=== PATIENT | male | born 1940 | race Caucasian/White ===

== ENCOUNTER → 2016-05-24 | Outpatient (CLI) | payer MEDICARE ==
[2016-05-24 10:18] LABS: Blood Urea Nitrogen 13 mg/dL (9-20); Non-African American GFR(MDRD) >60 (>60 ml/min/1.73 sqM)
--- NOTE | 2016-05-24 14:01 | CT ---
EXAMINATION TYPE: CT angio thoracic/abd aorta DATE OF EXAM: 05/24/2016 11:11 AM COMPARISON: 06/29/2015 HISTORY: 76-year-old male Follow up to aneurysm TECHNIQUE: Contiguous axial scanning of the chest, abdomen, and pelvis performed without and with IV Contrast, patient injected with 100 ml mL of Omnipaque 350. Coronal/sagittal MIP reconstructions perf ormed. 3-D reconstructions generated on a dedicated independent workstation. CT DLP: 3123.1 mGycm Automated exposure control for dose reduction was used. FINDINGS: CHEST: Heart is upper limits of normal in size without pericardial effusion. Mitral annular calcifications a re present as well as coronary vessel calcifications are present and are a marker for coronary artery disease. There is essentially stable aneurysm of the ascending aorta at 4.0 cm. There is conventional arch ves sarwat branching anatomy with mild atherosclerotic arch calcifications and mild aneurysm of the upper de scending thoracic aorta at 3.2 cm. There is tortuosity of the thoracic aorta without evidence for dis section or acute intramural hematoma. Scattered nonenlarged mediastinal lymph nodes are present. There is also mild asymmetric left greater than right gynecomastia. Evaluation of the lungs show some patchy atelectasis or scarring at the right base without consolidat ion or pleural effusion. ABDOMEN: Early arterial phase imaging of the liver, gallbladder, adrenal glands, kidneys, spleen, and pancreas show no gross abnormality. No dilated small bowel, free fluid, or free air. No mesenteric or retroperitoneal lymphadenopathy. Redemonstrated moderate sized fatty umbilical hernia. Normal appendix. There is mild stool burden and left hemicolonic diverticulosis greatest in the proxi mal to mid sigmoid colon. Moderate atherosclerotic calcifications within the abdominal aorta with mild atherosclerotic narrowin g at the origin of the celiac axis and SMA. There are 2 left renal arteries and a pak right steven al artery with mild to moderate atelectatic narrowing at their origins. BARRERA is patent. There is mild fusiform dilatation of the infrarenal abdominal aorta measuring up to 2.8 cm. Pelvis: Circumferential bladder wall thickening is noted. Prostate gland is prominent measuring at least 5.0 cm wide. No abnormal fluid collection in the pelvis or pelvic lymphadenopathy seen along 4 prominent metal hardware artifact relating to the patient's right hip total arch plasty. Mild atherosclerotic calcifications continue into the iliac arteries. There is ectasia/borderline ane urysm of the common iliac arteries at 1.6 and 1.5 cm on the right and left sides, respectively. Bones: Right hip total arthroplasty with degenerative changes at the right SI joint and mid to lower lumbar spine. Endplate spondylosis particularly in the mid thoracic spine. No osseous destructive process. IMPRESSION: 1. 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 2. FUSIFORM ECTASIA OF THE INFRARENAL ABDOMINAL AORTA AT 2.8 CM, STABLE. 3. ECTASIA/BORDERLINE ANEURYSMS OF THE RIGHT AND LEFT COMMON ILIAC ARTERIES AT 1.6 AND 1.5 CM, RESPEC TIVELY, ALSO UNCHANGED. 4. SIGMOID DIVERTICULOSIS AND REDEMONSTRATED MODERATE SIZED FATTY UMBILICAL HERNIA. 5. CIRCUMFERENTIAL BLADDER WALL THICKENING COULD REPRESENT CYSTITIS OR CHRONIC BLADDER WALL HYPERTROP HY. 6. PROSTATOMEGALY (AT LEAST 5.0 CM WIDE).
== END | disposition home or self-care (01) ==
LOC: RADCTMAIN 09:46
PROVIDERS: ATTEND Internal Medicine Interventional Cardiology
DX: I71.2 Thoracic aortic aneurysm, without rupture (principal); I77.811 Abdominal aortic ectasia; N40.0 Benign prostatic hyperplasia without lower urinary tract symptoms; K57.30 Diverticulosis of large intestine without perforation or abscess without bleeding; K42.9 Umbilical hernia without obstruction or gangrene; N32.89 Other specified disorders of bladder
CPT/HCPCS: 82565; 84520; 75635; 71275; 36415; Q9967

== ENCOUNTER → 2016-09-19 | Outpatient (CLI) | payer MEDICARE ==
[2016-09-19 12:18] LABS: Basophils # (A) 0.1 k/uL (0-0.2); Basophils % (A) 1 %; CH 30.8; CHCM 32.4; Eosinophils # (A) 0.5 k/uL (0-0.7); Eosinophils % (A) 5 %; HCT 48.4 % (39.0-53.0); HGB 15.5 gm/dL (13.0-17.5); Luc # (Auto) 0.27; Luc % (Auto) 3; Lymphocytes # (A) 2.3 k/uL (1.0-4.8); Lymphocytes % (A) 26 %; MCH 30.5 pg (25.0-35.0); MCV 95.4 fL (80.0-100.0); Mean Platelet Volume 8.4; Monocytes # (A) 0.6 k/uL (0-1.0); Monocytes % (A) 7 %; Neutrophils # (A) 5.1 k/uL (1.3-7.7); Neutrophils % (A) 57 %; RBC 5.08 m/uL (4.30-5.90); RDW 14.3 % (11.5-15.5); WBC 8.9 k/uL (3.8-10.6); WBC (Perox) 8.55
[2016-09-20 15:16] LABS: Alternaria alternata IgE <0.35 kU/L (<0.35); Asperg. fumagatus IgE <0.35 kU/L (<0.35); Asperg. fumagatus IgE Class CLASS 0; Birch(Com.Silvr) IgE Class CLASS 0; Cat Epith & Dander IgE <0.35 kU/L (<0.35); Cat Epith & Dander IgE Class CLASS 0; Clad herbarum IgE <0.35 kU/L (<0.35); Clad herbarum IgE Class CLASS 0; Common Ragweed IgE Class CLASS 0; Dermato. Pteronyssinus Class CLASS 0; Dermato. Pteronyssinus IgE <0.35 kU/L (<0.35); Dermato. farinae IgE <0.35 kU/L (<0.35); Dermato. farinae IgE Class CLASS 0; IgE (Allergen) 15.5 IU/mL (<114.0); Maple (Box Elder) IgE <0.35 kU/L (<0.35); Maple (Box Elder) IgE Class CLASS 0; Mountain Cedar IgE <0.35 kU/L (<0.35); Mountain Cedar IgE Class CLASS 0; Mouse Urine IgE Class CLASS 0; Mouse Urine Proteins,IgE <0.35 kU/L (<0.35); Mulberry IgE Class CLASS 0; Nettle IgE <0.35 kU/L (<0.35); Nettle IgE Class CLASS 0; Oak IgE <0.35 kU/L (<0.35); Penicillium notatum IgE Class CLASS 0; Rough Marshelder IgE <0.35 kU/L (<0.35); Rough Marshelder IgE Class CLASS 0; Timothy Grass IgE <0.35 kU/L (<0.35); Timothy Grass IgE Class CLASS 0; White Ash IgE Class CLASS 0
[2016-09-25 00:48] LABS: Alternaria tenius IgG 2.5 mcg/mL (< 13.6); Cladosporium herbarium IgG 19.4 mcg/mL (< 14.7); Phoma ssp. IgG 2.6 mcg/mL (< 6.6); Saccaharomospora viridis Not detected (Not detected); Saccaharopoly. rectivirgula Not detected (Not detected)
== END | disposition home or self-care (01) ==
LOC: LABWHC1 11:43
PROVIDERS: ATTEND Internal Medicine Sleep Medicine
DX: J45.909 Unspecified asthma, uncomplicated (principal); B44.89 Other forms of aspergillosis
CPT/HCPCS: 36415; 82785; 85025; 86001; 86003; 86606; 86609

== ENCOUNTER → 2017-06-22 | Outpatient (CLI) | payer MEDICARE ==
[2017-06-22 10:50] LABS: Blood Urea Nitrogen 10 mg/dL (9-20)
--- NOTE | 2017-06-22 14:52 | CT ---
CT CHEST FOR PULMONARY EMBOLISM. EXAMINATION TYPE: CT angio chest DATE OF EXAM: 06/22/2017 INDICATION: Thoracic aortic aneurysm without rupture CT DLP: 1023 mGycm, Automated exposure control for dose reduction was used. CONTRAST: Patient injected with 100 ml mL of Omnipaque 350. COMPARISON: 11/13/2011, CTA 05/24/2016 TECHNIQUE: CT of the chest is performed on a spiral scan at 2 mm thick sections. Study is performed with intravenous contrast timed for evaluation for pulmonary embolism. This will limit additional po rtions of the evaluation. 3-D MIP images reconstructed by the technologist are reviewed on the compu ter in the coronal and sagittal planes. FINDINGS: No persistent filling defects are evident to suggest an acute pulmonary embolism. No mediastinal or hilar adenopathy enlarged by CT criteria is evident. The ascending aorta diameter at the level of the main pulmonary artery is 4.2 cm. The main pulmonary artery diameter at the bifur cation is 2.6 cm. Coronary artery calcification is present. Lung windows are clear. Limited CT section through the upper abdomen are unremarkable. IMPRESSIONS: 1. Ascending thoracic aortic aneurysm. 2. No acute pulmonary process.
== END | disposition home or self-care (01) ==
LOC: RADCTMAIN 09:55
PROVIDERS: ATTEND Internal Medicine Interventional Cardiology
DX: I71.2 Thoracic aortic aneurysm, without rupture (principal)
CPT/HCPCS: 82565; 84520; 71275; 36415; Q9967

== ENCOUNTER 2018-05-07 20:39 | Observation (INO) | payer MEDICARE ==
[2018-05-07] MEDS ORDERED: ASPIRIN 81 MG PO STA (21:05)
--- NOTE | 2018-05-07 21:34 | XR ---
EXAMINATION TYPE: XR chest 1V portable DATE OF EXAM: 05/07/2018 COMPARISON: 06/29/2015 HISTORY: Chest pain TECHNIQUE: Single frontal view of the chest is obtained. FINDINGS: Heart appears enlarged. There is no heart failure. There is coarsening of the lung marking s. There are chest leads. There is small linear density at the left lung base. IMPRESSION: Cardiomegaly. Pulmonary fibrotic changes. No heart failure. Pulmonary aeration decreased compared to last exam. Minimal atelectasis left lung base.
[2018-05-07 21:35] LABS: Basophils % (A) 0 %; Eosinophils # (A) 0.1 k/uL (0-0.7); Eosinophils % (A) 1 %; HCT 49.7 % (39.0-53.0); HGB 15.6 gm/dL (13.0-17.5); Lymphocytes # (A) 1.5 k/uL (1.0-4.8); Lymphocytes % (A) 16 %; MCH 29.4 pg (25.0-35.0); MCHC 31.4 g/dL (31.0-37.0); MCV 93.6 fL (80.0-100.0); Mean Platelet Volume 7.6; Monocytes # (A) 0.6 k/uL (0-1.0); Monocytes % (A) 6 %; Neutrophils # (A) 6.8 k/uL (1.3-7.7); Neutrophils % (A) 73 %; Platelet Count 186 k/uL (150-450); RBC 5.31 m/uL (4.30-5.90); RDW 14.1 % (11.5-15.5); WBC 9.3 k/uL (3.8-10.6)
--- NOTE | 2018-05-07 21:36 | ED ---
Chest Pain HPI - General Chief Complaint: Chest Pain Stated Complaint: High BP/racing heart Time Seen by Provider: 05/07/18 21:04 Source: patient Mode of arrival: ambulatory Limitations: no limitations - History of Present Illness Initial Comments: This patient is a 78-year-old man who presents to be evaluated for "just not feeling right" and for "jags" that he has been feeling in the left chest. The patient states that he routinely takes his blood pressure in the evening and was concerned because it was higher than usual. He states that is usually maintained in the area of the 120s over 60s, but tonight when he routinely checked. It was 180/80. He states that he also was getting what he is calling jags in the left upper chest. I states that they last just a second to 2 and he has a hard time characterizing them. He is declining to call eliseo pain. The patient has not noticed any factors that seem to worsen or improve things. He also notes that he seems to be urinating relatively frequently tonight, though has not noted any other changes in urination, no dysuria or hematuria. MD Complaint: chest pain -: hour(s) Onset: during rest Pain Location: left chest Pain Radiation: none Severity: mild Quality: tightness Consistency: intermittent Improves With: nothing Worsens With: nothing Treatments Prior to Arrival: none - Related Data Home Medications Medication Instructions Recorded Confirmed Insulin Glargine [Lantus] 5 unit SQ DAILY 10/31/14 05/07/18 Multivitamin [Men's Multi-Vitamin] 1 tab PO DAILY 10/31/14 05/07/18 Simvastatin [Zocor] 20 mg PO HS 10/31/14 05/07/18 Warfarin [Coumadin] 7.5 mg PO TUTHSA 10/31/14 05/07/18 hydrALAZINE HCL 25 mg PO BID 10/31/14 05/07/18 Albuterol Nebulized [Ventolin 2.5 mg INHALATION RT-HS 05/07/18 05/07/18 Nebulized] Fluticasone/Vilanterol [Breo 1 puff INHALATION RT-DAILY 05/07/18 05/07/18 Ellipta 100-25 Mcg Inhaler] Metoprolol Succinate (ER) [Toprol 50 mg PO DAILY 05/07/18 05/07/18 Xl] Warfarin [Coumadin] 3.75 mg PO SUMOWEFR 05/07/18 05/07/18 Allergies Allergy/AdvReac Type Severity Reaction Status Date / Time No Known Allergies Allergy Verified 05/07/18 21:13 Review of Systems ROS Statement: Those systems with pertinent positive or pertinent negative responses have been documented in the HPI. ROS Other: All systems not noted in ROS Statement are negative. Constitutional: Denies: fever, chills, weakness Eyes: Denies: vision change Respiratory: Denies: cough, dyspnea Cardiovascular: Reports: as per HPI, chest pain. Denies: palpitations, orthopnea, edema, syncope Gastrointestinal: Denies: abdominal pain, nausea, vomiting, diarrhea, melena, hematochezia Genitourinary: Reports: frequency. Denies: dysuria, hematuria Musculoskeletal: Denies: back pain Skin: Denies: rash Neurological: Denies: headache, weakness, numbness EKG Findings - EKG Comments: EKG Findings:: Underlying rhythm appears to be atrial fibrillation rate of 95 bpm - EKG Results: EKG: interpreted by ERMD, normal QRS, normal ST/T - Blocks, [place], Hypertrophy, ST Abn: QRS axis and voltage: left axis deviation (-30 to -90) Past Medical History Past Medical History: Atrial Fibrillation, Coronary Artery Disease (CAD), COPD, Diabetes Mellitus, Hypertension, Sleep Apnea/CPAP/BIPAP History of Any Multi-Drug Resistant Organisms: None Reported Past Surgical History: Joint Replacement Past Psychological History: No Psychological Hx Reported Smoking Status: Former smoker Past Alcohol Use History: None Reported Past Drug Use History: None Reported General Exam Limitations: no limitations General appearance: alert, in no apparent distress Head exam: Present: atraumatic, normocephalic Eye exam: Present: normal appearance Respiratory exam: Present: normal lung sounds bilaterally. Absent: respiratory distress, wheezes, rales, rhonchi, stridor Cardiovascular Exam: Present: regular rate, normal rhythm, systolic murmur. Absent: diastolic murmur, rubs, gallop GI/Abdominal exam: Present: soft. Absent: distended, tenderness, guarding, rebound, rigid Extremities exam: Present: normal capillary refill, pedal edema (Trace edema at the ankles bilaterally, patient states normal for him). Absent: calf tenderness Back exam: Present: normal inspection. Absent: CVA tenderness (R), CVA tenderness (L) Neurological exam: Present: alert Skin exam: Present: warm, dry, intact, normal color. Absent: rash Course Vital Signs 05/07/18 05/07/18 20:40 21:12 Temperature 98.2 F Pulse Rate 96 95 Respiratory 20 18 Rate Blood Pressure 161/100 131/96 O2 Sat by Pulse 99 98 Oximetry Disposition Clinical Impression: Chest pain Disposition: ADMITTED IP TO THIS HOSP Condition: Undetermined Instructions: Chest Pain (ED) Referrals: Kristel Cuadra MD [Primary Care Provider] - 1-2 days
[2018-05-07 21:43] LABS: D-Dimer 0.26 mg/L FEU (<0.60); INR 1.9 (<1.2); Partial Thromboplastin Time 29.7 sec (22.0-30.0); Prothrombin Time 18.6 sec (9.0-12.0)
[2018-05-07 21:48] LABS: Albumin 4.1 g/dL (3.5-5.0); Calcium 9.4 mg/dL (8.4-10.2); Magnesium 1.8 mg/dL (1.6-2.3); Total Bilirubin 0.5 mg/dL (0.2-1.3)
[2018-05-07 22:07] LABS: Troponin I 0.023 ng/mL (0.000-0.034)
[2018-05-08 01:08] VITALS: BMI 40.1
[2018-05-08 01:40] LABS: Glucose,Whole Blood 134 mg/dL (75-99)
[2018-05-08 04:14] LABS: Creatine Kinase MB 2.5 ng/mL (0.0-2.4)
[2018-05-08 04:23] LABS: Troponin I 0.037 ng/mL (0.000-0.034)
[2018-05-08] MEDS: NITROGLYCERIN OINT 1 INCH/GM PACKET TOPICAL SCH ×2 (05:49→12:09)
[2018-05-08 06:41] LABS: Glucose,Whole Blood 122 mg/dL (75-99)
[2018-05-08] MEDS: METOPROLOL SUCCINATE (ER) 50 MG TAB.ER.24H PO SCH (08:46)
[2018-05-08] MEDS: hydrALAZINE HCL 25 MG TAB PO SCH ×2 (08:46→20:47)
[2018-05-08 10:14] LABS: Cholesterol 177 mg/dL (<200); HDL Cholesterol 50 mg/dL (40-60); LDL Cholesterol,Calculated 111 mg/dL (0-99); Triglycerides 80 mg/dL (<150)
[2018-05-08] MEDS ORDERED: HEPARIN SOD,PORK IN 0.45% NACL 25,000 UNIT in 0.45% NACL 1 250ML.BAG IV SCH (10:30)
[2018-05-08] MEDS ORDERED: HEPARIN SODIUM,PORCINE 5,000 UNIT/ML 1 ML VIAL IV PRN (10:30)
[2018-05-08] MEDS ORDERED: HEPARIN SODIUM,PORCINE 5,000 UNIT/ML 1 ML VIAL IV ONE (10:30)
[2018-05-08 10:38] LABS: Creatine Kinase MB 2.2 ng/mL (0.0-2.4)
[2018-05-08 10:43] LABS: Troponin I 0.041 ng/mL (0.000-0.034)
[2018-05-08] MEDS ORDERED: NITROGLYCERIN SL TABS 0.4 MG TAB SUBLINGUAL PRN (11:01)
[2018-05-08] MEDS ORDERED: ALPRAZolam 0.25 MG TAB PO PRN (11:01)
[2018-05-08] MEDS ORDERED: ALPRAZolam 0.5 MG TAB PO PRN (11:01)
[2018-05-08] MEDS ORDERED: SODIUM CHLORIDE 0.9% 1,000 ML in EMPTY BAG 1 BAG IV ONE (11:01)
[2018-05-08 11:20] LABS: Calcium 9.4 mg/dL (8.4-10.2); Potassium 4.2 mmol/L (3.5-5.1)
[2018-05-08 11:32] LABS: INR 1.9 (<1.2); Partial Thromboplastin Time 29.8 sec (22.0-30.0); Prothrombin Time 18.3 sec (9.0-12.0)
[2018-05-08] MEDS ORDERED: IV FLUID CONTINUATION 1,000 ML IV ONE (11:51)
[2018-05-08] MEDS ORDERED: ASPIRIN 325 MG TAB PO SCH (12:00)
[2018-05-08] MEDS ORDERED: fentaNYL (PF) 50 MCG/ML 2 ML AMP IV ONE (12:11)
[2018-05-08] MEDS ORDERED: LIDOCAINE 1% INJ 10MG/ML (20 ML MDV) SQ ONE ×2 (12:15→12:29)
[2018-05-08] MEDS ORDERED: VERAPAMIL SYRINGE (5 MG/10 ML) INTRAARTER ONE (12:16)
[2018-05-08] MEDS ORDERED: IOPAMIDOL-370 125ML BTL INJ ONE (12:37)
[2018-05-08] MEDS ORDERED: HEPARIN SODIUM 1,000 UN/ML (10ML VL) IV ONE (12:40)
[2018-05-08] MEDS ORDERED: IOPAMIDOL-370 50ML BTL INJ ONE (12:43)
--- NOTE | 2018-05-08 12:43 | P.CRDCN ---
History of Present Illness History of present illness: This is a pleasant 78-year-old male past medical history significant for paroxysmal atrial fibrillation on long-term anticoagulation with Coumadin, hypertension, COPD, thoracic aortic aneurysm, obstructive sleep apnea using CPAP , diabetes mellitus and morbid obesity. He follows with Dr. Bynum in the office. We have been asked to see him in consultation for symptoms of chest pain. He states he works out daily with his using a stationary bike and lifting light weights. He had just gotten done using the bike and was going to eat some breakfast. He started feeling odd and had a burning sensation in the left precordial region along with palpitations. He checked his blood pressure at home and it was elevated around 180 systolic and his heart rate was 110. He states he has been feeling this burning in his left precordial region intermittently over the last month. The discomfort is not intense and is tolerable. It seems to come after he does his weight lifting exercises and resolved when he is done exercising. He denies shortness of breath, dizziness or nausea/vomiting. He describes intermittent gas like pains as well in the left shoulder region. He denies radiation to the arm, back, neck or jaw. EKG reveals possible accelerated junctional rhythm. Repeat this morning reveals sinus bradycardia. Chest x-ray reveals pulmonary fibrotic changes no heart failure and cardiomegaly. Laboratory data reviewed, WBC 9.0, hemoglobin 15.6, platelets 186, INR 1.9, sodium 143, potassium 4.2, creatinine 1.16, GFR 60, cardiac enzymes 0.023, 0.037 and 0.041. LDL 111 and HDL 50. Current cardiac medications include hydralazine 25 mg twice a day, Coumadin, simvastatin 20 mg daily, Toprol 50 mg daily. At the time of my exam: CONSTITUTIONAL: Denies fever. Denies chills. EYES: Denies blurred vision. Denies vision changes. Denies eye pain. EARS, NOSE, MOUTH & THROAT: Denies headache. Denies sore throat. Denies ear pain. CARDIOVASCULAR: Denies chest pain. Denies shortness of breath. Denies orthopnea. Denies PND. Denies palpitations. RESPIRATORY: Denies cough. GASTROINTESTINAL: Denies abdominal pain. Denies diarrhea. Denies constipation. Denies nausea. Denies vomiting. MUSCULOSKELETAL: Denies myalgias. INTEGUMENTARY: Denies pruitis. Denies rash. NEUROLOGIC: Denies numbness. Denies tingling. Denies weakness. PSYCHIATRIC: Denies anxiety. Denies depression. ENDOCRINE: Denies fatigue. Denies weight change. Denies polydipsia. Denies polyurina. GENITOURINARY: Denies burning, hematuria or urgency with micturation. HEMATOLOGIC: Denies history of anemia. Denies bleeding. Blood pressure 179/96 heart rate 57 afebrile maintaining oxygen saturation on room air GENERAL: This is a 78-year-old male in no apparent distress at the time of my examination. Obese. HEENT: Head is atraumatic, normocephalic. Pupils are equal, round. Sclerae anicteric. Conjunctivae are clear. Mucous membranes of the mouth are moist. Neck is supple. There is no jugular venous distention. No carotid bruit is heard. LUNGS: Clear to auscultation no wheezes, rales or rhonchi. No chest wall tenderness is noted on palpation or with deep breathing. Diminished bilaterally. HEART: Regular rate and rhythm with systolic ejection murmur at the base, no rubs or gallops. S1 and S2 heard. ABDOMEN: Soft, nontender. Bowel sounds are heard. No organomegaly noted. EXTREMITIES: Trace bilateral lower extremity nonpitting edema and no calf tenderness noted. VASCULAR: Radial and dorsalis pedis pulses palpated, no evidence of clubbing. NEUROLOGIC: Patient is awake, alert and oriented x3. ASSESSMENT Unstable angina Non ST elevated myocardial infarction Paroxysmal atrial fibrillation on long-term anticoagulation with Coumadin Subtherapeutic INR on admission Hypertension, uncontrolled History of thoracic aortic aneurysm most recent CT of the chest measuring 4.2 cm. COPD Obstructive sleep apnea Diabetes mellitus Morbid obesity, BMI 40 PLAN Obtain 2D echocardiogram and doppler study to assess cardiac structure and function. Initiate patient on heparin infusion and hold Coumadin. Repeat INR and BMP. Resume his home medications hydralazine 25 mg twice a day and Toprol 50 mg daily. Increase atorvastatin to 40 mg daily. We recommend proceeding with cardiac catheterization to further assess for obstructive coronary artery disease. I have discussed the risks, benefits and alternative therapies for the above-mentioned procedure and for both sedation/ analgesia as well as necessary blood product administration, if indicated, as they pertain to this patient. The patient and his children have indicated understanding and acceptance of the risks and procedures discussed. Questions have been answered appropriately and he is agreeable to move forward with the above-stated procedure. We will tentatively board him for noon time today pending a repeat INR. Further recommendations to follow, thank you kindly for this consultation. Nurse Practitioner note has been reviewed, I agree with a documented findings and plan of care. Patient was seen and examined. Past Medical History Past Medical History: Atrial Fibrillation, Coronary Artery Disease (CAD), COPD, Diabetes Mellitus, Hypertension, Sleep Apnea/CPAP/BIPAP History of Any Multi-Drug Resistant Organisms: None Reported Past Surgical History: Joint Replacement Additional Past Surgical History / Comment(s): R. Hip Past Anesthesia/Blood Transfusion Reactions: No Reported Reaction Past Psychological History: No Psychological Hx Reported Smoking Status: Former smoker Past Alcohol Use History: None Reported Additional Past Alcohol Use History / Comment(s): Pt. states that he quit smoking over 40 years ago and he just smoked cigars once in a while Past Drug Use History: None Reported - Past Family History Father Family Medical History: Myocardial Infarction ([place]) Medications and Allergies Home Medications Medication Instructions Recorded Confirmed Type Insulin Glargine [Lantus] 5 unit SQ DAILY 10/31/14 05/07/18 History Multivitamin [Men's Multi-Vitamin] 1 tab PO DAILY 10/31/14 05/07/18 History Simvastatin [Zocor] 20 mg PO HS 10/31/14 05/07/18 History Warfarin [Coumadin] 7.5 mg PO TUTHSA 10/31/14 05/07/18 History hydrALAZINE HCL 25 mg PO BID 10/31/14 05/07/18 History Albuterol Nebulized [Ventolin 2.5 mg INHALATION RT-HS 05/07/18 05/07/18 History Nebulized] Fluticasone/Vilanterol [Breo 1 puff INHALATION RT-DAILY 05/07/18 05/07/18 History Ellipta 100-25 Mcg Inhaler] Metoprolol Succinate (ER) [Toprol 50 mg PO DAILY 05/07/18 05/07/18 History Xl] Warfarin [Coumadin] 3.75 mg PO SUMOWEFR 05/07/18 05/07/18 History Allergies Allergy/AdvReac Type Severity Reaction Status Date / Time No Known Allergies Allergy Verified 05/07/18 21:13 Physical Exam Vitals: Vital Signs Temp Pulse Pulse Resp BP BP BP 05/08/18 07:20 98.2 F 57 L 18 05/08/18 04:00 98.7 F 62 16 157/88 05/08/18 01:30 63 16 05/08/18 01:12 97.3 F L 63 16 160/83 05/08/18 00:07 98.0 F 62 18 163/93 05/07/18 21:12 95 18 131/96 05/07/18 20:40 98.2 F 96 20 161/100 BP Pulse Ox 05/08/18 07:20 179/96 96 05/08/18 04:00 98 05/08/18 01:30 05/08/18 01:12 97 05/08/18 00:07 97 05/07/18 21:12 98 05/07/18 20:40 99 Intake and Output 05/07/18 05/08/18 05/08/18 22:59 06:59 14:59 Other: Voiding Method Toilet # Voids 2 Weight 127.006 kg 127.006 kg Results 05/07/18 21:10 05/08/18 09:22 Cardiac Enzymes 05/07/18 05/07/18 05/08/18 Range/Units 21:10 21:10 03:13 AST 24 (17-59) U/L CK-MB (CK-2) 3.0 H 2.5 H (0.0-2.4) ng/mL Troponin I 0.023 0.037 H* (0.000-0.034) ng/mL Coagulation 05/07/18 Range/Units 21:10 PT 18.6 H (9.0-12.0) sec APTT 29.7 (22.0-30.0) sec CBC 05/07/18 Range/Units 21:10 WBC 9.3 (3.8-10.6) k/uL RBC 5.31 (4.30-5.90) m/uL Hgb 15.6 (13.0-17.5) gm/dL Hct 49.7 (39.0-53.0) % Plt Count 186 (150-450) k/uL Comprehensive Metabolic Panel 05/07/18 Range/Units 21:10 Sodium 141 (137-145) mmol/L Potassium 4.0 (3.5-5.1) mmol/L Chloride 104 (98-107) mmol/L Carbon Dioxide 28 (22-30) mmol/L BUN 18 (9-20) mg/dL Creatinine 1.31 H (0.66-1.25) mg/dL Glucose 204 H (74-99) mg/dL Calcium 9.4 (8.4-10.2) mg/dL AST 24 (17-59) U/L ALT 30 (21-72) U/L Alkaline Phosphatase 77 (38-126) U/L Total Protein 7.0 (6.3-8.2) g/dL Albumin 4.1 (3.5-5.0) g/dL Current Medications Generic Name Dose Route Start Last Admin Trade Name Freq PRN Reason Stop Dose Admin Aspirin 325 mg 05/09/18 09:00 Aspirin PO DAILY [facility] Atorvastatin Calcium 10 mg 05/08/18 21:00 Lipitor PO HS [facility] Hydralazine HCl 25 mg 05/08/18 09:00 Apresoline PO BID [facility] Metoprolol Succinate 50 mg 05/08/18 09:00 Toprol Xl PO DAILY [facility] Nitroglycerin 1 inch 05/08/18 06:00 05/08/18 05:49 Nitro-Bid Oint TOPICAL Not Given Q6HR [facility] Sodium Chloride 10 ml 05/08/18 09:00 Saline Flush IV BID [facility] Intake and Output 05/07/18 05/08/18 05/08/18 22:59 06:59 14:59 Other: Voiding Method Toilet # Voids 2 Weight 127.006 kg 127.006 kg 05/07/18 21:10 05/07/18 21:10
[2018-05-08] MEDS ORDERED: RX INFO: IV CONTRAST WAS GIVEN 1 EACH MISC MISCELLANE PRN (12:55)
[2018-05-08] MEDS ORDERED: SODIUM CHLORIDE 0.9% 1,000 ML IV SCH (13:00)
[2018-05-08 13:18] LABS: Glucose,Whole Blood 107 mg/dL (75-99)
--- NOTE | 2018-05-08 13:23 | ECHOF ---
Referral Reason:cp MEASUREMENTS -------- HEIGHT: 152.4 cm WEIGHT: 127.0 kg BP: 179/96 IVSd: 1.5 cm (0.6 - 1.1) LVIDd: 5.3 cm (3.9 - 5.3) LVPWd: 1.7 cm (0.6 - 1.1) IVSs: 1.7 cm LVIDs: 3.7 cm LVPWs: 1.7 cm LA Diam: 4.4 cm (2.7 - 3.8) LAESV Index (A-L): 46.83 ml/m Ao Diam: 4.1 cm (2.0 - 3.7) AV Cusp: 1.4 cm (1.5 - 2.6) LA Diam: 3.9 cm (2.7 - 3.8) MV E Antonio: 0.65 m/s MV DecT: 408 ms MV A Antonio: 1.32 m/s MV E/A Ratio: 0.50 AV maxP.83 mmHg AV meanP.92 mmHg RAP: 5.00 mmHg RVSP: 34.57 mmHg FINDINGS -------- Sinus rhythm. Morbid Obesity This was a techncally difficult study with suboptimal views, , Lumason utilized for enhancement of im ages. The left ventricular size is normal. There is moderate concentric left ventricular hypertrophy. O verall left ventricular systolic function is normal with, an EF between 55 - 60 %. The right ventricle is normal in size. The left atrium is moderately dilated. LA is severely dilated >40 ml/m2 The right atrial size is normal. 5.0mg OF Lumason UTLIZED: 2 OR MORE WALL SEGMENTS NOT VISUALIZED. There is mild to moderate aortic valve sclerosis. There is moderate aortic stenosis present. Peak /mean gradient across the Aortic Valve is 43.83mmHg / 21.92mmHg. Mild mitral annular calcification present. Mild mitral regurgitation is present. Mild tricuspid regurgitation present. There is no evidence of pulmonary hypertension. The right v entricular systolic pressure, as measured by Doppler, is 34.57mmHg. There is no pulmonic regurgitation present. The aortic root size is normal. There is no pericardial effusion. CONCLUSIONS -------- 1. Morbid Obesity 2. This was a techncally difficult study with suboptimal views, , Lumason utilized for enhancement of images. 3. The left ventricular size is normal. 4. There is moderate concentric left ventricular hypertrophy. 5. Overall left ventricular systolic function is normal with, an EF between 55 - 60 %. 6. The right ventricle is normal in size. 7. The left atrium is moderately dilated. 8. LA is severely dilated >40 ml/m2 9. The right atrial size is normal. 10. 5.0mg OF Lumason UTLIZED: 2 OR MORE WALL SEGMENTS NOT VISUALIZED. 11. There is mild to moderate aortic valve sclerosis. 12. There is moderate aortic stenosis present. 13. Peak/mean gradient across the Aortic Valve is 43.83mmHg / 21.92mmHg. 14. Mild mitral annular calcification present. 15. Mild mitral regurgitation is present. 16. Mild tricuspid regurgitation present. 17. There is no evidence of pulmonary hypertension. 18. The right ventricular systolic pressure, as measured by Doppler, is 34.57mmHg. 19. There is no pulmonic regurgitation present. 20. The aortic root size is normal. 21. There is no pericardial effusion. [employer] OFFICER: Belkys Kinney RDCS
--- NOTE | 2018-05-08 13:30 | CC ---
CARDIAC CATHETERIZATION REPORT Mr. Clements is a 78-year-old male with known history of diabetes, hypertension, hyperlipidemia, paroxysmal atrial fibrillation who presented with symptoms of chest discomfort. He had mild elevation of troponin, but no EKG changes. In view of that, recommendation was made regarding cardiac catheterization. The procedure as well as the risks and the complications were discussed with the patient who is in full understanding and agreement. PROCEDURE: Patient was brought to laborer chemical processing in a fasting semi-sedated state after receiving fentanyl and Benadryl and achieving moderate conscious sedated state. Using Xylocaine anesthesia in the Seldinger technique a 6-Swiss sheath introduced in the right radial artery. Attempt to advance the wire was unsuccessful because of a tight radial loop. At that time, using Xylocaine anesthesia in the Seldinger technique, a 6-Swiss sheath was introduced in the right femoral artery. Selective right and left coronary angiography performed using 6-Swiss 4 bend right and left Jyothi catheters. Multiple views of the coronary artery including hemiaxial views were obtained. Following that, 5- Swiss tight pigtail catheter introduced in the system and an MONTSERRATIAN view of the ascending aorta was performed. Following that, catheter and sheath were removed. Hemostasis was obtained by deployment of an Angio-Seal and a TR band. Of note, the patient received 3000 units of intravenous heparin as well as intra-arterial verapamil. There was no immediate complication. FINDINGS: LEFT MAIN: This is a large size vessel bifurcating in left circumflex and left anterior descending artery. Has no evidence of high-grade stenosis. LEFT ANTERIOR DESCENDING ARTERY: This is a large-sized vessel reaching toward the apex that tapers down to distal third giving rise to a large diagonal branch. At the takeoff of the diagonal branch, there is a 40% to 50% plaque. The rest of the vessel has no high-grade stenosis. LEFT CIRCUMFLEX: This is a nondominant vessel giving rise to 3 obtuse marginal branches. The first one is the largest in caliber. The left circumflex as well as branches have no evidence of obstructive coronary artery disease. RIGHT CORONARY ARTERY: This is a large dominant vessel bifurcating into PDA and posterolateral segment and branches. The right coronary artery and mid segment has 10% to 20% plaque. The rest of the vessel has no high-grade stenosis. The right PDA reaches toward the inferoapical wall. LEFT VENTRICULOGRAM: Left ventriculogram is not performed. AORTOGRAM: Aortogram was performed in the MONTSERRATIAN view and revealed dilated ascending aorta with a 1+ aortic regurgitation. CONCLUSION: 1. Mild to moderate disease in the mid left anterior descending artery. 2. Mild disease in the right coronary artery. 3. Dilated ascending aorta. RECOMMENDATION: In view of finding anatomy, recommend to continue medical therapy with aggressive coronary risk modifications that have been initiated. Those findings and recommendations were discussed with the patient and his family who are in full understanding and agreement. Duration of procedure is 32 minutes. MMODL / IJN: [id number] /
[2018-05-08] MEDS: ISOSORBIDE MONONITRATE ER 30 MG TAB.ER.24H PO SCH (14:08)
[2018-05-08 16:52] LABS: Glucose,Whole Blood 114 mg/dL (75-99)
[2018-05-08] MEDS ORDERED: HYDROcodone/APAP 5-325MG 1 EACH TAB PO PRN (19:18)
[2018-05-08] MEDS ORDERED: ALBUTEROL NEBULIZED 2.5 MG/3 ML INHALATION SCH (20:00)
--- NOTE | 2018-05-08 20:30 | HP ---
HISTORY AND PHYSICAL DATE OF SERVICE: 05/08/2018 CHIEF COMPLAINT: Chest pain. HISTORY OF PRESENT ILLNESS: This 78-year-old gentleman with a past medical history of multiple medical problems, including atrial fibrillation, CAD, COPD, diabetes mellitus, hypertension, sleep apnea, being followed by Dr. Cuadra in the outpatient setting, was complaining of chest pain. The patient was not feeling right and the patient had some pains in the left chest. His blood pressure was also found to be elevated. The pain was not radiating. It was mild to moderate any palpitations, sweating exertion. The patient came to [facility], admitted for further evaluation and treatment. Troponin was found to be 0.041. The patient underwent cardiac catheterization by Cardiology which showed mild to moderate disease in the LAD and mild disease in the RCA and dilating ascending aorta, also. The patient was admitted for further evaluation. There is no history of any fever, rigor or chills. No history of headache, loss of consciousness, seizures. A 2D echo with Doppler was also done by Cardiology which showed mild valvular abnormalities, ejection fraction about 50% to 60%, and severely dilated LA at more than 40 mL/ m2. No chest pain. No palpitation. PAST MEDICAL HISTORY: 1. History of atrial fibrillation. 2. CAD. 3. COPD. 4. Diabetes mellitus. 5. Hypertension. 6. Sleep apnea. HOME MEDICATIONS: 1. Hydralazine 25 mg p.o. b.i.d. 2. Coumadin 3.75 mg p.o. Sunday, Sunday, Sunday, Sunday and 7.5 mg Sunday, , Sunday. 3. Zocor 20 mg at bedtime. 4. Multivitamins 1 p.o. daily. 5. Toprol-XL 50 mg p.o. daily. 6. Lantus 5 units subcutaneously daily. 7. Breo Ellipta 100/25 daily. 8. Ventolin 2.5 at bedtime. ALLERGIES: NONE. FAMILY HISTORY: History of myocardial infarction in the family. SOCIAL HISTORY: Previous history of smoking. No history of alcohol intake. REVIEW OF SYSTEMS: ENT: No diminished hearing. No diminished vision. CARDIOVASCULAR SYSTEM: No angina, palpitations. RESPIRATORY SYSTEM: As mentioned earlier. GI: No nausea, vomiting. : No dysuria or retention. NERVOUS SYSTEM: No numbness, weakness. ALLERGY/IMMUNOLOGY: No asthma, hayfever. MUSCULOSKELETAL: As mentioned earlier. HEMATOLOGY/ONCOLOGY: No history of anemia. ENDOCRINE: Diabetes mellitus. CONSTITUTIONAL: As mentioned earlier. DERMATOLOGY: Negative. RHEUMATOLOGY: Negative. PSYCHIATRY: As mentioned earlier. PHYSICAL EXAMINATION: Patient alert and oriented x3. Pulse is 55, blood pressure 120/69, respiration 18, temperature normal, pulse ox 97% on 2 L. HEENT: Conjunctivae normal. NECK: No jugular venous distention. CARDIOVASCULAR: S1, S2 muffled. RESPIRATORY SYSTEM: Breath sounds diminished at the bases. Bilateral scattered rhonchi and crackles. ABDOMEN: Soft, non-tender. No mass palpable. LEGS: No edema. No swelling. NERVOUS SYSTEM: Higher functions as mentioned earlier. Moves all 4 limbs. No focal motor or sensory deficit. LYMPHATICS: No lymph node palpable in neck, axillae or groin. SKIN: No ulcer, rash, bleeding. LABS: Sodium 143, potassium 4.2. Glucose 145. Troponin 0.041. LDL is 111. ASSESSMENT: 1. Chest pain; possible acute [id number]-elevation myocardial infarction, status post cardiac catheterization and mild to moderate coronary artery disease. 2. Coronary artery disease in the mid left anterior descending coronary artery as well as right coronary artery. 3. Dilated ascending aorta. 4. History of atrial fibrillation. 5. History of coronary artery disease. 6. Chronic obstructive pulmonary disease. 7. Diabetes mellitus, type 2. 8. Hypertension. 9. History of sleep apnea. 10.Obesity with body mass index of 40. 11.History of degenerative joint disease. 12.Remote history of nicotine dependence. RECOMMENDATIONS AND DISCUSSION: In this 78-year-old gentleman who presented with multiple complex medical issues , we will monitor the patient closely, continue the current management, continue with symptomatic treatment. I would recommend continuing with hypolipidemic agents, antiplatelets and beta blockers. We will follow the patient closely with Cardiology. Prognosis is guarded because of multiple complex medical issues. Further recommendations to follow. A copy of this dictation is being forwarded to Dr. Cuadra, who is the primary physician. MMODL / CLAUDIAN: [id number] / MTDD
[2018-05-08 20:33] LABS: Glucose,Whole Blood 169 mg/dL (75-99)
[2018-05-08] MEDS ORDERED: ATORVASTATIN 10 MG TAB PO SCH (21:00)
[2018-05-08] MEDS ORDERED: ATORVASTATIN 40 MG TAB PO SCH (21:00)
[2018-05-08] MEDS: INSULIN ASPART 100 UNIT/ML 1 ML 10 ML VIAL SQ SCH (22:58)
[2018-05-09 06:46] LABS: Glucose,Whole Blood 100 mg/dL (75-99)
[2018-05-09 06:56] LABS: Basophils % (A) 0 %; Eosinophils # (A) 0.2 k/uL (0-0.7); Eosinophils % (A) 2 %; HCT 48.1 % (39.0-53.0); HGB 15.2 gm/dL (13.0-17.5); Lymphocytes # (A) 1.8 k/uL (1.0-4.8); Lymphocytes % (A) 18 %; MCH 29.6 pg (25.0-35.0); MCHC 31.7 g/dL (31.0-37.0); MCV 93.3 fL (80.0-100.0); Monocytes # (A) 0.8 k/uL (0-1.0); Monocytes % (A) 8 %; Neutrophils % (A) 69 %; Platelet Count 149 k/uL (150-450); RBC 5.16 m/uL (4.30-5.90); RDW 14.3 % (11.5-15.5); WBC 10.2 k/uL (3.8-10.6)
[2018-05-09 07:04] LABS: INR 1.9 (<1.2); Prothrombin Time 18.9 sec (9.0-12.0)
[2018-05-09] MEDS ORDERED: INSULIN ASPART 100 UNIT/ML 1 ML 10 ML VIAL SQ SCH (07:30)
[2018-05-09 07:32] LABS: Calcium 9.1 mg/dL (8.4-10.2)
[2018-05-09] MEDS ORDERED: SYMBICORT 80-4.5 MCG INHALER INHALATION SCH (08:00)
[2018-05-09] MEDS: INSULIN ASPART 100 UNIT/ML 1 ML 10 ML VIAL SQ SCH ×2 (08:57→12:37)
[2018-05-09] MEDS ORDERED: INSULIN DETEMIR 100 UNIT/ML 10 ML VIAL SQ SCH (09:00)
[2018-05-09] MEDS ORDERED: ASPIRIN 325 MG TAB PO SCH (09:00)
[2018-05-09] MEDS: hydrALAZINE HCL 25 MG TAB PO SCH ×2 (09:01→09:04)
[2018-05-09] MEDS: PANTOPRAZOLE 40 MG TABLET PO SCH ×2 (09:01→09:04)
[2018-05-09] MEDS: METOPROLOL SUCCINATE (ER) 50 MG TAB.ER.24H PO SCH (09:02)
[2018-05-09] MEDS: ISOSORBIDE MONONITRATE ER 30 MG TAB.ER.24H PO SCH (09:02)
[2018-05-09] MEDS: ASPIRIN 81 MG PO SCH ×2 (09:02→09:05)
[2018-05-09 09:10] VITALS: BP 152/74; PULSE 60; RESP 18; TEMP 99.2
[2018-05-09 11:56] LABS: Glucose,Whole Blood 145 mg/dL (75-99)
[2018-05-09] MEDS ORDERED: MULTIVITAMINS, THERA 1 EACH TAB PO SCH (12:00)
--- NOTE | 2018-05-10 07:01 | DS ---
DISCHARGE SUMMARY DATE OF SERVICE: 05/09/2018 FINAL DIAGNOSES: 1. Chest pain, possible acute non-ST segment elevation myocardial infarction, status post cardiac catheterization [id number] coronary artery disease. 2. Coronary artery disease in the mid left anterior descending artery as well as right coronary artery. 3. Dilated ascending aorta. 4. History of atrial fibrillation. 5. History of coronary artery disease. 6. History of chronic obstructive pulmonary disease. 7. Diabetes mellitus type 2. 8. Hypertension. 9. History of sleep apnea. 10.Obesity with body mass index of 40. 11.History of degenerative joint disease. 12.Remote history of nicotine dependence. DISCHARGE DISPOSITION: The patient will be discharged in stable condition with guarded prognosis. HISTORY OF PRESENT ILLNESS: This 78-year-old gentleman admitted with chest pain had slightly elevated troponins. The patient underwent a cardiac catheterization that showed only mild to moderate disease. Medical treatment was recommended. The patient follows with Dr. Cuadra in the outpatient setting. On exam, vitals are stable. CARDIOVASCULAR: S1, S2 muffled. ABDOMEN: Soft. NERVOUS SYSTEM: No focal deficits. DISCHARGE ADVICE: 1. Diet is cardiac diet. 2. Activity limited until followup. 3. Follow up with Dr. Cuadra in 2 to 3 days. 4. Follow up with Dr. Bynum as advised. MEDICATIONS: 1. Ventolin 2.5 q.h.s. 2. Breo Ellipta 1 puff daily. 3. Hydralazine 25 mg b.i.d. 4. Lantus 5 units subcutaneous daily. 5. Toprol XL 50 mg p.o. daily. 6. Multivitamins 1 p.o. daily. 7. Coumadin 7.5 mg Sunday, , Sunday and 3.75 mg Sunday, Sunday, Sunday, Sunday. 8. Aspirin 81 mg daily. 9. Lipitor 40 mg q.h.s. 10.Imdur ER 30 mg p.o. daily. Once again, the patient will be discharged in stable condition and guarded prognosis. MMODL / IJN: [id number] /
== END 2018-05-09 12:35 | disposition home or self-care (01) ==
LOC: EC 20:39 → 1SOBS 05-08 00:07
PROVIDERS: ADMIT Hospitalist; ATTEND Hospitalist
DX: R07.89 Other chest pain (principal); I25.10 Atherosclerotic heart disease of native coronary artery without angina pectoris; R77.8 Other specified abnormalities of plasma proteins; I71.2 Thoracic aortic aneurysm, without rupture; J44.9 Chronic obstructive pulmonary disease, unspecified; I48.0 Paroxysmal atrial fibrillation; I10 Essential (primary) hypertension; E11.9 Type 2 diabetes mellitus without complications; G47.33 Obstructive sleep apnea (adult) (pediatric); Z99.89 Dependence on other enabling machines and devices; E78.5 Hyperlipidemia, unspecified; F17.290 Nicotine dependence, other tobacco product, uncomplicated; M19.90 Unspecified osteoarthritis, unspecified site; E66.01 Morbid (severe) obesity due to excess calories; Z68.41 Body mass index [BMI] 40.0-44.9, adult; Z79.01 Long term (current) use of anticoagulants; Z79.4 Long term (current) use of insulin; Z79.51 Long term (current) use of inhaled steroids; Z79.899 Other long term (current) drug therapy; Z96.60 Presence of unspecified orthopedic joint implant; Z82.49 Family history of ischemic heart disease and other diseases of the circulatory system
CPT/HCPCS: 99285; 36415; 94640 ×3; 93005; 93454; 93567; 85379; 80061; 80053; 80048 ×2; 82550 ×2; 82553 ×2; 83735; 84484 ×2; 85025 ×2; 85610 ×3; 85730 ×2; 71045; G0378 ×2; C8929; C1760; C1894 ×2; C1769 ×2; J2001; J3010; J1644; Q9950; Q9967 ×2; 93306

== ENCOUNTER → 2018-07-11 | Outpatient (CLI) | payer MEDICARE ==
--- NOTE | 2018-07-11 13:20 | CT ---
EXAMINATION TYPE: CT angio chest DATE OF EXAM: 07/11/2018 COMPARISON: 06/22/2017 HISTORY: 78-year-old male aneurysm follow up TECHNIQUE: Contiguous axial scanning of the chest performed without and with IV Contrast, patient inj ected with 100 mL of Isovue 370. Coronal/sagittal MIP reconstructions performed. 3-D reconstructions generated on a dedicated independent workstation. CT DLP: 1508.8 mGycm Automated exposure control for dose reduction was used. FINDINGS: Heart upper limits of normal in size without pericardial effusion. Coronary vessel calcifications are present. Mitral and lesser degree of aortic valvular calcifications are noted. Aortic root borderline ectatic at 3.5 cm. Midascending aorta is ectatic at 3.7 cm. Upper ascending aorta mildly aneurysmal at 4.0 cm. Mild atherosclerotic arch calcifications with conventional arch vessel branching anatomy. Tortuous descending thoracic aorta. The lower descending thoracic aorta is ectatic at 2.5 cm. Partially visualized fusiform dilatation infrarenal abdominal aorta measuring at least 2.7 cm but not entirely included on this exam. Scattered small mediastinal lymph nodes. No thoracic lymphadenopathy by CT size criteria. No consolidation or pleural effusion. Some strandy atelectasis or scarring at the lung bases. Stable parapelvic cyst left kidney. Bones: Anterior endplate spondylosis throughout the thoracic spine. No osseous destructive process se en. IMPRESSION: 1. STABLE MILD ANEURYSM ASCENDING AORTA 4.0 CM. 2. FUSIFORM DILATATION INFRARENAL ABDOMINAL AORTA PARTIALLY VISUALIZED ON THIS EXAM MEASURING AT LEAS T 2.7 CM BUT NOT ENTIRELY INCLUDED. 3. CAD. MITRAL ANNULAR AND LESSER DEGREE OF AORTIC VALVULAR CALCIFICATIONS.
== END | disposition home or self-care (01) ==
LOC: RADCTMAIN 09:43
PROVIDERS: ATTEND Internal Medicine Interventional Cardiology
DX: I71.2 Thoracic aortic aneurysm, without rupture (principal); I25.10 Atherosclerotic heart disease of native coronary artery without angina pectoris
CPT/HCPCS: 82565; 84520; 71275; 36415; Q9967

== ENCOUNTER → 2019-06-23 | Outpatient (CLI) | payer MEDICARE ==
--- NOTE | 2019-06-23 11:11 | CT ---
EXAMINATION TYPE: CT angio chest DATE OF EXAM: 06/23/2019 COMPARISON: 07/11/2018 HISTORY: Thoracic Aortic Aneurysm, without rupture CT DLP: 700.6 mGycm CONTRAST: CTA thoracic aorta with 3-D reconstruction is performed and with IV Contrast, patient injected with 1 00 mL of Isovue 370. Contrast CTA of the thoracic aorta was performed from the lung apex through the upper abdomen. 3D re construction imaging obtained at a separate workstation. CT Chest: THORACIC AORTA: Ascending thoracic aorta measures 4 cm AP dimension versus 4 cm previously. Mild athe romatous changes seen. There is no evidence for dissection or periaortic collection. LUNGS: The lungs are clear and free of infiltrate or atelectasis. No pulmonary nodule or mass is det ected. No pleural effusion or CT evidence of interstitial lung disease. MEDIASTINUM: No evidence for mediastinal hematoma. The heart is not enlarged. No evidence for med iastinal mass or adenopathy. HILAR STRUCTURES: No evidence for mass. No hilar adenopathy is appreciated. OTHER: No significant abnormality. IMPRESSION- Stable mild ascending thoracic aortic aneurysm.
== END | disposition home or self-care (01) ==
LOC: RADCTMAIN 07:38
PROVIDERS: ATTEND Nurse Practitioner Adult Health
DX: I71.2 Thoracic aortic aneurysm, without rupture (principal)
CPT/HCPCS: 82565; 84520; 71275; 36415; Q9967

== ENCOUNTER 2020-06-24 12:04 | Observation (INO) | payer MEDICARE ==
[2020-06-24 13:17] LABS: Basophils # (A) 0.1 k/uL (0-0.2); Basophils % (A) 1 %; Eosinophils # (A) 0.1 k/uL (0-0.7); Eosinophils % (A) 2 %; HCT 45.4 % (39.0-53.0); HGB 14.8 gm/dL (13.0-17.5); Lymphocytes # (A) 1.1 k/uL (1.0-4.8); Lymphocytes % (A) 14 %; MCH 30.2 pg (25.0-35.0); MCHC 32.7 g/dL (31.0-37.0); MCV 92.5 fL (80.0-100.0); Mean Platelet Volume 9.5; Monocytes # (A) 0.5 k/uL (0-1.0); Monocytes % (A) 6 %; Neutrophils # (A) 5.8 k/uL (1.3-7.7); Neutrophils % (A) 76 %; Platelet Count 149 k/uL (150-450); RBC 4.91 m/uL (4.30-5.90); RDW 13.9 % (11.5-15.5); WBC 7.6 k/uL (3.8-10.6)
[2020-06-24 13:26] LABS: INR 2.5 (<1.2); Partial Thromboplastin Time 30.5 sec (22.0-30.0); Prothrombin Time 24.4 sec (9.0-12.0)
[2020-06-24 13:27] LABS: Albumin 3.3 g/dL (3.5-5.0); Calcium 8.9 mg/dL (8.4-10.2); Potassium 4.2 mmol/L (3.5-5.1)
--- NOTE | 2020-06-24 13:51 | ED ---
GI Bleed HPI - General Chief complaint: GI Bleed Stated complaint: Bleeding from rectum Time Seen by Provider: 06/24/20 12:24 Source: patient Mode of arrival: ambulatory Limitations: no limitations - History of Present Illness Initial comments: E1-year-old male presenting today for chief complaint of rectal bleeding. Patient states he has had 3 episodes of bright red blood per rectum in the toilet today. He states he has no abdominal pain he denies fevers he denies any lightheadedness palpitations cold intolerance or dyspnea. Patient denies bleedi ng before today. Patient states he is on Coumadin for atrial fibrillation. Patient denies black tarry stools. Denies any upper bowel pain or history of peptic ulcer disease. Patient denies additional complaints. Upon arrival patient appears nontoxic in no acute distress. - Related Data Home Medications Medication Instructions Recorded Confirmed Multivitamin [Men's Multi-Vitamin] 1 tab PO DAILY 10/31/14 06/24/20 Warfarin [Coumadin] 7.5 mg PO [id number] 10/31/14 06/24/20 hydrALAZINE HCL 25 mg PO BID 10/31/14 06/24/20 Warfarin [Coumadin] 3.75 mg PO SUTH 05/07/18 06/24/20 Insulin Glargine,Hum.rec.anlog 8 unit SQ DAILY 06/24/20 06/24/20 [Lantus Solostar] Metoprolol Succinate (ER) [Toprol 50 mg PO DAILY 06/24/20 06/24/20 Xl] Previous Rx's Medication Instructions Recorded Atorvastatin [Lipitor] 40 mg PO HS #90 tab 05/09/18 Isosorbide Mononitrate ER [Imdur] 30 mg PO DAILY #90 tab.er.24h 05/09/18 Allergies Allergy/AdvReac Type Severity Reaction Status Date / Time No Known Allergies Allergy Verified 06/24/20 13:44 Review of Systems ROS Statement: Those systems with pertinent positive or pertinent negative responses have been documented in the HPI. ROS Other: All systems not noted in ROS Statement are negative. Past Medical History Past Medical History: Atrial Fibrillation, Coronary Artery Disease (CAD), COPD, Diabetes Mellitus, Hypertension, Sleep Apnea/CPAP/BIPAP History of Any Multi-Drug Resistant Organisms: None Reported Past Surgical History: Joint Replacement Additional Past Surgical History / Comment(s): R. Hip Past Anesthesia/Blood Transfusion Reactions: No Reported Reaction Past Psychological History: No Psychological Hx Reported Smoking Status: Never smoker Past Alcohol Use History: None Reported Past Drug Use History: None Reported - Past Family History Father Family Medical History: Myocardial Infarction ([place]) General Exam - General Exam Comments Initial Comments: General: The patient is awake and alert, in no distress Eye: +3 mm pupils are equal, round and reactive to light, extra-ocular movements are intact. No nystagmus. There is normal conjunctiva bilaterally. No signs of icterus. Ears, nose, mouth and throat: There are moist mucous membranes and no oral lesions. Neck: The neck is supple, there is no tenderness or JVD. Cardiovascular: There is a regular rate and rhythm. No murmur, rub or gallop is appreciated. Respiratory: Lungs are clear to auscultation, respirations are non-labored, breath sounds are equal. No wheezes, stridor, rales, or rhonchi. Gastrointestinal: Soft, non-distended, non-tender abdomen without masses or organomegaly noted. There is no rebound or guarding present. Rectum: external hemorrhoid and there is some left over bright red blood per rectum, not dripping/no flow. Musculoskeletal: Normal ROM, no tenderness. Strength 5/5. Sensation intact. radial and DP pulses equal bilaterally 2+. Neurological: A&O x 3. CN II-XII intact grossly, There are no obvious motor or sensory deficits. Coordination appears grossly intact. Speech is normal. Skin: Skin is warm and dry and no rashes or lesions are noted. Psychiatric: Cooperative, appropriate mood & affect, normal judgment. Limitations: no limitations Course Vital Signs 06/24/20 06/24/20 06/24/20 12:14 14:15 14:30 Temperature 99.1 F Pulse Rate 69 62 Respiratory 18 31 H 16 Rate Blood Pressure 165/79 134/71 O2 Sat by Pulse 96 99 Oximetry Medical Decision Making - Medical Decision Making HgB stable. Pt is not tachycardic. Patient BP stable. No symptoms. No abdominal pain. Patient is on coumadin will be admitted for serial CBC, telemetry/monitoring. GI on consult. Patient case discussed with Dr. Guo, she consulted cinder dump crane operator Dr Ye who recommended telemetry unit. Patient agreeable to admission. Dr. Lewis accepted admission. - Lab Data Result diagrams: 06/24/20 12:52 06/24/20 12:52 Lab Results 06/24/20 06/24/20 06/24/20 Range/Units 12:52 12:52 12:52 WBC 7.6 (3.8-10.6) k/uL RBC 4.91 (4.30-5.90) m/uL Hgb 14.8 (13.0-17.5) gm/dL Hct 45.4 (39.0-53.0) % MCV 92.5 (80.0-100.0) fL MCH 30.2 (25.0-35.0) pg MCHC 32.7 (31.0-37.0) g/dL RDW 13.9 (11.5-15.5) % Plt Count 149 L (150-450) k/uL MPV 9.5 Neutrophils % 76 % Lymphocytes % 14 % Monocytes % 6 % Eosinophils % 2 % Basophils % 1 % Neutrophils # 5.8 (1.3-7.7) k/uL Lymphocytes # 1.1 (1.0-4.8) k/uL Monocytes # 0.5 (0-1.0) k/uL Eosinophils # 0.1 (0-0.7) k/uL Basophils # 0.1 (0-0.2) k/uL PT 24.4 H (9.0-12.0) sec INR 2.5 H (<1.2) APTT 30.5 H (22.0-30.0) sec Sodium (137-145) mmol/L Potassium (3.5-5.1) mmol/L Chloride (98-107) mmol/L Carbon Dioxide (22-30) mmol/L Anion Gap mmol/L BUN (9-20) mg/dL Creatinine (0.66-1.25) mg/dL Est GFR (CKD-EPI)AfAm (>60 ml/min/1.73 sqM) Est GFR (CKD-EPI)NonAf (>60 ml/min/1.73 sqM) Glucose (74-99) mg/dL Calcium (8.4-10.2) mg/dL Total Bilirubin (0.2-1.3) mg/dL AST (17-59) U/L ALT (4-49) U/L Alkaline Phosphatase (38-126) U/L Troponin I (0.000-0.034) ng/mL Total Protein (6.3-8.2) g/dL Albumin (3.5-5.0) g/dL Stool Occult Blood Positive (Negative) Blood Type Blood Type Recheck Bld Type Recheck Status Antibody Screen Spec Expiration Date 06/24/20 06/24/20 06/24/20 Range/Units 12:52 12:52 12:52 WBC (3.8-10.6) k/uL RBC (4.30-5.90) m/uL Hgb (13.0-17.5) gm/dL Hct (39.0-53.0) % MCV (80.0-100.0) fL MCH (25.0-35.0) pg MCHC (31.0-37.0) g/dL RDW (11.5-15.5) % Plt Count (150-450) k/uL MPV Neutrophils % % Lymphocytes % % Monocytes % % Eosinophils % % Basophils % % Neutrophils # (1.3-7.7) k/uL Lymphocytes # (1.0-4.8) k/uL Monocytes # (0-1.0) k/uL Eosinophils # (0-0.7) k/uL Basophils # (0-0.2) k/uL PT (9.0-12.0) sec INR (<1.2) APTT (22.0-30.0) sec Sodium 137 (137-145) mmol/L Potassium 4.2 (3.5-5.1) mmol/L Chloride 100 (98-107) mmol/L Carbon Dioxide 32 H (22-30) mmol/L Anion Gap 5 mmol/L BUN 16 (9-20) mg/dL Creatinine 0.93 (0.66-1.25) mg/dL Est GFR (CKD-EPI)AfAm 89 (>60 ml/min/1.73 sqM) Est GFR (CKD-EPI)NonAf 77 (>60 ml/min/1.73 sqM) Glucose 299 H (74-99) mg/dL Calcium 8.9 (8.4-10.2) mg/dL Total Bilirubin 1.0 (0.2-1.3) mg/dL AST 26 (17-59) U/L ALT 25 (4-49) U/L Alkaline Phosphatase 80 (38-126) U/L Troponin I <0.012 (0.000-0.034) ng/mL Total Protein 6.0 L (6.3-8.2) g/dL Albumin 3.3 L (3.5-5.0) g/dL Stool Occult Blood (Negative) Blood Type A Positive Blood Type Recheck A Pos Bld Type Recheck Status No Antibody Screen NEGATIVE Spec Expiration Date 06/27/20202351 Disposition Clinical Impression: GI bleed Disposition: ADMITTED IP TO THIS [facility] Condition: Stable Is patient prescribed a controlled substance at d/c from ED?: No Time of Disposition: 14:02 Decision to Admit Reason: Admit from EC Decision Date: 06/24/20 Decision Time: 14:02
[2020-06-24] MEDS ORDERED: NALOXONE 0.4 MG/ML 1 ML VIAL IV PRN (13:59)
[2020-06-24] MEDS ORDERED: PANTOPRAZOLE 40 MG/10 ML VIAL IVP STA (14:02)
[2020-06-24] MEDS ORDERED: SODIUM CHLORIDE 0.9% 500 ML 500 ML IV ONE (14:02)
[2020-06-24] MEDS ORDERED: PIPERACILLIN-TAZOBACTAM 3.375 GM in SODIUM CHLORIDE 0.9% 100 ML IVPB STA (16:58)
[2020-06-24] MEDS ORDERED: PHYTONADIONE 5 MG in SODIUM CHLORIDE 0.9% 50 ML IVPB STA (17:00)
[2020-06-24] MEDS ORDERED: ALPRAZolam 0.25 MG TAB PO PRN (17:27)
[2020-06-24] MEDS ORDERED: ACETAMINOPHEN TAB 500 MG TAB PO PRN (17:27)
[2020-06-24] MEDS ORDERED: HYDROcodone/APAP 5-325MG 1 EACH TAB PO PRN (17:27)
[2020-06-24 17:39] LABS: Basophils % (A) 0 %; Eosinophils # (A) 0.2 k/uL (0-0.7); Eosinophils % (A) 2 %; HCT 43.7 % (39.0-53.0); HGB 14.3 gm/dL (13.0-17.5); Lymphocytes # (A) 1.8 k/uL (1.0-4.8); Lymphocytes % (A) 19 %; MCH 29.9 pg (25.0-35.0); MCHC 32.7 g/dL (31.0-37.0); MCV 91.4 fL (80.0-100.0); Mean Platelet Volume 9.5; Monocytes # (A) 0.6 k/uL (0-1.0); Monocytes % (A) 7 %; Neutrophils # (A) 6.5 k/uL (1.3-7.7); Neutrophils % (A) 69 %; Platelet Count 146 k/uL (150-450); RBC 4.78 m/uL (4.30-5.90); RDW 14.2 % (11.5-15.5); WBC 9.4 k/uL (3.8-10.6)
[2020-06-24] MEDS: SODIUM CHLORIDE 0.9% 1,000 ML IV SCH (17:49)
--- NOTE | 2020-06-24 18:42 | HP ---
HISTORY AND PHYSICAL DATE OF SERVICE: 06/24/2020 CHIEF COMPLAINT: GI bleed. HISTORY OF PRESENT ILLNESS: This 80-year-old gentleman with a past medical history of multiple medical problems, including atrial fibrillation, history of CAD, COPD, history of diabetes mellitus, hypertension, sleep apnea, being followed by Dr. Cuadra in the outpatient setting, was taking Coumadin. The patient apparently was noted to have multiple episodes of GI bleed which was bright red in color and some altered per rectum. Today the patient also had some burning abdominal pain. The patient came to [facility] and the patient had further bleeding. Patient was on Coumadin. INR is 2.5, which is being reversed at this time. Initial hemoglobin was 14.8. The blood pressure is also maintained. Patient is being closely monitored. There is no history of any fever, rigor or chills. No history of headache, loss of consciousness, seizures at this time. PAST MEDICAL HISTORY: Atrial fibrillation, CAD, COPD, diabetes mellitus, hypertension, obstructive sleep apnea. MEDICATIONS: Medications prior to admission include hydralazine, Coumadin, multivitamins, metoprolol, Imdur, Lantus and Lipitor. ALLERGIES: NONE. FAMILY HISTORY: History of myocardial infarction in the family. SOCIAL HISTORY: Previous history of smoking. No current smoking or alcohol intake. REVIEW OF SYSTEMS: ENT: No diminished hearing. No diminished vision. CARDIOVASCULAR SYSTEM: ntd RESPIRATORY SYSTEM: As mentioned earlier. GI: As mentioned earlier. : No dysuria or retention. NERVOUS SYSTEM: No numbness, weakness. ALLERGY/IMMUNOLOGY: No asthma, hayfever. MUSCULOSKELETAL: As mentioned earlier. HEMATOLOGY/ONCOLOGY: As mentioned earlier. ENDOCRINE: As mentioned earlier. CONSTITUTIONAL: As mentioned earlier. DERMATOLOGY: Negative. RHEUMATOLOGY: Negative. PSYCHIATRY: As mentioned earlier. PHYSICAL EXAMINATION: Patient alert and oriented x3. Pulse 69, blood pressure 160/79, respiration 18, temperature 99.1, pulse ox 96% on room air. HEENT: Conjunctivae normal. NECK: No jugular venous distention. CARDIOVASCULAR SYSTEM: S1, S2 muffled. RESPIRATORY SYSTEM: Breath sounds diminished at the bases. No rhonchi. No crackles. ABDOMEN: Soft, obese, non-tender. No mass palpable. LEGS: No edema. No swelling. NERVOUS SYSTEM: Higher functions as mentioned earlier. Moves all 4 limbs. No focal motor or sensory deficit. LYMPHATICS: No lymph node palpable in neck, axillae or groin. SKIN: No ulcer, rash, bleeding. JOINTS: No active deforming arthropathy. LABS: CBC within normal limits. Platelets are 114. INR 2.5. Glucose 299. ASSESSMENT: 1. Acute lower gastrointestinal bleeding. Rule out diverticular bleed or hemorrhoidal bleed or ischemic colitis. 2. Rule out acute blood loss anemia. 3. Thrombocytopenia, mild. 4. On Coumadin and monitoring. 5. Diabetes mellitus, type 2. 6. History of chronic obstructive pulmonary disease. 7. History of coronary artery disease. 8. Hypertension. 9. History of sleep apnea. 10.History of degenerative joint disease. 11.Obesity with body mass of 38.7. 12.FULL CODE. RECOMMENDATIONS AND DISCUSSION: In this 80-year-old gentleman who presented with multiple complex medical issues, we will monitor the patient closely, continue the current medications, continue symptomatic treatment. I recommend stopping the Coumadin and monitor hemoglobin closely. If the hemoglobin falls or there is massive bleeding, I would recommend transfusion. Otherwise, type and cross 2 units and keep it ready. Consult Gastroenterology. Consult Dr. Ye for possible ICU transfer if there is any active bleeding. Otherwise, we will continue to monitor. Prognosis guarded. Further recommendations to follow. A copy of this dictation is being forwarded to Dr. Cuadra, who is the primary physician. We will also consult Cardiology. Monitor blood sugars closely. MMODL / IJN: [id number] / MTDD
[2020-06-24] MEDS: PANTOPRAZOLE 40 MG/10 ML VIAL IVP SCH (20:41)
[2020-06-24] MEDS: hydrALAZINE HCL 25 MG TAB PO SCH (20:41)
[2020-06-24] MEDS: ATORVASTATIN 40 MG TAB PO SCH (20:42)
[2020-06-25 00:10] LABS: Basophils % (A) 0 %; Eosinophils # (A) 0.1 k/uL (0-0.7); Eosinophils % (A) 1 %; HCT 41.8 % (39.0-53.0); HGB 13.6 gm/dL (13.0-17.5); Lymphocytes # (A) 1.8 k/uL (1.0-4.8); Lymphocytes % (A) 19 %; MCH 30.2 pg (25.0-35.0); MCHC 32.6 g/dL (31.0-37.0); MCV 92.7 fL (80.0-100.0); Mean Platelet Volume 9.5; Monocytes # (A) 0.7 k/uL (0-1.0); Monocytes % (A) 7 %; Neutrophils # (A) 6.9 k/uL (1.3-7.7); Neutrophils % (A) 71 %; Platelet Count 134 k/uL (150-450); RBC 4.51 m/uL (4.30-5.90); WBC 9.7 k/uL (3.8-10.6)
[2020-06-25 00:30] LABS: INR 1.9 (<1.2); Prothrombin Time 19.1 sec (9.0-12.0)
[2020-06-25 06:47] LABS: Glucose,Whole Blood 150 mg/dL (75-99)
[2020-06-25] MEDS: INSULIN DETEMIR (LEVEMIR) 100 UNIT/ML SYR SQ SCH (06:58)
[2020-06-25] MEDS: SODIUM CHLORIDE 0.9% 1,000 ML IV SCH ×2 (06:58→20:21)
[2020-06-25 08:10] LABS: Basophils % (A) 0 %; Eosinophils # (A) 0.2 k/uL (0-0.7); Eosinophils % (A) 2 %; HCT 41.7 % (39.0-53.0); HGB 13.6 gm/dL (13.0-17.5); Lymphocytes % (A) 22 %; MCH 30.2 pg (25.0-35.0); MCHC 32.5 g/dL (31.0-37.0); MCV 92.9 fL (80.0-100.0); Mean Platelet Volume 9.3; Monocytes # (A) 0.7 k/uL (0-1.0); Monocytes % (A) 8 %; Neutrophils # (A) 5.9 k/uL (1.3-7.7); Neutrophils % (A) 66 %; Platelet Count 140 k/uL (150-450); RBC 4.49 m/uL (4.30-5.90); RDW 13.9 % (11.5-15.5); WBC 9.1 k/uL (3.8-10.6)
[2020-06-25 08:25] LABS: Calcium 8.4 mg/dL (8.4-10.2); Potassium 3.8 mmol/L (3.5-5.1)
[2020-06-25] MEDS: ISOSORBIDE MONONITRATE ER 30 MG TAB.ER.24H PO SCH (09:21)
[2020-06-25] MEDS: METOPROLOL SUCCINATE (ER) 50 MG TAB.ER.24H PO SCH (09:21)
[2020-06-25] MEDS: hydrALAZINE HCL 25 MG TAB PO SCH ×2 (09:21→20:22)
[2020-06-25] MEDS: PANTOPRAZOLE 40 MG/10 ML VIAL IVP SCH (09:22)
[2020-06-25] MEDS: MULTIVITAMINS, THERA 1 EACH TAB PO SCH (09:22)
--- NOTE | 2020-06-25 11:38 | P.CRDCN ---
History of Present Illness Consult date: 06/25/20 History of present illness: CHIEF COMPLAINT: A. fib HISTORY OF PRESENT ILLNESS: This is a 80-year-old male with a past medical history significant for thoracic aortic aneurysm, paroxysmal atrial fibrillation on Coumadin, COPD, obstructive sleep apnea with CPAP use, hypertension, and diabetes mellitus. Patient follows in the office with Dr. Bynum. We have been asked to see the patient in consultation for atrial fibrillation. Patient examined this morning at the bedside. Patient reports yesterday he had 4-5 episodes of bright red blood per rectum which prompted him to come to the hospital for evaluation. He denies chest pain or pressure. He denies shortness of breath. Patient reports he had another episode of rectal bleeding this morning when he used the bathroom. Patient states she has been on Coumadin for approximately 12 years. He denies any previous issues with GI bleeding. Patient's INR was 2.5 when he presented to the emergency room. He received 5 mg of vitamin K. Hemoglobin on admission 14.8. Repeat this morning 13.6. Patient had an echocardiogram completed in the office on IV 2020 revealing ejection fraction 55-60%, mild to moderate aortic regurgitation and moderate to severe aortic stenosis, [id number] mitral regurgitation, and mild tricuspid regurgitation He also underwent cardiac catheterization with Dr. Bynum in 2019 revealing [id number] disease of the mid LAD and mild disease of the RCA. Medical management was recommended. DIAGNOSTICS: Telemetry monitoring reveals atrial fibrillation with controlled ventricular rate Laboratory data: WBC 9.1. Hemoglobin 13.6. Platelet count 140. Sodium 138. Potassium 3.8. BUN 15. Creatinine 0.94. Current home cardiac medications include hydralazine 25 mg twice a day, Coumadin 3.75 mg Sunday and and 7.5 mg Sunday, metoprolol succinate 50 mg daily, Imdur 30 mg daily, and Lipitor 40 mg daily REVIEW OF SYSTEMS: At the time of my exam: CONSTITUTIONAL: Denies fever or chills. HEENT: Denies blurred vision, vision changes, or eye pain. Denies hemoptysis CARDIOVASCULAR: Denies chest pain, orthopnea, PND or palpitations RESPIRATORY: No shortness of breath. GASTROINTESTINAL: Denies abdominal pain. Denies nausea or vomiting. HEMATOLOGIC: Denies bleeding disorders. GENITOURINARY: Denies any blood in urine. SKIN: Denies pruitis. Denies rash. PHYSICAL EXAM: VITAL SIGNS: Reviewed. GENERAL: Well-developed in no acute distress. HEENT: Head is normocephalic. Pupils are equal, round. Sclerae anicteric. Mucous membranes of the mouth are moist. Neck supple. No JVD or thyromegaly LUNGS: Respirations even and unlabored. Lungs diminished bilaterally. HEART: Irregular rate and rhythm. S1 and S2 heard. Systolic murmur noted ABDOMEN: Soft. Nondistended. Nontender. EXTREMITIES: Normal range of motion. No clubbing or cyanosis. Peripheral pulses intact. Trace bilateral lower extremity edema NEUROLOGIC: Awake and alert. Oriented x 3. ASSESSMENT: Bright red blood per rectum Paroxysmal atrial fibrillation, on anticoagulation with Coumadin Valvular heart disease Nonobstructive coronary artery disease, per cardiac cath in 2019 COPD Obstructive sleep apnea with CPAP use History of thoracic aortic aneurysm Hypertension Diabetes mellitus PLAN: No need to repeat echocardiogram as this was performed this month at the cardiology office Resume home cardiac medications Continue to hold Coumadin Monitor hemoglobin GI consulted for evaluation. Await input. Further recommendations pending patient's course Nurse practitioner note has been reviewed by physician. Signing provider agrees with the documented findings, assessment, and plan of care. Past Medical History Past Medical History: Atrial Fibrillation, Coronary Artery Disease (CAD), COPD, Diabetes Mellitus, Hypertension, Sleep Apnea/CPAP/BIPAP Additional Past Medical History / Comment(s): aortic aneurysm being followed by Dr. Bynum History of Any Multi-Drug Resistant Organisms: None Reported Past Surgical History: Joint Replacement Additional Past Surgical History / Comment(s): R. Hip Past Anesthesia/Blood Transfusion Reactions: No Reported Reaction Past Psychological History: No Psychological Hx Reported Smoking Status: Never smoker Past Alcohol Use History: None Reported Additional Past Alcohol Use History / Comment(s): Pt. states that he quit smoking over 40 years ago and he just smoked cigars once in a while Past Drug Use History: None Reported - Past Family History Father Family Medical History: Myocardial Infarction ([place]) Medications and Allergies Home Medications Medication Instructions Recorded Confirmed Type Multivitamin [Men's Multi-Vitamin] 1 tab PO DAILY 10/31/14 06/24/20 History Warfarin [Coumadin] 7.5 mg PO MOTUWEFRSA 10/31/14 06/24/20 History hydrALAZINE HCL 25 mg PO BID 10/31/14 06/24/20 History Warfarin [Coumadin] 3.75 mg PO SUTH 05/07/18 06/24/20 History Atorvastatin [Lipitor] 40 mg PO HS #90 tab 05/09/18 06/24/20 Rx Isosorbide Mononitrate ER [Imdur] 30 mg PO DAILY #90 tab.er.24h 05/09/18 06/24/20 Rx Insulin Glargine,Hum.rec.anlog 8 unit SQ DAILY 06/24/20 06/24/20 History [Lantus Solostar] Metoprolol Succinate (ER) [Toprol 50 mg PO DAILY 06/24/20 06/24/20 History Xl] Allergies Allergy/AdvReac Type Severity Reaction Status Date / Time No Known Allergies Allergy Verified 06/24/20 13:44 Physical Exam Vitals: Vital Signs Temp Pulse Pulse Resp BP BP BP 06/25/20 08:10 98.6 F 63 17 133/64 06/25/20 04:00 98.1 F 58 L 16 121/56 06/25/20 01:24 69 17 06/25/20 00:00 98.6 F 69 17 135/69 06/24/20 20:00 98.6 F 76 16 126/66 06/24/20 19:02 98.6 F 65 16 151/76 06/24/20 17:50 67 18 141/80 06/24/20 17:30 63 18 160/86 06/24/20 15:35 98.6 F 76 16 126/66 06/24/20 14:30 62 16 134/71 06/24/20 14:15 31 H 06/24/20 12:14 99.1 F 69 18 165/79 Pulse Ox 06/25/20 08:10 96 06/25/20 04:00 96 06/25/20 01:24 06/25/20 00:00 94 L 06/24/20 20:00 97 06/24/20 19:02 98 06/24/20 17:50 98 06/24/20 17:30 96 06/24/20 15:35 97 06/24/20 14:30 99 06/24/20 14:15 06/24/20 12:14 96 Intake and Output 06/24/20 06/25/20 06/25/20 22:59 06:59 14:59 Intake Total 420 Balance 420 Intake: Intake, IV Titration 300 Amount Sodium Chloride 0.9% 1, 300 000 ml @ 75 mls/hr IV . [id number] [facility] Rx#:[id number] Oral 120 Other: Voiding Method Toilet Toilet # Voids 1 Weight 122.47 kg 125.1 kg Results 06/25/20 07:50 06/25/20 07:50 Cardiac Enzymes 06/24/20 06/24/20 Range/Units 12:52 12:52 AST 26 (17-59) U/L Troponin I <0.012 (0.000-0.034) ng/mL Coagulation 06/24/20 06/24/20 Range/Units 00:00 12:52 PT 19.1 H 24.4 H (9.0-12.0) sec APTT 30.5 H (22.0-30.0) sec CBC 06/24/20 06/24/20 06/24/20 Range/Units 12:52 17:28 23:30 WBC 7.6 9.4 9.7 (3.8-10.6) k/uL RBC 4.91 4.78 4.51 (4.30-5.90) m/uL Hgb 14.8 14.3 13.6 (13.0-17.5) gm/dL Hct 45.4 43.7 41.8 (39.0-53.0) % Plt Count 149 L 146 L 134 L (150-450) k/uL 06/25/20 Range/Units 07:50 WBC 9.1 (3.8-10.6) k/uL RBC 4.49 (4.30-5.90) m/uL Hgb 13.6 (13.0-17.5) gm/dL Hct 41.7 (39.0-53.0) % Plt Count 140 L (150-450) k/uL Comprehensive Metabolic Panel 06/24/20 06/25/20 Range/Units 12:52 07:50 Sodium 137 138 (137-145) mmol/L Potassium 4.2 3.8 (3.5-5.1) mmol/L Chloride 100 104 (98-107) mmol/L Carbon Dioxide 32 H 31 H (22-30) mmol/L BUN 16 15 (9-20) mg/dL Creatinine 0.93 0.94 (0.66-1.25) mg/dL Glucose 299 H 157 H (74-99) mg/dL Calcium 8.9 8.4 (8.4-10.2) mg/dL AST 26 (17-59) U/L ALT 25 (4-49) U/L Alkaline Phosphatase 80 (38-126) U/L Total Protein 6.0 L (6.3-8.2) g/dL Albumin 3.3 L (3.5-5.0) g/dL Current Medications Generic Name Dose Route Start Last Admin Trade Name Freq PRN Reason Stop Dose Admin Acetaminophen 500 mg 06/24/20 17:27 Acetaminophen Tab 500 Mg Tab PO Q6HR PRN Fever and/ or Pain Hydrocodone Bitart/Acetaminophen 1 each 06/24/20 17:27 Hydrocodone/Apap 5-325mg 1 Each Tab PO Q6HR PRN Pain Alprazolam 0.25 mg 06/24/20 17:27 Alprazolam 0.25 Mg Tab PO TID PRN Anxiety Atorvastatin Calcium 40 mg 06/24/20 21:00 06/24/20 20:42 Atorvastatin 40 Mg Tab PO 40 mg HS RANDELL Administration Hydralazine HCl 25 mg 06/24/20 21:00 06/25/20 09:21 Hydralazine Hcl 25 Mg Tab PO 25 mg BID RANDELL Administration Sodium Chloride 1,000 mls @ 75 mls/hr 06/24/20 14:15 06/25/20 06:58 Saline 0.9% IV 75 mls/hr .[id number] RANDELL Administration Insulin Detemir 8 unit 06/25/20 07:00 06/25/20 06:58 Insulin Detemir (Levemir) 100 Unit/Ml Syr SQ 8 unit DAILY@0700 RANDELL Administration Isosorbide Mononitrate 30 mg 06/25/20 09:00 06/25/20 09:21 Isosorbide Mononitrate Er 30 Mg Tab.Er.24h PO 30 mg DAILY RANDELL Administration Metoprolol Succinate 50 mg 06/25/20 09:00 06/25/20 09:21 Metoprolol Succinate (Er) 50 Mg Tab.Er.24h PO 50 mg DAILY RANDELL Administration Multivitamins 1 each 06/25/20 09:00 06/25/20 09:22 Multivitamins, Thera 1 Each Tab PO Not Given DAILY RANDELL Naloxone HCl 0.2 mg 06/24/20 13:59 Naloxone 0.4 Mg/Ml 1 Ml Vial IV Q2M PRN Opioid Reversal Pantoprazole Sodium 40 mg 06/24/20 17:30 06/25/20 09:22 Pantoprazole 40 Mg/10 Ml Vial IVP 40 mg DAILY RANDELL Administration Intake and Output 06/24/20 06/25/20 06/25/20 22:59 06:59 14:59 Intake Total 420 Balance 420 Intake: Intake, IV Titration 300 Amount Sodium Chloride 0.9% 1, 300 000 ml @ 75 mls/hr IV . [id number] RANDELL Rx#:[id number] Oral 120 Other: Voiding Method Toilet Toilet # Voids 1 Weight 122.47 kg 125.1 kg 06/25/20 07:50 06/25/20 07:50
[2020-06-25 12:04] LABS: Glucose,Whole Blood 147 mg/dL (75-99)
[2020-06-25 13:18] LABS: INR 1.4 (<1.2); Prothrombin Time 13.9 sec (9.0-12.0)
[2020-06-25 13:37] LABS: Appearance,Urine Clear (Clear); Bilirubin,Urine Negative (Negative); Blood,Urine Negative (Negative); Color,Urine Yellow; Glucose,Urine (UA) Negative (Negative); Ketones,Urine Negative (Negative); Leukocyte Esterase,Urine Negative (Negative); Nitrite,Urine Negative (Negative); PH, Urine 7.5 (5.0-8.0); Protein,Urine Trace (Negative); Specific Gravity,Urine 1.026 (1.001-1.035); Urobilinogen,Urine <2.0 mg/dL (<2.0)
[2020-06-25] MEDS: HYDROCORTISONE 2.5% RECTAL CREAM 30 GM TUBE RECTAL SCH ×2 (14:28→20:22)
[2020-06-25] MEDS ORDERED: PHYTONADIONE ORAL 5 MG/5 ML ORAL.SYRG PO STA (15:32)
[2020-06-25] MEDS ORDERED: PEG 3350-NA SULF,BICARB,CL/KCL 4,000 ML BOTTLE PO ONE (16:00)
[2020-06-25 16:50] LABS: Glucose,Whole Blood 112 mg/dL (75-99)
--- NOTE | 2020-06-25 17:18 | P.PN ---
Subjective Progress Note Date: 06/25/20 Principal diagnosis: Rectal bleed 80-year-old male with a past medical history significant for thoracic aortic aneurysm, paroxysmal atrial fibrillation on Coumadin, COPD, obstructive sleep apnea with CPAP use, hypertension, and diabetes mellitus. Patient reports yester day he had 4-5 episodes of bright red blood per rectum which prompted him to come to the hospital for evaluation. He denies chest pain or pressure. He denies shortness of breath. Patient reports he had another episode of rectal bleeding this morning when he used the bathroom. Patient states she has been on Coumadin for approximately 12 years. He denies any previous issues with GI bleeding. Patient's INR was 2.5 when he presented to the emergency room. He received 5 mg of vitamin K. Hemoglobin on admission 14.8. Repeat this morning 13.6. Objective - Vital Signs Vital signs: Vital Signs Temp 98.6 F 06/25/20 08:10 Pulse 63 06/25/20 08:10 Resp 17 06/25/20 08:10 BP 133/64 06/25/20 08:10 Pulse Ox 96 06/25/20 08:10 Intake & Output 06/24/20 06/25/20 06/25/20 18:59 06:59 18:59 Intake Total 420 Balance 420 Weight 122.47 kg 125.1 kg Intake: Intake, IV Titration 300 Amount Sodium Chloride 0.9% 1, 300 000 ml @ 75 mls/hr IV . [id number] [facility] Rx#:[id number] Oral 120 Other: Voiding Method Toilet # Voids 1 - Exam - Constitutional General appearance: Present: average body habitus, cooperative, no acute distress - EENT Eyes: Present: anicteric sclerae, EOMI, PERRLA, normal appearance ENT: Present: hearing grossly normal, normal oropharynx Ears: bilateral: normal - Neck Neck: Present: normal ROM. Absent: lymphadenopathy, rigidity, thyromegaly Carotids: negative: bruit present Thyroid: bilateral: normal size, negative: enlarged, nodule - Respiratory Respiratory: bilateral: CTA, negative: rales, rhonchi, wheezing - Cardiovascular Rhythm: regular Heart sounds: normal: S1, S2 Abnormal Heart Sounds: Absent: systolic murmur, diastolic murmur - Gastrointestinal General gastrointestinal: Present: normal bowel sounds, soft. Absent: distended, organomegaly, tenderness - Genitourinary Genitourinary Comment(s): deferred - Integumentary Integumentary: Present: normal turgor. Absent: jaundiced, rash, ulcer - Neurologic Neurologic: Present: CNII-XII intact. Absent: focal deficits - Musculoskeletal Musculoskeletal: Present: gait normal, strength equal bilaterally - Psychiatric Psychiatric: Present: A&O x's 3, appropriate affect, intact judgment & insight - Labs CBC & Chem 7: 06/25/20 07:50 06/25/20 07:50 Labs: Abnormal Lab Results - Last 24 Hours (Table) 06/24/20 06/24/20 06/24/20 Range/Units 00:00 12:52 12:52 Plt Count 149 L (150-450) k/uL PT 19.1 H 24.4 H (9.0-12.0) sec INR 1.9 H 2.5 H (<1.2) APTT 30.5 H (22.0-30.0) sec Carbon Dioxide (22-30) mmol/L Glucose (74-99) mg/dL POC Glucose (mg/dL) (75-99) mg/dL Total Protein (6.3-8.2) g/dL Albumin (3.5-5.0) g/dL 06/24/20 06/24/20 06/24/20 Range/Units 12:52 17:28 23:30 Plt Count 146 L 134 L (150-450) k/uL PT (9.0-12.0) sec INR (<1.2) APTT (22.0-30.0) sec Carbon Dioxide 32 H (22-30) mmol/L Glucose 299 H (74-99) mg/dL POC Glucose (mg/dL) (75-99) mg/dL Total Protein 6.0 L (6.3-8.2) g/dL Albumin 3.3 L (3.5-5.0) g/dL 06/25/20 06/25/20 06/25/20 Range/Units 06:31 07:50 07:50 Plt Count 140 L (150-450) k/uL PT (9.0-12.0) sec INR (<1.2) APTT (22.0-30.0) sec Carbon Dioxide 31 H (22-30) mmol/L Glucose 157 H (74-99) mg/dL POC Glucose (mg/dL) 150 H (75-99) mg/dL Total Protein (6.3-8.2) g/dL Albumin (3.5-5.0) g/dL Assessment and Plan Assessment: 1. Acute rectal bleed - Patient reports 4 episodes of rectal bleed since admission last on this morning; hemoglobin remained stable; Coumadin has been put on hold since admission; we will monitor H&H closely and transfuse as needed; patient had continued - Patient started on IV Zosyn for possibility of ischemic colitis - GI consulted and recommendations are pending 2. Paroxysmal atrial fibrillation/anticoagulation therapy; remains rate controlled; the coagulation on hold due to GI bleed 3. Valvular heart disease/Nonobstructive CAD; last catheterization in 2019; aspirin on hold; patient remains on statins, beta blockers and nitrates 4. COPD; not in exacerbation; continue with home inhaler therapy 5. Obstructive sleep apnea; uses CPAP at home 6. Hypertension; stable on metoprolol 50 mg daily; hydralazine 25 mg twice a day; Imdur 30 mg daily 7. Diabetes mellitusl; Levemir 8 units subcu daily; we will monitor Accu-Cheks before meals and at bedtime with insulin sliding scale 8. Hyperlipidemia; atorvastatin 40 mg by mouth daily at bedtime DVT prophylaxis; SCDs only due to GI bleed CODE STATUS; full code
[2020-06-25] MEDS: ATORVASTATIN 40 MG TAB PO SCH (20:22)
[2020-06-25 20:47] LABS: INR 1.2 (<1.2); Prothrombin Time 12.8 sec (9.0-12.0)
[2020-06-25 20:58] LABS: Glucose,Whole Blood 132 mg/dL (75-99)
[2020-06-26 06:40] LABS: Glucose,Whole Blood 142 mg/dL (75-99)
[2020-06-26] MEDS: INSULIN DETEMIR (LEVEMIR) 100 UNIT/ML SYR SQ SCH (06:56)
[2020-06-26] MEDS: SODIUM CHLORIDE 0.9% 1,000 ML IV SCH (06:57)
[2020-06-26 07:53] LABS: Basophils % (A) 0 %; Eosinophils # (A) 0.2 k/uL (0-0.7); Eosinophils % (A) 2 %; HCT 41.4 % (39.0-53.0); HGB 13.7 gm/dL (13.0-17.5); Lymphocytes # (A) 2.2 k/uL (1.0-4.8); Lymphocytes % (A) 24 %; MCH 30.9 pg (25.0-35.0); MCHC 33.2 g/dL (31.0-37.0); MCV 92.9 fL (80.0-100.0); Mean Platelet Volume 9.4; Monocytes # (A) 0.8 k/uL (0-1.0); Monocytes % (A) 8 %; Neutrophils # (A) 5.7 k/uL (1.3-7.7); Neutrophils % (A) 63 %; Platelet Count 152 k/uL (150-450); RBC 4.45 m/uL (4.30-5.90); RDW 14.1 % (11.5-15.5); WBC 9.1 k/uL (3.8-10.6)
[2020-06-26 08:07] LABS: African American GFR (CKD) >90 (>60 ml/min/1.73 sqM); Anion Gap 7 mmol/L; Blood Urea Nitrogen 13 mg/dL (9-20); Carbon Dioxide 30 mmol/L (22-30); Chloride 105 mmol/L (98-107); Glucose 141 mg/dL (74-99); INR 1.2 (<1.2); Non-African American GFR(CKD) 78 (>60 ml/min/1.73 sqM); Potassium 4.4 mmol/L (3.5-5.1); Prothrombin Time 12.1 sec (9.0-12.0); Sodium 142 mmol/L (137-145)
[2020-06-26] MEDS ORDERED: PROPOFOL 10 MG/ML 20 ML VIAL IV ONE (08:55)
[2020-06-26] MEDS ORDERED: LIDOCAINE 1% INJ 10MG/ML (20 ML MDV) ONE (08:55)
[2020-06-26] MEDS ORDERED: IV FLUID CONTINUATION 1,000 ML IV ONE ×2 (08:57)
--- NOTE | 2020-06-26 09:43 | P.CONS ---
History of Present Illness - Reason for Consult Consult date: 06/25/20 Bleed Requesting physician: Kristel Cuadra - Chief Complaint GI bleed - History of Present Illness 80-year-old male with a medical history significant for atrial fibrillation on Coumadin therapy, ERICKA, COPD, diabetes mellitus, hypertension and thoracic aortic aneurysm who presented to the hospital due to complaints of blood per rectum. The patient denies any constipation, altered bowel function, straining or hemorrhoids. He reports at least 5 episodes of painless bright red blood per rectum prior to presentation to the hospital. Subsequently the patient reports passing bright red stool and maroon-colored stool. He does report further bleeding today. Last colonoscopy was 4 years ago. No history of colon cancer in the patient's family. He denies any cramping or abdominal pain. In general bowel movements are 2-3 times daily and soft in consistency. Laboratory evaluation on presentation significant for hemoglobin 13.6 with a positive stool testing for occult blood with WBC 9.1 and platelet count 140,000. Patient's INR was 2.5 on presentation and he was given 5 mg of vitamin K. Review of Systems REVIEW OF SYSTEMS: CONSTITUTIONAL: Denies any fevers, chills, weight change or fatigue. CARDIOVASCULAR: Denies any chest pain, palpitations high or low blood pressures, he does have a history of atrial fibrillation. RESPIRATORY: Denies any shortness of breath, hemoptysis or cough. GENITOURINARY: No dysuria or hematuria. MUSCULOSKELETAL: No weakness reported. SKIN: Denies any new rashes or lesions, jaundice or pallor. PSYCHIATRIC: Denies any depression or anxiety. NEUROLOGY: Denies headache, denies any new focal deficits. EARS/NOSE/THROAT: No recent hearing change, congestion, nasal discharge or sore throat. EYES: No pain in eyes, discharge or change in vision. GASTROINTESTINAL: As per HPI. Past Medical History Past Medical History: Atrial Fibrillation, Coronary Artery Disease (CAD), COPD, Diabetes Mellitus, Hypertension, Sleep Apnea/CPAP/BIPAP Additional Past Medical History / Comment(s): aortic aneurysm being followed by Dr. Bynum History of Any Multi-Drug Resistant Organisms: None Reported Past Surgical History: Joint Replacement Additional Past Surgical History / Comment(s): R. Hip Past Anesthesia/Blood Transfusion Reactions: No Reported Reaction Past Psychological History: No Psychological Hx Reported Smoking Status: Never smoker Past Alcohol Use History: None Reported Additional Past Alcohol Use History / Comment(s): Pt. states that he quit smoking over 40 years ago and he just smoked cigars once in a while Past Drug Use History: None Reported - Past Family History Father Family Medical History: Myocardial Infarction ([place]) Medications and Allergies Home Medications Medication Instructions Recorded Confirmed Type Multivitamin [Men's Multi-Vitamin] 1 tab PO DAILY 10/31/14 06/24/20 History Warfarin [Coumadin] 7.5 mg PO MOTUWEFRSA 10/31/14 06/24/20 History hydrALAZINE HCL 25 mg PO BID 10/31/14 06/24/20 History Warfarin [Coumadin] 3.75 mg PO SUTH 05/07/18 06/24/20 History Atorvastatin [Lipitor] 40 mg PO HS #90 tab 05/09/18 06/24/20 Rx Isosorbide Mononitrate ER [Imdur] 30 mg PO DAILY #90 tab.er.24h 05/09/18 06/24/20 Rx Insulin Glargine,Hum.rec.anlog 8 unit SQ DAILY 06/24/20 06/24/20 History [Lantus Solostar] Metoprolol Succinate (ER) [Toprol 50 mg PO DAILY 06/24/20 06/24/20 History Xl] Allergies Allergy/AdvReac Type Severity Reaction Status Date / Time No Known Allergies Allergy Verified 06/24/20 13:44 Physical Exam Vitals: Vital Signs Temp Pulse Pulse Resp BP BP BP 06/25/20 12:05 68 17 114/62 06/25/20 08:10 98.6 F 63 17 133/64 06/25/20 04:00 98.1 F 58 L 16 121/56 06/25/20 01:24 69 17 06/25/20 00:00 98.6 F 69 17 135/69 06/24/20 20:00 98.6 F 76 16 126/66 06/24/20 19:02 98.6 F 65 16 151/76 06/24/20 17:50 67 18 141/80 06/24/20 17:30 63 18 160/86 Pulse Ox 06/25/20 12:05 97 06/25/20 08:10 96 06/25/20 04:00 96 06/25/20 01:24 06/25/20 00:00 94 L 06/24/20 20:00 97 06/24/20 19:02 98 06/24/20 17:50 98 06/24/20 17:30 96 Intake and Output 06/25/20 06/25/20 06/25/20 06:59 14:59 22:59 Intake Total 420 240 Balance 420 240 Intake: Intake, IV Titration 300 Amount Sodium Chloride 0.9% 1, 300 000 ml @ 75 mls/hr IV . [id number] Rx#:[id number] Oral 120 240 Other: Voiding Method Toilet # Voids 1 Weight 125.1 kg On physical examination, patient appears comfortable in no apparent distress. HEAD: Normocephalic, atraumatic. EYES: No scleral icterus. No conjunctival injection. MOUTH: No lesions, tongue midline. NECK: Trachea midline, no gross abnormalities. CHEST: Clear to auscultation with no wheezing or rhonchi appreciated. HEART: S1-S2 irregularly irregular. ABDOMEN: Soft, obese. Bowel sounds are positive. No organomegaly. No guarding or rigidity. EXTREMITIES: No pedal edema. SKIN: No rashes, no jaundice. NEUROLOGIC: Alert and oriented x3. No focal deficits. Results CBC & Chem 7: 06/26/20 07:12 06/26/20 07:12 Labs: Abnormal Lab Results - Last 24 Hours (Table) 06/24/20 06/24/20 06/24/20 Range/Units 00:00 17:28 23:30 Plt Count 146 L 134 L (150-450) k/uL PT 19.1 H (9.0-12.0) sec INR 1.9 H (<1.2) Carbon Dioxide (22-30) mmol/L Glucose (74-99) mg/dL POC Glucose (mg/dL) (75-99) mg/dL Urine Protein (Negative) 06/25/20 06/25/20 06/25/20 Range/Units 06:31 07:50 07:50 Plt Count 140 L (150-450) k/uL PT (9.0-12.0) sec INR (<1.2) Carbon Dioxide 31 H (22-30) mmol/L Glucose 157 H (74-99) mg/dL POC Glucose (mg/dL) 150 H (75-99) mg/dL Urine Protein (Negative) 06/25/20 06/25/20 06/25/20 Range/Units 12:01 12:54 13:14 Plt Count (150-450) k/uL PT 13.9 H (9.0-12.0) sec INR 1.4 H (<1.2) Carbon Dioxide (22-30) mmol/L Glucose (74-99) mg/dL POC Glucose (mg/dL) 147 H (75-99) mg/dL Urine Protein Trace H (Negative) Assessment and Plan (1) Bright red blood per rectum Narrative/Plan: 80-year-old male presenting with complaints of GI bleed. He reports multiple episodes of bright red blood per rectum. Remote history of colonoscopy 40 years ago. No abdominal pain. Unclear etiology, differential includes diverticular bleed, hemorrhoidal bleed, AVM, or other etiology. Current Visit: Yes Status: Acute Code(s): K62.5 - HEMORRHAGE OF ANUS AND RECTUM SNOMED Code(s): 98888063 (2) GI bleed Current Visit: Yes Status: Acute Code(s): K92.2 - GASTROINTESTINAL HEMORRHAGE, UNSPECIFIED SNOMED Code(s): 30227993 Plan: Supportive care Okay for liquid diet Continue to monitor hemoglobin and hematocrit and transfuse as needed Continue to monitor stool output Extensive discussion with the patient and his daughter at bedside with plan for colonoscopy for further evaluation without the risks, complications and benefits of the procedure explained to the patient length of his questions answered to his satisfaction Continue to hold Coumadin An additional 5 mg of vitamin K have been ordered with repeat INR tonight at 8 PM Further recommendations pending findings of colonoscopy Thank you for allowing us to participate in the care of the patient
--- NOTE | 2020-06-26 09:51 | P.PN ---
Subjective Progress Note Date: 06/26/20 This is an 80-year-old gentleman with past medical history significant for thoracic aortic aneurysm, paroxysmal atrial fibrillation on Coumadin, COPD, obstructive sleep apnea with CPAP use, hypertension, diabetes, who follows in the office with Dr. Bynum. Cardiology consultation was requested on this ad mission for atrial fibrillation and the fact that he is on Coumadin. Patient presented to the hospital with 4-5 episodes of bright red blood per rectum. His Coumadin is currently on hold, he was seen by GI service and is scheduled today to undergo colonoscopy. Patient did have an echo performed this year which showed an ejection fraction of 55-60% with mild to moderate aortic regurg, moderate to severe aortic stenosis, mild to moderate mitral regurg, and mild tricuspid regurg. He also underwent a cardiac catheterization in 2008 which revealed mild to moderate disease of the mid LAD and mild disease of the RCA at which time medical therapy was advised. Patient was seen and examined this morning, overall he feels well he has no complaints. Scheduled this morning as mentioned for colonoscopy. Blood pressure 128/60 with a heart rate in the 80s, 99% on room air. White blood cell count 9.1, hemoglobin 13.7, platelet count 152. INR 1.2, sodium 142, potassium 4.4, BUN 13, creatinine 0.9. Objective - Vital Signs Vital signs: Vital Signs Temp 97 F L 06/26/20 07:50 Pulse 81 06/26/20 07:50 Resp 16 06/26/20 07:50 BP 129/66 06/26/20 07:50 Pulse Ox 99 06/26/20 07:50 Intake & Output 06/25/20 06/26/20 06/26/20 18:59 06:59 18:59 Intake Total 800 500 Output Total 400 Balance 400 500 Weight 122.9 kg Intake: IV 500 Oral 800 Output: Urine 400 Other: Voiding Method Toilet # Voids 1 0 - Exam PHYSICAL EXAMINATION: GENERAL: 80-year-old gentleman in no acute distress at the time of my examination HEENT: Head is atraumatic, normocephalic. Pupils equal, round. Sclera anicteric. Conjunctiva are clear. Mucous membranes of the mouth are moist. Neck is supple. There is no elevated jugular venous pressure. No carotid bruit is heard. HEART EXAMINATION: Heart S1-S2 irregular irregular, systolic murmur heard CHEST EXAMINATION: Lungs are clear to auscultation and precussion. No chest wall tenderness is noted on palpation or with deep breathing. ABDOMEN: Soft, nontender. Bowel sounds are heard. No organomegaly noted. EXTREMITIES: 2+ peripheral pulses with no evidence of peripheral edema and no calf tenderness noted. NEUROLOGIC patient is awake, alert and oriented 3 . . - Labs CBC & Chem 7: 06/26/20 07:12 06/26/20 07:12 Labs: Abnormal Lab Results - Last 24 Hours (Table) 06/25/20 06/25/20 06/25/20 Range/Units 12:01 12:54 13:14 PT 13.9 H (9.0-12.0) sec INR 1.4 H (<1.2) Glucose (74-99) mg/dL POC Glucose (mg/dL) 147 H (75-99) mg/dL Urine Protein Trace H (Negative) 06/25/20 06/25/20 06/25/20 Range/Units 16:49 20:19 20:53 PT 12.8 H (9.0-12.0) sec INR 1.2 H (<1.2) Glucose (74-99) mg/dL POC Glucose (mg/dL) 112 H 132 H (75-99) mg/dL Urine Protein (Negative) 06/26/20 06/26/20 06/26/20 Range/Units 06:21 07:12 07:12 PT 12.1 H (9.0-12.0) sec INR 1.2 H (<1.2) Glucose 141 H (74-99) mg/dL POC Glucose (mg/dL) 142 H (75-99) mg/dL Urine Protein (Negative) Assessment and Plan Plan: Assessment and plan #1 lower GI bleeding #2 paroxysmal atrial fibrillation on Coumadin for anticoagulation, currently on hold #3 valvular heart disease #4 nonobstructive coronary artery disease by cath in 2018 #5 COPD #6 obstructive sleep apnea #7 history of thoracic aortic aneurysm #8 hypertension #9 diabetes Plan We will continue to hold the patient's Coumadin, he is scheduled for colonoscopy today. Continue to monitor hemoglobin. DNP note has been reviewed, I agree with a documented findings and plan of care. Patient was seen and examined.
--- NOTE | 2020-06-26 09:54 | P.PCN ---
Date of Procedure: 06/26/20 Description of Procedure: BRIEF HISTORY: 80-year-old male with a medical history significant for atrial fibrillation on Coumadin therapy, ERICKA, COPD, diabetes mellitus, hypertension and thoracic aortic aneurysm who presented to the hospital due to complaints of blood per rectum. The patient denies any constipation, altered bowel function, straining or hemorrhoids. He reports at least 5 episodes of painless bright red blood per rectum prior to presentation to the hospital. Subsequently the patient reports passing bright red stool and maroon-colored stool. He does report further bleeding today. Last colonoscopy was 4 years ago. No history of colon cancer in the patient's family. He denies any cramping or abdominal pain. In general bowel movements are 2-3 times daily and soft in consistency. Laboratory evaluation on presentation significant for hemoglobin 13.6 with a positive stool testing for occult blood with WBC 9.1 and platelet count 140,000. Patient's INR was 2.5 on presentation and he was given 5 mg of vitamin K. PROCEDURE PERFORMED: Colonoscopy with polypectomy. PREOPERATIVE DIAGNOSIS: GI bleed, hematochezia. ESTIMATED BLOOD LOSS: Minimal. IV sedation per Anesthesia. PROCEDURE: After informed consent was obtained, the patient, was brought into the endoscopy unit. IV sedation was administered by Anesthesia under continuous monitoring. Digital rectal examination was normal. Initially the Olympus CF-190 flexible video colonoscope was then inserted in the rectum, gradually advanced into the cecum without any difficulty. Careful examination was performed as the scope was gradually being withdrawn. Ileocecal valve and the appendiceal orifice were visualized and appeared normal. Prep was excellent. Mucosa of the cecum, ascending colon, transverse colon, descending colon, sigmoid colon, and rectum appeared normal, with multiple small and large mouth diverticula noted throughout the colon with some old blood but no active bleeding noted. Cold snare polypectomy of 3 polyps from the ascending colon measuring 1 cm, 2 mm, and 4 mm in size. Cold snare polypectomy of a 5 mm sigmoid polyp. Retroflexion was performed in the rectum and no lesions were seen, moderate internal hemorrhoids. The patient tolerated the procedure well. IMPRESSION: Old blood noted around diverticula with no active bleeding noted. Moderate pandiverticulosis. Cold Snare Polypectomy of 3 polyps from the ascending colon and one polyp from the sigmoid colon. Internal hemorrhoids. RECOMMENDATIONS: Findings of this examination were discussed with the patient and his Giana. Okay to resume diet. Okay to resume medications. Continue to hold Coumadin for the next 24-48 hours depending on clinical course and hemoglobin. Await pathology from polypectomies. Recommend repeat colonoscopy in one year for colon polyps.
[2020-06-26] MEDS: METOPROLOL SUCCINATE (ER) 50 MG TAB.ER.24H PO SCH (10:00)
[2020-06-26] MEDS: ISOSORBIDE MONONITRATE ER 30 MG TAB.ER.24H PO SCH (10:00)
[2020-06-26] MEDS: hydrALAZINE HCL 25 MG TAB PO SCH (10:00)
[2020-06-26] MEDS: MULTIVITAMINS, THERA 1 EACH TAB PO SCH (10:00)
[2020-06-26] MEDS: HYDROCORTISONE 2.5% RECTAL CREAM 30 GM TUBE RECTAL SCH (10:00)
[2020-06-26] MEDS: PANTOPRAZOLE 40 MG/10 ML VIAL IVP SCH (10:00)
[2020-06-26 11:53] LABS: Glucose,Whole Blood 198 mg/dL (75-99)
[2020-06-26 12:09] VITALS: BP 129/76; PULSE 98; RESP 18; TEMP 97.5
--- NOTE | 2020-07-03 21:35 | P.DS ---
Providers Date of admission: 06/24/20 13:58 Expected date of discharge: 06/26/20 Attending physician: Nj Lewis Consults: 06/24/20 17:27 Consult Physician Routine Consulting Provider: Eve Vital Consult Reason/Comments: afib Do you want consulting provider notified?: Yes 06/25/20 07:35 Consult Physician Routine Consulting Provider: Deepali Amaya Consult Reason/Comments: GI BLEED Do you want consulting provider notified?: Yes Primary care physician: Kristel [facility] Course: 80-year-old gentleman with past medical history significant for thoracic aortic aneurysm, paroxysmal atrial fibrillation on Coumadin, COPD, obstructive sleep apnea with CPAP use, hypertension, diabetes, who presented to the hospital with 4-5 episodes of bright red blood per rectum. Cardiology consultation was requested on this admission for atrial fibrillation and the fact that he is on Coumadin. His Coumadin is currently on hold, he was seen by GI service and is scheduled today to undergo colonoscopy. Patient did have an echo performed this year which showed an ejection fraction of 55-60% with mild to moderate aortic regurg, moderate to severe aortic stenosis, mild to moderate mitral regurg, and mild tricuspid regurg. He also underwent a cardiac catheterization in 2008 which revealed mild to moderate disease of the mid LAD and mild disease of the RCA at which time medical therapy was advised. Patient was seen and examined this morning, overall he feels well he has no complaints. Scheduled this morning as mentioned for colonoscopy. Blood pressure 128/60 with a heart rate in the 80s, 99% on room air. White blood cell count 9.1, hemoglobin 13.7, platelet count 152. INR 1.2, sodium 142, potassium 4.4, BUN 13, creatinine 0.9. Colonoscopy revealed pandiverticulosis and polyps were removed. Patient remained stable post procedure and was cleared for dc by cardiology and GI Patient Condition at Discharge: Stable Plan - Discharge Summary Discharge Rx Participant: No New Discharge Prescriptions: Continue Warfarin [Coumadin] 7.5 mg PO MOTUWEFRSA hydrALAZINE HCL 25 mg PO BID Multivitamin [Men's Multi-Vitamin] 1 tab PO DAILY Warfarin [Coumadin] 3.75 mg PO SUTH Atorvastatin [Lipitor] 40 mg PO HS #90 tab Isosorbide Mononitrate ER [Imdur] 30 mg PO DAILY #90 tab.er.24h Insulin Glargine,Hum.rec.anlog [Lantus Solostar] 8 unit SQ DAILY Metoprolol Succinate (ER) [Toprol XL] 50 mg PO DAILY Discharge Medication List Multivitamin [Men's Multi-Vitamin] 1 tab PO DAILY 10/31/14 [History] Warfarin [Coumadin] 7.5 mg PO MOTUWEFRSA 10/31/14 [History] hydrALAZINE HCL 25 mg PO BID 10/31/14 [History] Warfarin [Coumadin] 3.75 mg PO SUTH 05/07/18 [History] Atorvastatin [Lipitor] 40 mg PO HS #90 tab 05/09/18 [Rx] Isosorbide Mononitrate ER [Imdur] 30 mg PO DAILY #90 tab.er.24h 05/09/18 [Rx] Insulin Glargine,Hum.rec.anlog [Lantus Solostar] 8 unit SQ DAILY 06/24/20 [History] Metoprolol Succinate (ER) [Toprol XL] 50 mg PO DAILY 06/24/20 [History] Follow up Appointment(s)/Referral(s): Kristel Cuadra MD [Primary Care Provider] - 1-2 days Patient Instructions/Handouts: Gastrointestinal Bleeding (ED) Discharge Disposition: HOME SELF-CARE
== END 2020-06-26 15:01 | disposition home or self-care (01) ==
LOC: EC 12:04 → INTOOBSV 13:58 → 3SCARD 13:58 → UNDODISIN 06-26 15:01
PROVIDERS: ADMIT Hospitalist; ATTEND Hospitalist
DX: K92.2 Gastrointestinal hemorrhage, unspecified (principal); I71.2 Thoracic aortic aneurysm, without rupture; I48.0 Paroxysmal atrial fibrillation; J44.9 Chronic obstructive pulmonary disease, unspecified; G47.33 Obstructive sleep apnea (adult) (pediatric); I10 Essential (primary) hypertension; E11.9 Type 2 diabetes mellitus without complications; I25.10 Atherosclerotic heart disease of native coronary artery without angina pectoris; E78.5 Hyperlipidemia, unspecified; E66.9 Obesity, unspecified; Z68.38 Body mass index [BMI] 38.0-38.9, adult; D69.6 Thrombocytopenia, unspecified; K64.8 Other hemorrhoids; D12.2 Benign neoplasm of ascending colon; D12.5 Benign neoplasm of sigmoid colon; I08.3 Combined rheumatic disorders of mitral, aortic and tricuspid valves; Z79.01 Long term (current) use of anticoagulants; Z99.89 Dependence on other enabling machines and devices; Z79.899 Other long term (current) drug therapy; Z79.4 Long term (current) use of insulin; Z87.891 Personal history of nicotine dependence; Z96.641 Presence of right artificial hip joint; Z20.822 Contact with and (suspected) exposure to COVID-19; Z82.49 Family history of ischemic heart disease and other diseases of the circulatory system
CPT/HCPCS: 96376 ×2; 96361 ×2; 96366; 96367; 96365; 96375; 99285; 36415; 86900; 86901; 88305; 80053; 80048 ×2; 84484; 85025 ×3; 85610 ×3; 85730; 86850; 82272; 81003; 87635; 45385; G0378 ×3; J2543; J3430; J2001; J2704; C9113 ×3

== ENCOUNTER 2020-07-05 17:52 | Emergency (ER) | payer MEDICARE ==
[2020-07-05] MEDS ORDERED: ACETAMINOPHEN TAB 500 MG TAB PO STA (18:28)
[2020-07-05] MEDS ORDERED: IBUPROFEN 600 MG TAB PO STA (18:28)
[2020-07-05] MEDS: SODIUM CHLORIDE 0.9% 500 ML 500 ML IV SCH ×2 (18:33→18:58)
--- NOTE | 2020-07-05 18:33 | ED ---
General Adult HPI - General Chief complaint: Weakness Stated complaint: Weakness Time Seen by Provider: 07/05/20 17:55 Source: patient, family, RN notes reviewed, old records reviewed Mode of arrival: wheelchair Limitations: physical limitation - History of Present Illness Initial comments: This is a 80-year-old male who presents emergency Department with a past medical history significant for diabetes and hypertension as well as COPD. According to the son starting on Sunday he didn't feel good and he has progressively felt worse. Son states the patient is very weak and has had the chills. Patient has no pain patient denies any difficulty breathing or shortness of breath. Patient denies any cough. Patient was recently in the hospital for a GI bleed. Patient denies any abdominal pain patient denies nausea vomiting or diarrhea. Patient denies any dysuria hematuria urinary frequency. - Related Data Home Medications Medication Instructions Recorded Confirmed Multivitamin [Men's Multi-Vitamin] 1 tab PO DAILY 10/31/14 07/05/20 Warfarin [Coumadin] 7.5 mg PO MOTUWEFRSA 10/31/14 07/05/20 hydrALAZINE HCL 25 mg PO BID 10/31/14 07/05/20 Warfarin [Coumadin] 3.75 mg PO SUTH 05/07/18 07/05/20 Insulin Glargine,Hum.rec.anlog 8 unit SQ DAILY 06/24/20 07/05/20 [Lantus Solostar] Metoprolol Succinate (ER) [Toprol 50 mg PO DAILY 06/24/20 07/05/20 XL] Previous Rx's Medication Instructions Recorded Atorvastatin [Lipitor] 40 mg PO HS #90 tab 05/09/18 Isosorbide Mononitrate ER [Imdur] 30 mg PO DAILY #90 tab.er.24h 05/09/18 Allergies Allergy/AdvReac Type Severity Reaction Status Date / Time No Known Allergies Allergy Verified 07/05/20 19:13 Review of Systems ROS Statement: Those systems with pertinent positive or pertinent negative responses have been documented in the HPI. ROS Other: All systems not noted in ROS Statement are negative. Past Medical History Past Medical History: Atrial Fibrillation, Coronary Artery Disease (CAD), COPD, Diabetes Mellitus, Hypertension, Sleep Apnea/CPAP/BIPAP Additional Past Medical History / Comment(s): aortic aneurysm being followed by Dr. Samman, gi bleed, ruptured polyp History of Any Multi-Drug Resistant Organisms: None Reported Past Surgical History: Joint Replacement Additional Past Surgical History / Comment(s): R. Hip, colonoscopy Past Anesthesia/Blood Transfusion Reactions: No Reported Reaction Past Psychological History: No Psychological Hx Reported Smoking Status: Never smoker Past Alcohol Use History: None Reported Past Drug Use History: None Reported - Past Family History Father Family Medical History: Myocardial Infarction ([place]) General Exam - General Exam Comments Initial Comments: GENERAL: Patient is well-developed and well-nourished. Patient is nontoxic and well- hydrated and is in mild distress. ENT: Neck is soft and supple. No significant lymphadenopathy is noted. Oropharynx is clear. Moist mucous membranes. Neck has full range of motion without eliciting any pain. EYES: The sclera were anicteric and conjunctiva were pink and moist. Extraocular movements were intact and pupils were equal round and reactive to light. Eyelids were unremarkable. PULMONARY: Unlabored respirations. Good breath sounds bilaterally. No audible rales rhonchi or wheezing was noted. CARDIOVASCULAR: There is a regular rate and rhythm without any murmurs gallops or rubs. ABDOMEN: Soft and nontender with normal bowel sounds. SKIN: Skin is clear with no lesions or rashes and otherwise unremarkable. NEUROLOGIC: Patient is alert and oriented x3. Cranial nerves II through XII are grossly intact. Motor and sensory are also intact. Normal speech, volume and content. Symmetrical smile. MUSCULOSKELETAL: Normal extremities with adequate strength and full range of motion. LYMPHATICS: No significant lymphadenopathy is noted PSYCHIATRIC: Normal psychiatric evaluation. Limitations: physical limitation Course Vital Signs 07/05/20 17:54 Temperature 102.7 F H Pulse Rate 84 Respiratory 18 Rate Blood Pressure 143/66 O2 Sat by Pulse 95 Oximetry Medical Decision Making - Medical Decision Making EKG shows sinus rhythm at 80 bpm PA interval 260 QRS is 110 QT interval 36 QTC is 456. Patient's EKG shows first-degree AV block is no ST segment elevation or depression. Chest x-ray shows right-sided pneumonia. Patient was oxygenating between 9495% on room air and was able to ambulate and felt much improved. Patient wanted to go home and get a monoclonal antibodies and if he got worse he would come back to the emergency department. - Lab Data Result diagrams: 07/05/20 18:21 07/05/20 18:21 Lab Results 07/05/20 07/05/20 07/05/20 Range/Units 18:21 18:21 18:21 WBC 5.6 (3.8-10.6) k/uL RBC 4.01 L (4.30-5.90) m/uL Hgb 12.2 L (13.0-17.5) gm/dL Hct 35.8 L (39.0-53.0) % MCV 89.1 (80.0-100.0) fL MCH 30.3 (25.0-35.0) pg MCHC 34.0 (31.0-37.0) g/dL RDW 14.5 (11.5-15.5) % Plt Count 127 L (150-450) k/uL MPV 10.1 Neutrophils % 77 % Lymphocytes % 13 % Monocytes % 6 % Eosinophils % 0 % Basophils % 1 % Neutrophils # 4.3 (1.3-7.7) k/uL Lymphocytes # 0.8 L (1.0-4.8) k/uL Monocytes # 0.4 (0-1.0) k/uL Eosinophils # 0.0 (0-0.7) k/uL Basophils # 0.1 (0-0.2) k/uL PT 10.9 (9.0-12.0) sec INR 1.0 (<1.2) APTT 26.8 (22.0-30.0) sec Sodium 133 L (137-145) mmol/L Potassium 4.0 (3.5-5.1) mmol/L Chloride 98 (98-107) mmol/L Carbon Dioxide 28 (22-30) mmol/L Anion Gap 7 mmol/L BUN 17 (9-20) mg/dL Creatinine 0.97 (0.66-1.25) mg/dL Est GFR (CKD-EPI)AfAm 85 (>60 ml/min/1.73 sqM) Est GFR (CKD-EPI)NonAf 74 (>60 ml/min/1.73 sqM) Glucose 228 H (74-99) mg/dL Plasma Lactic Acid James (0.7-2.0) mmol/L Calcium 8.3 L (8.4-10.2) mg/dL Total Bilirubin 0.6 (0.2-1.3) mg/dL AST 69 H (17-59) U/L ALT 48 (4-49) U/L Alkaline Phosphatase 63 (38-126) U/L Troponin I (0.000-0.034) ng/mL Total Protein 6.0 L (6.3-8.2) g/dL Albumin 3.3 L (3.5-5.0) g/dL Coronavirus (PCR) (Not Detectd) Influenza Type A RNA (Not Detectd) Influenza Type B (PCR) (Not Detectd) 07/05/20 07/05/20 07/05/20 Range/Units 18:21 18:25 18:27 WBC (3.8-10.6) k/uL RBC (4.30-5.90) m/uL Hgb (13.0-17.5) gm/dL Hct (39.0-53.0) % MCV (80.0-100.0) fL MCH (25.0-35.0) pg MCHC (31.0-37.0) g/dL RDW (11.5-15.5) % Plt Count (150-450) k/uL MPV Neutrophils % % Lymphocytes % % Monocytes % % Eosinophils % % Basophils % % Neutrophils # (1.3-7.7) k/uL Lymphocytes # (1.0-4.8) k/uL Monocytes # (0-1.0) k/uL Eosinophils # (0-0.7) k/uL Basophils # (0-0.2) k/uL PT (9.0-12.0) sec INR (<1.2) APTT (22.0-30.0) sec Sodium (137-145) mmol/L Potassium (3.5-5.1) mmol/L Chloride (98-107) mmol/L Carbon Dioxide (22-30) mmol/L Anion Gap mmol/L BUN (9-20) mg/dL Creatinine (0.66-1.25) mg/dL Est GFR (CKD-EPI)AfAm (>60 ml/min/1.73 sqM) Est GFR (CKD-EPI)NonAf (>60 ml/min/1.73 sqM) Glucose (74-99) mg/dL Plasma Lactic Acid James 1.7 (0.7-2.0) mmol/L Calcium (8.4-10.2) mg/dL Total Bilirubin (0.2-1.3) mg/dL AST (17-59) U/L ALT (4-49) U/L Alkaline Phosphatase (38-126) U/L Troponin I (0.000-0.034) ng/mL Total Protein (6.3-8.2) g/dL Albumin (3.5-5.0) g/dL Coronavirus (PCR) Detected A (Not Detectd) Influenza Type A RNA Not Detected (Not Detectd) Influenza Type B (PCR) Not Detected (Not Detectd) 07/05/20 Range/Units 18:35 WBC (3.8-10.6) k/uL RBC (4.30-5.90) m/uL Hgb (13.0-17.5) gm/dL Hct (39.0-53.0) % MCV (80.0-100.0) fL MCH (25.0-35.0) pg MCHC (31.0-37.0) g/dL RDW (11.5-15.5) % Plt Count (150-450) k/uL MPV Neutrophils % % Lymphocytes % % Monocytes % % Eosinophils % % Basophils % % Neutrophils # (1.3-7.7) k/uL Lymphocytes # (1.0-4.8) k/uL Monocytes # (0-1.0) k/uL Eosinophils # (0-0.7) k/uL Basophils # (0-0.2) k/uL PT (9.0-12.0) sec INR (<1.2) APTT (22.0-30.0) sec Sodium (137-145) mmol/L Potassium (3.5-5.1) mmol/L Chloride (98-107) mmol/L Carbon Dioxide (22-30) mmol/L Anion Gap mmol/L BUN (9-20) mg/dL Creatinine (0.66-1.25) mg/dL Est GFR (CKD-EPI)AfAm (>60 ml/min/1.73 sqM) Est GFR (CKD-EPI)NonAf (>60 ml/min/1.73 sqM) Glucose (74-99) mg/dL Plasma Lactic Acid James (0.7-2.0) mmol/L Calcium (8.4-10.2) mg/dL Total Bilirubin (0.2-1.3) mg/dL AST (17-59) U/L ALT (4-49) U/L Alkaline Phosphatase (38-126) U/L Troponin I 0.053 H* (0.000-0.034) ng/mL Total Protein (6.3-8.2) g/dL Albumin (3.5-5.0) g/dL Coronavirus (PCR) (Not Detectd) Influenza Type A RNA (Not Detectd) Influenza Type B (PCR) (Not Detectd) Disposition Clinical Impression: Pneumonia due to 2019-nCoV Disposition: HOME SELF-CARE Instructions (If sedation given, give patient instructions): Coronavirus Disease 2019 (COVID-19) Additional Instructions: Patient should take Motrin and Tylenol when necessary for fever. Patient should return to the emergency department for any worsening symptoms pa rticularly difficulty breathing Is patient prescribed a controlled substance at d/c from ED?: No Referrals: Kristel Cuadra MD [Primary Care Provider] - 1-2 days Time of Disposition: 20:56
[2020-07-05 18:43] LABS: Basophils # (A) 0.1 k/uL (0-0.2); Basophils % (A) 1 %; Eosinophils % (A) 0 %; HCT 35.8 % (39.0-53.0); HGB 12.2 gm/dL (13.0-17.5); Lymphocytes # (A) 0.8 k/uL (1.0-4.8); Lymphocytes % (A) 13 %; MCH 30.3 pg (25.0-35.0); MCV 89.1 fL (80.0-100.0); Mean Platelet Volume 10.1; Monocytes # (A) 0.4 k/uL (0-1.0); Monocytes % (A) 6 %; Neutrophils # (A) 4.3 k/uL (1.3-7.7); Neutrophils % (A) 77 %; Platelet Count 127 k/uL (150-450); RBC 4.01 m/uL (4.30-5.90); RDW 14.5 % (11.5-15.5); WBC 5.6 k/uL (3.8-10.6)
[2020-07-05 18:51] LABS: Partial Thromboplastin Time 26.8 sec (22.0-30.0); Prothrombin Time 10.9 sec (9.0-12.0)
[2020-07-05 18:54] LABS: Albumin 3.3 g/dL (3.5-5.0); Calcium 8.3 mg/dL (8.4-10.2); Total Bilirubin 0.6 mg/dL (0.2-1.3)
--- NOTE | 2020-07-05 19:13 | XR ---
EXAMINATION TYPE: XR chest 2V DATE OF EXAM: 07/05/2020 COMPARISON: 05/07/2018 HISTORY: Fever TECHNIQUE: 2 views FINDINGS: Heart is borderline enlarged. There is increased density over the right lung field that cou ld be artifactual. There is no heart failure. Left lung is clear. There are chest leads. There is coa rsening of interstitial markings. IMPRESSION: Pulmonary fibrotic changes. No heart failure. Infiltrate and pleural thickening on the ri ght side is possible. Limited exam.
[2020-07-05] MEDS ORDERED: BAMLANIVIMAB 700 MG in SODIUM CHLORIDE 0.9% 50 ML IVPB ONE (21:30)
[2020-07-05 21:38] VITALS: RESP 20
[2020-07-05] MEDS ORDERED: ACETAMINOPHEN TAB 325 MG TAB PO ONE (23:15)
[2020-07-05 23:46] VITALS: TEMP 98
[2020-07-06 00:12] VITALS: BP 111/63; PULSE 55
== END 2020-07-06 00:15 | disposition home or self-care (01) ==
LOC: EC 17:52
DX: U07.1 COVID-19 (principal); J12.82 Pneumonia due to coronavirus disease 2019; I48.91 Unspecified atrial fibrillation; I25.10 Atherosclerotic heart disease of native coronary artery without angina pectoris; J44.9 Chronic obstructive pulmonary disease, unspecified; E11.9 Type 2 diabetes mellitus without complications; I10 Essential (primary) hypertension; Z79.01 Long term (current) use of anticoagulants; Z79.4 Long term (current) use of insulin
CPT/HCPCS: 36415; 93005; 80053; 83605; 84484; 85025; 85610; 85730; 87040; 87502; 87635; 71046; 99285; 96360; Q0239

== ENCOUNTER 2020-12-15 19:54 | Emergency (ER) | payer MEDICARE ==
[2020-12-15 20:01] VITALS: BP 183/77; PULSE 70; RESP 22; TEMP 97
[2020-12-15] MEDS ORDERED: LIDOCAINE 1%-EPI 1:100,000 20 ML VIAL SQ STA (20:09)
--- NOTE | 2020-12-15 20:33 | ED ---
Wound/Laceration HPI - General Chief Complaint: Wound/Laceration Stated Complaint: hand lac Time Seen by Provider: 12/15/20 20:01 Source: patient Mode of arrival: ambulatory Limitations: no limitations - History of Present Illness Initial Comments: 80-year-old male presents to emergency department with a chief complaint of laceration. Patient reports he accidentally lacerated the medial aspect of his left hand with a clean knife. States his tetanus is up-to-date. Patient is currently on Coumadin so he is bleeding more than usual. However, he states mostly the bleeding has since resolved. He reports full range of motion in all his fingers. Reports minimal pain at laceration site. - Related Data Home Medications Medication Instructions Recorded Confirmed Multivitamin [Men's Multi-Vitamin] 1 tab PO DAILY 10/31/14 07/05/20 Warfarin [Coumadin] 7.5 mg PO MOTUWEFRSA 10/31/14 07/05/20 hydrALAZINE HCL 25 mg PO BID 10/31/14 07/05/20 Warfarin [Coumadin] 3.75 mg PO SUTH 05/07/18 07/05/20 Insulin Glargine,Hum.rec.anlog 8 unit SQ DAILY 06/24/20 07/05/20 [Lantus Solostar] Metoprolol Succinate (ER) [Toprol 50 mg PO DAILY 06/24/20 07/05/20 XL] Previous Rx's Medication Instructions Recorded Atorvastatin [Lipitor] 40 mg PO HS #90 tab 05/09/18 Isosorbide Mononitrate ER [Imdur] 30 mg PO DAILY #90 tab.er.24h 05/09/18 Allergies Allergy/AdvReac Type Severity Reaction Status Date / Time No Known Allergies Allergy Verified 12/15/20 20:00 Review of Systems ROS Statement: Those systems with pertinent positive or pertinent negative responses have been documented in the HPI. ROS Other: All systems not noted in ROS Statement are negative. Past Medical History Past Medical History: Atrial Fibrillation, Coronary Artery Disease (CAD), COPD, Diabetes Mellitus, Hypertension, Sleep Apnea/CPAP/BIPAP Additional Past Medical History / Comment(s): aortic aneurysm being followed by Dr. Bynum, gi bleed, ruptured polyp History of Any Multi-Drug Resistant Organisms: None Reported Past Surgical History: Joint Replacement Additional Past Surgical History / Comment(s): R. Hip, colonoscopy Past Anesthesia/Blood Transfusion Reactions: No Reported Reaction Past Psychological History: No Psychological Hx Reported Smoking Status: Never smoker Past Alcohol Use History: None Reported Past Drug Use History: None Reported - Past Family History Father Family Medical History: Myocardial Infarction ([place]) General Exam Limitations: no limitations General appearance: alert, in no apparent distress, obese Head exam: Present: atraumatic, normocephalic, normal inspection Eye exam: Present: normal appearance, PERRL, EOMI Pupils: Present: normal accommodation ENT exam: Present: normal exam, normal oropharynx, mucous membranes moist Neck exam: Present: normal inspection, full ROM. Absent: tenderness, lymphadenopathy Respiratory exam: Present: normal lung sounds bilaterally. Absent: respiratory distress Cardiovascular Exam: Present: regular rate, normal rhythm, normal heart sounds. Absent: systolic murmur Extremities exam: Present: full ROM (Full range of motion in all the fingers), tenderness (Minimal tenderness), normal capillary refill, other (Sensation intact). Absent: normal inspection (5 cm superficial laceration on the medial aspect of left hand), pedal edema, joint swelling, calf tenderness Back exam: Present: normal inspection, full ROM. Absent: tenderness, CVA tenderness (R), CVA tenderness (L) Neurological exam: Present: alert, oriented X3 Psychiatric exam: Present: normal affect, normal mood Skin exam: Present: warm, dry, intact, normal color Course Vital Signs 12/15/20 19:55 Temperature 97 F L Pulse Rate 70 Respiratory 22 Rate Blood Pressure 183/77 O2 Sat by Pulse 96 Oximetry Procedures - Laceration Laceration #1 Consent Obtained: verbal consent Indication: laceration Site: hand Size (cm): 5 Description: linear, clean Depth: simple, single layer Sedation/Analgesia: none Anesthetic Used: lidocaine 1%, with epi Anesthesia Technique: local infiltration Amount (mls): 3 Pre-repair: irrigated extensively, deep structures intact Type of Sutures: nylon Size of Sutures: 4-0 Number of Sutures: 7 Technique: simple, interrupted Patient Tolerated Procedure: well, no complications Medical Decision Making - Medical Decision Making 80-year-old male presents emergency Department with a chief complaint of a laceration. Laceration site was thoroughly irrigated and repaired with 7 sutures. Patient tolerated procedure well. The bleeding had resolved. Tetanus is up-to-date. Advised to return for suture removal. Case discussed physician. Disposition Clinical Impression: Laceration Disposition: HOME SELF-CARE Condition: Stable Instructions (If sedation given, give patient instructions): Care For Your Stitches (DC), Laceration (DC) Additional Instructions: Please return to the emergency room in 8-10 days to have sutures removed. Please watch for any signs of infection which may include increased pain, swelling, redness, fever or chills. Please return to emergency room for any signs of infection do occur. Please use clean soap and water over the area to prevent scabbing over your stitches. Please leave wound covered for the first 24-48 hours and then leave wound open to air. Please return to the emergency room for any other concerns. Is patient prescribed a controlled substance at d/c from ED?: No Referrals: Kristel Cuadra MD [Primary Care Provider] - 1-2 days Time of Disposition: 20:33
== END 2020-12-15 20:45 | disposition home or self-care (01) ==
LOC: EC 19:54
DX: S61.412A Laceration without foreign body of left hand, initial encounter (principal); E11.9 Type 2 diabetes mellitus without complications; I10 Essential (primary) hypertension; I25.10 Atherosclerotic heart disease of native coronary artery without angina pectoris; I48.91 Unspecified atrial fibrillation; J44.9 Chronic obstructive pulmonary disease, unspecified; Z79.01 Long term (current) use of anticoagulants; Z79.4 Long term (current) use of insulin; Z79.899 Other long term (current) drug therapy; W26.0XXA Contact with knife, initial encounter
CPT/HCPCS: 12002; 99282

== ENCOUNTER 2021-01-15 23:46 | Emergency (ER) | payer MEDICARE ==
[2021-01-15 23:51] VITALS: RESP 20
[2021-01-16 00:39] LABS: Basophils % (A) 1 %; Eosinophils # (A) 0.2 k/uL (0-0.7); Eosinophils % (A) 3 %; Lymphocytes # (A) 2.7 k/uL (1.0-4.8); Lymphocytes % (A) 31 %; MCH 30.3 pg (25.0-35.0); MCHC 33.3 g/dL (31.0-37.0); Monocytes # (A) 0.6 k/uL (0-1.0); Monocytes % (A) 7 %; Neutrophils % (A) 56 %; Platelet Count 137 k/uL (150-450); RBC 5.27 m/uL (4.30-5.90); RDW 15.8 % (11.5-15.5); WBC 8.8 k/uL (3.8-10.6)
[2021-01-16] MEDS ORDERED: hydrALAZINE HCL 20 MG/ML 1 ML VIAL IVP STA (00:42)
[2021-01-16 00:48] LABS: INR 2.9 (<1.2); Partial Thromboplastin Time 32.2 sec (22.0-30.0); Prothrombin Time 27.6 sec (9.0-12.0)
[2021-01-16 00:54] LABS: Albumin 3.8 g/dL (3.5-5.0); Calcium 9.3 mg/dL (8.4-10.2); Potassium 3.7 mmol/L (3.5-5.1); Total Bilirubin 1.4 mg/dL (0.2-1.3); Total Protein 6.7 g/dL (6.3-8.2)
[2021-01-16] MEDS ORDERED: OXYMETAZOLINE 0.05% NASL SPRAY 1 SPRAY BOTTLE NASAL STA (02:01)
--- NOTE | 2021-01-16 02:04 | ED ---
Recheck HPI - General Chief Complaint: Recheck/Abnormal Lab/Rx Stated Complaint: Nosebleed Time Seen by Provider: 01/16/21 00:03 Source: patient Mode of arrival: wheelchair Limitations: no limitations - History of Present Illness Initial Comments: 80 year-old male patient presents to the emergency department for evaluation of nasal bleeding. Bleeding started about 30 minutes prior to arrival. He does take coumadin. Denies any trauma to the nose. States his last INR was 2.5 on Sunday. Last nose bleed was 5 years ago. He denies any headache, blurred vision, or double vision. Woke with symptoms. Does take blood pressure medication, state he has had all doses today. Denies chest pain or shortness of breath. - Related Data Home Medications Medication Instructions Recorded Confirmed Multivitamin [Men's Multi-Vitamin] 1 tab PO DAILY 10/31/14 07/05/20 Warfarin [Coumadin] 7.5 mg PO MOTUWEFRSA 10/31/14 07/05/20 hydrALAZINE HCL 25 mg PO BID 10/31/14 07/05/20 Warfarin [Coumadin] 3.75 mg PO SUTH 05/07/18 07/05/20 Insulin Glargine,Hum.rec.anlog 8 unit SQ DAILY 06/24/20 07/05/20 [Lantus Solostar Pen] Metoprolol Succinate (ER) [Toprol 50 mg PO DAILY 06/24/20 07/05/20 XL] Previous Rx's Medication Instructions Recorded Atorvastatin [Lipitor] 40 mg PO HS #90 tab 05/09/18 Isosorbide Mononitrate ER [Imdur] 30 mg PO DAILY #90 tab.er.24h 05/09/18 Allergies Allergy/AdvReac Type Severity Reaction Status Date / Time No Known Allergies Allergy Verified 01/15/21 23:51 Review of Systems ROS Statement: Those systems with pertinent positive or pertinent negative responses have been documented in the HPI. ROS Other: All systems not noted in ROS Statement are negative. Past Medical History Past Medical History: Atrial Fibrillation, Coronary Artery Disease (CAD), COPD, Diabetes Mellitus, Hypertension, Sleep Apnea/CPAP/BIPAP Additional Past Medical History / Comment(s): aortic aneurysm being followed by Dr. Bynum, gi bleed, ruptured polyp History of Any Multi-Drug Resistant Organisms: None Reported Past Surgical History: Joint Replacement Additional Past Surgical History / Comment(s): R. Hip, colonoscopy Past Anesthesia/Blood Transfusion Reactions: No Reported Reaction Past Psychological History: No Psychological Hx Reported Smoking Status: Never smoker Past Alcohol Use History: None Reported Past Drug Use History: None Reported - Past Family History Father Family Medical History: Myocardial Infarction ([place]) General Exam Limitations: no limitations General appearance: alert, in no apparent distress, other (This is a well- developed, well-nourished adult male patient in no acute distress. Vital signs upon presentation to 197.4F, pulse 68, respirations 20, blood pressure 230/95, pulse ox 97% on room air.) Eye exam: Present: normal appearance, PERRL, EOMI. Absent: scleral icterus, conjunctival injection, periorbital swelling ENT exam: Present: normal oropharynx, mucous membranes moist, other (nasal blee ding noted from left nare.) Respiratory exam: Present: normal lung sounds bilaterally. Absent: respiratory distress, wheezes, rales, rhonchi, stridor Cardiovascular Exam: Present: regular rate, normal rhythm, normal heart sounds. Absent: systolic murmur, diastolic murmur, rubs, gallop, clicks GI/Abdominal exam: Present: soft, normal bowel sounds. Absent: distended, tenderness, guarding, rebound, rigid Neurological exam: Present: alert, oriented X3, CN II-XII intact Psychiatric exam: Present: normal affect, normal mood Skin exam: Present: warm, dry, intact, normal color. Absent: rash Course Vital Signs 01/15/21 01/16/21 01/16/21 23:47 00:30 00:53 Temperature 97.4 F L Pulse Rate 68 Respiratory 20 Rate Blood Pressure 230/95 163/86 142/75 O2 Sat by Pulse 97 Oximetry 01/16/21 01/16/21 01:00 01:30 Temperature Pulse Rate Respiratory Rate Blood Pressure 145/74 141/69 O2 Sat by Pulse Oximetry Medical Decision Making - Medical Decision Making 80 year-old male patient presents to the emergency department for evaluation of nasal bleeding. In triage was found to have elevated blood pressure 230/95. Physical examination did reveal bleeding from the left nare. He did have nasal clamp in place with no leakage. Labs were reviewed showed normal hemoglobin, INR 2.9. Did give a dose of hydralazine, blood pressure did improve. Upon re- evaluation nasal bleeding had subsided. Patient was able to ambulate through the department with no return of bleeding. We did discuss management of bleed at home and return parameters in detail. They're instructed to follow-up the primary care physician for recheck in 1-2 days. Injected to follow-up with ENT specialist if needed. Patient and family verbalized understanding and agree with this plan. Case discussed with my attending Dr. Aquino. - Lab Data Result diagrams: 01/16/21 00:14 01/16/21 00:14 Lab Results 01/16/21 01/16/21 01/16/21 Range/Units 00:14 00:14 00:14 WBC 8.8 (3.8-10.6) k/uL RBC 5.27 (4.30-5.90) m/uL Hgb 16.0 (13.0-17.5) gm/dL Hct 48.0 (39.0-53.0) % MCV 91.0 (80.0-100.0) fL MCH 30.3 (25.0-35.0) pg MCHC 33.3 (31.0-37.0) g/dL RDW 15.8 H (11.5-15.5) % Plt Count 137 L (150-450) k/uL MPV 10.0 Neutrophils % 56 % Lymphocytes % 31 % Monocytes % 7 % Eosinophils % 3 % Basophils % 1 % Neutrophils # 5.0 (1.3-7.7) k/uL Lymphocytes # 2.7 (1.0-4.8) k/uL Monocytes # 0.6 (0-1.0) k/uL Eosinophils # 0.2 (0-0.7) k/uL Basophils # 0.0 (0-0.2) k/uL PT 27.6 H (9.0-12.0) sec INR 2.9 H (<1.2) APTT 32.2 H (22.0-30.0) sec Sodium 137 (137-145) mmol/L Potassium 3.7 (3.5-5.1) mmol/L Chloride 102 (98-107) mmol/L Carbon Dioxide 27 (22-30) mmol/L Anion Gap 8 mmol/L BUN 14 (9-20) mg/dL Creatinine 0.93 (0.66-1.25) mg/dL Est GFR (CKD-EPI)AfAm 89 (>60 ml/min/1.73 sqM) Est GFR (CKD-EPI)NonAf 77 (>60 ml/min/1.73 sqM) Glucose 163 H (74-99) mg/dL Calcium 9.3 (8.4-10.2) mg/dL Total Bilirubin 1.4 H (0.2-1.3) mg/dL AST 38 (17-59) U/L ALT 29 (4-49) U/L Alkaline Phosphatase 84 (38-126) U/L Total Protein 6.7 (6.3-8.2) g/dL Albumin 3.8 (3.5-5.0) g/dL Disposition Clinical Impression: Epistaxis, Hypertension Disposition: HOME SELF-CARE Condition: Good Instructions (If sedation given, give patient instructions): Nosebleed (ED), Hypertension (ED) Additional Instructions: If nasal bleeding starts again, squirt two sprays of afrin to the bleeding nostril and apply pressure for 20 minutes. If bleeding continues repeat process one time. If bleeding persists after two attempts return to the emergency department. Follow up with ENT specialist if needed. Return to the emergency department for any new, worsening, or concerning symptoms. Is patient prescribed a controlled substance at d/c from ED?: No Referrals: Kristel Cuadra MD [Primary Care Provider] - 1-2 days Jamar Motley MD [STAFF PHYSICIAN] - 1-2 days Time of Disposition: 02:04
[2021-01-16 02:12] VITALS: BP 143/78; PULSE 78; TEMP 98
== END 2021-01-16 02:12 | disposition home or self-care (01) ==
LOC: EC 23:46
DX: R04.0 Epistaxis (principal); I10 Essential (primary) hypertension; E11.9 Type 2 diabetes mellitus without complications; J44.9 Chronic obstructive pulmonary disease, unspecified; I25.10 Atherosclerotic heart disease of native coronary artery without angina pectoris; G47.30 Sleep apnea, unspecified; I48.91 Unspecified atrial fibrillation; Z79.01 Long term (current) use of anticoagulants; Z79.4 Long term (current) use of insulin; Z79.899 Other long term (current) drug therapy
CPT/HCPCS: 36415; 80053; 85025; 85610; 85730; 99284; 96374; J0360

== ENCOUNTER 2021-01-16 05:13 | Emergency (ER) | payer MEDICARE ==
[2021-01-16 05:20] VITALS: TEMP 98.1
[2021-01-16 05:48] VITALS: RESP 18
--- NOTE | 2021-01-16 06:07 | ED ---
ENT HPI - General Chief complaint: ENT Stated complaint: Nosebleed Time Seen by Provider: 01/16/21 06:04 Source: patient, family, RN notes reviewed, old records reviewed Mode of arrival: wheelchair Limitations: no limitations - History of Present Illness Initial comments: This is a 80-year-old male DF for evaluation of nosebleed seen earlier today for nosebleed coming for recurrent nosebleed. Patient had no injury or trauma. Patient got embedded hold nosebleed recurred and he presents DF for recurrent nosebleed MD complaint: epistaxis -: hour(s) Location: nose Severity: moderate Severity scale (1-10): 6 Quality: burning Consistency: constant Improves with: none Worsens with: none Associated Symptoms: sore throat - Related Data Home Medications Medication Instructions Recorded Confirmed Warfarin [Coumadin] 7.5 mg PO MOTUWEFRSA 10/31/14 01/16/21 hydrALAZINE HCL 50 mg PO BID 10/31/14 01/16/21 Warfarin [Coumadin] 3.75 mg PO LOMAS 05/07/18 01/16/21 Insulin Glargine,Hum.rec.anlog 9 unit SQ DAILY 06/24/20 01/16/21 [Lantus Solostar Pen] Metoprolol Succinate (ER) [Toprol 50 mg PO DAILY 06/24/20 01/16/21 XL] Previous Rx's Medication Instructions Recorded Atorvastatin [Lipitor] 40 mg PO HS #90 tab 05/09/18 Isosorbide Mononitrate ER [Imdur] 30 mg PO DAILY #90 tab.er.24h 05/09/18 Allergies Allergy/AdvReac Type Severity Reaction Status Date / Time No Known Allergies Allergy Verified 01/16/21 21:31 Review of Systems ROS Statement: Those systems with pertinent positive or pertinent negative responses have been documented in the HPI. ROS Other: All systems not noted in ROS Statement are negative. Past Medical History Past Medical History: Atrial Fibrillation, Coronary Artery Disease (CAD), COPD, Diabetes Mellitus, Hypertension, Sleep Apnea/CPAP/BIPAP Additional Past Medical History / Comment(s): aortic aneurysm being followed by Dr. Bynum, gi bleed, ruptured polyp History of Any Multi-Drug Resistant Organisms: None Reported Past Surgical History: Joint Replacement Additional Past Surgical History / Comment(s): R. Hip, colonoscopy Past Anesthesia/Blood Transfusion Reactions: No Reported Reaction Past Psychological History: No Psychological Hx Reported Smoking Status: Never smoker Past Alcohol Use History: None Reported Past Drug Use History: None Reported - Past Family History Father Family Medical History: Myocardial Infarction ([place]) General Exam Limitations: no limitations General appearance: alert, in no apparent distress Head exam: Present: atraumatic, normocephalic, normal inspection Eye exam: Present: normal appearance, PERRL, EOMI. Absent: scleral icterus, conjunctival injection, periorbital swelling ENT exam: Present: normal exam, mucous membranes moist, other (Patient is having significant epistaxis) Neck exam: Present: normal inspection. Absent: tenderness, meningismus, lymphadenopathy Respiratory exam: Present: normal lung sounds bilaterally. Absent: respiratory distress, wheezes, rales, rhonchi, stridor Cardiovascular Exam: Present: regular rate, normal rhythm, normal heart sounds. Absent: systolic murmur, diastolic murmur, rubs, gallop, clicks GI/Abdominal exam: Present: soft, normal bowel sounds. Absent: distended, tenderness, guarding, rebound, rigid Extremities exam: Present: normal inspection, full ROM, normal capillary refill. Absent: tenderness, pedal edema, joint swelling, calf tenderness Back exam: Present: normal inspection Neurological exam: Present: alert, oriented X3, CN II-XII intact Psychiatric exam: Present: normal affect, normal mood Skin exam: Present: warm, dry, intact, normal color. Absent: rash Course Vital Signs 01/16/21 01/16/21 01/16/21 05:18 05:47 06:21 Temperature 98.1 F Pulse Rate 77 71 70 Respiratory 20 18 18 Rate Blood Pressure 180/95 178/84 137/97 O2 Sat by Pulse 96 95 95 Oximetry - Reevaluation(s) Reevaluation #1: Medical record is reviewed Patient symptoms improved here in the ER Patient informed results and questions answered Patient is in no acute distress Procedures - Procedures Initial comment: Merocel packing into an air for control of epistaxis Medical Decision Making - Medical Decision Making 80 male recurrent nosebleed bleeding is not well-controlled with Merocel pack ing. Patient will be discharged home Disposition Clinical Impression: Epistaxis Disposition: HOME SELF-CARE Condition: Good Instructions (If sedation given, give patient instructions): Nosebleed (ED) Is patient prescribed a controlled substance at d/c from ED?: No Referrals: Kristel Cuadra MD [Primary Care Provider] - 1-2 days
[2021-01-16 06:23] VITALS: BP 137/97; PULSE 70
== END 2021-01-16 06:21 | disposition home or self-care (01) ==
LOC: EC 05:13
DX: R04.0 Epistaxis (principal); E11.9 Type 2 diabetes mellitus without complications; I10 Essential (primary) hypertension; I25.10 Atherosclerotic heart disease of native coronary artery without angina pectoris; I48.91 Unspecified atrial fibrillation; J44.9 Chronic obstructive pulmonary disease, unspecified; Z79.01 Long term (current) use of anticoagulants; Z79.4 Long term (current) use of insulin; Z79.899 Other long term (current) drug therapy; Z82.49 Family history of ischemic heart disease and other diseases of the circulatory system
CPT/HCPCS: 30901; 36415; 80053; 85025; 85610; 85730; 99283

== ENCOUNTER 2021-01-16 19:20 | Emergency (ER) | payer MEDICARE ==
[2021-01-16 19:41] VITALS: TEMP 98.1
--- NOTE | 2021-01-16 21:08 | ED ---
General Adult HPI - General Chief complaint: Recheck/Abnormal Lab/Rx Stated complaint: elevated BP Time Seen by Provider: 01/16/21 21:06 Source: patient, family Mode of arrival: ambulatory Limitations: no limitations - History of Present Illness Initial comments: Patient presents to the ED with his son for evaluation. Patient states that his blood pressure readings have been very elevated today despite taking all of his blood pressure medications. Patient was seen in the ED this morning for epistaxis, and he had a left nasal packing placed at that time. Patient states that his epistaxis has since resolved. Patient admits that his nasal packing is uncomfortable. Patient denies any other site of pain, fever or chills, headache, focal numbness/weakness/neuro deficit, visual changes, speech difficulty, chest pain or pressure, dyspnea, palpitations, dizziness, nausea/vomiting/diaphoresis, abdominal pain, dysuria or urinary symptoms, or any other symptoms or complaints. - Related Data Home Medications Medication Instructions Recorded Confirmed Warfarin [Coumadin] 7.5 mg PO MOTUWEFRSA 10/31/14 01/16/21 hydrALAZINE HCL 50 mg PO BID 10/31/14 01/16/21 Warfarin [Coumadin] 3.75 mg PO LOMAS 05/07/18 01/16/21 Insulin Glargine,Hum.rec.anlog 9 unit SQ DAILY 06/24/20 01/16/21 [Lantus Solostar Pen] Metoprolol Succinate (ER) [Toprol 50 mg PO DAILY 06/24/20 01/16/21 XL] Previous Rx's Medication Instructions Recorded Atorvastatin [Lipitor] 40 mg PO HS #90 tab 05/09/18 Isosorbide Mononitrate ER [Imdur] 30 mg PO DAILY #90 tab.er.24h 05/09/18 Allergies Allergy/AdvReac Type Severity Reaction Status Date / Time No Known Allergies Allergy Verified 01/16/21 21:31 Review of Systems ROS Statement: Those systems with pertinent positive or pertinent negative responses have been documented in the HPI. ROS Other: All systems not noted in ROS Statement are negative. Past Medical History Past Medical History: Atrial Fibrillation, Coronary Artery Disease (CAD), COPD, Diabetes Mellitus, Hypertension, Sleep Apnea/CPAP/BIPAP Additional Past Medical History / Comment(s): aortic aneurysm being followed by Dr. Bynum, gi bleed, ruptured polyp History of Any Multi-Drug Resistant Organisms: None Reported Past Surgical History: Joint Replacement Additional Past Surgical History / Comment(s): R. Hip, colonoscopy Past Anesthesia/Blood Transfusion Reactions: No Reported Reaction Past Psychological History: No Psychological Hx Reported Smoking Status: Never smoker Past Alcohol Use History: None Reported Past Drug Use History: None Reported - Past Family History Father Family Medical History: Myocardial Infarction ([place]) General Exam Limitations: no limitations General appearance: alert, in no apparent distress Head exam: Present: atraumatic, normocephalic Eye exam: Present: normal appearance, EOMI ENT exam: Present: mucous membranes moist, other (Left nasal packing is in place) Neck exam: Present: other (Trachea is in midline) Respiratory exam: Present: normal lung sounds bilaterally. Absent: respiratory distress, wheezes, rales, rhonchi, stridor Cardiovascular Exam: Present: regular rate, normal rhythm, normal heart sounds, other (Normal radial pulses bilaterally) GI/Abdominal exam: Present: soft. Absent: distended, tenderness Neurological exam: Present: alert, oriented X3, CN II-XII intact. Absent: motor sensory deficit Psychiatric exam: Present: normal affect, normal mood Skin exam: Present: warm, dry, intact, normal color Course Vital Signs 01/16/21 01/16/21 01/16/21 19:38 21:17 21:30 Temperature 98.1 F Pulse Rate 58 L 60 59 L Respiratory 20 18 18 Rate Blood Pressure 181/114 165/86 154/83 O2 Sat by Pulse 96 96 97 Oximetry 01/16/21 22:00 Temperature Pulse Rate 59 L Respiratory 18 Rate Blood Pressure 149/86 O2 Sat by Pulse 96 Oximetry - Reevaluation(s) Reevaluation #1: 01/16/21 22:14 Patient's blood pressure has now improved to 149/86. Patient continues to deny having any symptoms. Patient and son are aware the patient's test results, and they both feel comfortable with the patient going home at this time. Patient was counseled about hypertension/elevated blood pressure readings. Patient was instructed to continue to take all of his medications as prescribed. Patient states that he prefers to have a doctor remove his nasal packing who would be ab le to cauterize him if he continues to have epistaxis, so I will provide the patient with ENT follow-up. Patient was clearly explained return and follow-up instructions, and he feels comfortable this plan. Patient was instructed to follow up closely with his primary care provider or his carbon paper interleafer for further evaluation and management of his elevated blood pressure. Medical Decision Making - Medical Decision Making Patient has asymptomatic hypertension. Patient's blood pressure is improved while in the ED. Patient's labs are fairly unchanged/unremarkable. Will discharge patient home at this time. Patient was instructed to follow up closely with his primary care provider or his carbon paper interleafer for further evaluation and management of his elevated blood pressure. - Lab Data Result diagrams: 01/16/21 21:22 01/16/21 21: Lab Results 01/16/21 01/16/21 01/16/21 Range/Units : 21: 21: WBC 11.1 H (3.8-10.6) k/uL RBC 5.47 (4.30-5.90) m/uL Hgb 16.5 (13.0-17.5) gm/dL Hct 49.5 (39.0-53.0) % MCV 90.5 (80.0-100.0) fL MCH 30.2 (25.0-35.0) pg MCHC 33.4 (31.0-37.0) g/dL RDW 15.7 H (11.5-15.5) % Plt Count 145 L (150-450) k/uL MPV 10.2 Neutrophils % 69 % Lymphocytes % 18 % Monocytes % 9 % Eosinophils % 1 % Basophils % 0 % Neutrophils # 7.7 (1.3-7.7) k/uL Lymphocytes # 2.0 (1.0-4.8) k/uL Monocytes # 1.0 (0-1.0) k/uL Eosinophils # 0.2 (0-0.7) k/uL Basophils # 0.0 (0-0.2) k/uL PT 27.0 H (9.0-12.0) sec INR 2.8 H (<1.2) APTT 31.6 H (22.0-30.0) sec Sodium 141 (137-145) mmol/L Potassium 4.2 (3.5-5.1) mmol/L Chloride 101 (98-107) mmol/L Carbon Dioxide 31 H (22-30) mmol/L Anion Gap 9 mmol/L BUN 15 (9-20) mg/dL Creatinine 0.91 (0.66-1.25) mg/dL Est GFR (CKD-EPI)AfAm >90 (>60 ml/min/1.73 sqM) Est GFR (CKD-EPI)NonAf 79 (>60 ml/min/1.73 sqM) Glucose 158 H (74-99) mg/dL Calcium 10.0 (8.4-10.2) mg/dL Total Bilirubin 1.4 H (0.2-1.3) mg/dL AST 33 (17-59) U/L ALT 28 (4-49) U/L Alkaline Phosphatase 93 (38-126) U/L Total Protein 6.9 (6.3-8.2) g/dL Albumin 3.9 (3.5-5.0) g/dL Disposition Clinical Impression: Hypertension Disposition: HOME SELF-CARE Condition: Stable Instructions (If sedation given, give patient instructions): Hypertension (ED) Additional Instructions: Return to the emergency room immediately should you develop increased bleeding, a significant headache, numbness or weakness, speech or vision changes, chest pain or pressure, shortness of breath, feeling dizzy or faint, or new or worsening symptoms. Follow up closely with your primary care provider. Is patient prescribed a controlled substance at d/c from ED?: No Referrals: Kristel Cuadra MD [Primary Care Provider] - 1-2 days Jamar Motley MD [STAFF PHYSICIAN] - 1-2 days Time of Disposition: 22:20
[2021-01-16 21:18] VITALS: RESP 18
[2021-01-16 21:49] LABS: Basophils % (A) 0 %; Eosinophils # (A) 0.2 k/uL (0-0.7); Eosinophils % (A) 1 %; HCT 49.5 % (39.0-53.0); HGB 16.5 gm/dL (13.0-17.5); Lymphocytes % (A) 18 %; MCH 30.2 pg (25.0-35.0); MCHC 33.4 g/dL (31.0-37.0); MCV 90.5 fL (80.0-100.0); Mean Platelet Volume 10.2; Monocytes % (A) 9 %; Neutrophils # (A) 7.7 k/uL (1.3-7.7); Neutrophils % (A) 69 %; Platelet Count 145 k/uL (150-450); RBC 5.47 m/uL (4.30-5.90); RDW 15.7 % (11.5-15.5); WBC 11.1 k/uL (3.8-10.6)
[2021-01-16 21:53] VITALS: PULSE 59
[2021-01-16 22:08] LABS: ALT 28 U/L (4-49); AST 33 U/L (17-59); African American GFR (CKD) >90 (>60 ml/min/1.73 sqM); Albumin 3.9 g/dL (3.5-5.0); Alkaline Phosphatase 93 U/L (38-126); Anion Gap 9 mmol/L; Blood Urea Nitrogen 15 mg/dL (9-20); Carbon Dioxide 31 mmol/L (22-30); Chloride 101 mmol/L (98-107); Glucose 158 mg/dL (74-99); Non-African American GFR(CKD) 79 (>60 ml/min/1.73 sqM); Potassium 4.2 mmol/L (3.5-5.1); Sodium 141 mmol/L (137-145); Total Bilirubin 1.4 mg/dL (0.2-1.3); Total Protein 6.9 g/dL (6.3-8.2)
[2021-01-16 22:09] VITALS: BP 149/86
[2021-01-16 22:10] LABS: INR 2.8 (<1.2); Partial Thromboplastin Time 31.6 sec (22.0-30.0)
== END 2021-01-16 22:29 | disposition home or self-care (01) ==
LOC: EC 19:20
DX: I10 Essential (primary) hypertension (principal); E11.9 Type 2 diabetes mellitus without complications; I25.10 Atherosclerotic heart disease of native coronary artery without angina pectoris; I48.91 Unspecified atrial fibrillation; J44.9 Chronic obstructive pulmonary disease, unspecified; Z79.01 Long term (current) use of anticoagulants; Z79.4 Long term (current) use of insulin; Z79.899 Other long term (current) drug therapy
CPT/HCPCS: 36415; 80053; 85025; 85610; 85730; 99283

== ENCOUNTER → 2021-09-01 | Outpatient (CLI) | payer MEDICARE ==
[2021-09-01 10:55] LABS: INR 2.1 (<1.2); Partial Thromboplastin Time 28.6 sec (22.0-30.0); Prothrombin Time 21.1 sec (9.0-12.0)
--- NOTE | 2021-09-01 13:04 | US ---
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 EXAM MEASUREMENTS: RIGHT: Peak Systolic Velocity (PSV) cm/sec ----- Right CCA: 65.1 ----- Right ICA: 115.6 ----- Right ECA: 123.7 ICA/CCA ratio: 1.8 RIGHT: End Diastole cm/sec ----- Right CCA: 15.4 ----- Right ICA: 31.4 ----- Right ECA: 13.9 LEFT: Peak Systolic Velocity (PSV) cm/sec ----- Left CCA: 67.7 ----- Left ICA: 73.8 ----- Left ECA: 86.4 ICA/CCA ratio: 1.1 LEFT: End Diastole cm/sec ----- Left CCA: 14.5 ----- Left ICA: 18.0 ----- Left ECA: 11.7 VERTEBRALS (direction of flow): Right Vertebral: Antegrade Left Vertebral: Antegrade Rhythm: Normal Moderate atherosclerotic changes especially on the right. No significant velocity increases. Moderate to severe shadowing hyperechoic plaque in right carotid bulb. Mild to moderate peripheral pl aque on the left. Velocity measurements on the right approaching upper limits of normal. IMPRESSION: Atherosclerotic changes greater on the right without hemodynamically significant stenosi s clearly seen in either internal carotid artery. Criteria for Assigning % of Stenosis / Diameter reduction (Estimation based on the indirect measurements of the internal carotid artery velocities (ICA PSV). 1. Normal (no stenosis)=ICA PSV < 125 cm/s: ratio < 2.0: ICA EDV<40 cm/s. 2. Less than 50% stenosis=ICA PSV < 125 cm/s: ratio < 2.0: ICA EDV<40 cm/s. 3. 50 to 69% stenosis=ICA PSV of 125 to 230 cm/s: ration 2.0 ? 4.0: ICA EDV 40-100 cm/s. 4. Greater than 70% stenosis to near occlusion= ICA PSV > 230 cm/s: ratio > 4.0: ICA EDV > 100 cm/s. 5. Near occlusion= ICA PSV velocities may be low or undetectable: variable ratio and ICA EDV. 6. Total occlusion=unable to detect flow.
[2021-09-01 13:21] LABS: Appearance,Urine Clear (Clear); Bilirubin,Urine Negative (Negative); Blood,Urine Negative (Negative); Color,Urine Yellow; Glucose,Urine (UA) Negative (Negative); Ketones,Urine Trace (Negative); Leukocyte Esterase,Urine Negative (Negative); Nitrite,Urine Negative (Negative); PH, Urine 7.5 (5.0-8.0); Protein,Urine Negative (Negative); Specific Gravity,Urine 1.012 (1.001-1.035); Urobilinogen,Urine <2.0 mg/dL (<2.0)
[2021-09-01 14:29] LABS: Basophils # (A) 0.03 X 10*3/uL (0.00-0.10); Basophils % (A) 0.4 %; Eosinophils # (A) 0.15 X 10*3/uL (0.04-0.35); Eosinophils % (A) 2.1 %; HCT 47.7 % (39.6-50.0); HGB 15.1 g/dL (13.0-17.0); Immature Grans, Automated 0.3 %; Lymphocytes # (A) 1.87 X 10*3/uL (0.90-5.00); MCH 30.1 pg (27.0-32.0); MCHC 31.7 g/dL (32.0-37.0); Mean Platelet Volume 12.7 fL (9.5-12.2); Monocytes # (A) 0.88 X 10*3/uL (0.20-1.00); Monocytes % (A) 12.2 %; NRBC Per 100 WBC 0 /100 WBCS (0.0-0.0); Neutrophils # (A) 4.24 X 10*3/uL (1.80-7.70); Platelet Count 169 X 10*3/uL (140-440); RBC 5.02 X 10*6/uL (4.40-5.60); RDW 15.7 % (11.5-14.5); WBC 7.19 X 10*3/uL (4.50-10.00)
[2021-09-01 15:24] LABS: ALT 71 U/L (10-49); AST 50 U/L (14-35); African American GFR (CKD) 80.9 (60.0-200.0); Albumin 4.1 g/dL (3.8-4.9); Albumin/Globulin Ratio 1.78 (1.60-3.17); Alkaline Phosphatase 79 U/L (41-126); Blood Urea Nitrogen 14.5 mg/dL (9.0-27.0); Calcium 9.2 mg/dL (8.7-10.3); Carbon Dioxide 28.8 mmol/L (20.0-27.5); Chloride 103 mmol/L (96-109); Chol/HDL Ratio 2.29 Ratio; Globulin 2.3 g/dL (1.6-3.3); Glucose 133 mg/dL (70-110); LDL Cholesterol,Calculated 49.5 mg/dL (0.0-131.0); Magnesium 1.8 mg/dL (1.5-2.4); Non-African American GFR(CKD) 69.8 (60.0-200.0); Sodium 145 mmol/L (135-145); Total Protein 6.4 g/dL (6.2-8.2); VLDL Calculation 14.84 mg/dL (5.00-40.00)
[2021-09-01 15:26] LABS: Hepatitis B Core IgM Nonreactive (Nonreactive); Hepatitis B Surface Antigen Nonreactive (Nonreactive); Hepatitis C IgG Antibody Nonreactive (Nonreactive)
== END | disposition home or self-care (01) ==
LOC: LABWHC1 09:22
PROVIDERS: ATTEND Thoracic Surgery (Cardiothoracic Vascular Surgery)
DX: Z01.818 Encounter for other preprocedural examination (principal); I44.0 Atrioventricular block, first degree; I65.23 Occlusion and stenosis of bilateral carotid arteries; I35.1 Nonrheumatic aortic (valve) insufficiency; I35.0 Nonrheumatic aortic (valve) stenosis; E87.8 Other disorders of electrolyte and fluid balance, not elsewhere classified; E07.9 Disorder of thyroid, unspecified; E78.5 Hyperlipidemia, unspecified; E11.9 Type 2 diabetes mellitus without complications; N28.9 Disorder of kidney and ureter, unspecified; R94.31 Abnormal electrocardiogram [ECG] [EKG]; R35.0 Frequency of micturition; R58 Hemorrhage, not elsewhere classified; Z79.01 Long term (current) use of anticoagulants; Z79.899 Other long term (current) drug therapy
CPT/HCPCS: 36415; 80053; 80061; 80074; 81003; 83036; 83735; 83880; 84443; 85025; 85610; 85730; 87086; 93005; 93880; 94150

== ENCOUNTER 2022-06-02 15:50 | Observation (INO) | payer MEDICARE ==
--- NOTE | 2022-06-02 16:09 | ED ---
General Adult HPI - General Chief complaint: GI Bleed Stated complaint: rectal bleeding Time Seen by Provider: 06/02/22 15:58 Source: patient Mode of arrival: ambulatory Limitations: no limitations - History of Present Illness Initial comments: Patient presents to the ED with his daughter for evaluation. Patient states that he has had about 5 episodes of rectal bleeding since this morning. Patient states that he had a hard bowel movement last night prior to going to sleep, but he did not notice any blood in his stool at that time. Patient is on warfarin anticoagulation therapy, and he states that he did take his morning dose today. Patient denies having any symptoms whatsoever. Patient denies having any pain, fever or chills, headache, focal neuro deficit, chest pain or pressure, dyspnea, dizziness, palpitations, abdominal pain, rectal pain, nausea/vomiting/diarrhea, melena, dysuria/hematuria/urinary frequency/urinary symptoms, or any other symptoms or complaints. - Related Data Home Medications Medication Instructions Recorded Confirmed Warfarin [Coumadin] 7.5 mg PO SUMOWETHSA 10/31/14 08/09/21 Warfarin [Coumadin] 3.75 mg PO TUFR 05/07/18 08/09/21 Insulin Glargine,Hum.rec.anlog 11 unit SQ DAILY 06/24/20 08/11/21 [Lantus Solostar Pen] Metoprolol Succinate (ER) [Toprol 50 mg PO DAILY 06/24/20 08/11/21 XL] Ipratropium-Albuterol Nebulize 3 ml INHALATION BID 08/09/21 08/11/21 [Duoneb 0.5 mg-3 mg/3 ml Soln] hydrALAZINE HCL [Apresoline] 50 mg PO BID 08/09/21 08/11/21 Aspirin 81 mg PO DAILY 08/11/21 08/11/21 Previous Rx's Medication Instructions Recorded Atorvastatin [Lipitor] 40 mg PO HS #90 tab 05/09/18 Isosorbide Mononitrate ER [Imdur] 30 mg PO DAILY #90 tab.er.24h 05/09/18 Allergies Allergy/AdvReac Type Severity Reaction Status Date / Time No Known Allergies Allergy Verified 06/02/22 15:55 Review of Systems ROS Statement: Those systems with pertinent positive or pertinent negative responses have been documented in the HPI. ROS Other: All systems not noted in ROS Statement are negative. Past Medical History Past Medical History: Atrial Fibrillation, Coronary Artery Disease (CAD), Cancer, COPD, Diabetes Mellitus, GI Bleed, Myocardial Infarction ([place]), Osteoarthritis (OA), Sleep Apnea/CPAP/BIPAP Additional Past Medical History / Comment(s): aortic aneurysm being followed by Dr. 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, Past Anesthesia/Blood Transfusion Reactions: No Reported Reaction Past Psychological History: No Psychological Hx Reported Smoking Status: Former smoker Past Alcohol Use History: None Reported Past Drug Use History: None Reported - Past Family History Father Family Medical History: Cancer Mother Family Medical History: Cancer General Exam Limitations: no limitations General appearance: alert, in no apparent distress Head exam: Present: atraumatic, normocephalic Eye exam: Present: normal appearance, EOMI ENT exam: Present: mucous membranes moist Respiratory exam: Present: normal lung sounds bilaterally. Absent: respiratory distress, wheezes, rales, rhonchi, stridor Cardiovascular Exam: Present: regular rate, normal rhythm, normal heart sounds, other (Normal radial pulses bilaterally) GI/Abdominal exam: Present: soft. Absent: distended, tenderness, guarding Rectal exam: Present: normal rectal tone, bloody stool. Absent: hemorrhoids, tenderness Extremities exam: Absent: pedal edema Neurological exam: Present: alert, oriented X3. Absent: motor sensory deficit Psychiatric exam: Present: normal affect, normal mood Skin exam: Present: warm, dry, intact, normal color Course Vital Signs 06/02/22 06/02/22 15:53 16:28 Temperature 98.5 F Pulse Rate 67 Respiratory 18 Rate Blood Pressure 147/95 O2 Sat by Pulse 98 Oximetry - Reevaluation(s) Reevaluation #1: 06/02/22 17:46 Case, H&P and test results were discussed with Dr. Allan (general surgery). He recommends admitting the patient to the medical service, and he agrees to see the patient in consultation for his rectal bleeding. He has no further recommendations at this time. 06/02/22 17:50 Patient continues to deny having any symptoms while in the ED. Patient remains alert and breathing comfortably. Patient remains hemodynamically stable. Patient and son are aware the patient's test results, and they both agree with hospital admission at this time. 06/02/22 17:54 Case, H&P, test results and my discussion with Dr. Allan as above were discussed with COMPETITIVE ATHLETE Yolanda Rod. She accepts hospital admission on behalf of herself and Dr. Lewis. She has no further recommendations at this time. Medical Decision Making - Medical Decision Making Was pt. sent in by a medical professional or institution (, PA, COMPETITIVE ATHLETE, urgent care, hospital, or fdc...) When possible be specific @ -[No] Did you speak to anyone other than the patient for history (EMS, parent, family, police, friend...)? What history was obtained from this source @ -No Did you review nursing and triage notes (agree or disagree)? Why? @ -[I reviewed and agree with nursing and triage notes] Were old charts reviewed (outside hosp., previous admission, EMS record, old EKG, old radiological studies, urgent care reports/EKG's, fdc records)? Report findings @ -[No old charts were reviewed] Differential Diagnosis (chest pain, altered mental status, abdominal pain women, abdominal pain men, vaginal bleeding, weakness, fever, dyspnea, syncope, headache, dizziness, GI bleed, back pain, seizure, CVA, palpatations, mental health)? @ -Differential GI Bleed: Esophageal varices, aortoenteric fistula, Lin-Martin, gastritis, peptic ulcer disease, diverticulosis, inflammatory bowel disease, hemorrhoids, fissure, colitis, malignancy, Meckels diverticulum, coagulopathy, anemia, this is not meant to be an all-inclusive list. EKG interpreted by me (3pts min.). @ -None done X-rays interpreted by me (1pt min.). @ -[None done] CT interpreted by me (1pt min.). @ -[None done] U/S interpreted by me (1pt. min.). @ -[None done] What testing was considered but not performed or refused? (CT, X-rays, U/S, labs)? Why? @ -[None] What meds were considered but not given or refused? Why? @ -[None] Did you discuss the management of the patient with other professionals (professionals i.e. , PA, COMPETITIVE ATHLETE, lab, RT, psych nurse, social human services assistants, pattern molder, teacher, casino surveillance officer, residential case manager)? Give summary @ -See above Was smoking cessation discussed for >3mins.? @ -[No] Was critical care preformed (if so, how long)? @ -[No] Were there social determinants of health that impacted care today? How? (Homelessness, low income, unemployed, alcoholism, drug addiction, transportation, low edu. Level, literacy, decrease access to med. care, custodial, rehab)? @ -[No] Was there de-escalation of care discussed even if they declined (Discuss DNR or withdrawal of care, Hospice)? DNR status @ -[No] What co-morbidities impacted this encounter? (DM, HTN, Smoking, COPD, CAD, Cancer, CVA, ARF, Chemo, Hep., AIDS, mental health diagnosis, sleep apnea, morbid obesity)? @ -[Atrial fibrillation on warfarin anticoagulation] Was patient admitted / discharged? Hospital course, mention meds given and route, prescriptions, significant lab abnormalities, going to OR and other pertinent info. @ -Patient is Hemoccult positive. Patient's hemoglobin is normal/stable at 15.8. Patient is hemodynamically stable in the ED. Patient denies having any symptoms. Case was discussed with the on-call general surgeon who agrees to see the patient in consultation for his rectal bleeding given there is no GI coverage in the hospital at this time. ERVIN Rod has accepted hospital admission. Will hold off on warfarin reversal at this time given the patient is hemodynamically stable and has a normal/stable hemoglobin. Patient will be admitted to the hospital. Patient and son agree with this plan. Undiagnosed new problem with uncertain prognosis? @ -[No] Drug Therapy requiring intensive monitoring for toxicity (Heparin, Nitro, Insulin, Cardizem)? @ -[No] Were any procedures done? @ -[No] Diagnosis/symptom? @ -Rectal bleeding Acute, or Chronic, or Acute on Chronic? @ -Acute Uncomplicated (without systemic symptoms) or Complicated (systemic symptoms)? @ -Uncomplicated Side effects of treatment? @ -[No] Exacerbation, Progression, or Severe Exacerbation? @ -[No] Poses a threat to life or bodily function? How? (Chest pain, USA, NE, pneumonia, PE, COPD, DKA, ARF, appy, cholecystitis, CVA, Diverticulitis, Homicidal, Suicidal, threat to staff... and all critical care pts) @ -[No] - Lab Data Result diagrams: 06/02/22 16:14 06/02/22 16:14 Lab Results 06/02/22 06/02/22 06/02/22 Range/Units 16:14 16:14 16:14 WBC 8.1 (3.8-10.6) k/uL RBC 5.24 (4.30-5.90) m/uL Hgb 15.8 (13.0-17.5) gm/dL Hct 46.8 (39.0-53.0) % MCV 89.3 (80.0-100.0) fL MCH 30.3 (25.0-35.0) pg MCHC 33.9 (31.0-37.0) g/dL RDW 14.0 (11.5-15.5) % Plt Count 132 L (150-450) k/uL MPV 9.6 Neutrophils % 67 % Lymphocytes % 24 % Monocytes % 6 % Eosinophils % 1 % Basophils % 0 % Neutrophils # 5.4 (1.3-7.7) k/uL Lymphocytes # 2.0 (1.0-4.8) k/uL Monocytes # 0.5 (0-1.0) k/uL Eosinophils # 0.1 (0-0.7) k/uL Basophils # 0.0 (0-0.2) k/uL PT 24.2 H (9.0-12.0) sec INR 2.5 H (<1.2) APTT 31.4 H (22.0-30.0) sec Sodium 137 (137-145) mmol/L Potassium 4.0 (3.5-5.1) mmol/L Chloride 100 (98-107) mmol/L Carbon Dioxide 33 H (22-30) mmol/L Anion Gap 4 mmol/L BUN 16 (9-20) mg/dL Creatinine 0.95 (0.66-1.25) mg/dL Est GFR (CKD-EPI)AfAm 86 (>60 ml/min/1.73 sqM) Est GFR (CKD-EPI)NonAf 74 (>60 ml/min/1.73 sqM) Glucose 147 H (74-99) mg/dL Calcium 9.1 (8.4-10.2) mg/dL Total Bilirubin 1.1 (0.2-1.3) mg/dL AST 35 (17-59) U/L ALT 35 (4-49) U/L Alkaline Phosphatase 82 (38-126) U/L Total Protein 6.9 (6.3-8.2) g/dL Albumin 3.9 (3.5-5.0) g/dL Stool Occult Blood (Negative) Blood Type Blood Type Recheck Bld Type Recheck Status Antibody Screen Spec Expiration Date 06/02/22 06/02/22 Range/Units 16:14 16:28 WBC (3.8-10.6) k/uL RBC (4.30-5.90) m/uL Hgb (13.0-17.5) gm/dL Hct (39.0-53.0) % MCV (80.0-100.0) fL MCH (25.0-35.0) pg MCHC (31.0-37.0) g/dL RDW (11.5-15.5) % Plt Count (150-450) k/uL MPV Neutrophils % % Lymphocytes % % Monocytes % % Eosinophils % % Basophils % % Neutrophils # (1.3-7.7) k/uL Lymphocytes # (1.0-4.8) k/uL Monocytes # (0-1.0) k/uL Eosinophils # (0-0.7) k/uL Basophils # (0-0.2) k/uL PT (9.0-12.0) sec INR (<1.2) APTT (22.0-30.0) sec Sodium (137-145) mmol/L Potassium (3.5-5.1) mmol/L Chloride (98-107) mmol/L Carbon Dioxide (22-30) mmol/L Anion Gap mmol/L BUN (9-20) mg/dL Creatinine (0.66-1.25) mg/dL Est GFR (CKD-EPI)AfAm (>60 ml/min/1.73 sqM) Est GFR (CKD-EPI)NonAf (>60 ml/min/1.73 sqM) Glucose (74-99) mg/dL Calcium (8.4-10.2) mg/dL Total Bilirubin (0.2-1.3) mg/dL AST (17-59) U/L ALT (4-49) U/L Alkaline Phosphatase (38-126) U/L Total Protein (6.3-8.2) g/dL Albumin (3.5-5.0) g/dL Stool Occult Blood Positive (Negative) Blood Type A Positive Blood Type Recheck A Pos Bld Type Recheck Status No Antibody Screen NEGATIVE Spec Expiration Date 06/05/20222313 Disposition Clinical Impression: Bright red blood per rectum Disposition: ADMITTED IP TO THIS [facility] Condition: Stable Is patient prescribed a controlled substance at d/c from ED?: No Referrals: Kristel Cuadra MD [Primary Care Provider] - 1-2 days Time of Disposition: 17:56
[2022-06-02 16:53] LABS: Albumin 3.9 g/dL (3.5-5.0); Calcium 9.1 mg/dL (8.4-10.2); Total Bilirubin 1.1 mg/dL (0.2-1.3); Total Protein 6.9 g/dL (6.3-8.2)
[2022-06-02 16:57] LABS: Basophils % (A) 0 %; Eosinophils # (A) 0.1 k/uL (0-0.7); Eosinophils % (A) 1 %; HCT 46.8 % (39.0-53.0); HGB 15.8 gm/dL (13.0-17.5); Lymphocytes % (A) 24 %; MCH 30.3 pg (25.0-35.0); MCHC 33.9 g/dL (31.0-37.0); MCV 89.3 fL (80.0-100.0); Mean Platelet Volume 9.6; Monocytes # (A) 0.5 k/uL (0-1.0); Monocytes % (A) 6 %; Neutrophils # (A) 5.4 k/uL (1.3-7.7); Neutrophils % (A) 67 %; Platelet Count 132 k/uL (150-450); RBC 5.24 m/uL (4.30-5.90); WBC 8.1 k/uL (3.8-10.6)
[2022-06-02 17:16] LABS: INR 2.5 (<1.2); Partial Thromboplastin Time 31.4 sec (22.0-30.0); Prothrombin Time 24.2 sec (9.0-12.0)
[2022-06-02] MEDS ORDERED: NALOXONE 0.4 MG/ML 1 ML VIAL IV PRN (17:56)
[2022-06-02] MEDS ORDERED: MONTELUKAST 10 MG TAB PO PRN (20:22)
[2022-06-03 01:27] LABS: Glucose,Whole Blood 189 mg/dL (70-110)
[2022-06-03 06:04] LABS: Glucose,Whole Blood 117 mg/dL (70-110)
[2022-06-03] MEDS: hydrALAZINE HCL 25 MG TAB PO SCH ×2 (06:09→09:58)
[2022-06-03 08:45] LABS: Basophils % (A) 0 %; Eosinophils # (A) 0.1 k/uL (0-0.7); Eosinophils % (A) 2 %; HGB 14.7 gm/dL (13.0-17.5); Lymphocytes # (A) 2.2 k/uL (1.0-4.8); Lymphocytes % (A) 29 %; MCH 30.4 pg (25.0-35.0); MCHC 33.4 g/dL (31.0-37.0); MCV 91.1 fL (80.0-100.0); Mean Platelet Volume 9.5; Monocytes # (A) 0.6 k/uL (0-1.0); Monocytes % (A) 8 %; Neutrophils # (A) 4.3 k/uL (1.3-7.7); Neutrophils % (A) 57 %; Platelet Count 133 k/uL (150-450); RBC 4.83 m/uL (4.30-5.90); RDW 14.4 % (11.5-15.5); WBC 7.5 k/uL (3.8-10.6)
--- NOTE | 2022-06-03 08:53 | P.HPIM ---
History of Present Illness This is a pleasant 82 years old male with past medical history of multiple medical problems as below Patient presents because of episodes of blood per rectum which happened twice, the night before last and yesterday morning, the information were obtained from the patient and son at bedside. There was few blood clots and some fresh blood but no abdominal pain no vomiting. Patient denies any other symptoms, no headache or weakness, no chest pain or dyspnea, no urinary complaints. Patient working at baseline. He denies smoking alcohol or illicit drugs. He takes no pain medication but he isn't coumadine and he was taken as supposed to to be he had similar episode of blood per rectum about 2 years ago at that time colonoscopy showing polyps only.(As per report from 06/26/2020: Old blood noted around diverticula with no active bleeding noted.,Moderate pandiverticulosis.) Vitals are stable Hemoglobin normal 15.8. INR 2.5. BMP is unremarkable. Occult blood in the stool is positive Patient admitted with surgery team consult Review of Systems Review of systems CONSTITUTIONAL: No fever, no malaise, no fatigue. HEENT: No recent visual problems or hearing problems. Denied any sore throat. CARDIOVASCULAR: No orthopnea, PND, no palpitations, no syncope. PULMONARY: No shortness of breath, no cough, no hemoptysis. GASTROINTESTINAL: No diarrhea, no nausea, no vomiting, no abdominal pain. Normoactive bowel sounds. NEUROLOGICAL: No headaches, no weakness, no numbness. HEMATOLOGICAL: Denies any bleeding or petechiae. GENITOURINARY: Denies any burning micturition, frequency, or urgency. MUSCULOSKELETAL/RHEUMATOLOGICAL: Denies any joint pain, swelling, or any muscle pain. ENDOCRINE: Denies any polyuria or polydipsia. Past Medical History Past Medical History: Atrial Fibrillation, Coronary Artery Disease (CAD), Cancer, COPD, Diabetes Mellitus, GI Bleed, Myocardial Infarction ([place]), Oste oarthritis (OA), Sleep Apnea/CPAP/BIPAP Additional Past Medical History / Comment(s): aortic aneurysm being followed by Dr. 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, Past Anesthesia/Blood Transfusion Reactions: No Reported Reaction Past Psychological History: No Psychological Hx Reported Smoking Status: Former smoker Past Alcohol Use History: None Reported Additional Past Alcohol Use History / Comment(s): quit smoknig 60 yrs ago-cigars Past Drug Use History: None Reported - Past Family History Father Family Medical History: Cancer Mother Family Medical History: Cancer Medications and Allergies Home Medications Medication Instructions Recorded Confirmed Type Warfarin [Coumadin] 7.5 mg PO SUMOWETHSA 10/31/14 06/02/22 History Warfarin [Coumadin] 3.75 mg PO TUFR 05/07/18 06/02/22 History Isosorbide Mononitrate ER [Imdur] 30 mg PO DAILY #90 tab.er.24h 05/09/18 06/02/22 Rx Insulin Glargine,Hum.rec.anlog 12 unit SQ DAILY 06/24/20 06/02/22 History [Lantus Solostar Pen] Metoprolol Succinate (ER) [Toprol 50 mg PO DAILY 06/24/20 06/02/22 History XL] Ascorbic Acid [Vitamin C] 1,000 mg PO DAILY 06/02/22 06/02/22 History Atorvastatin [Lipitor] 40 mg PO DAILY 06/02/22 06/02/22 History Docusate [Colace] 100 mg PO BID 06/02/22 06/02/22 History Montelukast Sodium [Singulair] 10 mg PO DAILY PRN 06/02/22 06/02/22 History hydrALAZINE HCL [Apresoline] 25 mg PO BID 06/02/22 06/02/22 History Allergies Allergy/AdvReac Type Severity Reaction Status Date / Time No Known Allergies Allergy Verified 06/02/22 18:31 Physical Exam Vitals: Vital Signs Temp Pulse Pulse Resp BP BP Pulse Ox 06/03/22 08:00 97.8 F 56 L 17 127/69 97 06/03/22 04:00 97.8 F 66 18 134/76 96 06/03/22 01:38 53 L 06/02/22 22:32 19 144/76 95 06/02/22 20:00 97.9 F 67 19 153/83 98 06/02/22 19:50 114/81 01/27/23 18:00 65 20 122/77 97 06/02/22 17:00 66 20 141/85 96 06/02/22 16:28 147/95 06/02/22 15:53 98.5 F 67 18 98 Intake and Output 06/02/22 06/03/22 06/03/22 22:59 06:59 14:59 Other: Voiding Method Toilet Toilet # Voids 1 1 # Bowel Movements 1 1 Weight 117.934 kg GENERAL: The patient is alert and oriented x3, not in any acute distress. Well developed, well nourished. HEENT: Pupils are round and equally reacting to light. EOMI. No scleral icterus. No conjunctival pallor. Normocephalic, atraumatic. No pharyngeal erythema. No thyromegaly. CARDIOVASCULAR: S1 and S2 present. No murmurs, rubs, or gallops. PULMONARY: Chest is clear to auscultation, no wheezing or crackles. ABDOMEN: Soft, nontender, nondistended, normoactive bowel sounds. No palpable organomegaly. MUSCULOSKELETAL: No joint swelling or deformity. EXTREMITIES: No cyanosis, clubbing, or pedal edema. NEUROLOGICAL: Gross neurological examination did not reveal any focal deficits. SKIN: No rashes. no petechiae. Results CBC & Chem 7: 06/02/22 16:14 06/02/22 16:14 Labs: Abnormal Lab Results - Last 24 Hours (Table) 06/02/22 06/02/22 06/02/22 Range/Units 16:14 16:14 16:14 Plt Count 132 L (150-450) k/uL PT 24.2 H (9.0-12.0) sec INR 2.5 H (<1.2) APTT 31.4 H (22.0-30.0) sec Carbon Dioxide 33 H (22-30) mmol/L Glucose 147 H (74-99) mg/dL POC Glucose (mg/dL) (70-110) mg/dL 06/03/22 06/03/22 Range/Units 01:26 06:02 Plt Count (150-450) k/uL PT (9.0-12.0) sec INR (<1.2) APTT (22.0-30.0) sec Carbon Dioxide (22-30) mmol/L Glucose (74-99) mg/dL POC Glucose (mg/dL) 189 H 117 H (70-110) mg/dL Assessment and Plan Assessment: Acute rectal bleeding, in view of history of GI bleed and pandiverticulosis Atrial Fibrillation, Coumadin (on hold currently) Coronary Artery Disease COPD, no exacerbation Diabetes Mellitus GI Bleed Osteoarthritis Sleep Apnea/CPAP/BIPAP aortic aneurysm being followed by Dr. Bynum, History of GI bleed History of COVID 06/2020 History of diverticulitis Plan: continue with Protonix Hold Coumadin Follow-up surgery team recommendation Monitor hemoglobin Labs and medication were reviewed.. Continue same treatment. Continue with sym ptomatic treatment. Resume home medication. Monitor lytes and vitals. DVT and GI prophylaxis. Further recommendations as per clinical course of the patient DVT prophylaxis: Patient was on Coumadin GI Prophylaxis: Ppi PT/OT: Pending Prognosis is guarded
[2022-06-03 08:57] LABS: INR 1.9 (<1.2); Prothrombin Time 18.4 sec (9.0-12.0)
[2022-06-03] MEDS ORDERED: ATORVASTATIN 40 MG TAB PO SCH ×2 (09:00→21:00)
[2022-06-03] MEDS ORDERED: INSULIN DETEMIR (LEVEMIR) 100 UNIT/ML SYR SQ SCH (09:00)
[2022-06-03] MEDS ORDERED: ASCORBIC ACID 500 MG TAB PO SCH (09:00)
[2022-06-03] MEDS ORDERED: PANTOPRAZOLE 40 MG/10 ML VIAL IVP SCH (09:00)
[2022-06-03] MEDS ORDERED: ISOSORBIDE MONONITRATE ER 30 MG TAB.ER.24H PO SCH (09:00)
[2022-06-03] MEDS ORDERED: METOPROLOL SUCCINATE (ER) 50 MG TAB.ER.24H PO SCH (09:00)
[2022-06-03 09:02] LABS: Albumin 3.6 g/dL (3.5-5.0); Potassium 4.4 mmol/L (3.5-5.1); Total Bilirubin 1.6 mg/dL (0.2-1.3); Total Protein 6.4 g/dL (6.3-8.2)
[2022-06-03 11:37] LABS: Glucose,Whole Blood 280 mg/dL (70-110)
[2022-06-03 11:45] VITALS: BP 101/56; PULSE 68; RESP 18; TEMP 97.5
--- NOTE | 2022-06-03 16:09 | P.GSCN ---
History of Present Illness Consult date: 06/03/22 Reason for Consult: GI bleed History of present illness: Rectal bleeding on anticoagulation. This is new and he was constipated. He had a colonoscopy 2 years ago. He stopped the anticoagulation and I feel he has stopped and he could go home and start the anticoagulation back in 1 week. He could have an out patient follow up. Review of Systems - Constitutional Reports as per HPI - EENT Ears, nose, mouth and throat: Reports as per HPI - Cardiovascular Reports as per HPI - Respiratory Reports as per HPI - Gastrointestinal Reports as per HPI - Genitourinary Reports as per HPI Past Medical History Past Medical History: Atrial Fibrillation, Coronary Artery Disease (CAD), Cancer, COPD, Diabetes Mellitus, GI Bleed, Myocardial Infarction ([place]), Osteoarthritis (OA), Sleep Apnea/CPAP/BIPAP Additional Past Medical History / Comment(s): aortic aneurysm being followed by Dr. 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, Past Anesthesia/Blood Transfusion Reactions: No Reported Reaction Past Psychological History: No Psychological Hx Reported Smoking Status: Former smoker Past Alcohol Use History: None Reported Additional Past Alcohol Use History / Comment(s): quit smoknig 60 yrs ago-cigars Past Drug Use History: None Reported - Past Family History Father Family Medical History: Cancer Mother Family Medical History: Cancer Medications and Allergies Home Medications Medication Instructions Recorded Confirmed Type Warfarin [Coumadin] 7.5 mg PO SUMOWETHSA 10/31/14 06/02/22 History Warfarin [Coumadin] 3.75 mg PO TUFR 05/07/18 06/02/22 History Isosorbide Mononitrate ER [Imdur] 30 mg PO DAILY #90 tab.er.24h 05/09/18 06/02/22 Rx Insulin Glargine,Hum.rec.anlog 12 unit SQ DAILY 06/24/20 06/02/22 History [Lantus Solostar Pen] Metoprolol Succinate (ER) [Toprol 50 mg PO DAILY 06/24/20 06/02/22 History XL] Ascorbic Acid [Vitamin C] 1,000 mg PO DAILY 06/02/22 06/02/22 History Atorvastatin [Lipitor] 40 mg PO DAILY 06/02/22 06/02/22 History Docusate [Colace] 100 mg PO BID 06/02/22 06/02/22 History Montelukast Sodium [Singulair] 10 mg PO DAILY PRN 06/02/22 06/02/22 History hydrALAZINE HCL [Apresoline] 25 mg PO BID 06/02/22 06/02/22 History Allergies Allergy/AdvReac Type Severity Reaction Status Date / Time No Known Allergies Allergy Verified 06/02/22 18:31 Surgical - Exam Vital Signs Temp Pulse Resp Pulse Ox 98.5 F 67 18 98 06/02/22 15:53 06/02/22 15:53 06/02/22 15:53 06/02/22 15:53 - General well developed, well nourished, no distress - ENT normal pinna, normal nares, normal mucosa - Neck no masses, no bruits, trachea midline - Respiratory normal expansion, normal respiratory effort - Abdomen Abdomen: soft, non tender Hernia: none - Genitourinary normal penis with no external lesions, testicles present - Rectum Rectum: normal sphincter tone - Musculoskeletal normal gait - Psychiatric oriented to time, oriented to person, oriented to place Results - Labs 06/03/22 08:05 06/03/22 08:05 Abnormal Lab Results - Last 24 Hours (Table) 06/02/22 06/02/22 06/02/22 Range/Units 16:14 16:14 16:14 Plt Count 132 L (150-450) k/uL PT 24.2 H (9.0-12.0) sec INR 2.5 H (<1.2) APTT 31.4 H (22.0-30.0) sec Carbon Dioxide 33 H (22-30) mmol/L Glucose 147 H (74-99) mg/dL POC Glucose (mg/dL) (70-110) mg/dL Total Bilirubin (0.2-1.3) mg/dL 06/03/22 06/03/22 06/03/22 Range/Units 01:26 06:02 08:05 Plt Count 133 L (150-450) k/uL PT (9.0-12.0) sec INR (<1.2) APTT (22.0-30.0) sec Carbon Dioxide (22-30) mmol/L Glucose (74-99) mg/dL POC Glucose (mg/dL) 189 H 117 H (70-110) mg/dL Total Bilirubin (0.2-1.3) mg/dL 06/03/22 06/03/22 06/03/22 Range/Units 08:05 08:05 11:36 Plt Count (150-450) k/uL PT 18.4 H (9.0-12.0) sec INR 1.9 H (<1.2) APTT (22.0-30.0) sec Carbon Dioxide 37 H (22-30) mmol/L Glucose 124 H (74-99) mg/dL POC Glucose (mg/dL) 280 H (70-110) mg/dL Total Bilirubin 1.6 H (0.2-1.3) mg/dL Diabetes panel 06/02/22 06/03/22 Range/Units 16:14 08:05 Sodium 137 140 (137-145) mmol/L Potassium 4.0 4.4 (3.5-5.1) mmol/L Chloride 100 100 (98-107) mmol/L Carbon Dioxide 33 H 37 H (22-30) mmol/L BUN 16 13 (9-20) mg/dL Creatinine 0.95 0.95 (0.66-1.25) mg/dL Glucose 147 H 124 H (74-99) mg/dL Calcium 9.1 9.0 (8.4-10.2) mg/dL AST 35 31 (17-59) U/L ALT 35 32 (4-49) U/L Alkaline Phosphatase 82 72 (38-126) U/L Total Protein 6.9 6.4 (6.3-8.2) g/dL Albumin 3.9 3.6 (3.5-5.0) g/dL Calcium panel 06/02/22 06/03/22 Range/Units 16:14 08:05 Calcium 9.1 9.0 (8.4-10.2) mg/dL Albumin 3.9 3.6 (3.5-5.0) g/dL Pituitary panel 06/02/22 06/03/22 Range/Units 16:14 08:05 Sodium 137 140 (137-145) mmol/L Potassium 4.0 4.4 (3.5-5.1) mmol/L Chloride 100 100 (98-107) mmol/L Carbon Dioxide 33 H 37 H (22-30) mmol/L BUN 16 13 (9-20) mg/dL Creatinine 0.95 0.95 (0.66-1.25) mg/dL Glucose 147 H 124 H (74-99) mg/dL Calcium 9.1 9.0 (8.4-10.2) mg/dL Adrenal panel 06/02/22 06/03/22 Range/Units 16:14 08:05 Sodium 137 140 (137-145) mmol/L Potassium 4.0 4.4 (3.5-5.1) mmol/L Chloride 100 100 (98-107) mmol/L Carbon Dioxide 33 H 37 H (22-30) mmol/L BUN 16 13 (9-20) mg/dL Creatinine 0.95 0.95 (0.66-1.25) mg/dL Glucose 147 H 124 H (74-99) mg/dL Calcium 9.1 9.0 (8.4-10.2) mg/dL Total Bilirubin 1.1 1.6 H (0.2-1.3) mg/dL AST 35 31 (17-59) U/L ALT 35 32 (4-49) U/L Alkaline Phosphatase 82 72 (38-126) U/L Total Protein 6.9 6.4 (6.3-8.2) g/dL Albumin 3.9 3.6 (3.5-5.0) g/dL Assessment and Plan Assessment: Rectal bleeding resolving Plan: OK to DC home and I would restart the anticoagulation in 3-5 days. He needs follow up as an out patient and possible endoscopic evaluation as he may have hemorrhoids. Time with Patient: Greater than 30
== END 2022-06-03 16:58 | disposition home or self-care (01) ==
LOC: EC 15:50 → 3SCARD 17:56
PROVIDERS: ADMIT Hospitalist; ATTEND Hospitalist
DX: K62.5 Hemorrhage of anus and rectum (principal); I48.91 Unspecified atrial fibrillation; I25.10 Atherosclerotic heart disease of native coronary artery without angina pectoris; J44.9 Chronic obstructive pulmonary disease, unspecified; Z85.828 Personal history of other malignant neoplasm of skin; E11.9 Type 2 diabetes mellitus without complications; I25.2 Old myocardial infarction; M19.90 Unspecified osteoarthritis, unspecified site; G47.30 Sleep apnea, unspecified; I71.9 Aortic aneurysm of unspecified site, without rupture; Z86.16 Personal history of COVID-19; Z87.19 Personal history of other diseases of the digestive system; Z96.641 Presence of right artificial hip joint; Z98.42 Cataract extraction status, left eye; Z98.41 Cataract extraction status, right eye; Z87.891 Personal history of nicotine dependence; Z80.9 Family history of malignant neoplasm, unspecified; Z79.01 Long term (current) use of anticoagulants; Z79.4 Long term (current) use of insulin; Z79.82 Long term (current) use of aspirin; Z79.899 Other long term (current) drug therapy
CPT/HCPCS: 96374; 99285; 36415; 86900; 86901; 80053 ×2; 85025 ×2; 85610 ×2; 85730; 86850; 82272; G0378 ×2; C9113

== ENCOUNTER 2022-06-04 00:13 | Emergency (ER) | payer MEDICARE ==
[2022-06-04 00:24] VITALS: RESP 16
--- NOTE | 2022-06-04 01:43 | XR ---
EXAMINATION TYPE: XR chest 2V DATE OF EXAM: 06/04/2022 COMPARISON: 07/05/2020 HISTORY: Short of breath TECHNIQUE: FINDINGS: There is no heart failure nor confluent pneumonic infiltrate. Costophrenic angles are clear . There are no hilar masses. There is some flattening of the diaphragm. IMPRESSION: COPD. No acute lung disease. There is clearing of the right lateral pulmonary infiltrate compared to old exam.
--- NOTE | 2022-06-04 02:33 | ED ---
Recheck HPI - General Chief Complaint: Shortness of Breath Stated Complaint: sob Time Seen by Provider: 06/04/22 02:28 Source: patient, family, RN notes reviewed, old records reviewed Mode of arrival: EMS Limitations: no limitations - History of Present Illness Initial Comments: This is an 82-year-old male just out of hospital discharge for cough and co ngestion with history of COPD woke up with worsening COPD and cough tonight. Patient did have recent hospital admission, wasn't feeling well when he woke up in the middle of the night and had difficulty with cough congestion shortness of breath but does feel like prior COPD -: hour(s) Returns Today for: Called Because of Abnormal Lab/Test, persistent/worsening pain related to initial visit Symptoms Since Prior Visit: no new symptoms, worsening pain Associated Symptoms: none Treatments Prior to Arrival: other (0) - Related Data Home Medications Medication Instructions Recorded Confirmed Insulin Glargine,Hum.rec.anlog 12 unit SQ DAILY 06/24/20 06/04/22 [Lantus Solostar Pen] Metoprolol Succinate (ER) [Toprol 50 mg PO DAILY 06/24/20 06/04/22 XL] Ascorbic Acid [Vitamin C] 1,000 mg PO DAILY 06/02/22 06/04/22 Atorvastatin [Lipitor] 40 mg PO DAILY 06/02/22 06/04/22 Docusate [Colace] 100 mg PO BID 06/02/22 06/04/22 Montelukast Sodium [Singulair] 10 mg PO DAILY PRN 06/02/22 06/04/22 hydrALAZINE HCL [Apresoline] 25 mg PO BID 06/02/22 06/04/22 Previous Rx's Medication Instructions Recorded Isosorbide Mononitrate ER [Imdur] 30 mg PO DAILY #90 tab.er.24h 05/09/18 Omeprazole 40 mg PO DAILY #30 cap 06/03/22 Allergies Allergy/AdvReac Type Severity Reaction Status Date / Time No Known Allergies Allergy Verified 06/02/22 18:31 Review of Systems ROS Statement: Those systems with pertinent positive or pertinent negative responses have been documented in the HPI. ROS Other: All systems not noted in ROS Statement are negative. Past Medical History Past Medical History: Atrial Fibrillation, Coronary Artery Disease (CAD), Cancer, COPD, Diabetes Mellitus, GI Bleed, Myocardial Infarction ([place]), Osteoarthritis (OA), Sleep Apnea/CPAP/BIPAP Additional Past Medical History / Comment(s): aortic aneurysm being followed by Dr. 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 Absent: scleral icterus, conjunctival injection, periorbital swelling ENT exam: Present: normal exam, mucous membranes moist Neck exam: Present: normal inspection. Absent: tenderness, meningismus, lymp hadenopathy Respiratory exam: Present: normal lung sounds bilaterally, wheezes. Absent: respiratory distress, rales, rhonchi, stridor Cardiovascular Exam: Present: regular rate, normal rhythm, normal heart sounds. Absent: systolic murmur, diastolic murmur, rubs, gallop, clicks GI/Abdominal exam: Present: soft, normal bowel sounds. Absent: distended, tenderness, guarding, rebound, rigid Extremities exam: Present: normal inspection, full ROM, normal capillary refill. Absent: tenderness, pedal edema, joint swelling, calf tenderness Back exam: Present: normal inspection Neurological exam: Present: alert, oriented X3, CN II-XII intact Psychiatric exam: Present: normal affect, normal mood Skin exam: Present: warm, dry, intact, normal color. Absent: rash Course Vital Signs 06/04/22 06/04/22 06/04/22 00:16 00:25 03:00 Temperature 97.5 F L Pulse Rate 93 73 Respiratory 16 16 Rate Blood Pressure 113/72 111/66 O2 Sat by Pulse 97 96 Oximetry 06/04/22 06/04/22 06/04/22 04:00 05:00 05:43 Temperature 98.4 F Pulse Rate 70 77 75 Respiratory 16 16 16 Rate Blood Pressure 104/65 129/76 120/72 O2 Sat by Pulse 95 98 95 Oximetry - Reevaluation(s) Reevaluation #1: 06/04/22 07:54 Medical record is reviewed Reevaluation #2: 06/04/22 07:54 Patient informed results and questions are answered Reevaluation #3: 06/04/22 07:54 Patient symptoms are improved Reevaluation #4: 06/04/22 07:54 Was pt. sent in by a medical professional or institution? @ -no Did you speak to anyone other than the patient for history? @ -no Did you review nursing and triage notes? @ -agree Were old charts reviewed? @ -no prior Differential Diagnosis? @ -no prior EKG interpreted by me (3pts min.)? @ -[none] X-rays interpreted by me (1pt min.)? @ -[none] CT interpreted by me (1pt min.)? @ -[none] U/S interpreted by me (1pt. min.)? @ -[none] What testing was considered but not performed? (CT, X-rays, U/S, labs)? Why? @ no What meds were considered but not given? Why? @ -[none] Did you discuss the management of the patient with other professionals? @ -no Did you reconcile home meds? @ -[none] Was smoking cessation discussed for >3mins.? @ -[none] Was critical care preformed (if so, how long)? @ -[none] Were there social determinants of health that impacted care today? How? (Homelessness, low income, unemployed, alcoholism, drug addiction, transportation, low edu. Level, literacy, decrease access to med. care, halfway, rehab)? @ -no Was there de-escalation of care discussed even if they declined? (Discuss DNR or withdrawal of care, Hospice)? @ -no What co-morbidities impacted this encounter? (DM, HTN, Smoking, COPD, CAD, Cancer, CVA, Hep., AIDS, mental health diagnosis, sleep apnea, morbid obesity)? @ -no Was patient admitted / discharged? @ -dc ] Undiagnosed new problem with uncertain prognosis? @ -[none] Drug Therapy requiring intensive monitoring for toxicity (Heparin, Nitro, Insulin, Cardizem)? @ -[none] Were any procedures done? @ -[none] Diagnosis/symptom? @ -[default] Acute, or Chronic, or Acute on Chronic? @ -[default] Uncomplicated (without systemic symptoms) or Complicated (systemic symptoms)? @ -[default] Side effects of treatment? @ -[none] Exacerbation, Progression, or Severe Exacerbation] @ -[no] Poses a threat to life or bodily function? @ -[no] Medical Decision Making - Medical Decision Making 82 male to the emergency department for evaluation COPD and bronchitis. Patient feeling well and can be discharged home - Lab Data Result diagrams: 06/04/22 02:53 06/04/22 02:53 Lab Results 06/04/22 06/04/22 06/04/22 Range/Units 02:53 02:53 02:53 WBC 10.4 (3.8-10.6) k/uL RBC 4.71 (4.30-5.90) m/uL Hgb 14.5 (13.0-17.5) gm/dL Hct 42.4 (39.0-53.0) % MCV 90.0 (80.0-100.0) fL MCH 30.8 (25.0-35.0) pg MCHC 34.2 (31.0-37.0) g/dL RDW 14.4 (11.5-15.5) % Plt Count 129 L (150-450) k/uL MPV 9.6 Neutrophils % 66 % Lymphocytes % 23 % Monocytes % 7 % Eosinophils % 1 % Basophils % 0 % Neutrophils # 6.8 (1.3-7.7) k/uL Lymphocytes # 2.4 (1.0-4.8) k/uL Monocytes # 0.7 (0-1.0) k/uL Eosinophils # 0.1 (0-0.7) k/uL Basophils # 0.0 (0-0.2) k/uL PT 14.6 H (9.0-12.0) sec INR 1.5 H (<1.2) APTT 25.9 (22.0-30.0) sec Sodium 138 (137-145) mmol/L Potassium 3.5 (3.5-5.1) mmol/L Chloride 99 (98-107) mmol/L Carbon Dioxide 32 H (22-30) mmol/L Anion Gap 7 mmol/L BUN 17 (9-20) mg/dL Creatinine 1.11 (0.66-1.25) mg/dL Est GFR (CKD-EPI)AfAm 71 (>60 ml/min/1.73 sqM) Est GFR (CKD-EPI)NonAf 61 (>60 ml/min/1.73 sqM) Glucose 160 H (74-99) mg/dL Calcium 8.8 (8.4-10.2) mg/dL Total Bilirubin 1.2 (0.2-1.3) mg/dL AST 30 (17-59) U/L ALT 31 (4-49) U/L Alkaline Phosphatase 76 (38-126) U/L Troponin I (0.000-0.034) ng/mL Total Protein 6.5 (6.3-8.2) g/dL Albumin 3.7 (3.5-5.0) g/dL 06/04/22 Range/Units 02:53 WBC (3.8-10.6) k/uL RBC (4.30-5.90) m/uL Hgb (13.0-17.5) gm/dL Hct (39.0-53.0) % MCV (80.0-100.0) fL MCH (25.0-35.0) pg MCHC (31.0-37.0) g/dL RDW (11.5-15.5) % Plt Count (150-450) k/uL MPV Neutrophils % % Lymphocytes % % Monocytes % % Eosinophils % % Basophils % % Neutrophils # (1.3-7.7) k/uL Lymphocytes # (1.0-4.8) k/uL Monocytes # (0-1.0) k/uL Eosinophils # (0-0.7) k/uL Basophils # (0-0.2) k/uL PT (9.0-12.0) sec INR (<1.2) APTT (22.0-30.0) sec Sodium (137-145) mmol/L Potassium (3.5-5.1) mmol/L Chloride (98-107) mmol/L Carbon Dioxide (22-30) mmol/L Anion Gap mmol/L BUN (9-20) mg/dL Creatinine (0.66-1.25) mg/dL Est GFR (CKD-EPI)AfAm (>60 ml/min/1.73 sqM) Est GFR (CKD-EPI)NonAf (>60 ml/min/1.73 sqM) Glucose (74-99) mg/dL Calcium (8.4-10.2) mg/dL Total Bilirubin (0.2-1.3) mg/dL AST (17-59) U/L ALT (4-49) U/L Alkaline Phosphatase (38-126) U/L Troponin I 0.024 (0.000-0.034) ng/mL Total Protein (6.3-8.2) g/dL Albumin (3.5-5.0) g/dL - Radiology Data Radiology results: report reviewed (Chest x-rays negative for acute disease), image reviewed Disposition Clinical Impression: Chest pain, Acute exacerbation of chronic obstructive pulmonary disease Disposition: HOME SELF-CARE Condition: Good Instructions (If sedation given, give patient instructions): Acute Bronchitis (ED) Is patient prescribed a controlled substance at d/c from ED?: No Referrals: Kristel Cuadra MD [Primary Care Provider] - 1-2 days Time of Disposition: 05:40
[2022-06-04 03:14] LABS: Basophils % (A) 0 %; Eosinophils # (A) 0.1 k/uL (0-0.7); Eosinophils % (A) 1 %; HCT 42.4 % (39.0-53.0); HGB 14.5 gm/dL (13.0-17.5); Lymphocytes # (A) 2.4 k/uL (1.0-4.8); Lymphocytes % (A) 23 %; MCH 30.8 pg (25.0-35.0); MCHC 34.2 g/dL (31.0-37.0); Mean Platelet Volume 9.6; Monocytes # (A) 0.7 k/uL (0-1.0); Monocytes % (A) 7 %; Neutrophils # (A) 6.8 k/uL (1.3-7.7); Neutrophils % (A) 66 %; Platelet Count 129 k/uL (150-450); RBC 4.71 m/uL (4.30-5.90); RDW 14.4 % (11.5-15.5); WBC 10.4 k/uL (3.8-10.6)
[2022-06-04 03:22] LABS: INR 1.5 (<1.2); Partial Thromboplastin Time 25.9 sec (22.0-30.0); Prothrombin Time 14.6 sec (9.0-12.0)
[2022-06-04 03:34] LABS: Albumin 3.7 g/dL (3.5-5.0); Calcium 8.8 mg/dL (8.4-10.2); Potassium 3.5 mmol/L (3.5-5.1); Total Bilirubin 1.2 mg/dL (0.2-1.3); Total Protein 6.5 g/dL (6.3-8.2)
[2022-06-04 05:45] VITALS: BP 120/72; PULSE 75; TEMP 98.4
== END 2022-06-04 05:43 | disposition home or self-care (01) ==
LOC: EC 00:13
DX: J44.1 Chronic obstructive pulmonary disease with (acute) exacerbation (principal); I48.91 Unspecified atrial fibrillation; I25.10 Atherosclerotic heart disease of native coronary artery without angina pectoris; E11.9 Type 2 diabetes mellitus without complications; M19.90 Unspecified osteoarthritis, unspecified site; I25.2 Old myocardial infarction; Z87.891 Personal history of nicotine dependence; Z79.4 Long term (current) use of insulin; Z79.899 Other long term (current) drug therapy; Z86.16 Personal history of COVID-19
CPT/HCPCS: 36415; 71046; 80053; 84484; 85025; 85610; 85730; 93005; 99285

== ENCOUNTER 2023-01-21 16:25 | Observation (INO) | payer MEDICARE ==
[2023-01-21 18:03] LABS: Basophils % (A) 0 %; Eosinophils # (A) 0.1 k/uL (0-0.7); Eosinophils % (A) 1 %; HCT 44.4 % (39.0-53.0); Lymphocytes # (A) 1.6 k/uL (1.0-4.8); Lymphocytes % (A) 15 %; MCH 29.1 pg (25.0-35.0); MCHC 31.6 g/dL (31.0-37.0); Mean Platelet Volume 10.5; Monocytes # (A) 0.5 k/uL (0-1.0); Monocytes % (A) 5 %; Neutrophils # (A) 7.9 k/uL (1.3-7.7); Neutrophils % (A) 78 %; Platelet Count 133 k/uL (150-450); RBC 4.83 m/uL (4.30-5.90); RDW 15.9 % (11.5-15.5); WBC 10.2 k/uL (3.8-10.6)
[2023-01-21 18:16] LABS: Partial Thromboplastin Time 26.7 sec (22.0-30.0); Prothrombin Time 19.3 sec (9.0-12.0)
[2023-01-21 18:25] LABS: ALT 24 U/L (4-49); AST 30 U/L (17-59); African American GFR (CKD) 76 (>60 ml/min/1.73 sqM); Albumin 3.7 g/dL (3.5-5.0); Alkaline Phosphatase 83 U/L (38-126); Anion Gap 10 mmol/L; Blood Urea Nitrogen 19 mg/dL (9-20); Calcium 9.3 mg/dL (8.4-10.2); Carbon Dioxide 30 mmol/L (22-30); Chloride 100 mmol/L (98-107); Glucose 201 mg/dL (74-99); Non-African American GFR(CKD) 66 (>60 ml/min/1.73 sqM); Potassium 4.3 mmol/L (3.5-5.1); Sodium 140 mmol/L (137-145); Total Bilirubin 1.1 mg/dL (0.2-1.3); Total Protein 6.8 g/dL (6.3-8.2)
[2023-01-21] MEDS ORDERED: ACETAMINOPHEN TAB 325 MG TAB PO PRN (21:05)
[2023-01-21] MEDS ORDERED: NALOXONE 0.4 MG/ML 1 ML VIAL IV PRN (21:05)
[2023-01-21] MEDS ORDERED: tiZANidine 4 MG TAB PO PRN (21:09)
--- NOTE | 2023-01-21 21:34 | ED ---
GI Bleed HPI - General Chief complaint: GI Bleed Stated complaint: Rectal Bleeding Time Seen by Provider: 01/21/23 17:43 Source: patient Mode of arrival: ambulatory Limitations: no limitations - History of Present Illness Initial comments: This patient is an 82-year-old man presenting with onset of a bloody stool this morning. The patient states that he has not had any associated abdominal pain. No perianal pain. He states that he had to bowel movements and that there was some darker red blood which was mixed with small amount of stool. The patient relates that he had previous history of hemorrhoids. He is not having any anal pain and he had not noted any bleeding following the bowel movements. The patient denies symptoms of anemia. He is not having chest pain, dyspnea, diaphoresis, palpitations, lightheadedness or syncope. He has not noted orthostatic symptoms. MD complaint: blood streaked stool, gross hematochezia Onset/Timin -: hour(s) Quality: painless Consistency: constant Improves with: none Worsens with: none Context: history of GI bleed, hemorrhoids Associated Symptoms: denies other symptoms - Related Data Home Medications Medication Instructions Recorded Confirmed Insulin Glargine,Hum.rec.anlog 12 unit SQ DAILY 06/24/20 01/21/23 [Lantus Solostar Pen] Metoprolol Succinate (ER) [Toprol 50 mg PO DAILY 06/24/20 01/21/23 XL] Atorvastatin [Lipitor] 40 mg PO HS 06/02/22 01/21/23 Montelukast Sodium [Singulair] 10 mg PO DAILY 06/02/22 01/21/23 hydrALAZINE HCL [Apresoline] 50 mg PO BID 06/02/22 01/21/23 Budesonide 0.5 mg INHALATION DIRECTED 01/21/23 01/21/23 Clotrimazole/Betameth Cream 1 applic TOPICAL BID PRN 01/21/23 01/21/23 [Lotrisone] Ipratropium-Albuterol Nebulize 3 ml INHALATION DIRECTED 01/21/23 01/21/23 [Duoneb 0.5 mg-3 mg/3 ml Soln] Mv-Min/Folic/K1/Lycopen/Lutein 1 tab PO DAILY 01/21/23 01/21/23 [Centrum Silver Men Tablet] tiZANidine [Zanaflex] 4 mg PO BID PRN 01/21/23 01/21/23 Previous Rx's Medication Instructions Recorded Isosorbide Mononitrate ER [Imdur] 30 mg PO DAILY #90 tab.er.24h 05/09/18 Acetaminophen Tab [Tylenol] 650 mg PO Q6HR PRN tab 01/23/23 Allergies Allergy/AdvReac Type Severity Reaction Status Date / Time No Known Allergies Allergy Verified 01/21/23 20:19 Review of Systems ROS Statement: Those systems with pertinent positive or pertinent negative responses have been documented in the HPI. ROS Other: All systems not noted in ROS Statement are negative. Constitutional: Denies: fever, chills Respiratory: Denies: cough, dyspnea Cardiovascular: Denies: chest pain, palpitations Gastrointestinal: Reports: hematochezia. Denies: abdominal pain, nausea, vomiting, diarrhea, constipation Genitourinary: Denies: dysuria, hematuria Musculoskeletal: Denies: back pain Skin: Denies: rash Neurological: Denies: headache, weakness, numbness Past Medical History Past Medical History: Atrial Fibrillation, Coronary Artery Disease (CAD), Cancer, COPD, Diabetes Mellitus, GI Bleed, Myocardial Infarction ([place]), Osteoarthritis (OA), Sleep Apnea/CPAP/BIPAP Additional Past Medical History / Comment(s): aortic aneurysm being followed by Dr. 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 Absent: scleral icterus, conjunctival injection ENT exam: Present: normal oropharynx Neck exam: Present: normal inspection Respiratory exam: Present: normal lung sounds bilaterally. Absent: respiratory distress, wheezes, rales, rhonchi, stridor Cardiovascular Exam: Present: regular rate, normal rhythm, systolic murmur. Absent: diastolic murmur, rubs, gallop GI/Abdominal exam: Present: soft. Absent: distended, tenderness, guarding, rebound, rigid, mass Rectal exam: Present: bloody stool, hemorrhoids, other (The patient does have small external hemorrhoid without evidence of recent bleeding). Absent: mass, tenderness, prostate tenderness Extremities exam: Present: normal inspection, normal capillary refill. Absent: pedal edema, calf tenderness Back exam: Present: normal inspection. Absent: CVA tenderness (R), CVA tendern ess (L) Neurological exam: Present: alert Skin exam: Present: warm, dry, intact, normal color. Absent: rash Course Vital Signs 01/21/23 01/21/23 01/21/23 16:37 17:49 18:00 Temperature 98.1 F Pulse Rate 77 82 87 Respiratory 20 16 16 Rate Blood Pressure 112/65 121/84 121/84 O2 Sat by Pulse 99 98 97 Oximetry 01/21/23 01/21/23 01/21/23 19:00 20:00 21:00 Temperature Pulse Rate 84 83 80 Respiratory 18 18 18 Rate Blood Pressure 81/46 91/56 90/52 O2 Sat by Pulse 96 95 96 Oximetry 01/21/23 01/21/23 01/22/23 22:00 23:00 00:00 Temperature Pulse Rate 56 L 54 L 52 L Respiratory 17 18 18 Rate Blood Pressure 115/68 94/50 88/47 O2 Sat by Pulse 99 98 95 Oximetry 01/22/23 01/22/23 01/22/23 01:00 02:00 06:00 Temperature Pulse Rate 56 L 57 L 61 Respiratory 20 20 14 Rate Blood Pressure 108/66 87/52 109/69 O2 Sat by Pulse 98 98 95 Oximetry 01/22/23 01/22/23 01/22/23 07:00 08:00 09:00 Temperature Pulse Rate 62 66 55 L Respiratory 18 10 L 20 Rate Blood Pressure 109/74 83/52 128/82 O2 Sat by Pulse 96 96 95 Oximetry 01/22/23 01/22/23 01/22/23 10:00 11:00 12:00 Temperature Pulse Rate 57 L 61 63 Respiratory 22 22 22 Rate Blood Pressure 117/55 114/70 105/61 O2 Sat by Pulse 95 97 96 Oximetry 01/22/23 01/22/23 01/22/23 13:00 14:00 15:03 Temperature 97.6 F Pulse Rate 66 64 56 L Respiratory 23 20 16 Rate Blood Pressure 103/65 117/84 O2 Sat by Pulse 96 97 Oximetry 01/22/23 15:12 Temperature Pulse Rate 58 L Respiratory 16 Rate Blood Pressure O2 Sat by Pulse Oximetry Medical Decision Making - Medical Decision Making Patient is 82-year-old man with GI bleeding and currently using Coumadin. The patient's initial vital signs and hemoglobin all normal. The patient record reviewed which does show a previous colonoscopy in June 2020 showing some diverticular change. The patient also had 3 polyps snared at that time. He did have recurrent episode in May of this year, was admitted and the episode spontaneously resolved the patient did not have colonoscopy at that time. Case discussed with the admitting service and they will admit the patient with GI consultation when they're available. I did discuss with Dr. Blackman, who states he would consult with patient prior to availability should that be needed. Was pt. sent in by a medical professional or institution (, PA, SOLAR TECHNICIAN, urgent care, hospital, or halfway...) When possible be specific @ -[No] Did you speak to anyone other than the patient for history (EMS, parent, family, police, friend...)? What history was obtained from this source @ -[No] Did you review nursing and triage notes (agree or disagree)? Why? @ -[I reviewed and agree with nursing and triage notes] Were old charts reviewed (outside hosp., previous admission, EMS record, old EKG, old radiological studies, urgent care reports/EKG's, halfway records)? Report findings @ -[Yes, old charts were reviewed] Differential Diagnosis (chest pain, altered mental status, abdominal pain women, abdominal pain men, vaginal bleeding, weakness, fever, dyspnea, syncope, headache, dizziness, GI bleed, back pain, seizure, CVA, palpatations, mental health, musculoskeletal)? @ -[Differential GI Bleed: Esophageal varices, aortoenteric fistula, Lin-Martin, gastritis, peptic ulcer disease, diverticulosis, inflammatory bowel disease, hemorrhoids, fissure, colitis, malignancy, Meckels diverticulum, this is not meant to be an all- inclusive list. EKG interpreted by me (3pts min.). @ -[As above] X-rays interpreted by me (1pt min.). @ -[None done] CT interpreted by me (1pt min.). @ -[None done] U/S interpreted by me (1pt. min.). @ -[None done] What testing was considered but not performed or refused? (CT, X-rays, U/S, l abs)? Why? @ -[None] What meds were considered but not given or refused? Why? @ -[None] Did you discuss the management of the patient with other professionals (professionals i.e. , PA, SOLAR TECHNICIAN, lab, RT, psych nurse, child welfare social worker, criminal researcher, teacher, credit products officer, casework manager)? Give summary @ -[I did discuss the case with the admitting physician and with the store consultant Was smoking cessation discussed for >3mins.? @ -[No] Was critical care preformed (if so, how long)? @ -[No] Were there social determinants of health that impacted care today? How? (Homelessness, low income, unemployed, alcoholism, drug addiction, transportation, low edu. Level, literacy, decrease access to med. care, [place] [facility], rehab)? @ -[No] Was there de-escalation of care discussed even if they declined (Discuss DNR or withdrawal of care, Hospice)? DNR status @ -[No] What co-morbidities impacted this encounter? (DM, HTN, Smoking, COPD, CAD, Cancer, CVA, ARF, Chemo, Hep., AIDS, mental health diagnosis, sleep apnea, morbid obesity)? @ -[Underlying atrial fibrillation with anticoagulant use Was patient admitted / discharged? Hospital course, mention meds given and route, prescriptions, significant lab abnormalities, going to OR and other pertinent info. @ -[As above the patient admitted to have serial hemoglobins, surgical consultation, Coumadin held, Undiagnosed new problem with uncertain prognosis? @ -[No] Drug Therapy requiring intensive monitoring for toxicity (Heparin, Nitro, Insulin, Cardizem)? @ -[No] Were any procedures done? @ -[No] Diagnosis/symptom? @ -[Acute gastrointestinal bleeding Acute, or Chronic, or Acute on Chronic? @ -[Acute Uncomplicated (without systemic symptoms) or Complicated (systemic symptoms)? @ -[Uncomplicated Side effects of treatment? @ -[No] Exacerbation, Progression, or Severe Exacerbation? @ -[No] Poses a threat to life or bodily function? How? (Chest pain, [place], [place], pneumonia, PE, COPD, DKA, ARF, appy, cholecystitis, CVA, Diverticulitis, Homicidal, Suicidal, threat to staff... and all critical care pts) @ -[Yes, gastrointestinal bleeding may progress to anemia and resulting organ failure/ - Lab Data Result diagrams: 01/23/23 08:28 01/23/23 08:28 Lab Results 01/21/23 01/21/23 01/21/23 Range/Units 17:50 17:50 17:50 WBC 10.2 (3.8-10.6) k/uL RBC 4.83 (4.30-5.90) m/uL Hgb 14.0 (13.0-17.5) gm/dL Hct 44.4 (39.0-53.0) % MCV 92.0 (80.0-100.0) fL MCH 29.1 (25.0-35.0) pg MCHC 31.6 (31.0-37.0) g/dL RDW 15.9 H (11.5-15.5) % Plt Count 133 L (150-450) k/uL MPV 10.5 Neutrophils % 78 % Lymphocytes % 15 % Monocytes % 5 % Eosinophils % 1 % Basophils % 0 % Neutrophils # 7.9 H (1.3-7.7) k/uL Lymphocytes # 1.6 (1.0-4.8) k/uL Monocytes # 0.5 (0-1.0) k/uL Eosinophils # 0.1 (0-0.7) k/uL Basophils # 0.0 (0-0.2) k/uL PT 19.3 H (9.0-12.0) sec INR 2.0 H (<1.2) APTT 26.7 (22.0-30.0) sec Sodium 140 (137-145) mmol/L Potassium 4.3 (3.5-5.1) mmol/L Chloride 100 (98-107) mmol/L Carbon Dioxide 30 (22-30) mmol/L Anion Gap 10 mmol/L BUN 19 (9-20) mg/dL Creatinine 1.05 (0.66-1.25) mg/dL Est GFR (CKD-EPI)AfAm 76 (>60 ml/min/1.73 sqM) Est GFR (CKD-EPI)NonAf 66 (>60 ml/min/1.73 sqM) Glucose 201 H (74-99) mg/dL Calcium 9.3 (8.4-10.2) mg/dL Total Bilirubin 1.1 (0.2-1.3) mg/dL AST 30 (17-59) U/L ALT 24 (4-49) U/L Alkaline Phosphatase 83 (38-126) U/L Troponin I (0.000-0.034) ng/mL Total Protein 6.8 (6.3-8.2) g/dL Albumin 3.7 (3.5-5.0) g/dL Stool Occult Blood (Negative) Blood Type Blood Type Recheck Bld Type Recheck Status Antibody Screen Spec Expiration Date 01/21/23 01/21/23 01/21/23 Range/Units 17:50 17:50 18:15 WBC (3.8-10.6) k/uL RBC (4.30-5.90) m/uL Hgb (13.0-17.5) gm/dL Hct (39.0-53.0) % MCV (80.0-100.0) fL MCH (25.0-35.0) pg MCHC (31.0-37.0) g/dL RDW (11.5-15.5) % Plt Count (150-450) k/uL MPV Neutrophils % % Lymphocytes % % Monocytes % % Eosinophils % % Basophils % % Neutrophils # (1.3-7.7) k/uL Lymphocytes # (1.0-4.8) k/uL Monocytes # (0-1.0) k/uL Eosinophils # (0-0.7) k/uL Basophils # (0-0.2) k/uL PT (9.0-12.0) sec INR (<1.2) APTT (22.0-30.0) sec Sodium (137-145) mmol/L Potassium (3.5-5.1) mmol/L Chloride (98-107) mmol/L Carbon Dioxide (22-30) mmol/L Anion Gap mmol/L BUN (9-20) mg/dL Creatinine (0.66-1.25) mg/dL Est GFR (CKD-EPI)AfAm (>60 ml/min/1.73 sqM) Est GFR (CKD-EPI)NonAf (>60 ml/min/1.73 sqM) Glucose (74-99) mg/dL Calcium (8.4-10.2) mg/dL Total Bilirubin (0.2-1.3) mg/dL AST (17-59) U/L ALT (4-49) U/L Alkaline Phosphatase (38-126) U/L Troponin I <0.012 (0.000-0.034) ng/mL Total Protein (6.3-8.2) g/dL Albumin (3.5-5.0) g/dL Stool Occult Blood Positive (Negative) Blood Type A Positive Blood Type Recheck A Pos Bld Type Recheck Status No Antibody Screen NEGATIVE Spec Expiration Date 01/24/20232349 Disposition Clinical Impression: GI bleed Disposition: ADMITTED IP TO THIS [facility] Condition: Stable Is patient prescribed a controlled substance at d/c from ED?: No
[2023-01-21] MEDS ORDERED: PHYTONADIONE ORAL 5 MG/5 ML ORAL.SYRG PO ONE (21:45)
[2023-01-22] MEDS ORDERED: BENZOCAINE/MENTHOL LOZENG 1 EACH LOZENGE MUCOUS MEM ONE (02:43)
[2023-01-22] MEDS: METOPROLOL SUCCINATE (ER) 50 MG TAB.ER.24H PO SCH (09:28)
[2023-01-22] MEDS: hydrALAZINE HCL 25 MG TAB PO SCH ×2 (09:28→21:51)
[2023-01-22] MEDS: ISOSORBIDE MONONITRATE ER 30 MG TAB.ER.24H PO SCH (09:28)
[2023-01-22] MEDS: MONTELUKAST 10 MG TAB PO SCH (09:28)
[2023-01-22] MEDS: PANTOPRAZOLE 40 MG/10 ML VIAL IV SCH (09:29)
[2023-01-22 11:01] LABS: Anisocytosis Slight; HCT 39.5 % (39.0-53.0); HGB 12.7 gm/dL (13.0-17.5); MCH 29.7 pg (25.0-35.0); MCHC 32.2 g/dL (31.0-37.0); MCV 92.3 fL (80.0-100.0); Platelet Count 135 k/uL (150-450); RBC 4.28 m/uL (4.30-5.90); RDW 16.1 % (11.5-15.5); WBC 9.8 k/uL (3.8-10.6)
[2023-01-22 11:14] LABS: INR 1.5 (<1.2); Prothrombin Time 14.9 sec (9.0-12.0)
[2023-01-22 11:18] LABS: African American GFR (CKD) 79 (>60 ml/min/1.73 sqM); Anion Gap 7 mmol/L; Blood Urea Nitrogen 22 mg/dL (9-20); Calcium 8.9 mg/dL (8.4-10.2); Carbon Dioxide 29 mmol/L (22-30); Chloride 101 mmol/L (98-107); Glucose 175 mg/dL (74-99); Non-African American GFR(CKD) 69 (>60 ml/min/1.73 sqM); Potassium 4.2 mmol/L (3.5-5.1); Sodium 137 mmol/L (137-145)
[2023-01-22 12:08] LABS: Lymphocytes # (M) 2.16 k/uL (1.0-4.8); Monocytes # (M) 1.67 k/uL (0-1.0); Neutrophils # (M) 5.78 k/uL (1.3-7.7); Neutrophils % (M) 59 %; Nucleated Red Blood Cells 0 /100 WBC (0-0); Total Cells Counted 100
[2023-01-22] MEDS ORDERED: CLOTRIMAZOLE/BETAMETH 1-0.05% CREAM 45 GM TUBE TOPICAL PRN (12:22)
[2023-01-22] MEDS: IPRATROPIUM-ALBUTEROL 3 ML NEB INHALATION SCH ×3 (12:51→21:16)
--- NOTE | 2023-01-22 13:06 | P.CONS ---
History of Present Illness - Reason for Consult Consult date: 01/22/23 GI bleed Requesting physician: Rip Munroe - Chief Complaint Rectal bleeding - History of Present Illness This a pleasant 82-year-old male with a past medical history including coronary artery disease, atrial fibrillation, abdominal aortic aneurysm on Coumadin who presented to the emergency department with rectal bleeding. Patient states he had been straining to have a bowel movement on Sunday, then Sunday he had a bowel movement and there was some bright red blood. He continued to have 2 or 3 more bowel movements with bright to maroon colored blood. He had no associated abdominal pain at that time and no abdominal pain currently. Patient has a history of a previous GI bleed and was seen here and had a colonoscopy in June [address] Lopez with findings of old blood around diverticula, pandiverticulosis, internal hemorrhoids and polypectomy. Patient is not had any further bleeding since yesterday afternoon and states he would like to go home. Hemoglobin 14.0 on admission with repeat today of 12.7. INR was 2.0, Coumadin is on hold with a repeat INR today of 1.5.. Review of Systems REVIEW OF SYSTEMS: CARDIOPULMONARY: No chest pain or shortness of breath. Gastrointestinal: No abdominal pain. No nausea or vomiting. No hematemesis, coffee-ground emesis. Patient had 2-3 episodes of bright red/maroon rectal bleeding. He does have some constipation and also reports straining at times. GENITOURINARY: No dysuria or hematuria. MUSCULOSKELETAL: Reports normal range of motion., Joint pain. SKIN: No rashes. No jaundice. ENDOCRINE: No chills, fevers. No excessive weight gain or loss. No polydipsia or polyuria. PSYCHIATRIC: Unremarkable. NEUROLOGY: No change in mental status. Denies dizziness, headache. ENT: Vision unremarkable. CONSTITUTIONAL: No recent weight loss. No fever, chills, night sweats. Past Medical History Past Medical History: Atrial Fibrillation, Coronary Artery Disease (CAD), Cancer, COPD, Diabetes Mellitus, GI Bleed, Myocardial Infarction ([place]), Osteoarthritis (OA), Sleep Apnea/CPAP/BIPAP Additional Past Medical History / Comment(s): aortic aneurysm being followed by Dr. 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, Past Anesthesia/Blood Transfusion Reactions: No Reported Reaction Past Psychological History: No Psychological Hx Reported Smoking Status: Former smoker Past Alcohol Use History: None Reported Past Drug Use History: None Reported - Past Family History Father Family Medical History: Cancer Mother Family Medical History: Cancer Medications and Allergies Home Medications Medication Instructions Recorded Confirmed Type Isosorbide Mononitrate ER [Imdur] 30 mg PO DAILY #90 tab.er.24h 05/09/18 01/21/23 Rx Insulin Glargine,Hum.rec.anlog 12 unit SQ DAILY 06/24/20 01/21/23 History [Lantus Solostar Pen] Metoprolol Succinate (ER) [Toprol 50 mg PO DAILY 06/24/20 01/21/23 History XL] Atorvastatin [Lipitor] 40 mg PO HS 06/02/22 01/21/23 History Montelukast Sodium [Singulair] 10 mg PO DAILY 06/02/22 01/21/23 History hydrALAZINE HCL [Apresoline] 50 mg PO BID 06/02/22 01/21/23 History Budesonide 0.5 mg INHALATION DIRECTED 01/21/23 01/21/23 History Clotrimazole/Betameth Cream 1 applic TOPICAL BID PRN 01/21/23 01/21/23 History [Lotrisone] Ipratropium-Albuterol Nebulize 3 ml INHALATION DIRECTED 01/21/23 01/21/23 History [Duoneb 0.5 mg-3 mg/3 ml Soln] Multivit-Min/FA/Lycopen/Lutein 1 tab PO DAILY 01/21/23 01/21/23 History [Centrum Silver Men Tablet] Warfarin Sodium 3.75 mg PO TUTHSA@209901/21/23 01/21/23 History Warfarin [Coumadin] 7.5 mg PO SUMOWEFR@209901/21/23 01/21/23 History tiZANidine [Zanaflex] 4 mg PO BID PRN 01/21/23 01/21/23 History Allergies Allergy/AdvReac Type Severity Reaction Status Date / Time No Known Allergies Allergy Verified 01/21/23 20:19 Physical Exam Vitals: Vital Signs Temp Pulse Resp BP Pulse Ox 01/22/23 06:00 61 14 109/69 95 01/22/23 02:00 57 L 20 87/52 98 01/22/23 01:00 56 L 20 108/66 98 01/22/23 00:00 52 L 18 88/47 95 01/21/23 23:00 54 L 18 94/50 98 01/21/23 22:00 56 L 17 115/68 99 01/21/23 21:00 80 18 90/52 96 01/21/23 20:00 83 18 91/56 95 01/21/23 19:00 84 18 81/46 96 01/21/23 18:00 87 16 121/84 97 01/21/23 17:49 82 16 121/84 98 01/21/23 16:37 98.1 F 77 20 112/65 99 Intake and Output 01/21/23 01/22/23 01/22/23 22:59 06:59 14:59 Other: Weight 124.738 kg General appearance: The patient is alert, oriented, appears in no acute distress. HET: Head is normocephalic and atraumatic. Conjunctiva pink. Sclera anicteric. Neck: Supple without lymphadenopathy. Trachea midline. Heart: S1 S2. Regular rate and rhythm. Lungs: Clear to auscultation. Abdomen: Soft, nontender, nondistended with bowel sounds. No guarding or rigidity. Skin: No rashes. No jaundice. Extremities: Normal skin color and turgor. No pedal edema. Neurological: No focal deficits. Alert and oriented x3. Results CBC & Chem 7: 01/22/23 10:46 01/22/23 10:46 Labs: Abnormal Lab Results - Last 24 Hours (Table) 01/21/23 01/21/23 01/21/23 Range/Units 17:50 17:50 17:50 RDW 15.9 H (11.5-15.5) % Plt Count 133 L (150-450) k/uL Neutrophils # 7.9 H (1.3-7.7) k/uL PT 19.3 H (9.0-12.0) sec INR 2.0 H (<1.2) Glucose 201 H (74-99) mg/dL Assessment and Plan (1) GI bleed Narrative/Plan: This is a 82-year-old male with a history of previous diverticular bleed who presented with 2-3 episodes of painless bright red blood per rectum which are now resolved. Patient had a hemoglobin of 14.0 on admission with a trapped to 12.7. Coumadin is on hold for history of coronary artery disease. Patient is not having any associated abdominal pain, nausea or vomiting. He's not had any further bowel movements. No imaging completed. Likely dealing with a diverticular bleed. Recommend continuing to hold Coumadin, continue with clear liquid diet. No plan at this time for endoscopic evaluation unless bleeding continues. Current Visit: No Status: Acute Code(s): K92.2 - GASTROINTESTINAL HEMORRHAGE, UNSPECIFIED SNOMED Code(s): 31807374 (2) Atrial fibrillation Current Visit: Yes Status: Acute Code(s): I48.91 - UNSPECIFIED ATRIAL FIBRIL LATION SNOMED Code(s): 77864383 (3) Coronary artery disease Current Visit: Yes Status: Acute Code(s): I25.10 - ATHSCL HEART DISEASE OF [place] CORONARY ARTERY W/O ANG PCTRS SNOMED Code(s): 24575478 Plan: 1. Continue symptomatic and supportive care 2. Patient may have clear liquid diet 3. Continue to hold Coumadin 4. No plans on endoscopic evaluation at this time 5. Daily CBC Thank you for this consultation, we will continue to follow. Dr. Aida Amaya I agree with the dictator's note, documented as a scribe by Flor Moon.
[2023-01-22] MEDS: INSULIN ASPART (NovoLOG) 100 UNIT/ML VIAL SQ SCH ×3 (13:48→21:51)
--- NOTE | 2023-01-22 13:55 | P.HPIM ---
History of Present Illness 82-year-old pleasant male, with history of for diverticulosis, hemorrhoids," on warfarin for valvular atrial fibrillation with INR of 2 came in with complaints of episodes of small amounts of blood in the stools started yesterday in about 5-6 episodes. Patient's colonoscopy in 1999 1520 showed diverticulosis and internal hemorrhoids, and polyp status post polypectomy. Patient doesn't have any more bleed at this time. Patient does have history of atrial fibrillation without any history of congestive heart failure. Echocardiogram from 2019 showed normal ejection fraction hemoglobin went down from a 14-12.7, patient was receiving IV fluids. REVIEW OF SYSTEMS: CONSTITUTIONAL: No fever, no malaise, no fatigue. HEENT: No recent visual problems or hearing problems. Denied any sore throat. CARDIOVASCULAR: No chest pain, orthopnea, PND, no palpitations, no syncope. PULMONARY: No shortness of breath, no cough, no hemoptysis. GASTROINTESTINAL: No diarrhea, no nausea, no vomiting, no abdominal pain. NEUROLOGICAL: No headaches, no weakness, no numbness. HEMATOLOGICAL: Denies any bleeding or petechiae. GENITOURINARY: Denies any burning micturition, frequency, or urgency. MUSCULOSKELETAL/RHEUMATOLOGICAL: Denies any joint pain, swelling, or any muscle pain. ENDOCRINE: Denies any polyuria or polydipsia. The rest of the 14-point review of systems is negative. PHYSICAL EXAMINATION: GENERAL: The patient is alert and oriented x3, not in any acute distress. Obese HEENT: Pupils are round and equally reacting to light. EOMI. No scleral icterus. No conjunctival pallor. Normocephalic, atraumatic. No pharyngeal erythema. No thyromegaly. CARDIOVASCULAR: S1 and S2 present. No murmurs, rubs, or gallops. PULMONARY: Chest is clear to auscultation, no wheezing or crackles. ABDOMEN: Soft, nontender, nondistended, normoactive bowel sounds. No palpable organomegaly. MUSCULOSKELETAL: No joint swelling or deformity. EXTREMITIES: No cyanosis, clubbing, or pedal edema. NEUROLOGICAL: Gross neurological examination did not reveal any focal deficits. SKIN: No rashes. Assessment and plan -Lower GI bleed: Mostly hemorrhoidal and possibility of diverticular bleed resolved at this time, holding off anticoagulation monitor overnight. -Proximal atrial fibrillation for which patient is on anticoagulation patient has valvular A. fib with severe stenosis. -Coronary artery disease next and-COPD without any exacerbation of time heparin type 2 diabetes mellitus: Patient will be continued on home dose of long-acting insulin along with sliding scale insulin -Sleep apnea -Obesity DVT prophylaxis: Holding of anti-correlation because of GI bleed patient INR is around 1.6 today Past Medical History Past Medical History: Atrial Fibrillation, Coronary Artery Disease (CAD), Cancer, COPD, Diabetes Mellitus, GI Bleed, Myocardial Infarction ([place]), Osteoarthritis (OA), Sleep Apnea/CPAP/BIPAP Additional Past Medical History / Comment(s): aortic aneurysm being followed by Dr. 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, Past Anesthesia/Blood Transfusion Reactions: No Reported Reaction Past Psychological History: No Psychological Hx Reported Smoking Status: Former smoker Past Alcohol Use History: None Reported Past Drug Use History: None Reported - Past Family History Father Family Medical History: Cancer Mother Family Medical History: Cancer Medications and Allergies Home Medications Medication Instructions Recorded Confirmed Type Isosorbide Mononitrate ER [Imdur] 30 mg PO DAILY #90 tab.er.24h 05/09/18 01/21/23 Rx Insulin Glargine,Hum.rec.anlog 12 unit SQ DAILY 06/24/20 01/21/23 History [Lantus Solostar Pen] Metoprolol Succinate (ER) [Toprol 50 mg PO DAILY 06/24/20 01/21/23 History XL] Atorvastatin [Lipitor] 40 mg PO HS 06/02/22 01/21/23 History Montelukast Sodium [Singulair] 10 mg PO DAILY 06/02/22 01/21/23 History hydrALAZINE HCL [Apresoline] 50 mg PO BID 06/02/22 01/21/23 History Budesonide 0.5 mg INHALATION DIRECTED 01/21/23 01/21/23 History Clotrimazole/Betameth Cream 1 applic TOPICAL BID PRN 01/21/23 01/21/23 History [Lotrisone] Ipratropium-Albuterol Nebulize 3 ml INHALATION DIRECTED 01/21/23 01/21/23 History [Duoneb 0.5 mg-3 mg/3 ml Soln] Multivit-Min/FA/Lycopen/Lutein 1 tab PO DAILY 01/21/23 01/21/23 History [Centrum Silver Men Tablet] Warfarin Sodium 3.75 mg PO TUTHSA@209901/21/23 01/21/23 History Warfarin [Coumadin] 7.5 mg PO SUMOWEFR@209901/21/23 01/21/23 History tiZANidine [Zanaflex] 4 mg PO BID PRN 01/21/23 01/21/23 History Allergies Allergy/AdvReac Type Severity Reaction Status Date / Time No Known Allergies Allergy Verified 01/21/23 20:19 Physical Exam Vitals: Vital Signs Temp Pulse Resp BP Pulse Ox 01/22/23 06:00 61 14 109/69 95 01/22/23 02:00 57 L 20 87/52 98 01/22/23 01:00 56 L 20 108/66 98 01/22/23 00:00 52 L 18 88/47 95 01/21/23 23:00 54 L 18 94/50 98 01/21/23 22:00 56 L 17 115/68 99 01/21/23 21:00 80 18 90/52 96 01/21/23 20:00 83 18 91/56 95 01/21/23 19:00 84 18 81/46 96 01/21/23 18:00 87 16 121/84 97 01/21/23 17:49 82 16 121/84 98 01/21/23 16:37 98.1 F 77 20 112/65 99 Intake and Output 01/21/23 01/22/23 01/22/23 22:59 06:59 14:59 Other: Weight 124.738 kg Results CBC & Chem 7: 01/22/23 10:46 01/22/23 10:46 Labs: Abnormal Lab Results - Last 24 Hours (Table) 01/21/23 01/21/23 01/21/23 Range/Units 17:50 17:50 17:50 RBC (4.30-5.90) m/uL Hgb (13.0-17.5) gm/dL RDW 15.9 H (11.5-15.5) % Plt Count 133 L (150-450) k/uL Neutrophils # 7.9 H (1.3-7.7) k/uL Monocytes # (Manual) (0-1.0) k/uL PT 19.3 H (9.0-12.0) sec INR 2.0 H (<1.2) BUN (9-20) mg/dL Glucose 201 H (74-99) mg/dL 01/22/23 01/22/23 01/22/23 Range/Units 10:46 10:46 10:46 RBC 4.28 L (4.30-5.90) m/uL Hgb 12.7 L (13.0-17.5) gm/dL RDW 16.1 H (11.5-15.5) % Plt Count 135 L (150-450) k/uL Neutrophils # (1.3-7.7) k/uL Monocytes # (Manual) 1.67 H (0-1.0) k/uL PT 14.9 H (9.0-12.0) sec INR 1.5 H (<1.2) BUN 22 H (9-20) mg/dL Glucose 175 H (74-99) mg/dL
[2023-01-22] MEDS ORDERED: IPRATROPIUM-ALBUTEROL 3 ML NEB INHALATION SCH (16:00)
--- NOTE | 2023-01-22 16:33 | P.GSCN ---
History of Present Illness Consult date: 01/22/23 History of present illness: CHIEF COMPLAINT: GI bleed HISTORY OF PRESENT ILLNESS: This is a 82-year-old male with a known history of diverticulitis with prior diverticular bleeds. Patient reports 3 episodes of GI bleed. He also has a known history of hemorrhoids. He is on Coumadin at home for atrial fibrillation. Last colonoscopy was in June 2020 with evidence of diverticulosis with old blood internal hemorrhoids and polypectomy. Patient denies any abdominal pain. Denies any nausea or vomiting. Patient reports having bloody stools that started yesterday morning. He had 3 episodes of bleeding. He's had no further bleeding since being in the ER. Hemoglobin was 14 on admission stool for occult blood was positive. Patient evaluated by GI service and they have no plans for endoscopy at this time. PAST MEDICAL HISTORY: Atrial Fibrillation, Coronary Artery Disease (CAD), Cancer, COPD, Diabetes Mellitus, GI Bleed, Myocardial Infarction ([place]), Osteoarthritis (OA), Sleep Apnea/CPAP/BIPAP, diverticular GI bleed, diverticulitis PAST SURGICAL HISTORY: See below MEDICATIONS: See below ALLERGIES: See below SOCIAL HISTORY: No illicit drug use. REVIEW OF SYSTEMS: CONSTITUTIONAL: Denies fever or chills. HEENT: Denies blurred vision, vision changes, or eye pain. Denies hemoptysis CARDIOVASCULAR: Denies chest pain or pressure. RESPIRATORY: No shortness of breath. GASTROINTESTINAL: See HPI for pertinent findings HEMATOLOGIC: Denies bleeding disorders. GENITOURINARY: Denies any blood in urine or increased urinary frequency. SKIN: Denies pruitis. Denies rash. PHYSICAL EXAM: VITAL SIGNS: Reviewed GENERAL: Well-developed in no acute distress. HEENT: No sclera icterus. Extraocular movements grossly intact. Moist buccal mucosa. Head is atraumatic, normocephalic. No nasal drainage. ABDOMEN: Soft. Nondistended. Nontender NEUROLOGIC: Alert and oriented. Cranial nerves II through XII grossly intact. LABORATORY DATA: WBC 9.8 Hgb 14 down to 12.7 platelets 135 INR 2.0 down to 1.5 Sodium 137 potassium 4.2 creatinine 1.01 Stool for occult blood positive IMAGING: ASSESSMENT: 1. Acute GI bleed likely due to diverticular bleed 2. Prior history of diverticular bleeds 3. History of hemorrhoids 4. Atrial fibrillation anticoagulated with Coumadin PLAN: -Patient seen by GI service with no plans for endoscopy -Surgical service on standby -Agree with holding Coumadin -Continue to monitor hemoglobin -Continue to monitor for any signs or symptoms of bleeding -Continue clear liquid diet Physician Curam Developer note has been reviewed by physician. Signing provider agrees with the documented findings, assessment, and plan of care. Past Medical History Past Medical History: Atrial Fibrillation, Coronary Artery Disease (CAD), Cancer, COPD, Diabetes Mellitus, GI Bleed, Myocardial Infarction ([place]), Osteoarthritis (OA), Sleep Apnea/CPAP/BIPAP Additional Past Medical History / Comment(s): aortic aneurysm being followed by Dr. 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, Past Anesthesia/Blood Transfusion Reactions: No Reported Reaction Past Psychological History: No Psychological Hx Reported Smoking Status: Former smoker Past Alcohol Use History: None Reported Past Drug Use History: None Reported - Past Family History Father Family Medical History: Cancer Mother Family Medical History: Cancer Medications and Allergies Home Medications Medication Instructions Recorded Confirmed Type Isosorbide Mononitrate ER [Imdur] 30 mg PO DAILY #90 tab.er.24h 05/09/18 01/21/23 Rx Insulin Glargine,Hum.rec.anlog 12 unit SQ DAILY 06/24/20 01/21/23 History [Lantus Solostar Pen] Metoprolol Succinate (ER) [Toprol 50 mg PO DAILY 06/24/20 01/21/23 History XL] Atorvastatin [Lipitor] 40 mg PO HS 06/02/22 01/21/23 History Montelukast Sodium [Singulair] 10 mg PO DAILY 06/02/22 01/21/23 History hydrALAZINE HCL [Apresoline] 50 mg PO BID 06/02/22 01/21/23 History Budesonide 0.5 mg INHALATION DIRECTED 01/21/23 01/21/23 History Clotrimazole/Betameth Cream 1 applic TOPICAL BID PRN 01/21/23 01/21/23 History [Lotrisone] Ipratropium-Albuterol Nebulize 3 ml INHALATION DIRECTED 01/21/23 01/21/23 History [Duoneb 0.5 mg-3 mg/3 ml Soln] Multivit-Min/FA/Lycopen/Lutein 1 tab PO DAILY 01/21/23 01/21/23 History [Centrum Silver Men Tablet] Warfarin Sodium 3.75 mg PO TUTHSA@209901/21/23 01/21/23 History Warfarin [Coumadin] 7.5 mg PO SUMOWEFR@209901/21/23 01/21/23 History tiZANidine [Zanaflex] 4 mg PO BID PRN 01/21/23 01/21/23 History Allergies Allergy/AdvReac Type Severity Reaction Status Date / Time No Known Allergies Allergy Verified 01/21/23 20:19 Surgical - Exam Vital Signs Temp Pulse Resp BP Pulse Ox 98.1 F 77 20 112/65 99 01/21/23 16:37 01/21/23 16:37 01/21/23 16:37 01/21/23 16:37 01/21/23 16:37 Results - Labs 01/22/23 10:46 01/22/23 10:46 Abnormal Lab Results - Last 24 Hours (Table) 01/21/23 01/21/23 01/21/23 Range/Units 17:50 17:50 17:50 RBC (4.30-5.90) m/uL Hgb (13.0-17.5) gm/dL RDW 15.9 H (11.5-15.5) % Plt Count 133 L (150-450) k/uL Neutrophils # 7.9 H (1.3-7.7) k/uL Monocytes # (Manual) (0-1.0) k/uL PT 19.3 H (9.0-12.0) sec INR 2.0 H (<1.2) BUN (9-20) mg/dL Glucose 201 H (74-99) mg/dL 01/22/23 01/22/23 01/22/23 Range/Units 10:46 10:46 10:46 RBC 4.28 L (4.30-5.90) m/uL Hgb 12.7 L (13.0-17.5) gm/dL RDW 16.1 H (11.5-15.5) % Plt Count 135 L (150-450) k/uL Neutrophils # (1.3-7.7) k/uL Monocytes # (Manual) 1.67 H (0-1.0) k/uL PT 14.9 H (9.0-12.0) sec INR 1.5 H (<1.2) BUN 22 H (9-20) mg/dL Glucose 175 H (74-99) mg/dL Diabetes panel 01/21/23 01/22/23 Range/Units 17:50 10:46 Sodium 140 137 (137-145) mmol/L Potassium 4.3 4.2 (3.5-5.1) mmol/L Chloride 100 101 (98-107) mmol/L Carbon Dioxide 30 29 (22-30) mmol/L BUN 19 22 H (9-20) mg/dL Creatinine 1.05 1.01 (0.66-1.25) mg/dL Glucose 201 H 175 H (74-99) mg/dL Calcium 9.3 8.9 (8.4-10.2) mg/dL AST 30 (17-59) U/L ALT 24 (4-49) U/L Alkaline Phosphatase 83 (38-126) U/L Total Protein 6.8 (6.3-8.2) g/dL Albumin 3.7 (3.5-5.0) g/dL Calcium panel 01/21/23 01/22/23 Range/Units 17:50 10:46 Calcium 9.3 8.9 (8.4-10.2) mg/dL Albumin 3.7 (3.5-5.0) g/dL Pituitary panel 01/21/23 01/22/23 Range/Units 17:50 10:46 Sodium 140 137 (137-145) mmol/L Potassium 4.3 4.2 (3.5-5.1) mmol/L Chloride 100 101 (98-107) mmol/L Carbon Dioxide 30 29 (22-30) mmol/L BUN 19 22 H (9-20) mg/dL Creatinine 1.05 1.01 (0.66-1.25) mg/dL Glucose 201 H 175 H (74-99) mg/dL Calcium 9.3 8.9 (8.4-10.2) mg/dL Adrenal panel 01/21/23 01/22/23 Range/Units 17:50 10:46 Sodium 140 137 (137-145) mmol/L Potassium 4.3 4.2 (3.5-5.1) mmol/L Chloride 100 101 (98-107) mmol/L Carbon Dioxide 30 29 (22-30) mmol/L BUN 19 22 H (9-20) mg/dL Creatinine 1.05 1.01 (0.66-1.25) mg/dL Glucose 201 H 175 H (74-99) mg/dL Calcium 9.3 8.9 (8.4-10.2) mg/dL Total Bilirubin 1.1 (0.2-1.3) mg/dL AST 30 (17-59) U/L ALT 24 (4-49) U/L Alkaline Phosphatase 83 (38-126) U/L Total Protein 6.8 (6.3-8.2) g/dL Albumin 3.7 (3.5-5.0) g/dL
[2023-01-22] MEDS ORDERED: ATORVASTATIN 40 MG TAB PO SCH (21:00)
[2023-01-22] MEDS: BUDESONIDE 0.5 MG/2 ML NEBU INHALATION SCH (21:16)
[2023-01-22 21:20] LABS: Glucose,Whole Blood 143 mg/dL (70-110)
[2023-01-23 06:53] LABS: Glucose,Whole Blood 142 mg/dL (70-110)
[2023-01-23] MEDS ORDERED: INSULIN DETEMIR (LEVEMIR) 100 UNIT/ML SYR SQ SCH (07:00)
[2023-01-23] MEDS: INSULIN ASPART (NovoLOG) 100 UNIT/ML VIAL SQ SCH ×2 (07:47→12:00)
[2023-01-23 08:00] VITALS: BP 121/67; RESP 20; TEMP 98
[2023-01-23 08:50] LABS: HCT 35.5 % (39.0-53.0); HGB 11.2 gm/dL (13.0-17.5); MCH 29.1 pg (25.0-35.0); MCHC 31.5 g/dL (31.0-37.0); MCV 92.5 fL (80.0-100.0); Mean Platelet Volume 10.2; Platelet Count 131 k/uL (150-450); RBC 3.84 m/uL (4.30-5.90); RDW 15.9 % (11.5-15.5); WBC 7.8 k/uL (3.8-10.6)
[2023-01-23 09:11] LABS: African American GFR (CKD) 84 (>60 ml/min/1.73 sqM); Anion Gap 4 mmol/L; Blood Urea Nitrogen 16 mg/dL (9-20); Calcium 8.6 mg/dL (8.4-10.2); Carbon Dioxide 29 mmol/L (22-30); Chloride 103 mmol/L (98-107); Glucose 188 mg/dL (74-99); Non-African American GFR(CKD) 73 (>60 ml/min/1.73 sqM); Potassium 4.2 mmol/L (3.5-5.1); Sodium 136 mmol/L (137-145)
[2023-01-23] MEDS: PANTOPRAZOLE 40 MG/10 ML VIAL IV SCH (09:42)
[2023-01-23] MEDS: MONTELUKAST 10 MG TAB PO SCH (09:42)
[2023-01-23] MEDS: METOPROLOL SUCCINATE (ER) 50 MG TAB.ER.24H PO SCH (09:43)
[2023-01-23] MEDS: ISOSORBIDE MONONITRATE ER 30 MG TAB.ER.24H PO SCH (09:43)
[2023-01-23] MEDS: hydrALAZINE HCL 25 MG TAB PO SCH (09:43)
[2023-01-23] MEDS: IPRATROPIUM-ALBUTEROL 3 ML NEB INHALATION SCH ×2 (09:47→13:11)
[2023-01-23] MEDS: BUDESONIDE 0.5 MG/2 ML NEBU INHALATION SCH (09:47)
--- NOTE | 2023-01-23 11:14 | P.PN ---
Subjective Progress Note Date: 01/23/23 Principal diagnosis: GI bleed This a pleasant 82-year-old male with a past medical history including coronary artery disease, atrial fibrillation, abdominal aortic aneurysm on Coumadin who presented to the emergency department with rectal bleeding. Patient states he had been straining to have a bowel movement on Sunday, then Sunday he had a bowel movement and there was some bright red blood. He continued to have 2 or 3 more bowel movements with bright to maroon colored blood. He had no associated abdominal pain at that time and no abdominal pain currently. Patient has a history of a previous GI bleed and was seen here and had a colonoscopy in June [address] Lopez with findings of old blood around diverticula, pandiverticulosis, internal hemorrhoids and polypectomy. Patient is not had any further bleeding since yesterday afternoon and states he would like to go home. Hemoglobin 14.0 on admission with repeat today of 12.7. INR was 2.0, Coumadin is on hold with a repeat INR today of 1.5.. 01/23/2023 Patient seen and examined today as a follow-up. He states no abdominal pain, nausea or vomiting. He has been tolerating clear liquid diet. He had a normal brown bowel movement today. States it was actually kind of firm. He does report that he takes MiraLAX at home daily. Usually has bowel movements daily. Repeat hemoglobin this morning stable at 11.2. Objective - Vital Signs Vital signs: Vital Signs Temp 98.0 F 01/23/23 07:56 Pulse 68 01/23/23 10:00 Resp 20 01/23/23 07:56 BP 121/67 01/23/23 07:56 Pulse Ox 96 01/23/23 07:56 FiO2 Intake & Output 01/22/23 01/23/23 01/23/23 18:59 06:59 18:59 Weight 124.738 kg Other: Voiding Method Toilet # Voids 3 - Exam General appearance: The patient is alert, oriented, appears in no acute distress. HET: Head is normocephalic and atraumatic. Conjunctiva pink. Sclera anicteric. Neck: Supple without lymphadenopathy. Abdomen: Soft, nontender, nondistended with bowel sounds. No guarding or rigidity. Extremities: Normal skin color and turgor. No pedal edema Skin: No rashes, no jaundice Neurological: No focal deficits. Alert and oriented. - Labs CBC & Chem 7: 01/23/23 08:28 01/23/23 08:28 Labs: Abnormal Lab Results - Last 24 Hours (Table) 01/22/23 01/22/23 01/22/23 Range/Units 10:46 10:46 10:46 RBC 4.28 L (4.30-5.90) m/uL Hgb 12.7 L (13.0-17.5) gm/dL Hct (39.0-53.0) % RDW 16.1 H (11.5-15.5) % Plt Count 135 L (150-450) k/uL Monocytes # (Manual) 1.67 H (0-1.0) k/uL PT 14.9 H (9.0-12.0) sec INR 1.5 H (<1.2) Sodium (137-145) mmol/L BUN 22 H (9-20) mg/dL Glucose 175 H (74-99) mg/dL POC Glucose (mg/dL) (70-110) mg/dL 01/22/23 01/23/23 01/23/23 Range/Units 21:19 06:51 08:28 RBC 3.84 L (4.30-5.90) m/uL Hgb 11.2 L (13.0-17.5) gm/dL Hct 35.5 L (39.0-53.0) % RDW 15.9 H (11.5-15.5) % Plt Count 131 L (150-450) k/uL Monocytes # (Manual) (0-1.0) k/uL PT (9.0-12.0) sec INR (<1.2) Sodium (137-145) mmol/L BUN (9-20) mg/dL Glucose (74-99) mg/dL POC Glucose (mg/dL) 143 H 142 H (70-110) mg/dL 01/23/23 Range/Units 08:28 RBC (4.30-5.90) m/uL Hgb (13.0-17.5) gm/dL Hct (39.0-53.0) % RDW (11.5-15.5) % Plt Count (150-450) k/uL Monocytes # (Manual) (0-1.0) k/uL PT (9.0-12.0) sec INR (<1.2) Sodium 136 L (137-145) mmol/L BUN (9-20) mg/dL Glucose 188 H (74-99) mg/dL POC Glucose (mg/dL) (70-110) mg/dL Assessment and Plan (1) GI bleed Narrative/Plan: This is a 82-year-old male with a history of previous diverticular bleed who presented with 2-3 episodes of painless bright red blood per rectum which are now resolved. Patient had a hemoglobin of 14.0 on admission with a trapped to 12.7. Coumadin is on hold for history of coronary artery disease. Patient is not having any associated abdominal pain, nausea or vomiting. He's not had any further bowel movements. No imaging completed. Likely dealing with a diverticular bleed. Recommend continuing to hold Coumadin, continue with clear liquid diet. No plan at this time for endoscopic evaluation unless bleeding continues. Patient reevaluated with no further bleeding throughout the day yesterday and evening. Normal brown bowel movement. Possible diverticular bleed versus hemorrhoids from straining/constipation. No plans on endoscopic evaluation. Follow-up with gastroenterology in 2-3 weeks. Patient is cleared for discharge. Current Visit: No Status: Acute Code(s): K92.2 - GASTROINTESTINAL HEMORRHAG E, UNSPECIFIED SNOMED Code(s): 84613371 (2) Atrial fibrillation Current Visit: Yes Status: Acute Code(s): I48.91 - UNSPECIFIED ATRIAL FIBRILLATION SNOMED Code(s): 67102576 (3) Coronary artery disease Current Visit: Yes Status: Acute Code(s): I25.10 - ATHSCL HEART DISEASE OF [place] CORONARY ARTERY W/O ANG PCTRS SNOMED Code(s): 80010609 Plan: 1. Continue symptomatic and supportive care 2. Advance to regular diet 3. Continue to hold Coumadin for another 1-2 days 4. No plans on endoscopic evaluation at this time 5. Recommend continuing daily MiraLAX 6. Patient is cleared from gastroenterology for discharge. Follow-up in 2-3 weeks. Thank you for this consultation. Dr. Aida Amaya I agree with the dictator's note, documented as a scribe by Flor Moon.
[2023-01-23 11:57] LABS: Glucose,Whole Blood 120 mg/dL (70-110)
--- NOTE | 2023-01-23 12:16 | P.PN ---
Subjective Progress Note Date: 01/23/23 CHIEF COMPLAINT: GI bleed HISTORY OF PRESENT ILLNESS: Patient walking around room comfortably. He's had no further bleeding. Denies any abdominal pain. Hemoglobin did drop from 12.7- 11.2. Patient cleared by GI service for discharge PHYSICAL EXAM: VITAL SIGNS: Reviewed. GENERAL: Well-developed in no acute distress. HEENT: No sclera icterus. Extraocular movements grossly intact. Moist buccal mucosa. Head is atraumatic, normocephalic. ABDOMEN: Soft. Nondistended. Nontender. NEUROLOGIC: Alert and oriented. Cranial nerves II through XII grossly intact. ASSESSMENT: 1. Acute GI bleed likely due to diverticular bleed 2. Prior history of diverticular bleeds 3. History of hemorrhoids 4. Atrial fibrillation anticoagulated with Coumadin PLAN: -No endoscopy planned per GI service -Patient can be discharged from surgical standpoint -Agree with advancing diet -Agree with holding Coumadin for another few days Physician Post Tronic Machine Operator note has been reviewed by physician. Signing provider agrees with the documented findings, assessment, and plan of care. Objective - Vital Signs Vital signs: Vital Signs Temp 98.0 F 01/23/23 07:56 Pulse 68 01/23/23 10:00 Resp 20 01/23/23 07:56 BP 121/67 01/23/23 07:56 Pulse Ox 96 01/23/23 07:56 FiO2 Intake & Output 01/22/23 01/23/23 01/23/23 18:59 06:59 18:59 Weight 124.738 kg Other: Voiding Method Toilet # Voids 3 - Labs CBC & Chem 7: 01/23/23 08:28 01/23/23 08:28 Labs: Abnormal Lab Results - Last 24 Hours (Table) 01/22/23 01/22/23 01/23/23 Range/Units 10:46 21:19 06:51 RBC (4.30-5.90) m/uL Hgb (13.0-17.5) gm/dL Hct (39.0-53.0) % RDW (11.5-15.5) % Plt Count (150-450) k/uL Monocytes # (Manual) 1.67 H (0-1.0) k/uL Sodium (137-145) mmol/L Glucose (74-99) mg/dL POC Glucose (mg/dL) 143 H 142 H (70-110) mg/dL 01/23/23 01/23/23 Range/Units 08:28 08:28 RBC 3.84 L (4.30-5.90) m/uL Hgb 11.2 L (13.0-17.5) gm/dL Hct 35.5 L (39.0-53.0) % RDW 15.9 H (11.5-15.5) % Plt Count 131 L (150-450) k/uL Monocytes # (Manual) (0-1.0) k/uL Sodium 136 L (137-145) mmol/L Glucose 188 H (74-99) mg/dL POC Glucose (mg/dL) (70-110) mg/dL
[2023-01-23 13:27] VITALS: PULSE 72
--- NOTE | 2023-01-24 15:02 | P.DS ---
Providers Date of admission: 01/21/23 21:05 Expected date of discharge: 01/23/23 Attending physician: Edouard Raymond MD Consults: 01/21/23 21:05 Consult Physician Routine Consulting Provider: Tyree Blackman Consult Reason/Comments: GI bleeding Do you want consulting provider notified?: Already Contacted Consult Physician Routine Consulting Provider: Deepali Amaya Consult Reason/Comments: GI bleeding Do you want consulting provider notified?: Yes Primary care physician: Kristel Cuadra Hospital Course: Final diagnosis -Lower GI bleed: Mostly hemorrhoidal - History of diverticular bleed resolved at this time, holding off anticoagulation for 24-48 hours per GI and surgery -Paroxysmal atrial fibrillation for which patient is on anticoagulation patient has valvular A. fib with severe stenosis. -Coronary artery disease history -COPD without any exacerbation - type 2 diabetes mellitus -Sleep apnea -Obesity with a BMI of 39.5 -DVT prophylaxis -GI prophylaxis -Full code Discharge disposition Patient is being discharged in a stable condition with guarded prognosis to home. Patient will follow-up with Dr. Cuadra in the outpatient setting upon discharge. Patient is to continue to hold Coumadin for the next 1-2 days per GI and surgery recommendations and close outpatient follow-up with GI as scheduled. Total time taken is greater than 35 minutes. Hospital course This is a 82-year-old male who was recently admitted with concerns for lower GI bleed mostly hemorrhoidal with concerns of previous history of diverticular bleeds. Patient is on Coumadin and has been on hold for the bleeds and hemoglobin is currently stable. No plans for endoscopic intervention at this time recommend holding Coumadin for the next 1-2 days per GI and surgery recommendations. Patient to follow-up with Monique SEWELL in the outpatient setting in the next 1-2 weeks. Patient reports to feeling well and has not seen any further bleeding noted. Patient will like to go home. Patient has been cleared by consultations. Please refer to consultation notes for further HPI. Currently no reports of chest pain, shortness of breath, or palpitations. Patient is afebrile. No reports of nausea or vomiting and patient is tolerating diet. Patient will be discharged home today. Physical exam: Gen: This is a 82-year-old male who is awake, alert and oriented 3, well-developed, well-nourished, obese HEENT: Head is atraumatic, normocephalic. Pupils equal, round. Sclerae is anicteric. NECK: Supple. No JVD. No lymphadenopathy. No thyromegaly. LUNGS: Clear to auscultation. No wheezes or rhonchi. No intercostal retractions. HEART: Regular rate and rhythm. No murmur. ABDOMEN: Soft. Bowel sounds are present. No masses. No tenderness. EXTREMITIES: No pedal edema. No calf tenderness. NEUROLOGICAL: Patient is awake, alert and oriented x3. Cranial nerves 2 through 12 are grossly intact. Please refer to medication reconciliation sheet for a list of medications. The impression and plan of care has been dictated by Yolanda Rod, Nurse Practitioner as directed. Dr. Emma MD I have performed a history and examination and MDM of this patient, discussed the same with the dictator, and agree with the dictator's assessment and plan as written ,documented as a scribe. Based on total visit time, I have performed more than 50% of the visit. Patient Condition at Discharge: Stable Plan - Discharge Summary New Discharge Prescriptions: New Acetaminophen Tab [Tylenol] 650 mg PO Q6HR PRN tab PRN Reason: Mild Pain Or Fever > 100.5 Continue Isosorbide Mononitrate ER [Imdur] 30 mg PO DAILY #90 tab.er.24h Insulin Glargine,Hum.rec.anlog [Lantus Solostar Pen] 12 unit SQ DAILY Metoprolol Succinate (ER) [Toprol XL] 50 mg PO DAILY hydrALAZINE HCL [Apresoline] 50 mg PO BID Atorvastatin [Lipitor] 40 mg PO HS tiZANidine [Zanaflex] 4 mg PO BID PRN PRN Reason: Muscle Pain Clotrimazole/Betameth Cream [Lotrisone] 1 applic TOPICAL BID PRN PRN Reason: RASH ON LEGS Ipratropium-Albuterol Nebulize [Duoneb 0.5 mg-3 mg/3 ml Soln] 3 ml INHALATION DIRECTED Montelukast Sodium [Singulair] 10 mg PO DAILY Multivit-Min/FA/Lycopen/Lutein [Centrum Silver Men Tablet] 1 tab PO DAILY Budesonide 0.5 mg INHALATION DIRECTED Discontinued Warfarin [Coumadin] 7.5 mg PO SUMOWEFR@2100 Warfarin Sodium 3.75 mg PO TUTHSA@2100 Discharge Medication List Isosorbide Mononitrate ER [Imdur] 30 mg PO DAILY #90 tab.er.24h 05/09/18 [Rx] Insulin Glargine,Hum.rec.anlog [Lantus Solostar Pen] 12 unit SQ DAILY 06/24/20 [History] Metoprolol Succinate (ER) [Toprol XL] 50 mg PO DAILY 06/24/20 [History] Atorvastatin [Lipitor] 40 mg PO HS 06/02/22 [History] Montelukast Sodium [Singulair] 10 mg PO DAILY 06/02/22 [History] hydrALAZINE HCL [Apresoline] 50 mg PO BID 06/02/22 [History] Budesonide 0.5 mg INHALATION DIRECTED 01/21/23 [History] Clotrimazole/Betameth Cream [Lotrisone] 1 applic TOPICAL BID PRN 01/21/23 [History] Ipratropium-Albuterol Nebulize [Duoneb 0.5 mg-3 mg/3 ml Soln] 3 ml INHALATION DIRECTED 01/21/23 [History] Multivit-Min/FA/Lycopen/Lutein [Centrum Silver Men Tablet] 1 tab PO DAILY 01/21/23 [History] tiZANidine [Zanaflex] 4 mg PO BID PRN 01/21/23 [History] Acetaminophen Tab [Tylenol] 650 mg PO Q6HR PRN tab 01/23/23 [Rx] Follow up Appointment(s)/Referral(s): Dari Cabrera NPC [REFERRING] - 02/06/23 8:15 am (Gastroenterology follow up for possible diverticular bleed) Kristel Cuadra MD [Primary Care Provider] - 01/25/23 9:40 am Deepali Amaya MD [STAFF PHYSICIAN] - 1 Week Patient Instructions/Handouts: Gastrointestinal Bleeding (DC) Activity/Diet/Wound Care/Special Instructions: Activity Limited until follow-up Follow-up primary care provider on discharge Follow-up with GI and general surgery Continue to hold Coumadin per GI and surgery recommendations for another 48 hours Discharge Disposition: HOME SELF-CARE
== END 2023-01-23 14:27 | disposition home or self-care (01) ==
LOC: EC 16:25 → INTOOBSV 21:05 → 5NMEDONC 21:05 → 1SOBS 01-22 15:56 → UNDODISIN 01-23 14:27
PROVIDERS: ADMIT Internal Medicine; ATTEND Internal Medicine
DX: K57.91 Diverticulosis of intestine, part unspecified, without perforation or abscess with bleeding (principal); K64.9 Unspecified hemorrhoids; I48.0 Paroxysmal atrial fibrillation; I25.10 Atherosclerotic heart disease of native coronary artery without angina pectoris; J44.9 Chronic obstructive pulmonary disease, unspecified; E11.9 Type 2 diabetes mellitus without complications; I25.2 Old myocardial infarction; G47.30 Sleep apnea, unspecified; E66.9 Obesity, unspecified; Z68.39 Body mass index [BMI] 39.0-39.9, adult; Z85.828 Personal history of other malignant neoplasm of skin; Z87.891 Personal history of nicotine dependence; Z79.01 Long term (current) use of anticoagulants; Z79.4 Long term (current) use of insulin; Z79.899 Other long term (current) drug therapy
CPT/HCPCS: 96372 ×2; 96375; 96374; 99285; 36415; 94640 ×4; 86900; 86901; 80053; 80048 ×2; 84484; 85025 ×2; 85027; 85610 ×2; 85730; 86850; 82272; G0378 ×3; C9113 ×2

== ENCOUNTER 2023-04-25 09:15 | Day surgery (SDC) | payer MEDICARE ==
[~2023-04-25 09:15] MED LIST: SODIUM CHLORIDE 0.9% 1,000 ML IV SCH
[2023-04-25] MEDS ORDERED: LACTATED RINGERS 1,000 ML IV SCH (09:42)
[2023-04-25 10:18] VITALS: TEMP 97.2
[2023-04-25 10:19] LABS: Glucose,Whole Blood 137 mg/dL (70-110)
[2023-04-25 10:42] LABS: African American GFR (CKD) 85 (>60 ml/min/1.73 sqM); Anion Gap 10 mmol/L; Blood Urea Nitrogen 14 mg/dL (9-20); Calcium 9.1 mg/dL (8.4-10.2); Carbon Dioxide 25 mmol/L (22-30); Chloride 104 mmol/L (98-107); Glucose 147 mg/dL (74-99); Non-African American GFR(CKD) 74 (>60 ml/min/1.73 sqM); Sodium 139 mmol/L (137-145)
[2023-04-25 10:53] LABS: Potassium 4.1 mmol/L (3.5-5.1)
[2023-04-25] MEDS ORDERED: LIDOCAINE 1% INJ 10MG/ML (20 ML MDV) ONE (11:31)
[2023-04-25] MEDS ORDERED: PROPOFOL 10 MG/ML 20 ML VIAL IV ONE (11:31)
--- NOTE | 2023-04-25 11:53 | P.PCN ---
Date of Procedure: 04/25/23 Description of Procedure: Indication: Atrial fibrillation Procedure Description: After explaining the procedure to the patient, it's risk and complications, blood pressure, heart rate and O2 saturation were monitored. The throat was sprayed with Cetacaine. Patient received sedation per anesthesia department. The probe was introduced into the esophagus without difficulty. Images were obtained. Following that, the probe was removed. There was no immediate complication. Findings: The catheter size appears to be dilated, left atrial appendage revealed a thrombus. The ventricle size and systolic function is normal. Mitral annulus calcification was noted. The aortic valve is heavily calcified with reduced opening. The tricuspid valve is normal. No pericardial effusion was noted. Contrast bubble study revealed no shunting across the intra-atrial septum. Descending thoracic aorta appears to be normal. Doppler: Pulse wave and color Doppler were obtained, and revealed mild to moderate mitral with mild aortic and tricuspid regurgitation. Suboptimal images were obtained in the transgastric position so no gradient across the aortic valve could be obtained. Conclusion: 1. Dilated left atrium with evidence of thrombus in the left atrial appendage 2. Normal left ventricle size and systolic function 3. Mild to moderate mitral and mild tricuspid regurgitation 4. Heavily calcified aortic valve with mild aortic regurgitation. Accurate assessment of the aortic valve could not be done 5. No pericardial effusion The patient will be continued on anticoagulation and evaluated regarding repeat CHECO and cardioversion at a later time.
[2023-04-25] MEDS ORDERED: WARFARIN 7.5 MG TAB PO SCH (12:00)
[2023-04-25] MEDS ORDERED: LACTATED RINGERS 1,000 ML IV ONE (12:26)
[2023-04-25 12:55] LABS: Glucose,Whole Blood 126 mg/dL (70-110)
[2023-04-25 13:17] VITALS: BP 118/69; PULSE 57; RESP 16
[2023-04-25] MEDS ORDERED: hydrALAZINE HCL 25 MG TAB PO SCH (21:00)
[2023-04-25] MEDS ORDERED: ATORVASTATIN 40 MG TAB PO SCH (21:00)
[2023-04-26] MEDS ORDERED: NON FORMULARY DRUG (Omeprazole [Omeprazole] 20 MG Capsule.Dr) PO SCH (09:00)
[2023-04-26] MEDS ORDERED: ISOSORBIDE MONONITRATE ER 30 MG TAB.ER.24H PO SCH (09:00)
[2023-04-26] MEDS ORDERED: METOPROLOL SUCCINATE (ER) 50 MG TAB.ER.24H PO SCH (09:00)
[2023-04-26] MEDS ORDERED: MONTELUKAST 10 MG TAB PO SCH (09:00)
[2023-04-26] MEDS ORDERED: NON FORMULARY DRUG (Insulin Glargine,Hum.Rec.Anlog [Lantus Solostar Pen] 100 UNIT/ML Insul SQ SCH (09:00)
[2023-04-26] MEDS ORDERED: WARFARIN 7.5 MG TAB PO SCH (11:48)
== END 2023-04-25 13:22 | disposition home or self-care (01) ==
LOC: OR 09:15
PROVIDERS: ATTEND Internal Medicine Interventional Cardiology
DX: I08.2 Rheumatic disorders of both aortic and tricuspid valves (principal); I48.91 Unspecified atrial fibrillation; Z79.01 Long term (current) use of anticoagulants; Z87.891 Personal history of nicotine dependence; Z79.899 Other long term (current) drug therapy
CPT/HCPCS: 93312; 93320; 93325; 80048; J2001; J2704

== ENCOUNTER → 2023-05-17 | Outpatient (CLI) | payer MEDICARE ==
[2023-05-17 10:14] LABS: Anisocytosis Slight; Basophils % (A) 0 %; Eosinophils # (A) 0.2 k/uL (0-0.7); Eosinophils % (A) 2 %; HCT 38.8 % (39.0-53.0); HGB 11.6 gm/dL (13.0-17.5); Hypochromasia Marked; Lymphocytes # (A) 1.9 k/uL (1.0-4.8); Lymphocytes % (A) 24 %; MCH 24.6 pg (25.0-35.0); MCV 81.9 fL (80.0-100.0); Mean Platelet Volume 9.2; Microcytosis Slight; Monocytes # (A) 0.6 k/uL (0-1.0); Monocytes % (A) 8 %; Neutrophils # (A) 4.6 k/uL (1.3-7.7); Neutrophils % (A) 60 %; Platelet Count 167 k/uL (150-450); RBC 4.74 m/uL (4.30-5.90); RDW 18.4 % (11.5-15.5); WBC 7.6 k/uL (3.8-10.6)
[2023-05-17 10:14] LABS: Appearance,Urine Clear (Clear); Bilirubin,Urine Negative (Negative); Blood,Urine Negative (Negative); Color,Urine Colorless; Glucose,Urine (UA) Negative (Negative); Ketones,Urine Negative (Negative); Leukocyte Esterase,Urine Negative (Negative); Nitrite,Urine Negative (Negative); PH, Urine 7.5 (5.0-8.0); Protein,Urine 1+ (Negative); RBC,Urine 1 /hpf (0-5); Specific Gravity,Urine 1.007 (1.001-1.035); Urobilinogen,Urine <2.0 mg/dL (<2.0); WBC,Urine 1 /hpf (0-5)
[2023-05-17 10:23] LABS: INR 1.1 (<1.2); Partial Thromboplastin Time 25.8 sec (22.0-30.0); Prothrombin Time 11.9 sec (10.0-12.5)
[2023-05-17 10:28] LABS: ALT 22 U/L (4-49); AST 27 U/L (17-59); African American GFR (CKD) 81 (>60 ml/min/1.73 sqM); Albumin 3.6 g/dL (3.5-5.0); Albumin/Globulin Ratio 1.2; Alkaline Phosphatase 85 U/L (38-126); Anion Gap 9 mmol/L; Blood Urea Nitrogen 13 mg/dL (9-20); Calcium 9.1 mg/dL (8.4-10.2); Carbon Dioxide 31 mmol/L (22-30); Chloride 103 mmol/L (98-107); Glucose 137 mg/dL (74-99); Magnesium 1.7 mg/dL (1.6-2.3); Non-African American GFR(CKD) 70 (>60 ml/min/1.73 sqM); Potassium 4.1 mmol/L (3.5-5.1); Sodium 143 mmol/L (137-145); Total Protein 6.6 g/dL (6.3-8.2)
[2023-05-17 10:36] LABS: NT-Pro-B-Type Natriuretic Pept 1500 pg/mL
--- NOTE | 2023-05-17 12:18 | US ---
EXAMINATION TYPE: US carotid duplex BILAT DATE OF EXAM: 05/17/2023 COMPARISON: 09/01/2021 CLINICAL INDICATION: Male, 83 years old with history of I35.1 NONRHEUMATIC AORTIC (VALVE) INSUFFICIEN CY; Patient will be having valve replaced. TECHNIQUE: Carotid duplex ultrasound examination. Indirect Doppler criteria was utilized. FINDINGS: EXAM MEASUREMENTS: RIGHT: Peak Systolic Velocity (PSV) cm/sec ----- Right CCA: 107.0 ----- Right ICA: 158.8 ----- Right ECA: 178.6 ICA/CCA ratio: 1.5 RIGHT: End Diastole cm/sec ----- Right CCA: 16.9 ----- Right ICA: 44.1 ----- Right ECA: 15.0 LEFT: Peak Systolic Velocity (PSV) cm/sec ----- Left CCA: 83.1 ----- Left ICA: 105.6 ----- Left ECA: 104.3 ICA/CCA ratio: 1.3 LEFT: End Diastole cm/sec ----- Left CCA: 16.0 ----- Left ICA: 28.0 ----- Left ECA: 0.0 VERTEBRALS (direction of flow): Right Vertebral: Antegrade Left Vertebral: Antegrade Rhythm: Arrhythmia WOOD GETTER NOTES: Plaque seen within bilateral bulbs. Plaque seen within right ICA with some narrowi ng to vessel lumen. *Elevated velocity within right ICA. Elevated velocity within right ECA. IMPRESSION: Elevated velocities right ICA suggests a moderate (50-69%) stenosis. Criteria for Assigning % of Stenosis / Diameter reduction (Estimation based on the indirect measurements of the internal carotid artery velocities (ICA PSV). 1. Normal (no stenosis)=ICA PSV < 125 cm/s: ratio < 2.0: ICA EDV<40 cm/s. 2. Less than 50% stenosis=ICA PSV < 125 cm/s: ratio < 2.0: ICA EDV<40 cm/s. 3. 50 to 69% stenosis=ICA PSV of 125 to 230 cm/s: ration 2.0 ? 4.0: ICA EDV 40-100 cm/s. 4. Greater than 70% stenosis to near occlusion= ICA PSV > 230 cm/s: ratio > 4.0: ICA EDV > 100 cm/s. 5. Near occlusion= ICA PSV velocities may be low or undetectable: variable ratio and ICA EDV. 6. Total occlusion=unable to detect flow.
[2023-05-17 15:12] LABS: VLDL Calculation 11.14 mg/dL (5.00-40.00)
[2023-05-17 16:00] LABS: Hepatitis A Antibody IgM Nonreactive; Hepatitis B Core IgM Nonreactive; Hepatitis B Surface Antigen Nonreactive; Hepatitis C IgG Antibody Nonreactive
== END | disposition home or self-care (01) ==
LOC: LABWHC1 09:14
PROVIDERS: ATTEND Thoracic Surgery (Cardiothoracic Vascular Surgery)
DX: Z01.818 Encounter for other preprocedural examination (principal); I35.1 Nonrheumatic aortic (valve) insufficiency; E87.8 Other disorders of electrolyte and fluid balance, not elsewhere classified; E11.9 Type 2 diabetes mellitus without complications; E07.9 Disorder of thyroid, unspecified; N28.9 Disorder of kidney and ureter, unspecified; E78.5 Hyperlipidemia, unspecified; I48.91 Unspecified atrial fibrillation; I45.4 Nonspecific intraventricular block; R58 Hemorrhage, not elsewhere classified; R35.0 Frequency of micturition; Z79.899 Other long term (current) drug therapy; Z79.01 Long term (current) use of anticoagulants; R94.31 Abnormal electrocardiogram [ECG] [EKG]
CPT/HCPCS: 83880; 80061; 80053; 80074; 84443; 83735; 85025; 85610; 85730; 81001; 87086; 83036; 93880; 71275; 36415 ×2; 74174; 93005; Q9967

== ENCOUNTER 2023-05-28 08:23 | Inpatient (IN) | payer MEDICARE ==
[2023-05-28 09:30] LABS: INR 1.1 (<1.2); Partial Thromboplastin Time 24.5 sec (22.0-30.0); Prothrombin Time 11.6 sec (10.0-12.5)
--- NOTE | 2023-05-28 09:31 | ED ---
General Adult HPI - General Chief complaint: Shortness of Breath Stated complaint: SOB Time Seen by Provider: 05/28/23 08:40 Source: patient, RN notes reviewed, old records reviewed Mode of arrival: ambulatory Limitations: no limitations - History of Present Illness Initial comments: This is an 83-year-old male who presents to the emergency department with past medical history of COPD and congestive heart failure. Patient is scheduled to have an aortic valve and a catheterization on . Patient states he's been more short of breath lately and this morning he was having chest tightness associated with shortness of breath with exertion. Patient denies any fever chills per patient denies any headache patient denies numbness weakness. Carine ent states he initially got up short of breath to breathing treatment thought he was better but then he exerted himself and he started becoming more short of breath and was having some chest tightness. Patient denies abdominal pain palpitations nausea vomiting diarrhea. - Related Data Home Medications Medication Instructions Recorded Confirmed Insulin Glargine,Hum.rec.anlog 12 unit SQ QAM 06/24/20 05/23/23 [Lantus Solostar Pen] Atorvastatin [Lipitor] 40 mg PO HS 06/02/22 05/23/23 Montelukast Sodium [Singulair] 10 mg PO QAM 06/02/22 05/23/23 hydrALAZINE HCL [Apresoline] 50 mg PO BID 06/02/22 05/23/23 Budesonide 0.5 mg INHALATION DIRECTED 01/21/23 05/23/23 Clotrimazole/Betameth Cream 1 applic TOPICAL BID PRN 01/21/23 05/23/23 [Lotrisone] Ipratropium-Albuterol Nebulize 3 ml INHALATION DIRECTED 01/21/23 05/23/23 [Duoneb 0.5 mg-3 mg/3 ml Soln] Mv-Min/Folic/K1/Lycopen/Lutein 1 tab PO QAM 01/21/23 05/23/23 [Centrum Silver Men Tablet] Furosemide [Lasix] 20 mg PO QAM 04/24/23 05/23/23 Isosorbide Mononitrate ER [Imdur] 30 mg PO QAM 04/24/23 05/23/23 Omeprazole 20 mg PO DAILY PRN 04/24/23 05/23/23 Apixaban [Eliquis] 5 mg PO BID 05/23/23 05/23/23 Previous Rx's Medication Instructions Recorded Acetaminophen Tab [Tylenol] 650 mg PO Q6HR PRN tab 01/23/23 Allergies Allergy/AdvReac Type Severity Reaction Status Date / Time No Known Allergies Allergy Verified 05/28/23 08:38 Review of Systems ROS Statement: Those systems with pertinent positive or pertinent negative responses have been documented in the HPI. ROS Other: All systems not noted in ROS Statement are negative. Past Medical History Past Medical History: Atrial Fibrillation, Coronary Artery Disease (CAD), Cancer, COPD, Diabetes Mellitus, GI Bleed, Myocardial Infarction (WA), Osteoarthritis (OA), Sleep Apnea/CPAP/BIPAP, Vascular Disorder Additional Past Medical History / Comment(s): Aortic aneurysm being followed by Dr. Bynum, "bad aortic valve", hx skin cancer, GI bleed and COVID 06/2020, diverticulitis. uses CPAP. 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 Patient is nontoxic and well- hydrated and is in mild distress. ENT: Neck is soft and supple. No significant lymphadenopathy is noted. Oropharynx is clear. Moist mucous membranes. Neck has full range of motion without eliciting any pain. EYES: The sclera were anicteric and conjunctiva were pink and moist. Extraocular movements were intact and pupils were equal round and reactive to light. Eyelids were unremarkable. PULMONARY: Unlabored respirations. Good breath sounds bilaterally. Bilateral crackles in bases CARDIOVASCULAR: There is a regular rate and rhythm without any murmurs gallops or rubs. ABDOMEN: Soft and nontender with normal bowel sounds. SKIN: Skin is clear with no lesions or rashes and otherwise unremarkable. NEUROLOGIC: Patient is alert and oriented x3. Cranial nerves II through XII are grossly intact. Motor and sensory are also intact. Normal speech, volume and content. Symmetrical smile. MUSCULOSKELETAL: Normal extremities with adequate strength and full range of motion. 1+ edema bilaterally patient states this is unchanged LYMPHATICS: No significant lymphadenopathy is noted PSYCHIATRIC: Normal psychiatric evaluation. Limitations: no limitations Course Vital Signs 05/28/23 05/28/23 08:34 10:35 Temperature 97.7 F Pulse Rate 58 L 60 Respiratory 18 22 Rate Blood Pressure 186/83 154/79 O2 Sat by Pulse 98 98 Oximetry Medical Decision Making - Medical Decision Making EKG interpreted by myself. EKG shows atrial fibrillation at 62 bpm QRS and 30 QT interval is 43 QTC is 488. Patient's EKG shows no ST segment elevation Was pt. sent in by a medical professional or institution (, PA, MULE DRIVER, urgent care, hospital, or assisted...) When possible be specific @ -No Did you speak to anyone other than the patient for history (EMS, parent, family, police, friend...)? What history was obtained from this source @ -Daughter did quite a bit of a history Did you review nursing and triage notes (agree or disagree)? Why? @ -I reviewed and agree with nursing and triage notes Were old charts reviewed (outside hosp., previous admission, EMS record, old EKG, old radiological studies, urgent care reports/EKG's, assisted records)? Report findings @ -I reviewed prior charts prior lab work Differential Diagnosis (chest pain, altered mental status, abdominal pain women, abdominal pain men, vaginal bleeding, weakness, fever, dyspnea, syncope, headache, dizziness, GI bleed, back pain, seizure, CVA, palpatations, mental health, musculoskeletal)? @ -Differential Dyspnea: Coronary syndrome, arrhythmia, tamponade, asthma, COPD, pulmonary embolism, pneumonia, pneumothorax, pulmonary effusion, anaphylaxis, diabetic ketoacidosis, flailed chest, pulmonary contusion, diaphragmatic rupture, anemia, neuromuscular, this is not meant to be an all-inclusive list. Differential Chest Pain: Stable Angina, Unstable Angina, STEMI, NSTEMI Aortic Dissection, Pneumothorax, Musculoskeletal, Esophageal Spasm GERD, Cholecystitis, Pancreatitis, Zoster, this is not meant to be an all-inclusive list. EKG interpreted by me (3pts min.). @ -As above X-rays interpreted by me (1pt min.). @ -Chest x-ray shows no acute abnormality CT interpreted by me (1pt min.). @ -None done U/S interpreted by me (1pt. min.). @ -None done What testing was considered but not performed or refused? (CT, X-rays, U/S, labs)? Why? @ -I did consider a CAT scan of the patient's chest but patient is on a blood thinner. What meds were considered but not given or refused? Why? @ -None Did you discuss the management of the patient with other professionals (professionals i.e. , PA, MULE DRIVER, lab, RT, psych nurse, social welfare research worker, vocational training instructor, teacher, property disposal officer, case finisher)? Give summary @ -I spoke with Dr. Sahu he agreed to admit the patient admitted the patient wrote admitting orders Was smoking cessation discussed for >3mins.? @ -No Was critical care preformed (if so, how long)? @ -No Were there social determinants of health that impacted care today? How? (Homelessness, low income, unemployed, alcoholism, drug addiction, transportation, low edu. Level, literacy, decrease access to med. care, mcc, rehab)? @ -No Was there de-escalation of care discussed even if they declined (Discuss DNR or withdrawal of care, Hospice)? DNR status @ -No What co-morbidities impacted this encounter? (DM, HTN, Smoking, COPD, CAD, Cancer, CVA, ARF, Chemo, Hep., AIDS, mental health diagnosis, sleep apnea, morbid obesity)? @ -None Was patient admitted / discharged? Hospital course, mention meds given and route, prescriptions, significant lab abnormalities, going to OR and other pertinent info. @ -Patient continued to feel somewhat short of breath when he got up to go to bathroom he thought it was worse well. Patient continued to have chest tightness that he states he normally does not have. Lab work showed no acute abnormality. X-ray showed no acute abnormalities. Patient will be admitted and cardiology will be consulted Undiagnosed new problem with uncertain prognosis? @ -No Drug Therapy requiring intensive monitoring for toxicity (Heparin, Nitro, Insulin, Cardizem)? @ -No Were any procedures done? @ -No Diagnosis/symptom? @ -Chest pain Acute, or Chronic, or Acute on Chronic? @ -Acute Uncomplicated (without systemic symptoms) or Complicated (systemic symptoms)? @ -Complicated Side effects of treatment? @ -No Exacerbation, Progression, or Severe Exacerbation? @ -No Poses a threat to life or bodily function? How? (Chest pain, [place], [place], pneumonia, PE, COPD, DKA, ARF, appy, cholecystitis, CVA, Diverticulitis, Homicidal, Suicidal, threat to staff... and all critical care pts) @ -Yes this could lead to an WA which can lead to end organ dysfunction Diagnosis/symptom? @ -Exertional dyspnea Acute, or Chronic, or Acute on Chronic? @ -Acute Uncomplicated (without systemic symptoms) or Complicated (systemic symptoms)? @ -Complicated Side effects of treatment? @ -none Exacerbation, Progression, or Severe Exacerbation] @ -no Poses a threat to life or bodily function? @ -Yes this could lead to hypoxia and end organ dysfunction - Lab Data Result diagrams: 05/28/23 08:59 05/28/23 08:59 Lab Results 05/28/23 05/28/23 05/28/23 Range/Units 08:59 08:59 08:59 WBC 6.3 (3.8-10.6) k/uL RBC 4.97 (4.30-5.90) m/uL Hgb 12.4 L (13.0-17.5) gm/dL Hct 39.6 (39.0-53.0) % MCV 79.7 L (80.0-100.0) fL MCH 25.0 (25.0-35.0) pg MCHC 31.4 (31.0-37.0) g/dL RDW 18.8 H (11.5-15.5) % Plt Count 175 (150-450) k/uL MPV 9.6 Neutrophils % 63 % Lymphocytes % 23 % Monocytes % 9 % Eosinophils % 2 % Basophils % 0 % Neutrophils # 4.0 (1.3-7.7) k/uL Lymphocytes # 1.4 (1.0-4.8) k/uL Monocytes # 0.6 (0-1.0) k/uL Eosinophils # 0.1 (0-0.7) k/uL Basophils # 0.0 (0-0.2) k/uL Hypochromasia Marked Anisocytosis Slight Microcytosis Slight PT 11.6 (10.0-12.5) sec INR 1.1 (<1.2) APTT 24.5 (22.0-30.0) sec Sodium 143 (137-145) mmol/L Potassium 4.0 (3.5-5.1) mmol/L Chloride 105 (98-107) mmol/L Carbon Dioxide 27 (22-30) mmol/L Anion Gap 11 mmol/L BUN 14 (9-20) mg/dL Creatinine 0.78 (0.66-1.25) mg/dL Est GFR (CKD-EPI)AfAm >90 (>60 ml/min/1.73 sqM) Est GFR (CKD-EPI)NonAf 83 (>60 ml/min/1.73 sqM) Glucose 132 H (74-99) mg/dL Plasma Lactic Acid James (0.7-2.0) mmol/L Calcium 9.1 (8.4-10.2) mg/dL Magnesium 1.8 (1.6-2.3) mg/dL Total Bilirubin 0.8 (0.2-1.3) mg/dL AST 30 (17-59) U/L ALT 22 (4-49) U/L Alkaline Phosphatase 87 (38-126) U/L Troponin I (0.000-0.034) ng/mL NT-Pro-B Natriuret Pep 1440 pg/mL Total Protein 7.0 (6.3-8.2) g/dL Albumin 3.8 (3.5-5.0) g/dL Influenza Type A (PCR) (Not Detectd) Influenza Type B (PCR) (Not Detectd) RSV (PCR) (Not Detectd) SARS-CoV-2 (PCR) (Not Detectd) 05/28/23 05/28/23 05/28/23 Range/Units 08:59 08:59 08:59 WBC (3.8-10.6) k/uL RBC (4.30-5.90) m/uL Hgb (13.0-17.5) gm/dL Hct (39.0-53.0) % MCV (80.0-100.0) fL MCH (25.0-35.0) pg MCHC (31.0-37.0) g/dL RDW (11.5-15.5) % Plt Count (150-450) k/uL MPV Neutrophils % % Lymphocytes % % Monocytes % % Eosinophils % % Basophils % % Neutrophils # (1.3-7.7) k/uL Lymphocytes # (1.0-4.8) k/uL Monocytes # (0-1.0) k/uL Eosinophils # (0-0.7) k/uL Basophils # (0-0.2) k/uL Hypochromasia Anisocytosis Microcytosis PT (10.0-12.5) sec INR (<1.2) APTT (22.0-30.0) sec Sodium (137-145) mmol/L Potassium (3.5-5.1) mmol/L Chloride (98-107) mmol/L Carbon Dioxide (22-30) mmol/L Anion Gap mmol/L BUN (9-20) mg/dL Creatinine (0.66-1.25) mg/dL Est GFR (CKD-EPI)AfAm (>60 ml/min/1.73 sqM) Est GFR (CKD-EPI)NonAf (>60 ml/min/1.73 sqM) Glucose (74-99) mg/dL Plasma Lactic Acid James 1.8 (0.7-2.0) mmol/L Calcium (8.4-10.2) mg/dL Magnesium (1.6-2.3) mg/dL Total Bilirubin (0.2-1.3) mg/dL AST (17-59) U/L ALT (4-49) U/L Alkaline Phosphatase (38-126) U/L Troponin I 0.024 (0.000-0.034) ng/mL NT-Pro-B Natriuret Pep pg/mL Total Protein (6.3-8.2) g/dL Albumin (3.5-5.0) g/dL Influenza Type A (PCR) Not Detected (Not Detectd) Influenza Type B (PCR) Not Detected (Not Detectd) RSV (PCR) Not Detected (Not Detectd) SARS-CoV-2 (PCR) Not Detected (Not Detectd) Disposition Clinical Impression: Chest pain, Exertional dyspnea Disposition[facility] Referrals: Kristel Cuadra MD [Primary Care Provider] - 1-2 days Time of Disposition: 10:53
[2023-05-28 09:37] LABS: Anisocytosis Slight; Basophils % (A) 0 %; Eosinophils # (A) 0.1 k/uL (0-0.7); Eosinophils % (A) 2 %; HCT 39.6 % (39.0-53.0); HGB 12.4 gm/dL (13.0-17.5); Hypochromasia Marked; Lymphocytes # (A) 1.4 k/uL (1.0-4.8); Lymphocytes % (A) 23 %; MCHC 31.4 g/dL (31.0-37.0); MCV 79.7 fL (80.0-100.0); Mean Platelet Volume 9.6; Microcytosis Slight; Monocytes # (A) 0.6 k/uL (0-1.0); Monocytes % (A) 9 %; Neutrophils % (A) 63 %; Platelet Count 175 k/uL (150-450); RBC 4.97 m/uL (4.30-5.90); RDW 18.8 % (11.5-15.5); WBC 6.3 k/uL (3.8-10.6)
[2023-05-28 09:48] LABS: ALT 22 U/L (4-49); AST 30 U/L (17-59); African American GFR (CKD) >90 (>60 ml/min/1.73 sqM); Albumin 3.8 g/dL (3.5-5.0); Alkaline Phosphatase 87 U/L (38-126); Anion Gap 11 mmol/L; Blood Urea Nitrogen 14 mg/dL (9-20); Calcium 9.1 mg/dL (8.4-10.2); Carbon Dioxide 27 mmol/L (22-30); Chloride 105 mmol/L (98-107); Glucose 132 mg/dL (74-99); Magnesium 1.8 mg/dL (1.6-2.3); Non-African American GFR(CKD) 83 (>60 ml/min/1.73 sqM); Sodium 143 mmol/L (137-145); Total Bilirubin 0.8 mg/dL (0.2-1.3)
--- NOTE | 2023-05-28 09:50 | XR ---
EXAMINATION TYPE: XR chest 2V DATE OF EXAM: 05/28/2023 COMPARISON: 06/04/2022 HISTORY: 83 year-old male shortness of breath, difficulty breathing TECHNIQUE: AP and lateral views FINDINGS: Heart mildly enlarged. Hyperinflation. Bibasilar hazy densities likely related to overlying soft tiss ue. Strandy atelectasis at the left base. Hyperinflation. No eliseo consolidation or pleural effusion. [facility] throughout the upper and mid thoracic spine. IMPRESSION: COPD. Mild cardiomegaly. Lower lung densities likely related to overlying soft tissue. Some strandy a telectasis at the left base. No definite acute process.
[2023-05-28 09:56] LABS: NT-Pro-B-Type Natriuretic Pept 1440 pg/mL
[2023-05-28] MEDS ORDERED: NITROGLYCERIN SL TABS 0.4 MG TAB SUBLINGUAL PRN (10:53)
[2023-05-28] MEDS: ASPIRIN 81 MG PO STA (11:01)
[2023-05-28] MEDS: NITROGLYCERIN OINT 1 INCH/GM PACKET TOPICAL SCH ×2 (12:37→21:11)
[2023-05-28] MEDS ORDERED: DEXTROSE 50% SYRINGE 50 ML IVP PRN ×2 (23:31)
--- NOTE | 2023-05-29 00:10 | P.HPIM ---
History of Present Illness H&P Date: 05/28/23 Chief Complaint: Chest pain Patient is a 83-year-old male with a past medical history of hypertension, type 2 insulin-dependent, aortic stenosis and is supposed to get cardiac catheterization on 05/30/2023 followed by TAVR presents to ER with complaints of increased shortness of breath and chest tightness. Chest x-ray showed COPD. Mild cardiomegaly. Lower lung densities likely due to overlying soft tissue. Some stranding atelectasis at the left base. No definite acute process. EKG showed atrial fibrillation. Septal myocardial infarction. Laboratory pressure WBC 6.3 hemoglobin 12.4 and MCV 79.7 RDW 18.8. Sodium 143 potassium 4.0 chloride 105 bicarb is 27 BUN 14 and creatinine 0.78 and blood sugar is 132 Magnesium 1.8, proBNP 1440 and troponin x 3 negative. Influenza A B RSV and COVID-19 PCR not detected. Review of Systems Constitutional: Patient denies any fever or chills . no Generalized weakness. Abdomen: Patient denied any nausea or vomiting or abd. pain Cardiovascular: Patient denies any chest pain or short of breath no pa lpitations. Respiratory: patient denied any cough . no sputum production. No shortness of breath Neurologic: Patient denied any numbness or tingling or headache. Musculoskeletal: Patient denies any complaints of joint swelling or deformity. Skin: Negative Psychiatric: Negative Endocrine: No heat or cold intolerance. No recent weight gain. Genitourinary: No dysuria or hematuria. All other 14 point ROS negative except the above Past Medical History Past Medical History: Atrial Fibrillation, Coronary Artery Disease (CAD), Cancer, COPD, Diabetes Mellitus, GI Bleed, Myocardial Infarction ([place]), Osteoarthritis (OA), Sleep Apnea/CPAP/BIPAP, Vascular Disorder Additional Past Medical History / Comment(s): Aortic aneurysm being followed by Dr. Bynum, "bad aortic valve", hx skin cancer, GI bleed and COVID 06/2020, diverticulitis. uses CPAP. 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, Past Anesthesia/Blood Transfusion Reactions: No Reported Reaction Past Psychological History: No Psychological Hx Reported Smoking Status: Former smoker Past Alcohol Use History: None Reported Past Drug Use History: None Reported - Past Family History Father Family Medical History: Cancer Mother Family Medical History: Cancer Medications and Allergies Home Medications Medication Instructions Recorded Confirmed Type Insulin Glargine,Hum.rec.anlog 12 unit SQ DAILY 06/24/20 05/28/23 History [Lantus Solostar Pen] Atorvastatin [Lipitor] 40 mg PO HS 06/02/22 05/28/23 History hydrALAZINE HCL [Apresoline] 50 mg PO BID 06/02/22 05/28/23 History Budesonide 0.5 mg INHALATION RT-BID 01/21/23 05/28/23 History Ipratropium-Albuterol Nebulize 3 ml INHALATION RT-QID 01/21/23 05/28/23 History [Duoneb 0.5 mg-3 mg/3 ml Soln] Mv-Min/Folic/K1/Lycopen/Lutein 1 tab PO QAM 01/21/23 05/28/23 History [Centrum Silver Men Tablet] Furosemide [Lasix] 20 mg PO DAILY 04/24/23 05/28/23 History Isosorbide Mononitrate ER [Imdur] 30 mg PO DAILY 04/24/23 05/28/23 History Omeprazole 20 mg PO DAILY 04/24/23 05/28/23 History Apixaban [Eliquis] 5 mg PO DIRECTED 05/23/23 05/28/23 History Fluticasone/Vilanterol [Breo 1 puff INHALATION RT-DAILY 05/28/23 05/28/23 History Ellipta 100-25 Mcg Inhaler] Metoprolol Succinate (ER) [Toprol 50 mg PO DAILY 05/28/23 05/28/23 History Xl] Allergies Allergy/AdvReac Type Severity Reaction Status Date / Time No Known Allergies Allergy Verified 05/28/23 11:54 Physical Exam Vitals: Vital Signs Temp Pulse Resp BP Pulse Ox 05/28/23 19:30 97 F L 55 L 18 149/92 96 05/28/23 15:56 98.4 F 58 L 18 150/83 98 05/28/23 12:31 64 18 155/83 99 05/28/23 10:35 60 22 154/79 98 05/28/23 08:34 97.7 F 58 L 18 186/83 98 Intake and Output 05/28/23 05/28/23 05/28/23 06:59 14:59 22:59 Other: Weight 124.738 kg PHYSICAL EXAMINATION: Patient is lying in the bed comfortably, no acute distress, awake alert and oriented.. HEENT: Normocephalic. Neck is supple. Pupils reactive. Nostrils clear. Oral cavity is moist. Neck reveals no JVD, carotid bruits, or thyromegaly. CHEST EXAMINATION: Trachea is central. Symmetrical expansion. Lung barth clear to auscultation and percussion. CARDIAC: Normal S1, S2 with no gallops. ejection systolic murmur ABDOMEN: Soft. Bowel sounds present. Nontender. No organomegaly. No abdominal bruits. Extremities: reveal trace. No clubbing or cyanosis Neurologically awake, alert, oriented x3 with well-coordinated movements. No focal deficits noted Skin: No rash or skin lesions. Psychiatric: Coperative. Nonsuicidal, Musculoskeletal: No joint swelling or deformity. Normal range of motion. Results CBC & Chem 7: 05/28/23 08:59 05/28/23 08:59 Labs: Abnormal Lab Results - Last 24 Hours (Table) 05/28/23 05/28/23 Range/Units 08:59 08:59 Hgb 12.4 L (13.0-17.5) gm/dL MCV 79.7 L (80.0-100.0) fL RDW 18.8 H (11.5-15.5) % Glucose 132 H (74-99) mg/dL Thrombosis Risk Factor Assmnt - DVT/VTE Prophylaxis DVT/VTE Prophylaxis: Mechanical Prophylaxis ordered Assessment and Plan Assessment: Chest pain. Rule out ACS. Severe aortic stenosis. 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 Follow-up serial EKG and troponin x 3. Patient will be started back on metoprolol, statin and Lasix and also given a dose of aspirin in the ER. Eliquis is on hold until CT surgery evaluation. Continue with insulin sliding scale and Levemir. Follow-up closely. Discussed with the patient and her family at bedside in detail. Cardiology evaluation. Time with Patient: Greater than 30
[2023-05-29] MEDS: MAGNESIUM SULFATE-D5W PMX 1 GM in DEXTROSE/WATER 1 100ML.BAG IVPB ONE (00:30)
[2023-05-29 06:45] LABS: Glucose,Whole Blood 120 mg/dL (70-110)
[2023-05-29] MEDS ORDERED: HEPARIN SODIUM,PORCINE 10,000 UNIT in SODIUM CHLORIDE 0.9% 1,000 ML IRRIGATION PRN (07:00)
[2023-05-29] MEDS ORDERED: HEPARIN SODIUM,PORCINE (1 ML) 2,500 UNIT in SODIUM CHLORIDE 0.9% 250 ML IRRIGATION PRN (07:00)
[2023-05-29] MEDS: INSULIN ASPART (NovoLOG) 100 UNIT/ML VIAL SQ SCH (07:35)
[2023-05-29] MEDS: SYMBICORT 80-4.5 MCG INHALER INHALATION SCH (07:59)
[2023-05-29] MEDS: IPRATROPIUM-ALBUTEROL 3 ML NEB INHALATION SCH (07:59)
[2023-05-29] MEDS: BUDESONIDE 0.5 MG/2 ML NEBU INHALATION SCH (07:59)
[2023-05-29] MEDS: ISOSORBIDE MONONITRATE ER 30 MG TAB.ER.24H PO SCH (08:52)
[2023-05-29] MEDS: FUROSEMIDE 20 MG TAB PO SCH (08:52)
[2023-05-29] MEDS: METOPROLOL SUCCINATE (ER) 50 MG TAB.ER.24H PO SCH (08:52)
[2023-05-29] MEDS: ASPIRIN 325 MG TAB PO SCH (08:53)
[2023-05-29] MEDS: PANTOPRAZOLE 40 MG TABLET PO SCH (08:53)
[2023-05-29 09:40] LABS: Glucose,Whole Blood 183 mg/dL (70-110)
[2023-05-29] MEDS: INSULIN DETEMIR (LEVEMIR) 100 UNIT/ML SYR SQ SCH (09:53)
[2023-05-29] MEDS: FUROSEMIDE 10 MG/ML 4 ML VIAL IV STA (09:54)
[2023-05-29] MEDS: FUROSEMIDE 10 MG/ML 2 ML VIAL IV STA (09:54)
[2023-05-29] MEDS ORDERED: ALPRAZolam 0.5 MG TAB PO PRN (10:47)
[2023-05-29] MEDS ORDERED: ALPRAZolam 0.25 MG TAB PO PRN (10:47)
[2023-05-29] MEDS ORDERED: NITROGLYCERIN SL TABS 0.4 MG TAB SUBLINGUAL PRN (10:47)
[2023-05-29] MEDS ORDERED: ASPIRIN 325 MG TAB PO STA (10:47)
--- NOTE | 2023-05-29 11:02 | P.CRDCN ---
History of Present Illness Consult date: 05/29/23 Consult reason: chest pain (and dyspnea) History of present illness: History of present illness: This is an 83-year-old male patient of Dr. Bynum with past medical history of coronary artery disease, valvular heart disease with known aortic stenosis, hypertension, dyslipidemia, paroxysmal atrial fibrillation, COPD. Patient is undergone workup for transcatheter aortic valve replacement. She underwent a cardiac catheterization recently that showed mild to moderate CAD and gated CTA. Echocardiogram performed in January 2023 revealed severe aortic stenosis with mean gradient of 40 mmHg. CHECO was technically difficult. We have been asked to evaluate the patient for chest pain and dyspnea. Patient is seen today in the emergency center waiting for bed on the observation unit. Patient states that he has shortness of breath the last couple of days when he gets up to the bathroom. He tried using his updraft treatment. He also experiences dizziness. He does state that he has some chest pain with this. Patient has not had any syncopal episodes. He states when he is dizzy he is able to sit down. He states he had an updraft treatment this morning and feels like his breathing is better. Patient last took Eliquis on 05/27. This is on hold as he is scheduled for cardiac catheterization for May 31 and TAVR procedure on 06/20. Dr. Tovar discussed with Dr. Bynum option of doing cardiac catheterization tomorrow. This has been discussed with the patient and he is in agreement to move forward. Regarding diuretics. Patient and family are very concerned that they do not want additional Lasix that could possibly injure his kidneys. Patient will continue on his home dose of Lasix. EKG atrial fibrillation Chest x-ray: COPD. Mild cardiomegaly. Lower lung densities likely related to overlying soft tissue. Some stranding atelectasis of the left base. WBC 6.3, hemoglobin 12.4, platelet count 175. INR 1.1. Electrolytes and renal function are normal. Blood sugar 132. Troponin negative x 3. Magnesium 1.8. Liver function test are normal. Influenza A, influenza B, RSV and COVID-19 not detected. Home cardiac medications: Eliquis 5 mg twice daily, atorvastatin 40 mg at bedtime, Lasix 20 mg daily, hydralazine 50 mg twice daily, Imdur 30 mg daily, Toprol-XL 50 mg daily. Echocardiogram performed in the office on 01/30/2023 revealed EF of 55 to 60%, grade 2 diastolic dysfunction. Mild left ventricular hypertrophy. Severely dilated left atrium. Trileaflet aortic valve with severe aortic stenosis. Mild to moderate mitral regurgitation and mild mitral stenosis. PASP 38 mmHg. Review Of Systems: At the time of my evaluation: Constitutional: No fever, no chills. No weakness, fatigue or lethargy. EENT: No headache. No dizziness. Lungs: No shortness of breath, cough, no sputum production. No wheezing. Cardiovascular: No chest pain, + lower extremity edema. No palpitations. No paroxysmal nocturnal dyspnea. No orthopnea. No lightheadedness or dizziness. No syncopal episodes. Abdominal: No abdominal pain. No nausea, vomiting. No diarrhea. No constipation. No bloody or tarry stools. Genitourinary: No dysuria. No urinary retention. Musculoskeletal: No myalgias. No muscle weakness, no frequent falls. No back pain. No neck pain. Integumentary: No wounds. No rash. No unusual bruising. Neurologic: No aphasia. No facial droop. No change in mentation. No head injury. No headache. Physical examination: Gen: This is an 83-year-old male resting on the ER stretcher, appears to be in no acute distress. VS: reviewed HEENT: Head is atraumatic, normocephalic. Pupils equal, round. Sclerae is anicteric. NECK: Supple. No JVD. . LUNGS: Clear to auscultation. No wheezes or rhonchi. No intercostal retractions. HEART: Irregular rate and rhythm. Crescendo-decrescendo murmur at the right upper sternal border. ABDOMEN: Soft No tenderness. EXTREMITIES: 1+ pedal edema. No calf tenderness. NEUROLOGICAL: Patient is awake, alert and oriented x3. Assessment: Atypical chest pain Mild acute on chronic chronic diastolic heart failure Dizziness secondary to aortic stenosis Valvular heart disease with severe aortic stenosis with mean gradient of 40 mmHg, moderate mitral regurgitation Coronary artery disease Hypertension Dyslipidemia Paroxysmal atrial fibrillation on Eliquis Plan: Continue patient's home cardiac medications Hold Eliquis Schedule patient for cardiac catheterization tomorrow with Dr. Bynum Repeat BMP in the morning Obtain 2-D echocardiogram and Doppler study to assess cardiac structure and function Further recommendations to follow based upon clinical course Thank you kindly for this consultation. Nurse practitioner note has been reviewed, I agree with documented findings and plan of care. Patient was seen and examined. Past Medical History Past Medical History: Atrial Fibrillation, Coronary Artery Disease (CAD), Cancer, COPD, Diabetes Mellitus, GI Bleed, Myocardial Infarction ([place]), Osteoarthritis ([place]), Sleep Apnea/CPAP/BIPAP, Vascular Disorder Additional Past Medical History / Comment(s): Aortic aneurysm being followed by Dr. Bynum, "bad aortic valve", hx skin cancer, GI bleed and COVID 06/2020, diverticulitis. uses CPAP. 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, Past Anesthesia/Blood Transfusion Reactions: No Reported Reaction Past Psychological History: No Psychological Hx Reported Smoking Status: Former smoker Past Alcohol Use History: None Reported Past Drug Use History: None Reported - Past Family History Father Family Medical History: Cancer Mother Family Medical History: Cancer Medications and Allergies Home Medications Medication Instructions Recorded Confirmed Type Insulin Glargine,Hum.rec.anlog 12 unit SQ DAILY 06/24/20 05/28/23 History [Lantus Solostar Pen] Atorvastatin [Lipitor] 40 mg PO HS 06/02/22 05/28/23 History hydrALAZINE HCL [Apresoline] 50 mg PO BID 06/02/22 05/28/23 History Budesonide 0.5 mg INHALATION RT-BID 01/21/23 05/28/23 History Ipratropium-Albuterol Nebulize 3 ml INHALATION RT-QID 01/21/23 05/28/23 History [Duoneb 0.5 mg-3 mg/3 ml Soln] Mv-Min/Folic/K1/Lycopen/Lutein 1 tab PO QAM 01/21/23 05/28/23 History [Centrum Silver Men Tablet] Furosemide [Lasix] 20 mg PO DAILY 04/24/23 05/28/23 History Isosorbide Mononitrate ER [Imdur] 30 mg PO DAILY 04/24/23 05/28/23 History Omeprazole 20 mg PO DAILY 04/24/23 05/28/23 History Apixaban [Eliquis] 5 mg PO DIRECTED 05/23/23 05/28/23 History Fluticasone/Vilanterol [Breo 1 puff INHALATION RT-DAILY 05/28/23 05/28/23 History Ellipta 100-25 Mcg Inhaler] Metoprolol Succinate (ER) [Toprol 50 mg PO DAILY 05/28/23 05/28/23 History Xl] Allergies Allergy/AdvReac Type Severity Reaction Status Date / Time No Known Allergies Allergy Verified 05/28/23 11:54 Physical Exam Vitals: Vital Signs Temp Pulse Resp BP Pulse Ox 05/29/23 06:29 98.2 F 60 19 139/73 97 05/29/23 05:14 62 19 05/29/23 04:13 56 L 19 152/81 95 05/29/23 00:11 58 L 16 152/84 94 L 05/28/23 21:12 56 L 18 144/66 97 05/28/23 19:30 97 F L 55 L 18 149/92 96 05/28/23 15:56 98.4 F 58 L 18 150/83 98 05/28/23 12:31 64 18 155/83 99 05/28/23 10:35 60 22 154/79 98 05/28/23 08:34 97.7 F 58 L 18 186/83 98 Results 05/28/23 08:59 05/28/23 08:59 Cardiac Enzymes 05/28/23 05/28/23 05/28/23 Range/Units 08:59 08:59 11:19 AST 30 (17-59) U/L Troponin I 0.024 0.024 (0.000-0.034) ng/mL 05/28/23 Range/Units 13:51 AST (17-59) U/L Troponin I 0.032 (0.000-0.034) ng/mL Coagulation 05/28/23 Range/Units 08:59 PT 11.6 (10.0-12.5) sec APTT 24.5 (22.0-30.0) sec CBC 05/28/23 Range/Units 08:59 WBC 6.3 (3.8-10.6) k/uL RBC 4.97 (4.30-5.90) m/uL Hgb 12.4 L (13.0-17.5) gm/dL Hct 39.6 (39.0-53.0) % Plt Count 175 (150-450) k/uL Comprehensive Metabolic Panel 05/28/23 Range/Units 08:59 Sodium 143 (137-145) mmol/L Potassium 4.0 (3.5-5.1) mmol/L Chloride 105 (98-107) mmol/L Carbon Dioxide 27 (22-30) mmol/L BUN 14 (9-20) mg/dL Creatinine 0.78 (0.66-1.25) mg/dL Glucose 132 H (74-99) mg/dL Calcium 9.1 (8.4-10.2) mg/dL AST 30 (17-59) U/L ALT 22 (4-49) U/L Alkaline Phosphatase 87 (38-126) U/L Total Protein 7.0 (6.3-8.2) g/dL Albumin 3.8 (3.5-5.0) g/dL Current Medications Generic Name Dose Route Start Last Admin Trade Name Freq PRN Reason Stop Dose Admin Albuterol/Ipratropium 3 ml 05/29/23 08:00 Ipratropium-Albuterol 3 Ml Neb INHALATION RT-QID [facility] Aspirin 325 mg 05/29/23 09:00 Aspirin 325 Mg Tab PO DAILY [facility] Atorvastatin Calcium 40 mg 05/29/23 21:00 Atorvastatin 40 Mg Tab PO HS [facility] Budesonide 0.5 mg 05/29/23 08:00 Budesonide 0.5 Mg/2 Ml Nebu INHALATION RT-BID [facility] Budesonide/Formoterol Fumarate 2 puff 05/29/23 08:00 Symbicort 80-4.5 Mcg Inhaler INHALATION RT-BID [facility] Dextrose/Water 25 ml 05/28/23 23:31 Dextrose 50% Syringe 50 Ml IVP PER PROTOCOL PRN Hypoglycemia Protocol Dextrose/Water 50 ml 05/28/23 23:31 Dextrose 50% Syringe 50 Ml IVP PER PROTOCOL PRN Hypoglycemia Protocol Furosemide 20 mg 05/29/23 09:00 Furosemide 20 Mg Tab PO DAILY [facility] Insulin Aspart 0 unit 05/29/23 07:30 Insulin Aspart (Novolog) 100 Unit/Ml Vial SQ ACHS [facility] Protocol Insulin Detemir 12 unit 05/29/23 07:00 Insulin Detemir (Levemir) 100 Unit/Ml Syr SQ DAILY@0700 [facility] Isosorbide Mononitrate 30 mg 05/29/23 09:00 Isosorbide Mononitrate Er 30 Mg Tab.Er.24h PO DAILY [facility] Metoprolol Succinate 50 mg 05/29/23 09:00 Metoprolol Succinate (Er) 50 Mg Tab.Er.24h PO DAILY [facility] Nitroglycerin 0.4 mg 05/28/23 10:53 Nitroglycerin Sl Tabs 0.4 Mg Tab SUBLINGUAL Q5M PRN Chest Pain Pantoprazole Sodium 40 mg 05/29/23 07:30 Pantoprazole 40 Mg Tablet PO AC-BRKFST [facility] 05/28/23 08:59 05/28/23 08:59
[2023-05-29 11:46] LABS: Glucose,Whole Blood 169 mg/dL (70-110)
[2023-05-29 14:05] LABS: % Iron Saturation 7.69 (15.00-50.00); Chol/HDL Ratio 2.67 Ratio; Iron 29 UG/DL (65-175); LDL Cholesterol,Calculated 58.6 mg/dL (0.0-131.0); Total Iron Binding Capacity 377 UG/DL (228-460)
[2023-05-29] MEDS: ATORVASTATIN 40 MG TAB PO SCH (21:29)
[2023-05-29 21:30] LABS: Glucose,Whole Blood 146 mg/dL (70-110)
--- NOTE | 2023-05-30 05:28 | P.PN ---
Subjective Progress Note Date: 05/29/23 Patient is a 83-year-old male with a past medical history of hypertension, type 2 insulin-dependent, aortic stenosis and is supposed to get cardiac catheterization on 05/30/2023 followed by TAVR presents to ER with complaints of increased shortness of breath and chest tightness. Chest x-ray showed COPD. Mild cardiomegaly. Lower lung densities likely due to overlying soft tissue. Some stranding atelectasis at the left base. No definite acute process. EKG showed atrial fibrillation. Septal myocardial infarction. Laboratory pressure WBC 6.3 hemoglobin 12.4 and MCV 79.7 RDW 18.8. Sodium 143 potassium 4.0 chloride 105 bicarb is 27 BUN 14 and creatinine 0.78 and blood sugar is 132 Magnesium 1.8, proBNP 1440 and troponin x 3 negative. Influenza A B RSV and COVID-19 PCR not detected. 05/29/2023 Patient is seen in follow-up this morning with cardiology following. Patient is maintained on IV Lasix and being transition to oral Lasix. Cardiology following planning on cardiac catheterization on 05/30/2023. Patient reports he feels improved and his shortness of breath is improving and is maintained on breathing inhalational treatments as well. All medications reviewed and resumed as approp riate and patient was continued on IV heparin although discontinued. Review of systems: Constitutional: No reports of fatigue, fever, or chills Cardiovascular: No reports of chest pain or palpitations Respiratory: No reports of worsening shortness of breath or cough GI: No reports of nausea, vomiting, or diarrhea : No reports of dysuria or retention Neurovascular: No reports of weakness or numbness All medications have been reviewed PHYSICAL EXAMINATION: Patient is sitting up in the chair, no acute distress, awake alert and oriented.. Obese HEENT: Normocephalic. Neck is supple. Pupils reactive. Nostrils clear. Oral cavity is moist. Neck reveals no JVD, carotid bruits, or thyromegaly. CHEST EXAMINATION: Trachea is central. Symmetrical expansion. Lung barth clear to auscultation and percussion. CARDIAC: Normal S1, S2 with no gallops. ejection systolic murmur ABDOMEN: Soft. Bowel sounds present. Nontender. No organomegaly. No abdominal bruits. Extremities: reveal trace. No clubbing or cyanosis Neurologically awake, alert, oriented x3 with well-coordinated movements. No focal deficits noted Skin: No rash or skin lesions. Psychiatric: Cooperative. Non-suicidal, Musculoskeletal: No joint swelling or deformity. Normal range of motion. Assessment: Chest pain. Rule out ACS. Severe aortic stenosis. 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 Follow-up serial EKG and troponin x 3. Cardiology following planning on cardiac catheterization on 05/30/2023 Patient home medications reviewed and resumed. Patient being resumed on oral Lasix Eliquis is on hold until CT surgery evaluation. Patient was scheduled to have TAVR on 05/31/2023 although experienced increased shortness of breath and chest pains and came to the ED for further evaluation. Continue with Accu-Cheks before meals and at bedtime along with sliding scale and long-acting Family at the bedside with questions or concerns that were answered to the best of our ability. Due to multiple complex medical issues, prognosis is guarded The impression and plan of care has been dictated by Yolanda Rod, Nurse Practitioner as directed. Dr. Luis Alberto MD I have performed a history and examination and MDM of this patient, discussed the same with the dictator, and agree with the dictator's assessment and plan as written ,documented as a scribe. Based on total visit time, I have performed more than 50% of the visit. Objective - Vital Signs Vital signs: Vital Signs Temp 98.2 F 05/29/23 06:29 Pulse 50 L 05/29/23 11:36 Resp 14 05/29/23 08:50 BP 142/64 05/29/23 08:56 Pulse Ox 95 05/29/23 08:56 FiO2 Intake & Output 05/28/23 05/29/23 05/29/23 18:59 06:59 18:59 Weight 124.738 kg 124.738 kg - Labs CBC & Chem 7: 05/28/23 08:59 05/28/23 08:59 Labs: Abnormal Lab Results - Last 24 Hours (Table) 05/29/23 05/29/2305/29/24 Range/Units 06:43 09:39 11:44 POC Glucose (mg/dL) 120 H 183 H 169 H (70-110) mg/dL
[2023-05-30 06:08] LABS: Glucose,Whole Blood 121 mg/dL (70-110)
[2023-05-30] MEDS: ATORVASTATIN 80 MG TAB PO STA (07:16)
[2023-05-30 11:20] LABS: BUN/Creat Ratio 14.25 Ratio (12.00-20.00); Blood Urea Nitrogen 17.1 mg/dL (9.0-27.0); Calcium 9.6 mg/dL (8.7-10.3); Carbon Dioxide 28.6 mmol/L (21.6-31.8); Chloride 104 mmol/L (96-109); Glucose 128 mg/dL (70-110); Potassium 4.7 mmol/L (3.5-5.5); Sodium 143 mmol/L (135-145)
[2023-05-30 11:21] LABS: Magnesium 1.9 mg/dL (1.5-2.4)
[2023-05-30] MEDS: fentaNYL (PF) 50 MCG/ML 2 ML AMP IVP ONE (12:07)
[2023-05-30] MEDS: LIDOCAINE 1% INJ 10MG/ML (20 ML MDV) SQ ONE ×2 (12:09→12:10)
[2023-05-30] MEDS: VERAPAMIL SYRINGE (5 MG/10 ML) INTRAARTER ONE (12:10)
[2023-05-30] MEDS: HEPARIN SODIUM 1,000 UN/ML (10ML VL) IVP ONE (12:16)
[2023-05-30] MEDS ORDERED: RX INFO: IV CONTRAST WAS GIVEN 1 EACH MISC MISCELLANE PRN (12:34)
--- NOTE | 2023-05-30 12:41 | P.CARDCATH ---
Date of Procedure: 05/30/23 Description of Procedure: Cardiac Catheterization: The patient is an 83-year-old male with known history of severe aortic stenosis, recent onset atrial fibrillation who has been evaluated to undergo TAVR. He presented with symptoms of dyspnea and for evaluation for his valve cardiac catheterization was recommended. Recommendations were made regarding cardiac catheterization, the risks and the complications were discussed with the patient who is in full understanding and agreement. Procedure Description: Patient was brought to lab courier in fasting semi-sedated state after receiving Fentanyl and Benadryl achieiving moderate conscious sedated state. Using Xylocaine Anesthesia and modified Seldinger technique, a 6-Kiswahili sheath was introduced in the left radial artery . Subsequently, selective coronary angiography was performed using a 5-Kiswahili 4 bend Jyothi catheter. Multiple views of the coronary artery including hemiaxial views were obtained. Following that, catheter and sheath were removed. Hemostasis was obtained with deployment of vascular band . There was no immediate complication. Patient was returned to room in stable condition. Of note, the patient received a total of 5000 units of intravenous heparin as well as intra-arterial verapamil. Findings: Fluoroscopy: Severe calcification of the aortic valve and the coronary arteries was noted Left main: This is a large size vessel, bifurcating into the left circumflex and LAD, left main has no obstructive disease LAD: This is a large size vessel, giving rise to a large diagonal branch in the proximal segment. After the takeoff of the diagonal branch there is a 50% plaque with no progression compared to the cardiac catheterization done 2 years ago. There is a plaque of 50% involving the ostium of the diagonal branch, the rest of the vessel has no high-grade stenosis Left circumflex: This is an nondominant vessel large in caliber giving rise to 3 obtuse marginal branch the first 1 is the largest. The left circumflex has mild intimal disease with no high-grade stenosis RCA: This is a large dominant vessel bifurcating distally to PDA and PLV, tortuous in the mid segment. The right coronary artery has mild intimal disease of 10 to 20% with no high-grade stenosis Left Ventriculogram: Not performed Conclusion: 1. Calcified coronary arteries and aortic valve 2. Moderate disease in the proximal LAD involving the diagonal branch with no progression 3. Mild disease in the left circumflex and the RCA 4. Right dominance Recommendations: The patient will continue on present therapy with aggressive coronary risks modifications. He will proceed with the evaluation for TAVR. The findings and the recommendations were discussed with the patient and the family and they were in full understanding and agreement. Duration of sedation is 12 minutes.
[2023-05-30 12:43] LABS: Glucose,Whole Blood 124 mg/dL (70-110)
[2023-05-30] MEDS: SODIUM CHLORIDE 0.9% 1,000 ML IV SCH (12:54)
--- NOTE | 2023-05-30 13:09 | P.PN ---
Subjective Progress Note Date: 05/30/23 Consult reason: chest pain (and dyspnea) History of present illness: History of present illness: This is an 83-year-old male patient of Dr. Bynum with past medical history of coronary artery disease, valvular heart disease with known aortic stenosis, hy pertension, dyslipidemia, paroxysmal atrial fibrillation, COPD. Patient is undergone workup for transcatheter aortic valve replacement. She underwent a cardiac catheterization recently that showed mild to moderate CAD and gated CTA. Echocardiogram performed in January 2023 revealed severe aortic stenosis with mean gradient of 40 mmHg. CHECO was technically difficult. We have been asked to evaluate the patient for chest pain and dyspnea. Patient is seen today in the emergency center waiting for bed on the observation unit. Patient states that he has shortness of breath the last couple of days when he gets up to the bathroom. He tried using his updraft treatment. He also experiences dizziness. He does state that he has some chest pain with this. Patient has not had any syncopal episodes. He states when he is dizzy he is able to sit down. He states he had an updraft treatment this morning and feels like his breathing is better. Patient last took Eliquis on 05/27. This is on hold as he is scheduled for cardiac catheterization for May 31 and TAVR procedure on 06/20. Dr. Tovar discussed with Dr. Bynum option of doing cardiac catheterization tomorrow. This has been discussed with the patient and he is in agreement to move forward. Regarding diuretics. Patient and family are very concerned that they do not want additional Lasix that could possibly injure his kidneys. Patient will continue on his home dose of Lasix. EKG atrial fibrillation Chest x-ray: COPD. Mild cardiomegaly. Lower lung densities likely related to overlying soft tissue. Some stranding atelectasis of the left base. WBC 6.3, hemoglobin 12.4, platelet count 175. INR 1.1. Electrolytes and renal function are normal. Blood sugar 132. Troponin negative x 3. Magnesium 1.8. Liver function test are normal. Influenza A, influenza B, RSV and COVID-19 not detected. Home cardiac medications: Eliquis 5 mg twice daily, atorvastatin 40 mg at bedtime, Lasix 20 mg daily, hydralazine 50 mg twice daily, Imdur 30 mg daily, Toprol-XL 50 mg daily. Echocardiogram performed in the office on 01/30/2023 revealed EF of 55 to 60%, grade 2 diastolic dysfunction. Mild left ventricular hypertrophy. Severely dilated left atrium. Trileaflet aortic valve with severe aortic stenosis. Mild to moderate mitral regurgitation and mild mitral stenosis. PASP 38 mmHg. 05/30 Patient is seen today on the observation unit. He still has some lower extremity edema but has been cleared for cardiac catheterization. Patient did not receive IV Lasix yesterday. Blood pressure 148/82, heart rate in the 50s. Pulse ox 97% on room air. Repeat blood work reveals BUN 17 creatinine 1.2, potassium 4.7. Patient subsequently underwent cardiac catheterization with Dr. Bynum that revealed calcified coronary arteries and aortic valve. Moderate disease in the proximal LAD involving the diagonal branch with no progression. Mild disease in the left circumflex and the RCA. Right dominance. Patient is to continue on current aggressive coronary risk modification and proceed with evaluation for TAVR. Physical examination: Gen: This is an 83-year-old male resting in chair, appears to be in no acute distress. VS: reviewed HEENT: Head is atraumatic, normocephalic. Pupils equal, round. Sclerae is anicteric. LUNGS: Clear to auscultation. No wheezes or rhonchi. No intercostal retractions. HEART: Irregular rate and rhythm. Crescendo-decrescendo murmur at the right upper sternal border. EXTREMITIES: 1+ pedal edema. No calf tenderness. NEUROLOGICAL: Patient is awake, alert and oriented x3. Assessment: Atypical chest pain Mild acute on chronic chronic diastolic heart failure Dizziness secondary to aortic stenosis Valvular heart disease with severe aortic stenosis with mean gradient of 40 mmHg, moderate mitral regurgitation Coronary artery disease Hypertension Dyslipidemia Paroxysmal atrial fibrillation on Eliquis Plan: Continue patient's home cardiac medications Resume Eliquis tomorrow Monitor patient overnight and plan for discharge home tomorrow. Nurse practitioner note has been reviewed, I agree with documented findings and plan of care. Patient was seen and examined. Objective - Vital Signs Vital signs: Vital Signs Temp 97.2 F L 05/30/23 07:00 Pulse 52 L 05/30/23 09:00 Resp 24 05/30/23 07:00 BP 148/82 05/30/23 07:00 Pulse Ox 97 05/30/23 07:00 FiO2 Intake & Output 05/29/23 05/30/23 05/30/23 18:59 06:59 18:59 Weight 124.738 kg Other: # Voids 1 2 - Labs CBC & Chem 7: 05/28/23 08:59 05/30/23 06:02 Labs: Abnormal Lab Results - Last 24 Hours (Table) 05/29/23 05/29/23 05/29/23 Range/Units 07:00 07:00 09:39 POC Glucose (mg/dL) 183 H (70-110) mg/dL Hemoglobin A1c 7.5 H (<=6.0) % Iron 29 L (65-175) UG/DL % Saturation 7.69 L (15.00-50.00) 05/29/23 05/29/23 05/30/23 Range/Units 11:44 21:28 06:06 POC Glucose (mg/dL) 169 H 146 H 121 H (70-110) mg/dL Hemoglobin A1c (<=6.0) % Iron (65-175) UG/DL % Saturation (15.00-50.00)
[2023-05-30 17:52] LABS: Glucose,Whole Blood 159 mg/dL (70-110)
[2023-05-30 20:34] LABS: Glucose,Whole Blood 185 mg/dL (70-110)
[2023-05-31 06:31] LABS: Glucose,Whole Blood 125 mg/dL (70-110)
--- NOTE | 2023-05-31 06:31 | P.PN ---
Subjective Progress Note Date: 05/30/23 Patient is a 83-year-old male with a past medical history of hypertension, type 2 insulin-dependent, aortic stenosis and is supposed to get cardiac catheterization on 05/30/2023 followed by TAVR presents to ER with complaints of increased shortness of breath and chest tightness. Chest x-ray showed COPD. Mild cardiomegaly. Lower lung densities likely due to overlying soft tissue. Some stranding atelectasis at the left base. No definite acute process. EKG showed atrial fibrillation. Septal myocardial infarction. Laboratory pressure WBC 6.3 hemoglobin 12.4 and MCV 79.7 RDW 18.8. Sodium 143 potassium 4.0 chloride 105 bicarb is 27 BUN 14 and creatinine 0.78 and blood sugar is 132 Magnesium 1.8, proBNP 1440 and troponin x 3 negative. Influenza A B RSV and COVID-19 PCR not detected. 05/29/2023 Patient is seen in follow-up this morning with cardiology following. Patient is maintained on IV Lasix and being transition to oral Lasix. Cardiology following planning on cardiac catheterization on 05/30/2023. Patient reports he feels improved and his shortness of breath is improving and is maintained on breathing inhalational treatments as well. All medications reviewed and resumed as approp riate and patient was continued on IV heparin although discontinued. 05/30/2023 Patient is seen in follow-up today currently n.p.o. as patient is scheduled to undergo cardiac catheterization. Will await cardiac clearance to discuss discharge planning. Per family at the bedside there is discussion of TAVR on June 20, 2023. Patient is currently afebrile and denies chest pain or shortness of breath. Patient continues to request to go home. Will await cardiology. Review of systems: Constitutional: No reports of fatigue, fever, or chills Cardiovascular: No reports of chest pain or palpitations Respiratory: No reports of worsening shortness of breath or cough GI: No reports of nausea, vomiting, or diarrhea : No reports of dysuria or retention Neurovascular: No reports of weakness or numbness All medications have been reviewed PHYSICAL EXAMINATION: Patient is sitting up in the chair, no acute distress, awake alert and oriented.. Obese HEENT: Normocephalic. Neck is supple. Pupils reactive. Nostrils clear. Oral cavity is moist. Neck reveals no JVD, carotid bruits, or thyromegaly. CHEST EXAMINATION: Trachea is central. Symmetrical expansion. Lung barth clear to auscultation and percussion. CARDIAC: Normal S1, S2 with no gallops. ejection systolic murmur ABDOMEN: Soft. Bowel sounds present. Nontender. No organomegaly. No abdominal bruits. Extremities: reveal trace. No clubbing or cyanosis Neurologically awake, alert, oriented x3 with well-coordinated movements. No focal deficits noted Skin: No rash or skin lesions. Psychiatric: Cooperative. Non-suicidal, Musculoskeletal: No joint swelling or deformity. Normal range of motion. Assessment: Chest pain. Ruled out ACS. Severe aortic stenosis. Patient is scheduled for cardiac catheterization today. 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 Follow-up serial EKG and troponin x 3. Cardiology following planning on cardiac catheterization today recommend monitoring overnight with possible discharge planning in 24 hours. TAVR being scheduled for June 20 per family at the bedside Patient home medications reviewed and resumed. Patient being resumed on oral Lasix Resume Eliquis per cardiology Continue with Accu-Cheks before meals and at bedtime along with sliding scale and long-acting Family at the bedside with questions or concerns that were answered to the best of our ability. Due to multiple complex medical issues, prognosis is guarded Possible discharge in 24 hours The impression and plan of care has been dictated by Yolanda Rod, Nurse Practitioner as directed. Dr. Luis Alberto MD I have performed a history and examination and MDM of this patient, discussed the same with the dictator, and agree with the dictator's assessment and plan as written ,documented as a scribe. Based on total visit time, I have performed more than 50% of the visit. Objective - Vital Signs Vital signs: Vital Signs Temp 97.2 F L 05/30/23 07:00 Pulse 56 L 05/30/23 09:16 Resp 24 05/30/23 07:00 BP 148/82 05/30/23 07:00 Pulse Ox 97 05/30/23 07:00 FiO2 Intake & Output 05/29/23 05/30/23 05/30/23 18:59 06:59 18:59 Weight 124.738 kg Other: # Voids 1 2 - Labs CBC & Chem 7: 05/28/23 08:59 05/30/23 06:02 Labs: Abnormal Lab Results - Last 24 Hours (Table) 05/29/23 05/29/23 05/29/23 Range/Units 07:00 07:00 09:39 POC Glucose (mg/dL) 183 H (70-110) mg/dL Hemoglobin A1c 7.5 H (<=6.0) % Iron 29 L (65-175) UG/DL % Saturation 7.69 L (15.00-50.00) 05/29/23 05/29/23 05/30/23 Range/Units 11:44 21:28 06:06 POC Glucose (mg/dL) 169 H 146 H 121 H (70-110) mg/dL Hemoglobin A1c (<=6.0) % Iron (65-175) UG/DL % Saturation (15.00-50.00)
[2023-05-31 08:19] VITALS: BP 156/86; RESP 20; TEMP 97.8
[2023-05-31] MEDS: ASPIRIN 81 MG PO SCH (08:30)
[2023-05-31] MEDS: APIXABAN 5 MG TAB PO SCH (08:30)
[2023-05-31 08:52] LABS: BUN/Creat Ratio 17.18 Ratio (12.00-20.00); Blood Urea Nitrogen 18.9 mg/dL (9.0-27.0); Calcium 8.9 mg/dL (8.7-10.3); Carbon Dioxide 28.1 mmol/L (21.6-31.8); Chloride 103 mmol/L (96-109); Glucose 132 mg/dL (70-110); Potassium 3.8 mmol/L (3.5-5.5); Sodium 141 mmol/L (135-145)
[2023-05-31] MEDS: LORATADINE 10 MG TAB PO STA (09:33)
[2023-05-31 09:37] VITALS: PULSE 60
--- NOTE | 2023-05-31 15:15 | P.PN ---
Subjective Progress Note Date: 05/31/23 Consult reason: chest pain (and dyspnea) History of present illness: History of present illness: This is an 83-year-old male patient of Dr. Bynum with past medical history of coronary artery disease, valvular heart disease with known aortic stenosis, hy pertension, dyslipidemia, paroxysmal atrial fibrillation, COPD. Patient is undergone workup for transcatheter aortic valve replacement. She underwent a cardiac catheterization recently that showed mild to moderate CAD and gated CTA. Echocardiogram performed in January 2023 revealed severe aortic stenosis with mean gradient of 40 mmHg. CHECO was technically difficult. We have been asked to evaluate the patient for chest pain and dyspnea. Patient is seen today in the emergency center waiting for bed on the observation unit. Patient states that he has shortness of breath the last couple of days when he gets up to the bathroom. He tried using his updraft treatment. He also experiences dizziness. He does state that he has some chest pain with this. Patient has not had any syncopal episodes. He states when he is dizzy he is able to sit down. He states he had an updraft treatment this morning and feels like his breathing is better. Patient last took Eliquis on 05/27. This is on hold as he is scheduled for cardiac catheterization for May 31 and TAVR procedure on 06/20. Dr. Tovar discussed with Dr. Bynum option of doing cardiac catheterization tomorrow. This has been discussed with the patient and he is in agreement to move forward. Regarding diuretics. Patient and family are very concerned that they do not want additional Lasix that could possibly injure his kidneys. Patient will continue on his home dose of Lasix. EKG atrial fibrillation Chest x-ray: COPD. Mild cardiomegaly. Lower lung densities likely related to overlying soft tissue. Some stranding atelectasis of the left base. WBC 6.3, hemoglobin 12.4, platelet count 175. INR 1.1. Electrolytes and renal function are normal. Blood sugar 132. Troponin negative x 3. Magnesium 1.8. Liver function test are normal. Influenza A, influenza B, RSV and COVID-19 not detected. Home cardiac medications: Eliquis 5 mg twice daily, atorvastatin 40 mg at bedtime, Lasix 20 mg daily, hydralazine 50 mg twice daily, Imdur 30 mg daily, Toprol-XL 50 mg daily. Echocardiogram performed in the office on 01/30/2023 revealed EF of 55 to 60%, grade 2 diastolic dysfunction. Mild left ventricular hypertrophy. Severely dilated left atrium. Trileaflet aortic valve with severe aortic stenosis. Mild to moderate mitral regurgitation and mild mitral stenosis. PASP 38 mmHg. 05/30 Patient is seen today on the observation unit. He still has some lower extremity edema but has been cleared for cardiac catheterization. Patient did not receive IV Lasix yesterday. Blood pressure 148/82, heart rate in the 50s. Pulse ox 97% on room air. Repeat blood work reveals BUN 17 creatinine 1.2, potassium 4.7. Patient subsequently underwent cardiac catheterization with Dr. Bynum that revealed calcified coronary arteries and aortic valve. Moderate disease in the proximal LAD involving the diagonal branch with no progression. Mild disease in the left circumflex and the RCA. Right dominance. Patient is to continue on current aggressive coronary risk modification and proceed with evaluation for TAVR. 05/31 Patient denies any new symptoms today. No chest pain. He would be anxious to go home. He has been resumed back on all of his home medications including Eliquis. Blood pressure 156/86, heart rate in the 50s and 60s. Repeat blood work reveals creatinine of 1.1. Physical examination: Gen: This is an 83-year-old male resting in chair, appears to be in no acute distress. VS: reviewed HEENT: Head is atraumatic, normocephalic. Pupils equal, round. Sclerae is anicteric. LUNGS: Clear to auscultation. No wheezes or rhonchi. No intercostal retractions. HEART: Irregular rate and rhythm. Crescendo-decrescendo murmur at the right upper sternal border. EXTREMITIES: 1+ pedal edema. No calf tenderness. NEUROLOGICAL: Patient is awake, alert and oriented x3. 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 Bynum. Nurse practitioner note has been reviewed, I agree with documented findings and plan of care. Patient was seen and examined. Objective - Vital Signs Vital signs: Vital Signs Temp 97.8 F 05/31/23 07:00 Pulse 60 05/31/23 09:27 Resp 20 05/31/23 07:00 BP 156/86 05/31/23 07:00 Pulse Ox 99 05/31/23 07:00 FiO2 Intake & Output 05/30/23 05/31/23 05/31/23 18:59 06:59 18:59 Intake Total 240 Balance 240 Intake: Oral 240 Other: # Voids 1 2 0 - Labs CBC & Chem 7: 05/28/23 08:59 05/31/23 05:35 Labs: Abnormal Lab Results - Last 24 Hours (Table) 05/30/23 05/30/23 05/30/23 Range/Units 06:02 12:41 17:50 Glucose 128 H (70-110) mg/dL POC Glucose (mg/dL) 124 H 159 H (70-110) mg/dL 05/30/23 05/31/23 05/31/23 Range/Units 20:33 05:35 06:30 Glucose 132 H (70-110) mg/dL POC Glucose (mg/dL) 185 H 125 H (70-110) mg/dL
--- NOTE | 2023-06-05 06:28 | P.DS ---
Providers Date of admission: 05/30/23 07:05 Expected date of discharge: 05/31/23 Attending physician: Mitul Sahu Consults: 05/28/23 10:53 Consult Physician Urgent Consulting Provider: [facility] Consult Reason/Comments: Chest pain, dyspnea Do you want consulting provider notified?: Yes Primary care physician: Kristel Cuadra Hospital Course: Final diagnosis Chest pain. Ruled out ACS. Severe aortic stenosis. 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 Patient will follow-up with Dr. Cuadra in the outpatient setting upon discharge. Patient is to continue with current medications as prescribed below and close outpatient follow-up with cardiology and CT surgery as scheduled. Total time taken is greater than 35 minutes. Hospital course This is a 83-year-old male who was recently admitted with shortness of breath with chest pain with ACS ruled out. Cardiology and CT surgery following patient underwent cardiac catheterization as there are plans for outpatient TAVR in June. Patient with significant comorbidities and high risk for readmissions, cardiology recommended monitoring overnight postcatheterization and has cleared the patient today for discharge. Please refer to other consultation notes for further HPI. Patient will follow with Dr. Frances in the outpatient setting for TAVR. Patient reports to feeling well and extremely anxious and wanting to go home. Currently no reports of chest pain, shortness of breath, or palpitations. Patient is afebrile. No reports of nausea or vomiting and patient is tolerating diet. Patient will be discharged home today. Guarded prognosis and high risk for readmissions given patient's age and significant comorbidities. Physical exam: Gen: This is a 83-year-old male who is awake, alert and oriented x 3, well- developed, well-nourished, obese HEENT: Head is atraumatic, normocephalic. Pupils equal, round. Sclerae is anicteric. NECK: Supple. No JVD. No lymphadenopathy. No thyromegaly. LUNGS: Diminished breath sounds bilaterally otherwise clear to auscultation. No wheezes or rhonchi. No intercostal retractions. HEART: S1, S2 are muffled ABDOMEN: Soft. Obese bowel sounds are present. No masses. No tenderness. EXTREMITIES: No pedal edema. No calf tenderness. NEUROLOGICAL: Patient is awake, alert and oriented x3. Cranial nerves 2 through 12 are grossly intact. Please refer to medication reconciliation sheet for a list of medications. The impression and plan of care has been dictated by Yolanda Rod, Nurse Practitioner as directed. Dr. Luis Alberto MD I have performed a history and examination and MDM of this patient, discussed the same with the dictator, and agree with the dictator's assessment and plan as written ,documented as a scribe. Based on total visit time, I have performed more than 50% of the visit. Patient Condition at Discharge: Fair Plan - Discharge Summary New Discharge Prescriptions: New Aspirin 81 mg PO DAILY #30 tab Loratadine [Claritin] 10 mg PO DAILY #30 tab Continue Insulin Glargine,Hum.rec.anlog [Lantus Solostar Pen] 12 unit SQ DAILY Atorvastatin [Lipitor] 40 mg PO HS Ipratropium-Albuterol Nebulize [Duoneb 0.5 mg-3 mg/3 ml Soln] 3 ml INHALATION RT-QID Apixaban [Eliquis] 5 mg PO DIRECTED Fluticasone/Vilanterol [Breo Ellipta 100-25 Mcg Inhaler] 1 puff INHALATION RT-DAILY Mv-Min/Folic/K1/Lycopen/Lutein [Centrum Silver Men Tablet] 1 tab PO QAM Budesonide 0.5 mg INHALATION RT-BID Isosorbide Mononitrate ER [Imdur] 30 mg PO DAILY Omeprazole 20 mg PO DAILY Furosemide [Lasix] 20 mg PO DAILY Metoprolol Succinate (ER) [Toprol XL] 50 mg PO DAILY Discontinued hydrALAZINE HCL [Apresoline] 50 mg PO BID Discharge Medication List Insulin Glargine,Hum.rec.anlog [Lantus Solostar Pen] 12 unit SQ DAILY 06/24/20 [History] Atorvastatin [Lipitor] 40 mg PO HS 06/02/22 [History] Budesonide 0.5 mg INHALATION RT-BID 01/21/23 [History] Ipratropium-Albuterol Nebulize [Duoneb 0.5 mg-3 mg/3 ml Soln] 3 ml INHALATION RT-QID 01/21/23 [History] Mv-Min/Folic/K1/Lycopen/Lutein [Centrum Silver Men Tablet] 1 tab PO QAM 01/21/23 [History] Furosemide [Lasix] 20 mg PO DAILY 04/24/23 [History] Isosorbide Mononitrate ER [Imdur] 30 mg PO DAILY 04/24/23 [History] Omeprazole 20 mg PO DAILY 04/24/23 [History] Apixaban [Eliquis] 5 mg PO DIRECTED 05/23/23 [History] Fluticasone/Vilanterol [Breo Ellipta 100-25 Mcg Inhaler] 1 puff INHALATION RT- DAILY 05/28/23 [History] Metoprolol Succinate (ER) [Toprol XL] 50 mg PO DAILY 05/28/23 [History] Aspirin 81 mg PO DAILY #30 tab 05/31/23 [Rx] Loratadine [Claritin] 10 mg PO DAILY #30 tab 05/31/23 [Rx] Follow up Appointment(s)/Referral(s): Loretta Bynum MD [Family Provider] - 06/11/23 11:00 am Kristel Cuadra MD [Primary Care Provider] - 1-2 days Patient Instructions/Handouts: After Radial Heart Catheterization (GEN) Activity/Diet/Wound Care/Special Instructions: NO lifting, pushing, pulling or pressure of left wrist. DO NOT submerge in water, NO soaking in tubs or pools. You may remove the dressing later today. Activity limited until follow-up Follow-up with primary care provider on discharge Follow-up with cardiology as scheduled Continue taking medications as prescribed Discharge Disposition: HOME SELF-CARE
== END 2023-05-31 11:35 | disposition home or self-care, planned readmission (81) | DRG 286 ==
LOC: EC 08:23 → 6NMEDSUR 10:55 → OBSVTOIN 05-30 07:05
PROVIDERS: ADMIT Internal Medicine; ATTEND Internal Medicine
PROC: 4A023N7 Measurement of Cardiac Sampling and Pressure, Left Heart, Percutaneous Approach (ICD-10-PCS; 2023-05-30)
PROC: B2111ZZ Fluoroscopy of Multiple Coronary Arteries using Low Osmolar Contrast (ICD-10-PCS; principal; 2023-05-30 07:30)
DX: I25.119 Atherosclerotic heart disease of native coronary artery with unspecified angina pectoris (principal); I50.33 Acute on chronic diastolic (congestive) heart failure; I11.0 Hypertensive heart disease with heart failure; I71.9 Aortic aneurysm of unspecified site, without rupture; J44.9 Chronic obstructive pulmonary disease, unspecified; E11.9 Type 2 diabetes mellitus without complications; I48.0 Paroxysmal atrial fibrillation; E11.65 Type 2 diabetes mellitus with hyperglycemia; I08.0 Rheumatic disorders of both mitral and aortic valves; E66.9 Obesity, unspecified; M19.90 Unspecified osteoarthritis, unspecified site; E78.5 Hyperlipidemia, unspecified; G47.33 Obstructive sleep apnea (adult) (pediatric); Z96.641 Presence of right artificial hip joint; Z79.4 Long term (current) use of insulin; Z68.39 Body mass index [BMI] 39.0-39.9, adult; Z79.899 Other long term (current) drug therapy; Z79.01 Long term (current) use of anticoagulants; I25.2 Old myocardial infarction; Z85.828 Personal history of other malignant neoplasm of skin; Z86.16 Personal history of COVID-19; Z87.19 Personal history of other diseases of the digestive system; Z87.891 Personal history of nicotine dependence; Z11.52 Encounter for screening for COVID-19
CPT/HCPCS: 36415; 71046; 80048; 80053; 80061; 82607; 82747; 83036; 83540; 83550; 83605; 83735; 83880; 84443; 84484; 85025; 85610; 85730; 87636; 93005; 93454; 94640; 96365; 99285

== ENCOUNTER → 2023-06-15 | Outpatient (CLI) | payer MEDICARE ==
[2023-06-15 09:42] LABS: INR 1.2 (<1.2); Partial Thromboplastin Time 26.2 sec (22.0-30.0); Prothrombin Time 12.5 sec (10.0-12.5)
[2023-06-15 16:57] LABS: Basophils # (A) 0.03 X 10*3/uL (0.00-0.10); Basophils % (A) 0.4 %; Eosinophils # (A) 0.17 X 10*3/uL (0.04-0.35); Eosinophils % (A) 2.5 %; HCT 36.3 % (39.6-50.0); HGB 10.9 g/dL (13.0-17.0); Lymphocytes # (A) 1.78 X 10*3/uL (0.90-5.00); Lymphocytes % (A) 26.6 %; MCH 23.6 pg (27.0-32.0); MCV 78.7 FL (80.0-97.0); Monocytes # (A) 0.88 X 10*3/uL (0.20-1.00); Monocytes % (A) 13.2 %; NRBC Per 100 WBC 0 X 10*3/uL (0.00-0.01); Neutrophils # (A) 3.82 X 10*3/uL (1.80-7.70); Neutrophils % (A) 57.2 %; Platelet Count 195 X 10*3/uL (140-440); RBC 4.61 X 10*6/uL (4.40-5.60); RDW 20.5 % (11.5-14.5); WBC 6.69 X 10*3/uL (4.50-10.00)
[2023-06-15 16:58] LABS: ALT 20 U/L (10-49); AST 23 U/L (14-35); Albumin 3.6 g/dL (3.8-4.9); Albumin/Globulin Ratio 1.44 Ratio (1.60-3.17); Alkaline Phosphatase 80 U/L (41-126); BUN/Creat Ratio 12.75 Ratio (12.00-20.00); Blood Urea Nitrogen 15.3 mg/dL (9.0-27.0); Calcium 9.2 mg/dL (8.7-10.3); Carbon Dioxide 28.4 mmol/L (21.6-31.8); Chloride 105 mmol/L (96-109); Globulin 2.5 g/dL (1.6-3.3); Glucose 132 mg/dL (70-110); Sodium 143 mmol/L (135-145); Total Bilirubin 0.9 mg/dL (0.3-1.2); Total Protein 6.1 g/dL (6.2-8.2)
== END | disposition home or self-care (01) ==
LOC: LABPAT 08:34
PROVIDERS: ATTEND Internal Medicine Interventional Cardiology
DX: Z01.812 Encounter for preprocedural laboratory examination (principal); I35.0 Nonrheumatic aortic (valve) stenosis; Z79.899 Other long term (current) drug therapy; Z79.01 Long term (current) use of anticoagulants
CPT/HCPCS: 36415; 80053; 85025; 85610; 85730; 86850; 86900; 86901

== ENCOUNTER 2023-06-20 07:58 | Inpatient (IN) | payer MEDICARE ==
[2023-06-13 11:44] VITALS: BMI 40.8
[2023-06-20] MEDS ORDERED: SODIUM CHLORIDE 0.9% 500 ML 500 ML INTRAARTER PRN (08:00)
[2023-06-20] MEDS ORDERED: CLEVIDIPINE BUTYRATE 25 MG in EMPTY BAG 1 BAG IV PRN (08:00)
[2023-06-20] MEDS ORDERED: INSULIN REGULAR 100 UNIT in SODIUM CHLORIDE 0.9% 100 ML IV PRN (08:00)
[2023-06-20] MEDS ORDERED: TRANEXAMIC ACID 2,000 MG in SODIUM CHLORIDE 0.9% 80 ML IV PRN (08:00)
[2023-06-20] MEDS ORDERED: LACTATED RINGERS 1,000 ML IV SCH (08:00)
[2023-06-20] MEDS ORDERED: ceFAZolin 3 GM in SODIUM CHLORIDE 0.9% 100 ML IVPB ONE (08:00)
[2023-06-20] MEDS ORDERED: NITROGLYCERIN-D5W PMX 25 MG/250 ML BTL IV PRN (08:00)
[2023-06-20] MEDS ORDERED: PROTAMINE SULFATE 250 MG in EMPTY BAG 1 BAG IV PRN (08:00)
[2023-06-20] MEDS ORDERED: ELECTROLYTE-A SOLUTION 1,000 ML with POTASSIUM CHLORIDE 100 MEQ, MAGNESIUM SULFATE 16 M... IV PRN (08:00)
[2023-06-20] MEDS: SODIUM CHLORIDE 0.9% 1,000 ML IV ONE (08:15)
[2023-06-20] MEDS: ATORVASTATIN 10 MG TAB PO ONE (08:23)
[2023-06-20] MEDS: ASPIRIN 325 MG TAB PO ONE (08:24)
[2023-06-20] MEDS: METOPROLOL TARTRATE 25 MG TAB PO ONE (08:24)
[2023-06-20] MEDS: CLOPIDOGREL 75 MG TAB PO ONE (08:24)
[2023-06-20 08:36] LABS: Glucose,Whole Blood 136 mg/dL (70-110)
[2023-06-20] MEDS ORDERED: NEOSTIGMINE 1 MG/ML 10 ML VIAL ONE (08:48)
[2023-06-20] MEDS ORDERED: PROTAMINE SULFATE 10 MG/ML 25 ML VIAL IV ONE (08:48)
[2023-06-20] MEDS ORDERED: HEPARIN SODIUM,PORCINE 10,000 UNIT/ML 1 ML VIAL ONE (08:48)
[2023-06-20] MEDS ORDERED: GLYCOPYRROLATE 0.2 MG/ML 2 ML VIAL ONE (08:48)
[2023-06-20] MEDS ORDERED: LIDOCAINE 1% INJ 10MG/ML (20 ML MDV) ONE (08:48)
[2023-06-20] MEDS ORDERED: fentaNYL (PF) 50 MCG/ML 2 ML AMP ONE (08:48)
[2023-06-20] MEDS ORDERED: ETOMIDATE 2 MG/ML 10 ML VIAL ONE (08:48)
[2023-06-20] MEDS ORDERED: ePHEDrine 50 MG/ML 1 ML VIAL ONE (08:48)
[2023-06-20] MEDS ORDERED: hydrALAZINE HCL 20 MG/ML 1 ML VIAL ONE (08:48)
[2023-06-20] MEDS ORDERED: SUCCINYLCHOLINE CHLORIDE 200 MG/10 ML VIAL IV ONE (08:48)
[2023-06-20] MEDS ORDERED: ROCURONIUM 10 MG/ML (5 ML VIAL) IV ONE (08:48)
[2023-06-20] MEDS: IOPAMIDOL-370 100ML BTL INJ ONE (10:05)
--- NOTE | 2023-06-20 10:31 | P.PCN ---
Date of Procedure: 06/20/23 Operative Findings: TRANSCATHETER AORITC VALVE REPLACEMENT OPERATIVE REPORT PROCEDURE PERFORMED: 1. Percutaneous Aortic Valve Implantation using a 34 mm Evolute FX 2. Transesophageal echocardiography (performed by anesthesia) 3. Ultrasound guided access and repair of right femoral artery access site by Perclose closure device. 4. Placement of temporary pacemaker wire. 5. Aortic root angiography INDICATIONS: 1. An 83 year-old with a history of severe symptomatic aortic valve stenosis. The patient was experiencing shortness of breath consistent with NYHA class II PERFORMING PHYSICIANS: 1. Zen Tovar MD Interventional Cardiology. 2. Truman Britt DO Interventional Cardiology 3. Messi Frances MD, Cardiothoracic Surgeon. SEDATION: General anesthesia provided by anesthesia, see separate note APPROACH: Bilateral femoral artery via percutaneous approach PROCEDURE DESCRIPTION: The patient was discussed at valve clinic with multidisciplinary approach with cardiothoracic surgeon as well as forest aide and thought better treated with TAVR. Risks, benefits, and alternatives of the procedure had been explained to the patient who understood the risks and agreed to proceed. After consents were obtained, patient was brought to the transcatheter aortic valve implantation room in the cardiac veterinary laboratory diagnostician and general anesthesia was provided by the anesthesiologist (see separate report). Once full body sterile prep was performed, right subclavian venous access was obtained and a temporary pacemaker was screwed in, performed by cardiothoracic surgery. Pacing threshholds were checked and deemed appropriate. Next the left femoral artery waw accessed using a modified Seldinger technique, ultrasound guidance and micropuncture technique. A 6 Guatemalan Rabi sheath was placed in the left femoral artery. Next, a 6-Guatemalan pigtail catheter was advanced into the aorta and positioned in the aortic root, aortic root angiography was performed to determine optimal deployment angle. The right femoral artery was accessed using modified Seldinger technique, micropuncture technique and under direct ultrasound guidance. Femoral angiogram was done showing access in the common femoral artery and a 6Fr sheath was placed. Next preclose technique was performed using a two Perclose. Next a 0.035 Safari wire was placed in the Aorta via a pigtail catheter. Over that the wire an 18 Fr Maramec sheath was placed. Next a 6F- AL1 catheter was advanced over a wire to the aortic root. A straight wire was advanced through the catheter and used to cross the severely stenotic valve. The AL1 was then exchanged for a 6Fr pigtail catheter and pressure measurements were obtained. The 0.035 Safari wire was then positioned in the apex. Next a 34 mm Evolute FX valve was advanced. The valve was then positioned across the aortic valve and confirmed with aortic root angiography. [The valve was initially partially deployed however needed repositioning and therefore was recaptured.] The valve was then deployed in proper position using slow deployment and with rapid pacing in conjuncture with aortic root angiography and CHECO. The delivery system was withdrawn back into the arch and an aortic root injection in conjunction with CHECO demonstrated a satisfactory result. There was no para valvular leak. There was no evidence of any other significant abnormalities. The preclose Perclose was then deployed in the righr femoral artery and hemostasis was achieved. An angiogram was performed using the rim catheter from the left groin was also performed. There was a small leak which was sealed using manual pressure.. The right femoral angiogram demonstrated an arteriotomy in the common femoral artery and hemostasis was achieved using manual pressure. The temporary venous pacemaker was sutured in place. The patient was then transported to the ICU in hemod ynamically stable condition, requiring no pressor support. COMPLICATIONS: None RECOMMENDATIONS: The patient will be monitored in the ICU for hemodynamic and electrical stability. Patient will be on aspirin and Plavix.
[2023-06-20 10:50] LABS: Glucose,Whole Blood 132 mg/dL (70-110)
[2023-06-20] MEDS ORDERED: SYMBICORT 80-4.5 MCG INHALER INHALATION PRN (10:54)
[2023-06-20] MEDS ORDERED: DEXTROSE 50% SYRINGE 50 ML IVP PRN ×2 (10:54)
[2023-06-20] MEDS ORDERED: ACETAMINOPHEN TAB 325 MG TAB PO PRN (10:54)
[2023-06-20] MEDS ORDERED: Potassium Replacement Protocol 1 EACH MISC MISCELLANE PRN (10:54)
[2023-06-20] MEDS ORDERED: ONDANSETRON 4 MG/2 ML VIAL IVP PRN (10:54)
[2023-06-20] MEDS ORDERED: Magnesium Replacement Protocol 1 EACH MISC MISCELLANE PRN (10:54)
[2023-06-20 11:09] LABS: Anisocytosis Slight; Basophils % (A) 0 %; Eosinophils # (A) 0.1 k/uL (0-0.7); Eosinophils % (A) 1 %; HCT 34.4 % (39.0-53.0); HGB 10.6 gm/dL (13.0-17.5); Hypochromasia Marked; Lymphocytes # (A) 1.1 k/uL (1.0-4.8); Lymphocytes % (A) 13 %; MCH 24.6 pg (25.0-35.0); MCHC 30.8 g/dL (31.0-37.0); MCV 79.8 fL (80.0-100.0); Microcytosis Slight; Monocytes # (A) 0.5 k/uL (0-1.0); Monocytes % (A) 6 %; Neutrophils # (A) 6.6 k/uL (1.3-7.7); Neutrophils % (A) 78 %; Platelet Count 162 k/uL (150-450); RBC 4.31 m/uL (4.30-5.90); RDW 19.1 % (11.5-15.5); WBC 8.4 k/uL (3.8-10.6)
[2023-06-20] MEDS: IPRATROPIUM-ALBUTEROL 3 ML NEB INHALATION SCH (11:12)
--- NOTE | 2023-06-20 11:13 | P.OP ---
Date of Procedure: 06/20/23 Preoperative Diagnosis: Symptomatic tricuspid calcific aortic stenosis Postoperative Diagnosis: Same Procedure(s) Performed: Transcatheter aortic valve replacement via percutaneous transfemoral approach with 34 mm Medtronic Evolute FX valve Implants: 34 mm Medtronic Evolute FX valve Anesthesia: GETA Surgeon: Messi Frances (Cardiovascular surgeon) Shop Foreman #1: Zen Tovar (First tree thinner) Shop Foreman #2: Truman Britt (Second interventional cardiology) Estimated Blood Loss (ml): 20 IV fluids (ml): 800 Pathology: none sent Condition: stable Disposition: ICU Indications for Procedure: 83-year-old male with symptomatic tricuspid calcific aortic stenosis. Patient was seen at high risk valve clinic and felt most appropriate for transcatheter aortic valve replacement. Elective surgery was scheduled. Operative Findings: Greater than 50 mm mean gradient across the aortic valve was measured. Valve implant proceeded smoothly with depths of 2 on the right and 3 on the left. There was no paravalvular leak. Description of Procedure: Patient was brought to the catheterization laboratory and placed supine on the table. General anesthesia was induced. CHECO probe was placed. The anterior torso and bilateral groins were sterilely prepped and draped. After timeout, the right subclavian vein was punctured with an 18-gauge needle and guidewire threaded into the right atrium. Introducer and dilator were placed and through the introducer a screw-in ventricular lead was manipulated into the apex of the right ventricle. Was tested here and thresholds were less than 1 V. Sheath was removed and it was secured to the skin with 2-0 silk suture ligatures. Bilateral femoral arterial access was obtained under ultrasound guidance. On the left long 7-Gibraltarian sheath was placed up into the descending thoracic aorta and a pigtail placed through this into the noncoronary sinus of Valsalva. On the right a 7-Gibraltarian sheath was placed and then 2 Perclose devices were placed. A 7-Gibraltarian sheath was then upsized to a 9-Gibraltarian sheath. This was upsized to a 18-Gibraltarian sheath over a stiff wire and the patient was systemically heparinized. Aortic valve was crossed from the right femoral access and a pigtail catheter positioned in the apex of the left ventricle. Transvalvular gradients were measured findings as noted above. Stiff wire was placed in the apex of the ventricle. 34 mm Medronic Evolute FX valve had been loaded on the back table was brought up on the field. It was checked under fluoroscopy. Was exchanged for the 18-Gibraltarian sheath over the stiff wire and advanced through the vascular system and across the aortic valve. Transcatheter valve was deployed under rapid ventricular pacing with levels as noted above. CHECO demonstrated no evidence of aortic insufficiency on pullback of the device loading system. Heparin was reversed with protamine and 2 Perclose devices were closed after removal of the delivery system. Good femoral hemostasis was obtained bilaterally and the patient was transferred to the ICU.
[2023-06-20] MEDS: LACTATED RINGERS 1,000 ML IV SCH (11:20)
[2023-06-20 11:23] LABS: African American GFR (CKD) >90 (>60 ml/min/1.73 sqM); Anion Gap 4 mmol/L; Blood Urea Nitrogen 18 mg/dL (9-20); Calcium 8.2 mg/dL (8.4-10.2); Carbon Dioxide 27 mmol/L (22-30); Chloride 109 mmol/L (98-107); Glucose 140 mg/dL (74-99); Non-African American GFR(CKD) 80 (>60 ml/min/1.73 sqM); Potassium 3.8 mmol/L (3.5-5.1); Sodium 140 mmol/L (137-145)
--- NOTE | 2023-06-20 11:40 | XR ---
EXAMINATION TYPE: XR chest 1V portable DATE OF EXAM: 06/20/2023 COMPARISON: 05/28/2023. HISTORY: Postop cardiac surgery. TECHNIQUE: Single frontal view of the chest is obtained. IMPRESSION: There is no focal area of consolidation. There is some bandlike areas of opacity in the lung bases bilaterally which could be atelectasis or d eveloping pneumonia. Cardiac silhouette is markedly enlarged and the pulmonary vessels are within normal limits.
[2023-06-20] MEDS: INSULIN ASPART (NovoLOG) 100 UNIT/ML VIAL SQ SCH (12:13)
--- NOTE | 2023-06-20 12:49 | P.ANPRN ---
Procedure Note - Anesthesia - CHECO Intraop Pre Bypass CHECO Intraop - Anesthesia Indication: transcatheter aortic valve replacement Date of Procedure: 06/20/23 Pre-operative Diagnosis: severe aortic stenosis Post-operative Diagnosis: severe aortic stenosis status post-transcatheter aortic valve replacement. Ejection Fraction: Other (transgastric view could not be obtained as unable to pas probe beyond mid-esophagus) Left Ventricle Hypertrophy: Yes R. Ventricle Function: Normal Anatomy: Trileaflet Aortic Stenosis: Severe Aortic Regurgitation: Mild Mitral Stenosis: None Mitral Regurgitation: Mild Tricuspid Stenosis: None Tricuspid Regurgitation: Mild Pulmonic Regurgitation: None R. Atrial Dilation: No R. Atrial PFO: No L. Atrial Dilation: Yes Aortic Dissection: No - CHECO Intraop Post Bypass CHECO Intraop Post Bypass Procedure Performed: transcatheter aortic valve replacement Ejection Fraction: Other (appears to be normal as completed assessment Not possible) R. Ventricle Function: Normal Aortic Valve: prosthetic aortic valve seen in situ. Appears to be seated well. Trace AI is seen. Peak gradient across the valve is 32 mmHg and mean of 18 mm of Hg, Dr Tovar notified. Mitral Valve: Unchanged Tricuspid: Unchanged Pulmonic: Unchanged Aortic Dissection: No
[2023-06-20] MEDS: MAG HYDROX/AL HYDROX/SIMETH 30 ML CUP PO PRN (15:35)
[2023-06-20] MEDS: ceFAZolin 3 GM in SODIUM CHLORIDE 0.9% 100 ML IVPB SCH (15:40)
[2023-06-20 16:56] LABS: Glucose,Whole Blood 236 mg/dL (70-110)
[2023-06-20] MEDS: LORATADINE 10 MG TAB PO PRN (18:57)
[2023-06-20] MEDS: BUDESONIDE 0.5 MG/2 ML NEBU INHALATION SCH (19:37)
[2023-06-20 20:23] LABS: Glucose,Whole Blood 224 mg/dL (70-110)
[2023-06-20] MEDS: SENNOSIDES-DOCUSATE SODIUM 1 EACH TAB PO SCH (21:04)
[2023-06-20] MEDS: ATORVASTATIN 40 MG TAB PO SCH (21:04)
[2023-06-21] MEDS: HEPARIN SODIUM,PORCINE 5,000 UNIT/ML 1 ML VIAL SQ SCH (00:25)
[2023-06-21 05:07] LABS: Anisocytosis Slight; Basophils % (A) 0 %; Eosinophils % (A) 0 %; HCT 36.7 % (39.0-53.0); HGB 11.2 gm/dL (13.0-17.5); Hypochromasia Marked; Lymphocytes # (A) 0.9 k/uL (1.0-4.8); Lymphocytes % (A) 7 %; MCH 24.6 pg (25.0-35.0); MCHC 30.5 g/dL (31.0-37.0); MCV 80.4 fL (80.0-100.0); Mean Platelet Volume 9.2; Microcytosis Slight; Monocytes # (A) 0.9 k/uL (0-1.0); Monocytes % (A) 8 %; Neutrophils # (A) 10.4 k/uL (1.3-7.7); Neutrophils % (A) 83 %; Platelet Count 175 k/uL (150-450); RBC 4.56 m/uL (4.30-5.90); RDW 18.9 % (11.5-15.5); WBC 12.5 k/uL (3.8-10.6)
[2023-06-21 05:23] LABS: Ionized Calcium 4.8 mg/dL (4.5-5.3)
[2023-06-21 05:32] LABS: ALT 19 U/L (4-49); AST 36 U/L (17-59); African American GFR (CKD) >90 (>60 ml/min/1.73 sqM); Albumin 3.5 g/dL (3.5-5.0); Alkaline Phosphatase 81 U/L (38-126); Anion Gap 6 mmol/L; Blood Urea Nitrogen 18 mg/dL (9-20); Calcium 8.9 mg/dL (8.4-10.2); Carbon Dioxide 30 mmol/L (22-30); Chloride 105 mmol/L (98-107); Glucose 139 mg/dL (74-99); Magnesium 1.9 mg/dL (1.6-2.3); Non-African American GFR(CKD) 81 (>60 ml/min/1.73 sqM); Sodium 141 mmol/L (137-145); Total Bilirubin 0.7 mg/dL (0.2-1.3); Total Protein 6.3 g/dL (6.3-8.2)
[2023-06-21 06:57] LABS: Glucose,Whole Blood 130 mg/dL (70-110)
[2023-06-21] MEDS: PANTOPRAZOLE 40 MG TABLET PO SCH (07:10)
[2023-06-21] MEDS: INSULIN DETEMIR (LEVEMIR) 100 UNIT/ML SYR SQ SCH (07:10)
[2023-06-21] MEDS: MAGNESIUM SULFATE-D5W PMX 1 GM in DEXTROSE/WATER 1 100ML.BAG IVPB ONE (08:09)
[2023-06-21] MEDS: ISOSORBIDE MONONITRATE ER 30 MG TAB.ER.24H PO SCH (08:10)
[2023-06-21] MEDS: APIXABAN 5 MG TAB PO SCH (08:10)
[2023-06-21] MEDS: FUROSEMIDE 20 MG TAB PO SCH (08:10)
[2023-06-21] MEDS: MULTIVITAMINS, THERA 1 EACH TAB PO SCH (08:10)
--- NOTE | 2023-06-21 08:14 | XR ---
EXAMINATION TYPE: XR chest 1V portable DATE OF EXAM: 06/21/2023 4:28 AM CLINICAL INDICATION:Male, 83 years old with history of Post Operative Cardiac Surgery; [facility] COMPARISON: Chest radiographs from 06/20/2023. TECHNIQUE: XR chest 1V portable Frontal view of the chest. FINDINGS: Lungs/Pleura: There is no evidence of pleural effusion, focal consolidation, or pneumothorax. Pulmonary vascularity: Pulmonary vascular congestion. Heart/mediastinum: Cardiomediastinal silhouette is enlarged and stable. Musculoskeletal: No acute osseous pathology. Other findings: None Lines/Tubes: Percutaneous conduction leads projecting over the right ventricle. IMPRESSION: Percutaneous cardiac conduction leads projects over the right ventricle. Cardiomegaly and pulmonary vascular congestion.
[2023-06-21] MEDS ORDERED: MAGNESIUM HYDROXIDE 2,400 MG/30 ML CUP PO PRN (09:00)
[2023-06-21 09:52] VITALS: TEMP 98.4
[2023-06-21 11:35] LABS: Glucose,Whole Blood 134 mg/dL (70-110)
--- NOTE | 2023-06-21 12:43 | CA ---
Transthoracic Echo Report Name: Teddy Clements Age: 83 Gender: M : 1940 Exam Date: 06/21/2023 08:28 Exam Location: [facility] Ht (in): 70 Wt (lb): 285 Ordering Physician: Janeth Lazaro Attending/Referring Phys: Customer Experience Specialist Claribel Chávez RDCS Procedure CPT: Indications: post TAVR Cardiac Hx: Technical Quality: Poor Contrast 1: Total Dose (mL): Contrast 2: Total Dose (mL): MEASUREMENTS (Male / Female) Normal Values 2D ECHO LV Diastolic Diameter PLAX 4.5 cm 4.2 - 5.9 / 3.9 - 5.3 cm LV Systolic Diameter PLAX 3.2 cm IVS Diastolic Thickness 1.7 cm 0.6 - 1.0 / 0.6 - 0.9 cm LVPW Diastolic Thickness 1.7 cm 0.6 - 1.0 / 0.6 - 0.9 cm LV Relative Wall Thickness 0.7 RV Internal Dim ED PLAX 3.7 cm LVOT Diameter 2.6 cm LA Systolic Diameter LX 4.8 cm 3.0 - 4.0 / 2.7 - 3.8 cm LV Diastolic Volume MOD 4C 128.9 cm??? LV Systolic Volume MOD 4C 57.5 cm??? LV Ejection Fraction MOD 4C 55.4 % LV Cardiac Index MOD 4C 1573.6 cm???/min???m??? LV Diastolic Length 4C 9.8 cm LV Systolic Length 4C 8.4 cm LV Diastolic Volume MOD 2C 95.5 cm??? LV Systolic Volume MOD 2C 38.5 cm??? LV Ejection Fraction MOD 2C 59.7 % LV Cardiac Index MOD 2C 1256.2 cm???/min???m??? LV Diastolic Length 2C 9.3 cm LV Systolic Length 2C 8.2 cm LA Volume 88.5 cm??? 18 - 58 / 22 - 52 cm??? LA Volume Index 34.3 cm???/m??? 16 - 28 cm???/m??? M-MODE Aortic Root Diameter MM 3.0 cm DOPPLER AV Peak Velocity 300.6 cm/s AV Peak Gradient 36.2 mmHg AV Mean Velocity 189.8 cm/s AV Mean Gradient 17.3 mmHg AV Velocity Time Integral 65.4 cm LVOT Peak Velocity 141.4 cm/s LVOT Peak Gradient 8.0 mmHg AV Area Cont Eq pk 2.6 cm??? MV Peak Velocity 239.8 cm/s MV Peak Gradient 23.0 mmHg MV Mean Velocity 116.0 cm/s MV Mean Gradient 7.2 mmHg MV Velocity Time Integral 68.5 cm MV Area PHT 2.2 cm??? MV Deceleration Time 395.8 ms FINDINGS Left Ventricle Left ventricular ejection fraction is estimated at 60-65 %. Left ventricular cavity size normal. Moderately increased septal wall thickness. Right Ventricle Mild right ventricular dilatation. Unable to estimate the right ventricular systolic pressure. Right Atrium Normal right atrial size. Left Atrium Moderately increased left atrial diameter. Moderately increased left atrial volume. Mildly increased left atrial area. Mitral Valve Mild thickening/calcification of the anterior mitral valve leaflet. Moderate thickening/calcification of the posterior mitral valve leaflet. Mild mitral annular calcification. Aortic Valve Normally functioning bioprosthetic aortic valve without stenosis with a peak velocity of 3.0 m/s, peak gradient 36 mmHg, mean gradient 17mmHg, and estimated aortic valve area of 2.6 cm???. no paravalvular aortic regurgitation. No aortic regurgitation. Tricuspid Valve Structurally normal tricuspid valve. No tricuspid stenosis, regurgitation or prolapse. Pulmonic Valve Pulmonic valve not well visualized. No pulmonic regurgitation. Pericardium No pericardial effusion. Aorta Normal size aortic root and proximal ascending aorta. CONCLUSIONS Left ventricular ejection fraction 60-65% Moderate increased left ventricular wall thickness Normally functioning bioprosthetic aortic valve Mildly increased aortic valve gradients, may be related to hyperdynamic state, mildly increased LVOT gradient. No significant aortic stenosis No paravalvular aortic regurgitation No pericardial effusion Previewed by: Dr. Truman Britt DO (Electronically Signed) Final Date: 21 June 2023 12:43
[2023-06-21 13:29] VITALS: BP 154/85; PULSE 63; RESP 22
--- NOTE | 2023-06-21 14:25 | P.DS ---
Providers Date of admission: 06/20/23 07:58 Expected date of discharge: 06/21/23 Attending physician: Zen Tovar Consults: 06/13/23 12:31 Consult to Anesthesia Routine Consulting Provider: Anesthesia,Services Consult Reason/Comments: Cardiac Surgery Pre-Op 06/20/23 09:56 Consult Physician Routine Consulting Provider: Messi Frances Consult Reason/Comments: post TAVR Do you want consulting provider notified?: Already Contacted Primary care physician: Kristel Cuadra Hospital Course: MEDICAL HISTORY: 1. Calcified aortic valve with severe symptomatic aortic valve stenosis, NYHA class II 2. Hypertension 3. Hyperlipidemia 4. Paroxysmal atrial fibrillation on Eliquis for anticoagulation 5. Diabetes mellitus 6. Obstructive sleep apnea with home CPAP use PROCEDURE: 1. Percutaneous aortic valve implantation using a 34 mm Evolute FX under CHECO and fluoroscopy guidance 2. Transesophageal echocardiography performed by anesthesia 3. Ultrasound-guided access and repair of right femoral artery access site by Perclose closure device 4. Placement of temporary pacemaker wire 5. Aortic root angiography HISTORY OF PRESENT ILLNESS: This is a 83-year-old gentleman who follows on an outpatient basis with Dr. Cuadra for primary care and Dr. Bynum for cardiology. He has a known history of severe aortic stenosis and has been symptomatic with increased exertional dyspnea as well as lower extremity edema. He had been referred to structural heart clinic for evaluation for transcatheter aortic valve replacement after heart catheterization and transesophageal echocardiogram were completed. Echocardiography demonstrated normal systolic function with EF 55-60%, aortic valve area 0.8 cm with a peak/mean gradient 72/38 mmHg. Heart catheterization showed calcified LAD with moderate disease. After workup was completed STS risk score was calculated along with incremental risk and the patient was felt to be high risk for surgical aortic valve replacement, therefo re transcatheter aortic valve replacement was recommended. The usual course of TAVR was discussed in detail the patient, risks and benefits were reviewed, shared decision making between cardiology, surgery, and the patient/family took place, and the patient consented to proceed with the procedure. HOSPITAL COURSE: The patient was brought to the hospital on 06/20/23, was taken to the extended stay area, prepared in the usual fashion, and subsequently taken to the cardiac catheterization laboratory where Dr. Tovar and Dr. Frances completed TAVR procedure under general anesthesia with fluoroscopy and CHECO. The valve was deployed under rapid ventricular pacing and proceeded without event. At the end of the procedure there was mean gradient 18 mmHg, hemodynamics were felt to be acceptable, and there was no evidence of significant perivalvular leak. Upon completion of the procedure the patient was extubated and was transferred to the cardiovascular intensive care unit where he was recovered and monitored hemodynamically. His oxygen was titrated down, he was tolerating oral diet, his pain was controlled, follow-up TTE demonstrated normal left ventricular systolic function with EF 60 to 65%, mean gradient 18 mmHg with no paravalvular leak, and he was ready to be discharged to home on postoperative day #1. He received written and verbal instruction regarding his medications, activity restrictions, signs and symptoms requiring physician notification, and follow-up appointments. Patient Condition at Discharge: Stable Plan - Discharge Summary Discharge Rx Participant: No New Discharge Prescriptions: New Sennosides-Docusate Sodium [Senokot-S] 2 each PO HS PRN tab PRN Reason: Constipation Acetaminophen Tab [Tylenol] 650 mg PO Q4HR PRN tab PRN Reason: Fever And/ Or Mild Pain (1-3) Continue Insulin Glargine,Hum.rec.anlog [Lantus Solostar Pen] 12 unit SQ QAM Atorvastatin [Lipitor] 40 mg PO HS Ipratropium-Albuterol Nebulize [Duoneb 0.5 mg-3 mg/3 ml Soln] 3 ml INHALATION QID Apixaban [Eliquis] 5 mg PO BID Fluticasone/Vilanterol [Breo Ellipta 100-25 Mcg Inhaler] 1 puff INHALATION DAILY PRN PRN Reason: Shortness Of Breath Mv-Min/Folic/K1/Lycopen/Lutein [Centrum Silver Men Tablet] 1 tab PO QAM Budesonide 0.5 mg INHALATION BID Isosorbide Mononitrate ER [Imdur] 30 mg PO QAM Omeprazole 20 mg PO QAM Furosemide [Lasix] 20 mg PO DAILY Loratadine [Claritin] 10 mg PO DAILY PRN PRN Reason: Allergic Reaction Discharge Medication List Insulin Glargine,Hum.rec.anlog [Lantus Solostar Pen] 12 unit SQ QAM 06/24/20 [History] Atorvastatin [Lipitor] 40 mg PO HS 06/02/22 [History] Budesonide 0.5 mg INHALATION BID 01/21/23 [History] Ipratropium-Albuterol Nebulize [Duoneb 0.5 mg-3 mg/3 ml Soln] 3 ml INHALATION QID 01/21/23 [History] Mv-Min/Folic/K1/Lycopen/Lutein [Centrum Silver Men Tablet] 1 tab PO QAM 01/21/23 [History] Furosemide [Lasix] 20 mg PO DAILY 04/24/23 [History] Isosorbide Mononitrate ER [Imdur] 30 mg PO QAM 04/24/23 [History] Omeprazole 20 mg PO QAM 04/24/23 [History] Apixaban [Eliquis] 5 mg PO BID 05/23/23 [History] Fluticasone/Vilanterol [Breo Ellipta 100-25 Mcg Inhaler] 1 puff INHALATION DAILY PRN 05/28/23 [History] Loratadine [Claritin] 10 mg PO DAILY PRN 06/13/23 [History] Acetaminophen Tab [Tylenol] 650 mg PO Q4HR PRN tab 06/21/23 [Rx] Sennosides-Docusate Sodium [Senokot-S] 2 each PO HS PRN tab 06/21/23 [Rx] Follow up Appointment(s)/Referral(s): Loretta Bynum MD [STAFF PHYSICIAN] - 06/28/23 11:00 am (Your appointment 06/28/23 is for a groin check. You have a 30-day post TAVR echo and appointment with Dr. Bynum on 08/31/23 @10 am. You also have a 1 year post TAVR echo and appointment with Dr. Bynum on 05/27/24 @ 1:45 pm) Kristel Cuadra MD [Primary Care Provider] - As Needed Clinic,Structural Heart [NON-STAFF] - 08/31/23 9:30 am (You have a 30-day follow-up TAVR clinic appointment at the valve clinic on 08/31/23 @9:30 am. You also have a 1 year follow-up TAVR clinic appointment at the valve clinic on 05/27/24 @1:15 pm) Ambulatory/Diagnostic Orders: Basic Metabolic Panel [LAB.AMB] Location: None Selected Basic Metabolic Panel [LAB.AMB] Location: None Selected Complete Blood Count w/diff [LAB.AMB] Location: None Selected Complete Blood Count w/diff [LAB.AMB] Location: None Selected Activity/Diet/Wound Care/Special Instructions: DISCHARGE INSTRUCTIONS: 1. No driving for 1 week, or until physician gives their ok. 2. No lifting, pushing, or pulling more than 5-10 pounds for 1 week. 3. Hold both groins when you cough or sneeze for the next 2 weeks. Bruising is common, but report increased swelling, pain or fever >101F 4. Shower daily. No pool, hot tub, or bathtub for 1 week 5. No powders, lotions, ointments on incisions. 6. No straining, including for bowel movements. Use stool softner if necessary 7. Stairs are not an issue. Go slowly, using handrail and take 1 step at a time. Ambulate several times daily 8. Continue pain control per as needed orders. 9. Take only the medications listed on your discharge form 10. Eat low salt (limited to 2 grams or 2000 milligrams) daily, avoid adding salt, avoid canned/processed foods 11. Take your weight daily in the morning and record, bring with you to your follow up appointments 12. Keep all follow up appointments. You will need a valve clinic appointment at 30 days and 1 year post procedure for follow up 13. You have been referred to and are expected to begin Cardiac Rehab in approximately 4 weeks. 14. You will need antibiotics prior to any dental work, including cleanings, and any surgeries to prevent Endocarditis (bacterial infection in your heart) For any questions or concerns please call your valve coordinators: Janeth or Marco Antonio @ Discharge Disposition: HOME SELF-CARE
== END 2023-06-21 14:52 | disposition home or self-care (01) | DRG 267 ==
LOC: 2ORMAIN 07:58 → 2SICU 10:17
PROVIDERS: ADMIT Internal Medicine Interventional Cardiology; ATTEND Internal Medicine Interventional Cardiology
PROC: B3101ZZ Fluoroscopy of Thoracic Aorta using Low Osmolar Contrast (ICD-10-PCS; 2023-06-20)
PROC: B246ZZ4 Ultrasonography of Right and Left Heart, Transesophageal (ICD-10-PCS; 2023-06-20)
PROC: B24BZZ4 Ultrasonography of Heart with Aorta, Transesophageal (ICD-10-PCS; 2023-06-20)
PROC: 02RF38Z Replacement of Aortic Valve with Zooplastic Tissue, Percutaneous Approach (ICD-10-PCS; principal; 2023-06-20 10:15)
PROC: 5A1223Z Performance of Cardiac Pacing, Continuous (ICD-10-PCS; 2023-06-20 10:15)
DX: I08.3 Combined rheumatic disorders of mitral, aortic and tricuspid valves (principal); Z00.6 Encounter for examination for normal comparison and control in clinical research program; I48.0 Paroxysmal atrial fibrillation; G47.33 Obstructive sleep apnea (adult) (pediatric); I10 Essential (primary) hypertension; E11.51 Type 2 diabetes mellitus with diabetic peripheral angiopathy without gangrene; Z79.01 Long term (current) use of anticoagulants; I25.10 Atherosclerotic heart disease of native coronary artery without angina pectoris; E78.2 Mixed hyperlipidemia
CPT/HCPCS: 33210; 33361; 71045; 80048; 80053; 82330; 83735; 85025; 93306; 93312; 93320; 93325; 94150; 94640

== ENCOUNTER 2023-07-27 05:54 | Day surgery (SDC) | payer MEDICARE ==
[2023-07-27 06:31] VITALS: TEMP 97.7
[2023-07-27 06:50] LABS: Glucose,Whole Blood 122 mg/dL (70-110)
[2023-07-27] MEDS: LACTATED RINGERS 1,000 ML IV ONE (06:51)
[2023-07-27] MEDS: BENZOCAINE SPRAY 1 CAN TOPICAL ONE (07:17)
[2023-07-27 07:25] LABS: Anisocytosis Slight; Basophils % (A) 0 %; Eosinophils # (A) 0.1 k/uL (0-0.7); Eosinophils % (A) 1 %; HCT 36.9 % (39.0-53.0); HGB 11.3 gm/dL (13.0-17.5); Hypochromasia Marked; Lymphocytes # (A) 1.8 k/uL (1.0-4.8); Lymphocytes % (A) 27 %; MCH 24.3 pg (25.0-35.0); MCHC 30.7 g/dL (31.0-37.0); MCV 79.1 fL (80.0-100.0); Mean Platelet Volume 8.9; Microcytosis Slight; Monocytes # (A) 0.6 k/uL (0-1.0); Monocytes % (A) 9 %; Neutrophils % (A) 60 %; Platelet Count 219 k/uL (150-450); RBC 4.67 m/uL (4.30-5.90); RDW 19.1 % (11.5-15.5); WBC 6.7 k/uL (3.8-10.6)
[2023-07-27] MEDS ORDERED: PROPOFOL 10 MG/ML 20 ML VIAL IV ONE (07:28)
[2023-07-27] MEDS ORDERED: LIDOCAINE 1% INJ 10MG/ML (20 ML MDV) ONE (07:28)
[2023-07-27] MEDS ORDERED: NON FORMULARY DRUG (Fluticasone/Vilanterol [Breo Ellipta 100-25 Mcg Inhaler] 1 EACH Blst.W INHALATION PRN (07:42)
[2023-07-27] MEDS ORDERED: SODIUM CHLORIDE 0.9% 1,000 ML IV SCH (07:45)
--- NOTE | 2023-07-27 07:46 | P.PCN ---
Date of Procedure: 07/27/23 Description of Procedure: Indication: Atrial fibrillation Procedure Description: After explaining the procedure to the patient, it's risk and complications, blood pressure, heart rate and O2 saturation were monitored. The throat was sprayed with Cetacaine. Patient received sedation per anesthesia department. The probe was introduced into the esophagus without difficulty. Images were obtained. Following that, the probe was removed. There was no immediate complication. Findings: Left atrial size is dilated, left atrial appendage is normal. Left ventricular size and systolic function are normal. Mitral annulus calcification was noted. The aortic valve is a TAVR valve with normal appearance. Tricuspid valve is normal. No pericardial fusion was noted. Contrast bubble study revealed no shunting across the interatrial septum. Doppler: Pulse wave and color Doppler were obtained, and revealed moderate mitral regurgitation with mild to moderate tricuspid regurgitation. There was no shunting across the interatrial septum. Conclusion: 1. Dilated left atrium with normal appearance of the left atrial appendage 2. Normal ventricle size and systolic function 3. TAVR valve with normal appearance and no regurgitation 4. Moderate mitral with mild to moderate tricuspid regurgitation 5. No shunting across the interatrial septum Cardioversion: After obtaining CHECO and obtaining sedated state per anesthesia department a synchronized biphasic cardioversion using 150 and subsequently 200 J was successful in restoring sinus mechanism with occasional PVCs. There was no immediate complications.
[2023-07-27 08:03] LABS: ALT 25 U/L (4-49); AST 35 U/L (17-59); African American GFR (CKD) >90 (>60 ml/min/1.73 sqM); Albumin 3.5 g/dL (3.5-5.0); Alkaline Phosphatase 92 U/L (38-126); Anion Gap 5 mmol/L; Blood Urea Nitrogen 18 mg/dL (9-20); Calcium 8.9 mg/dL (8.4-10.2); Carbon Dioxide 28 mmol/L (22-30); Chloride 109 mmol/L (98-107); Glucose 125 mg/dL (74-99); Non-African American GFR(CKD) 80 (>60 ml/min/1.73 sqM); Potassium 3.9 mmol/L (3.5-5.1); Sodium 142 mmol/L (137-145); Total Protein 6.7 g/dL (6.3-8.2)
[2023-07-27 08:42] LABS: Glucose,Whole Blood 118 mg/dL (70-110)
[2023-07-27] MEDS ORDERED: FUROSEMIDE 20 MG TAB PO SCH (09:00)
[2023-07-27] MEDS ORDERED: BUDESONIDE 0.5 MG/2 ML NEBU INHALATION SCH (09:00)
[2023-07-27] MEDS ORDERED: NON FORMULARY DRUG (Insulin Glargine,Hum.Rec.Anlog [Lantus Solostar Pen] 100 UNIT/ML Insul SQ SCH (09:00)
[2023-07-27 09:32] VITALS: BP 141/75; PULSE 75; RESP 18
[2023-07-27] MEDS ORDERED: IPRATROPIUM-ALBUTEROL 3 ML NEB INHALATION SCH (12:00)
[2023-07-27 17:24] LABS: Chol/HDL Ratio 2.43 Ratio; LDL Cholesterol,Calculated 42.6 mg/dL (0.0-131.0); VLDL Calculation 9.82 mg/dL (5.00-40.00)
[2023-07-27] MEDS ORDERED: APIXABAN 5 MG TAB PO SCH (21:00)
[2023-07-27] MEDS ORDERED: ATORVASTATIN 40 MG TAB PO SCH (21:00)
[2023-07-28] MEDS ORDERED: ISOSORBIDE MONONITRATE ER 30 MG TAB.ER.24H PO SCH (09:00)
== END 2023-07-27 09:04 | disposition home or self-care (01) ==
LOC: OR 05:54
PROVIDERS: ATTEND Internal Medicine Interventional Cardiology
DX: I48.11 Longstanding persistent atrial fibrillation (principal); I25.10 Atherosclerotic heart disease of native coronary artery without angina pectoris; Z95.2 Presence of prosthetic heart valve; I08.1 Rheumatic disorders of both mitral and tricuspid valves; I10 Essential (primary) hypertension; E11.69 Type 2 diabetes mellitus with other specified complication; E78.2 Mixed hyperlipidemia; E11.51 Type 2 diabetes mellitus with diabetic peripheral angiopathy without gangrene; I71.20 Thoracic aortic aneurysm, without rupture, unspecified; Z79.4 Long term (current) use of insulin; Z79.01 Long term (current) use of anticoagulants; Z79.899 Other long term (current) drug therapy; Z79.51 Long term (current) use of inhaled steroids; I25.2 Old myocardial infarction; Z87.891 Personal history of nicotine dependence
CPT/HCPCS: 93312; 93320; 93325; 92960; 80061; 80053; 85025; J2001; J2704

== ENCOUNTER 2023-09-19 09:00 | Emergency (ER) | payer MEDICARE ==
[2023-09-19] MEDS: LIDOCAINE 4% PATCH TOPICAL STA (09:39)
[2023-09-19] MEDS: KETOROLAC 15 MG/ML 1 ML VIAL IVP STA (09:39)
[2023-09-19] MEDS: diazePAM 2 MG TAB PO STA (09:39)
--- NOTE | 2023-09-19 10:24 | ED ---
General Adult HPI - General Chief complaint: Neck Pain/Injury Stated complaint: Neck pain Time Seen by Provider: 09/19/23 09:25 Source: patient, RN notes reviewed, old records reviewed Mode of arrival: wheelchair Limitations: no limitations - History of Present Illness Initial comments: Patient is an 83-year-old male who is presenting to the emergency department complaining of musculoskeletal neck pain. Has been ongoing for 1 to 2 weeks. No obvious initiating factor for the pain. States it is worse with turning his head to the left. Primary pain is over the paraspinal muscles of the left neck with radiation along the neck muscles towards the shoulder. No pain with movement of the arms. No shooting pain down the arms. No obvious injuries. Patient does have a past medical history significant for A-fib, CAD, diabetes, COPD. Also history of hypertension. No other acute complaints at this time. Presents for further evaluation at this time. - Related Data Home Medications Medication Instructions Recorded Confirmed Insulin Glargine,Hum.rec.anlog 12 unit SQ QAM 06/24/20 07/27/23 [Lantus Solostar Pen] Atorvastatin [Lipitor] 40 mg PO HS 06/02/22 07/27/23 Budesonide 0.5 mg INHALATION BID 01/21/23 07/27/23 Ipratropium-Albuterol Nebulize 3 ml INHALATION QID 01/21/23 07/27/23 [Duoneb 0.5 mg-3 mg/3 ml Soln] Mv-Min/Folic/K1/Lycopen/Lutein 1 tab PO QAM 01/21/23 07/27/23 [Centrum Silver Men Tablet] Furosemide [Lasix] 20 mg PO DAILY 04/24/23 07/27/23 Isosorbide Mononitrate ER [Imdur] 30 mg PO QAM 04/24/23 07/27/23 Apixaban [Eliquis] 5 mg PO BID 05/23/23 07/27/23 Fluticasone/Vilanterol [Breo 1 puff INHALATION DAILY PRN 05/28/23 07/27/23 Ellipta 100-25 Mcg Inhaler] Loratadine [Claritin] 10 mg PO DAILY PRN 06/13/23 07/27/23 Previous Rx's Medication Instructions Recorded Acetaminophen Tab [Tylenol] 650 mg PO Q4HR PRN tab 06/21/23 Cyclobenzaprine [Flexeril] 5 mg PO BID PRN 7 Days #14 tablet 09/19/23 Lidocaine 5% Patch [Lidoderm 5% 1 patch TOPICAL DAILY 14 Days #14 09/19/23 Patch] patch Allergies Allergy/AdvReac Type Severity Reaction Status Date / Time No Known Allergies Allergy Verified 09/19/23 09:09 Review of Systems ROS Statement: Those systems with pertinent positive or pertinent negative responses have been documented in the HPI. Review of Systems: CONST: Denies fever EYES: Denies blurry vision ENT: Denies nasal congestion C/V: Denies Chest pain RESP: Denies shortness of breath GI: Denies abdominal pain : Denies dysuria SKIN: Denies rash. MSK: Endorses neck pain NEURO: Denies headache ROS Other: All systems not noted in ROS Statement are negative. Past Medical History Past Medical History: Atrial Fibrillation, Coronary Artery Disease (CAD), Cancer, COPD, Diabetes Mellitus, GERD/Reflux, GI Bleed, Hyperlipidemia, Hypertension, Myocardial Infarction (CO), Osteoarthritis (OA), Sleep Apnea/CPAP/BIPAP, Vascular Disorder Additional Past Medical History / Comment(s): Aortic aneurysm being followed by Dr. Bynum, hx skin cancer, GI bleed and COVID 06/2020, diverticulitis. uses CPAP. sinus issues sees Dr López. allergies. 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 HEAD: Normal with no signs of head trauma. EYES: PERRLA, EOMI, conjunctiva normal, no discharge. Pulls 3 mm and equal bilaterally. ENT: Hearing grossly intact, normal oropharynx. RESPIRATORY: Clear breath sounds bilaterally. No wheezes, rales, or rhonchi. C/V: Regular rate and rhythm. S1 and S2 auscultated, no edema, peripheral pulses 2+ and intact throughout ABD: Abd is soft, nontender, nondistended EXT: Decreased range of motion of the neck secondary to pain. Paraspinal muscle tenderness to palpation of the cervical spine. Primarily the left trapezius muscle is tender to palpation. No obvious injuries. No midline cervical, thoracic spine tenderness to palpation. No shoulder tenderness to palpation. Normal range of motion of the arms. Only reduced range of motion is looking towards the left which exacerbates the neck muscle pain. SKIN: No rashes or lesions observed on exposed skin. NEURO: Alert and oriented x 4. No focal deficits. Limitations: no limitations Course Vital Signs 09/19/23 09/19/23 09/19/23 09:07 09:09 12:19 Temperature 98.3 F Pulse Rate 52 L 86 78 Respiratory 16 20 20 Rate Blood Pressure 144/70 150/68 150/89 O2 Sat by Pulse 93 L 98 98 Oximetry Medical Decision Making - Medical Decision Making Was pt. sent in by a medical professional or institution (, PA, ASSISTANT MERCHANDISER, urgent care, hospital, or assisted...) When possible be specific @ -No Did you speak to anyone other than the patient for history (EMS, parent, family, police, friend...)? What history was obtained from this source @ -No Did you review nursing and triage notes (agree or disagree)? Why? @ -I reviewed and agree with nursing and triage notes Were old charts reviewed (outside hosp., previous admission, EMS record, old EKG, old radiological studies, urgent care reports/EKG's, assisted records)? Report findings @ -No old charts were reviewed Differential Diagnosis (chest pain, altered mental status, abdominal pain women, abdominal pain men, vaginal bleeding, weakness, fever, dyspnea, syncope, headache, dizziness, GI bleed, back pain, seizure, CVA, palpatations, mental health, musculoskeletal)? @ -Differential Musculoskeletal Muscular strain, contusion, ligament sprain, fracture, arthritis, septic arthritis, bursitis, cellulitis, muscle spasm, nerve compression, DVT, arterial occlusion, herpes zoster, electrolyte abnormality, tumor.... This is not meant to be in all inclusive list EKG interpreted by me (3pts min.). @ -None done X-rays interpreted by me (1pt min.). @ -None done CT interpreted by me (1pt min.). @ -CT imaging revealed no obvious acute traumatic injury or process. U/S interpreted by me (1pt. min.). @ -None done What testing was considered but not performed or refused? (CT, X-rays, U/S, labs)? Why? @ -None What meds were considered but not given or refused? Why? @ -None Did you discuss the management of the patient with other professionals (izaiah krishna i.eTye Mcgee, PA, ASSISTANT MERCHANDISER, lab, RT, psych nurse, geriatric social worker, protective signal repairer, teacher, mortgage loan officer, cyanide case hardener)? Give summary @ -No Was smoking cessation discussed for >3mins.? @ -No Was critical care preformed (if so, how long)? @ -No Were there social determinants of health that impacted care today? How? (Homelessness, low income, unemployed, alcoholism, drug addiction, transportation, low edu. Level, literacy, decrease access to med. care, snf, rehab)? @ -No Was there de-escalation of care discussed even if they declined (Discuss DNR or withdrawal of care, Hospice)? DNR status @ -No What co-morbidities impacted this encounter? (DM, HTN, Smoking, COPD, CAD, Cancer, CVA, ARF, Chemo, Hep., AIDS, mental health diagnosis, sleep apnea, morbid obesity)? @ -None Was patient admitted / discharged? Hospital course, mention meds given and route, prescriptions, significant lab abnormalities, going to OR and other pertinent info. @ -Patient presents with what appears to be musculoskeletal neck pain. Patient will be symptomatically treated with a dose of oral Valium, IV Toradol, lidocaine patch. IV will be started for medications. Will obtain CT of the cervical spine at this time as well. Vital signs within acceptable limits. No neurological deficits. Patient was in agreement this plan. Likely muscle spasm/strain. Does not appear to be full torticollis at this time. CT imaging negative for any obvious traumatic injury or process. On reevaluation, patient is feeling improved at this time. I discussed results with the patient. He is able to move his neck now from [id number]. Not as much stiffness. I believe it is safer to be discharged home at this time with diagnosis of neck strain. Recommended follow-up with PCP. He was in agreement this plan. I will provide the patient with a prescription for Flexeril, lidocaine patch. I instructed the patient to follow up with their PCP in the next 1-3 days.. I explained that the patient should return to the emergency department if they experience any worsening symptoms. Strict return precautions were discussed with the patient. The patient expressed understanding of these instructions. I answered all questions that the patient had. The patient was discharged home in good condition with their prescriptions and follow up information. Undiagnosed new problem with uncertain prognosis? @ -No Drug Therapy requiring intensive monitoring for toxicity (Heparin, Nitro, Insulin, Cardizem)? @ -No Were any procedures done? @ -No Diagnosis/symptom? @ -Neck muscle strain Acute, or Chronic, or Acute on Chronic? @ -Acute Uncomplicated (without systemic symptoms) or Complicated (systemic symptoms)? @ -Uncomplicated Side effects of treatment? @ -None Exacerbation, Progression, or Severe Exacerbation] @ -No Poses a threat to life or bodily function? @ -No Disposition Clinical Impression: Neck muscle strain Disposition: HOME SELF-CARE Condition: Good Instructions (If sedation given, give patient instructions): Cervical Strain (ED) Prescriptions: Cyclobenzaprine [Flexeril] 5 mg PO BID PRN 7 Days #14 tablet PRN Reason: Pain Lidocaine 5% Patch [Lidoderm 5% Patch] 1 patch TOPICAL DAILY 14 Days #14 patch Is patient prescribed a controlled substance at d/c from ED?: No Referrals: Kristel Cuadra MD [Primary Care Provider] - 1-2 days Time of Disposition: 11:40
[2023-09-19 10:51] VITALS: RESP 20; TEMP 98.3
--- NOTE | 2023-09-19 11:19 | CT ---
EXAMINATION TYPE: CT cervical spine wo con DATE OF EXAM: 09/19/2023 COMPARISON: None HISTORY: Neck pain CT DLP: 719.[address] of the cervical spine was performed with bone and soft tissue window settings submitted . Coronal and sagittal reconstruction is obtained. There is normal alignment and prevertebral soft tissues. I do not see evidence for fracture or subluxation. C2-3: Within normal limits C3-4 and C4-5: Mild degenerative narrowing and posterior disc bulge. No herniation or protrusion. Mil d ventral and dorsal spondylosis. Facet joint arthropathy with degenerative change of the left neural foramen. C5-6: Mild degenerative disc space narrowing and mild posterior disc bulge. Foramina are patent bilat erally. No central stenosis or disc herniation. C6-7: Within normal limits C7-T1: Vacuum changes noted. No herniation or central stenosis. Foramina are patent. IMPRESSION: No evidence for fracture or subluxation of the cervical spine. Degenerative changes as n oted.
[2023-09-19] MEDS: methylPREDNISolone SOD SUCCI 125 MG/2 ML VIAL IV STA (12:09)
[2023-09-19 12:45] VITALS: BP 150/89; PULSE 78
== END 2023-09-19 12:19 | disposition home or self-care (01) ==
LOC: EC 09:00
DX: S16.1XXA Strain of muscle, fascia and tendon at neck level, initial encounter (principal); Z86.16 Personal history of COVID-19; Z87.891 Personal history of nicotine dependence; X58.XXXA Exposure to other specified factors, initial encounter
CPT/HCPCS: 99283; 72125; 96374; J1885; J2919

== ENCOUNTER 2023-09-22 22:10 | Emergency (ER) | payer MEDICARE ==
--- NOTE | 2023-09-22 23:09 | ED ---
General Adult HPI - General Chief complaint: Recheck/Abnormal Lab/Rx Stated complaint: elevated BP Time Seen by Provider: 09/22/23 22:40 Source: patient, family Mode of arrival: ambulatory - History of Present Illness Initial comments: Dictation was produced using [employer] dictation software. please excuse any grammatical, word or spelling errors. Chief Complaint: 83-year-old male presents with hypertension History of Present Illness: Patient is 83-year-old male he has multiple comorbidities. He presents to the emergency department for hypertension. States that he checks his blood pressure usually every day. His normal blood pressure is 160/90. Patient has no other complaints. Patient's told patient's son to bring him to the emergency room. Patient recently was given a shot of steroids for neck injury 3 days ago. The ROS documented in this emergency department record has been reviewed and confirmed by me. Those systems with pertinent positive or negative responses have been documented in the HPI. All other systems are other negative and/or noncontributory. - Related Data Home Medications Medication Instructions Recorded Confirmed Insulin Glargine,Hum.rec.anlog 12 unit SQ QAM 06/24/20 07/27/23 [Lantus Solostar Pen] Atorvastatin [Lipitor] 40 mg PO HS 06/02/22 07/27/23 Budesonide 0.5 mg INHALATION BID 01/21/23 07/27/23 Ipratropium-Albuterol Nebulize 3 ml INHALATION QID 01/21/23 07/27/23 [Duoneb 0.5 mg-3 mg/3 ml Soln] Mv-Min/Folic/K1/Lycopen/Lutein 1 tab PO QAM 01/21/23 07/27/23 [Centrum Silver Men Tablet] Furosemide [Lasix] 20 mg PO DAILY 04/24/23 07/27/23 Isosorbide Mononitrate ER [Imdur] 30 mg PO QAM 04/24/23 07/27/23 Apixaban [Eliquis] 5 mg PO BID 05/23/23 07/27/23 Fluticasone/Vilanterol [Breo 1 puff INHALATION DAILY PRN 05/28/23 07/27/23 Ellipta 100-25 Mcg Inhaler] Loratadine [Claritin] 10 mg PO DAILY PRN 06/13/23 07/27/23 Previous Rx's Medication Instructions Recorded Acetaminophen Tab [Tylenol] 650 mg PO Q4HR PRN tab 06/21/23 Cyclobenzaprine [Flexeril] 5 mg PO BID PRN 7 Days #14 tablet 09/19/23 Lidocaine 5% Patch [Lidoderm 5% 1 patch TOPICAL DAILY 14 Days #14 09/19/23 Patch] patch Allergies Allergy/AdvReac Type Severity Reaction Status Date / Time No Known Allergies Allergy Verified 09/22/23 22:37 Review of Systems ROS Statement: Those systems with pertinent positive or pertinent negative responses have been documented in the HPI. ROS Other: All systems not noted in ROS Statement are negative. Past Medical History Past Medical History: Atrial Fibrillation, Coronary Artery Disease (CAD), Cancer, COPD, Diabetes Mellitus, GERD/Reflux, GI Bleed, Hyperlipidemia, Hypertension, Myocardial Infarction (CA), Osteoarthritis (OA), Sleep Apnea/CPAP/BIPAP, Vascular Disorder Additional Past Medical History / Comment(s): Aortic aneurysm being followed by Dr. Bynum, hx skin cancer, GI bleed and COVID 06/2020, diverticulitis. uses CPAP. sinus issues sees Dr López. allergies. 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, TAVR Past Anesthesia/Blood Transfusion Reactions: No Reported Reaction Past Psychological History: No Psychological Hx Reported Smoking Status: Former smoker Past Alcohol Use History: None Reported Past Drug Use History: None Reported - Past Family History Father Family Medical History: Cancer Mother Family Medical History: Cancer General Exam - General Exam Comments Initial Comments: PHYSICAL EXAM: General Impression: Alert and oriented x3, not in acute distress HEENT: Normocephalic atraumatic, extra-ocular movements intact, pupils equal and reactive to light bilaterally, mucous membranes moist. Cardiovascular: Heart regular rate and rhythm Chest: Able to complete full sentences, no retractions, no tachypnea Abdomen: abdomen soft, non-tender, non-distended, no organomegaly Musculoskeletal: Pulses present and equal in all extremities, no peripheral edema Motor: no focal deficits noted Neurological: CN II-XII grossly intact, no focal motor or sensory deficits noted Skin: Intact with no visualized rashes Psych: Normal affect and mood Course Vital Signs 09/22/23 09/22/23 09/22/23 22:31 23:05 23:30 Temperature 98.8 F Pulse Rate 57 L 52 L Pulse Rate [ 56 L Balance Wheel Screw Hole Driller ] Respiratory 18 16 Rate Blood Pressure 202/104 179/87 O2 Sat by Pulse 98 96 Oximetry 09/22/23 23:40 Temperature Pulse Rate 58 L Pulse Rate [ Balance Wheel Screw Hole Driller ] Respiratory 22 Rate Blood Pressure 176/103 O2 Sat by Pulse 95 Oximetry EKG Findings - EKG Comments: EKG Findings:: My EKG interpretation: Ventricular rate 59, A-fib, QRS 139, QTc 484. No MO prolongation, no QTC prolongation, no ST or T-wave changes noted. EKG compared to July 27, 2023 showing no changes. Overall, this EKG is unremarkable Medical Decision Making - Medical Decision Making Was pt. sent in by a medical professional or institution (, PA, OUTSIDE SALES, urgent care, hospital, or group home...) When possible be specific @ -No Did you speak to anyone other than the patient for history (EMS, parent, family, police, friend...)? What history was obtained from this source @ -No Did you review nursing and triage notes (agree or disagree)? Why? @ -I reviewed and agree with nursing and triage notes Were old charts reviewed (outside hosp., previous admission, EMS record, old EKG, old radiological studies, urgent care reports/EKG's, group home records)? Report findings @ -No old charts were reviewed Differential Diagnosis (chest pain, altered mental status, abdominal pain women, abdominal pain men, vaginal bleeding, musculoskeletal, weakness, fever, dyspnea, syncope, headache, dizziness, GI bleed, back pain, seizure, CVA, palpatations, mental health)? @ -Not applicable EKG interpreted by me (3pts min.). @ -See above X-rays interpreted by me (1pt min.). @ -None done CT interpreted by me (1pt min.). @ -None done U/S interpreted by me (1pt. min.). @ -None done What testing was considered but not performed or refused? (CT, X-rays, U/S, labs)? Why? @ -None What meds were considered but not given or refused? Why? @ -None Did you discuss the management of the patient with other professionals (professionals i.e. , PA, OUTSIDE SALES, lab, RT, psych nurse, social media developer, medical imaging technician, teacher, public health service officer, showcase trimmer)? Give summary @ -No Was smoking cessation discussed for >3mins.? @ -No Was critical care preformed (if so, how long)? @ -No Were there social determinants of health that impacted care today? How? (Homelessness, low income, unemployed, alcoholism, drug addiction, transportation, low edu. Level, literacy, decrease access to med. care, long-term, rehab)? @ -No Was there de-escalation of care discussed even if they declined (Discuss DNR or withdrawal of care, Hospice)? DNR status @ -No What co-morbidities impacted this encounter? (DM, HTN, Smoking, COPD, CAD, Canc er, CVA, ARF, Chemo, Hep., AIDS, mental health diagnosis, sleep apnea, morbid obesity)? @ -None Was patient admitted / discharged? Hospital course, mention meds given and route, prescriptions, significant lab abnormalities, going to OR and other pertinent info. @ -83-year-old male presents emergency department for asymptomatic hypertension. Blood pressure is 202/104 on arrival. Repeat blood pressures 176/103. Patient has no features of hypertensive emergency. Denies any headache. No chest pain or shortness of breath or strokelike symptoms. Patient states he feels at baseline. Laboratory evaluation unremarkable. Patient observed in the emergency department for approximately 2 hours. Reevaluated bedside at 12 1 AM found to be in stable condition. Patient discharged advised follow-up with primary care doctor on Sunday. Undiagnosed new problem with uncertain prognosis? @ -No Drug Therapy requiring intensive monitoring for toxicity (Heparin, Nitro, Insulin, Cardizem)? @ -No Were any procedures done? @ -No Diagnosis/symptom? Acute, or Chronic, or Acute on Chronic? Uncomplicated (without systemic symptoms) or Complicated (systemic symptoms)? @ -Asymptomatic hypertension Side effects of treatment? @ -No Exacerbation, Progression, or Severe Exacerbation? @ -No Poses a threat to life or bodily function? How? (Chest pain, [place], CA, pneumonia, PE, COPD, DKA, ARF, appy, cholecystitis, CVA, Diverticulitis, Homicidal, Suicidal, threat to staff... and all critical care pts) @ -No - Lab Data Result diagrams: 09/22/23 23:00 09/22/23 23:00 Lab Results 09/22/23 09/22/23 Range/Units 23:00 23:00 WBC 7.5 (3.8-10.6) k/uL RBC 5.33 (4.30-5.90) m/uL Hgb 13.1 (13.0-17.5) gm/dL Hct 42.9 (39.0-53.0) % MCV 80.5 (80.0-100.0) fL MCH 24.6 L (25.0-35.0) pg MCHC 30.6 L (31.0-37.0) g/dL RDW 19.1 H (11.5-15.5) % Plt Count 172 (150-450) k/uL MPV 9.2 Neutrophils % 63 % Lymphocytes % 24 % Monocytes % 9 % Eosinophils % 1 % Basophils % 0 % Neutrophils # 4.7 (1.3-7.7) k/uL Lymphocytes # 1.8 (1.0-4.8) k/uL Monocytes # 0.7 (0-1.0) k/uL Eosinophils # 0.1 (0-0.7) k/uL Basophils # 0.0 (0-0.2) k/uL Hypochromasia Slight Anisocytosis Slight Microcytosis Slight Sodium 141 (137-145) mmol/L Potassium 3.6 (3.5-5.1) mmol/L Chloride 104 (98-107) mmol/L Carbon Dioxide 31 H (22-30) mmol/L Anion Gap 6 mmol/L BUN 20 (9-20) mg/dL Creatinine 0.90 (0.66-1.25) mg/dL Est GFR (CKD-EPI)AfAm >90 (>60 ml/min/1.73 sqM) Est GFR (CKD-EPI)NonAf 78 (>60 ml/min/1.73 sqM) Glucose 125 H (74-99) mg/dL Calcium 8.9 (8.4-10.2) mg/dL Disposition Clinical Impression: Hypertension Disposition: HOME SELF-CARE Condition: Good Instructions (If sedation given, give patient instructions): Hypertension (ED) Is patient prescribed a controlled substance at d/c from ED?: No Referrals: Kristel Cuadra MD [Primary Care Provider] - 1-2 days Time of Disposition: 00:03
[2023-09-22 23:25] LABS: African American GFR (CKD) >90 (>60 ml/min/1.73 sqM); Anion Gap 6 mmol/L; Anisocytosis Slight; Basophils % (A) 0 %; Blood Urea Nitrogen 20 mg/dL (9-20); Calcium 8.9 mg/dL (8.4-10.2); Carbon Dioxide 31 mmol/L (22-30); Chloride 104 mmol/L (98-107); Eosinophils # (A) 0.1 k/uL (0-0.7); Eosinophils % (A) 1 %; Glucose 125 mg/dL (74-99); HCT 42.9 % (39.0-53.0); HGB 13.1 gm/dL (13.0-17.5); Hypochromasia Slight; Lymphocytes # (A) 1.8 k/uL (1.0-4.8); Lymphocytes % (A) 24 %; MCH 24.6 pg (25.0-35.0); MCHC 30.6 g/dL (31.0-37.0); MCV 80.5 fL (80.0-100.0); Mean Platelet Volume 9.2; Microcytosis Slight; Monocytes # (A) 0.7 k/uL (0-1.0); Monocytes % (A) 9 %; Neutrophils # (A) 4.7 k/uL (1.3-7.7); Neutrophils % (A) 63 %; Non-African American GFR(CKD) 78 (>60 ml/min/1.73 sqM); Platelet Count 172 k/uL (150-450); Potassium 3.6 mmol/L (3.5-5.1); RBC 5.33 m/uL (4.30-5.90); RDW 19.1 % (11.5-15.5); Sodium 141 mmol/L (137-145); WBC 7.5 k/uL (3.8-10.6)
[2023-09-23 01:03] VITALS: BP 172/92; PULSE 56; RESP 20; TEMP 98.1
== END 2023-09-23 00:17 | disposition home or self-care (01) ==
LOC: EC 22:10
DX: I10 Essential (primary) hypertension (principal); I25.2 Old myocardial infarction; Z87.891 Personal history of nicotine dependence
CPT/HCPCS: 36415; 80048; 85025; 93005; 99283

== ENCOUNTER 2023-10-11 06:07 | Emergency (ER) | payer MEDICARE ==
--- NOTE | 2023-10-11 06:58 | ED ---
Neck Injury/Pain HPI - General Chief Complaint: Neck Pain/Injury Stated Complaint: Neck Pain Time Seen by Provider: 10/11/23 06:34 Source: patient, family, RN notes reviewed Mode of arrival: wheelchair Limitations: no limitations - History of Present Illness Initial Comments: This is an 83-year-old male who presents to the emergency department for neck p ain. Patient reports pain in the back of his neck for the last several weeks. Patient was evaluated here for this last month and states that it is the same pain he has been having. Denies any injuries. The pain is making it difficult for him to turn his head/neck. He was given a prescription for Flexeril and lidocaine patches. States that the Flexeril made him groggy and was not particularly helpful for his pain. His primary care provider gave him a prescription for tramadol. States that this also made him groggy but was not very helpful for the pain. His son states that he cannot have steroids because it causes his blood pressure to be exceedingly high and they are not sure what he can take safely that will also give him relief. He is also on Eliquis for a- fib and cannot take NSAIDs routinely. MD Complaint: neck pain - Related Data Home Medications Medication Instructions Recorded Confirmed Insulin Glargine,Hum.rec.anlog 12 unit SQ QAM 06/24/20 07/27/23 [Lantus Solostar Pen] Atorvastatin [Lipitor] 40 mg PO HS 06/02/22 07/27/23 Budesonide 0.5 mg INHALATION BID 01/21/23 07/27/23 Ipratropium-Albuterol Nebulize 3 ml INHALATION QID 01/21/23 07/27/23 [Duoneb 0.5 mg-3 mg/3 ml Soln] Mv-Min/Folic/K1/Lycopen/Lutein 1 tab PO QAM 01/21/23 07/27/23 [Centrum Silver Men Tablet] Furosemide [Lasix] 20 mg PO DAILY 04/24/23 07/27/23 Isosorbide Mononitrate ER [Imdur] 30 mg PO QAM 04/24/23 07/27/23 Apixaban [Eliquis] 5 mg PO BID 05/23/23 07/27/23 Fluticasone/Vilanterol [Breo 1 puff INHALATION DAILY PRN 05/28/23 07/27/23 Ellipta 100-25 Mcg Inhaler] Loratadine [Claritin] 10 mg PO DAILY PRN 06/13/23 07/27/23 Previous Rx's Medication Instructions Recorded Acetaminophen Tab [Tylenol] 650 mg PO Q4HR PRN tab 06/21/23 Cyclobenzaprine [Flexeril] 5 mg PO BID PRN 7 Days #14 tablet 09/19/23 Lidocaine 5% Patch [Lidoderm 5% 1 patch TOPICAL DAILY 14 Days #14 09/19/23 Patch] patch methocarbamoL [Robaxin-750] 1,500 mg PO TID PRN #30 tab 10/11/23 Allergies Allergy/AdvReac Type Severity Reaction Status Date / Time No Known Allergies Allergy Verified 10/11/23 06:33 Review of Systems ROS Statement: Those systems with pertinent positive or pertinent negative responses have been documented in the HPI. ROS Other: All systems not noted in ROS Statement are negative. Past Medical History Past Medical History: Atrial Fibrillation, Coronary Artery Disease (CAD), Cancer, COPD, Diabetes Mellitus, GERD/Reflux, GI Bleed, Hyperlipidemia, Hypertension, Myocardial Infarction (OR), Osteoarthritis (OA), Sleep Apnea/C PAP/BIPAP, Vascular Disorder Additional Past Medical History / Comment(s): Aortic aneurysm being followed by Dr. Bynum, hx skin cancer, GI bleed and COVID 06/2020, diverticulitis. uses CPAP. sinus issues sees Dr López. allergies. 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, TAVR Past Anesthesia/Blood Transfusion Reactions: No Reported Reaction Past Psychological History: No Psychological Hx Reported Smoking Status: Former smoker Past Alcohol Use History: None Reported Past Drug Use History: None Reported - Past Family History Father Family Medical History: Cancer Mother Family Medical History: Cancer General Exam Limitations: no limitations General appearance: alert, in no apparent distress Head exam: Present: atraumatic, normocephalic, normal inspection Neck exam: Present: other (Tenderness to palpation over the posterior cervical spine and surrounding muscles. Range of motion limited by pain.) Respiratory exam: Present: normal lung sounds bilaterally. Absent: respiratory distress, wheezes, rales, rhonchi, stridor Cardiovascular Exam: Present: regular rate, normal rhythm, normal heart sounds. Absent: systolic murmur, diastolic murmur, rubs, gallop, clicks Neurological exam: Present: alert, oriented X3, CN II-XII intact Psychiatric exam: Present: normal affect, normal mood Skin exam: Present: warm, dry, intact, normal color. Absent: rash Course Vital Signs 10/11/23 10/11/23 10/11/23 06:29 07:54 09:28 Temperature 98.8 F 98.1 F Pulse Rate 53 L 54 L 53 L Respiratory 17 20 20 Rate Blood Pressure 156/76 141/70 144/76 O2 Sat by Pulse 97 97 99 Oximetry Medical Decision Making - Medical Decision Making This is an 83 year old male who presents to the emergency department for neck pain. Was pt. sent in by a medical professional or institution? @ -No Did you speak to anyone other than the patient for history? @ -No Did you review nursing and triage notes? @ -Yes, and I agree, it is accurate with regards to the patient's symptoms. Were old charts reviewed? @ -CT scan of the cervical spine from 09/19/23 demonstrating degenerative change s without acute process. Differential Diagnosis? @ -Differential Neck Pain: Fracture, dislocation, contusion, strain, DDD, disc herniation, this is not meant to be an all-inclusive list. EKG interpreted by me (3pts min.)? @ -Not obtained X-rays interpreted by me (1pt min.)? @ -Not obtained CT interpreted by me (1pt min.)? @ -Not obtained U/S interpreted by me (1pt. min.)? @ -Not obtained What testing was considered but not performed? (CT, X-rays, U/S, labs)? Why? @ -None What meds were considered but not given? Why? @ -None Did you discuss the management of the patient with other professionals? @ -No Did you reconcile home meds? @ -No Was smoking cessation discussed for >3mins.? @ -No Was critical care preformed (if so, how long)? @ -No Were there social determinants of health that impacted care today? How? (Homelessness, low income, unemployed, alcoholism, drug addiction, transportatio n, low edu. Level, literacy, decrease access to med. care, usp, rehab)? @ -No Was there de-escalation of care discussed even if they declined? (Discuss DNR or withdrawal of care, Hospice)? @ -No What co-morbidities impacted this encounter? (DM, HTN, Smoking, COPD, CAD, Cancer, CVA, Hep., AIDS, mental health diagnosis, sleep apnea, morbid obesity)? @ -A-fib, CAD, Osteoarthritis Was patient admitted / discharged? @ -Discharged. Patient's pain is all reproducible on exam. He had a CT scan of the cervical spine on 09/19/2023 demonstrating degenerative changes without other acute process. Given the persistence of his symptoms without any injuries or worsening of pain, no additional imaging was obtained. We were able to get his pain to a tolerable level in the emergency department. His symptoms are likely musculoskeletal in nature. Given that the Flexeril was not effective, advised that we can try a different muscle relaxant. He was given a prescription for Robaxin to use instead. Advised continuing with Tylenol and lidocaine patches as needed. Information for orthopedic follow-up was provided regarding the ongoing neck pain to discuss additional treatment options. Undiagnosed new problem with uncertain prognosis? @ -None Drug Therapy requiring intensive monitoring for toxicity (Heparin, Nitro, Insulin, Cardizem)? @ -None Were any procedures done? @ -None Diagnosis/symptom? @ -Neck pain Acute, or Chronic, or Acute on Chronic? @ -Acute Uncomplicated (without systemic symptoms) or Complicated (systemic symptoms)? @ -Uncomplicated Side effects of treatment? @ -None Exacerbation, Progression, or Severe Exacerbation] @ -Not applicable Poses a threat to life or bodily function? @ -No Return precautions reviewed in depth, the patient is instructed to return to the emergency department with any new, worsening, or concerning symptoms. Patient verbalized understanding. This case was discussed in detail with the attending ED physician, Dr. New. Presentation, findings, and treatment plan discussed in detail as well. Disposition Clinical Impression: Cervical strain Disposition: HOME SELF-CARE Instructions (If sedation given, give patient instructions): Cervical Strain (ED), Insomnia (ED) Additional Instructions: Return to the emergency department with any new, worsening, or concerning symptoms. Try taking the Robaxin as 1 to 2 tablets up to 3-4 times daily. This may make you drowsy. Take Tylenol daily and continue to use lidocaine cream or patches as needed. You can also look into [id number] Arnica gel. Contact the orthopedic office listed below. Let them know that he was seen in the emergency department for neck pain related to degenerative disc disease. They will schedule him for a follow up appointment. Prescriptions: methocarbamoL [Robaxin-750] 1,500 mg PO TID PRN #30 tab PRN Reason: Pain Is patient prescribed a controlled substance at d/c from ED?: No Referrals: Kristel Cuadra MD [Primary Care Provider] - 1-2 days Neo Cross DO [Doctor of Osteopathic Medicine] - 1-2 days Time of Disposition: 08:36
[2023-10-11] MEDS: KETOROLAC 15 MG/ML 1 ML VIAL IVP STA (07:41)
[2023-10-11] MEDS: ORPHENADRINE 30 MG/ML 2 ML VIAL IVP STA (07:46)
[2023-10-11] MEDS: LIDOCAINE 4% PATCH TOPICAL ONE (07:50)
[2023-10-11 07:58] VITALS: RESP 20; TEMP 98.1
[2023-10-11] MEDS: MORPHINE SULFATE 2 MG/ML SYRINGE IVP STA (08:06)
[2023-10-11] MEDS: ACET/COD 300 MG/30 MG STARTER PACK 6 TAB BTL PO STA (09:25)
[2023-10-11 09:30] VITALS: BP 144/76; PULSE 53
== END 2023-10-11 09:37 | disposition home or self-care (01) ==
LOC: EC 06:07
DX: S16.1XXA Strain of muscle, fascia and tendon at neck level, initial encounter (principal); Z87.891 Personal history of nicotine dependence; X58.XXXA Exposure to other specified factors, initial encounter
CPT/HCPCS: 99283; 96374; 96375; J2360; J1885

== ENCOUNTER 2023-12-18 12:01 | Emergency (ER) | payer MEDICARE ==
[2023-12-18] MEDS ORDERED: KETOROLAC 15 MG/ML 1 ML VIAL ONE (13:11)
[2023-12-18] MEDS ORDERED: CYCLOBENZAPRINE 10 MG TAB ONE (13:22)
== END 2023-12-18 13:50 | disposition home or self-care (01) ==
LOC: EC 12:01
CPT/HCPCS: 96372; 99283

== ENCOUNTER → 2024-02-28 | Outpatient (CLI) | payer MEDICARE ==
--- NOTE | 2024-02-28 10:55 | XR ---
EXAMINATION TYPE: XR Hip Complete 2 views RT, XR lumbosacral spine 5 views DATE OF EXAM: 02/28/2024 Comparison: CT 05/17/2023 Clinical History: 83-year-old male [id number] SCIATICA RT SIDE, right hip pain for 3 to 4 days. 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 The ossification is nearly bridging. Underlying right hip total arthroplasty. Both acetabular cup a nd femoral stem components of the prosthesis are well seated without periprosthetic fracture. Alignme nt grossly anatomic. Lumbar spine: Extensive metastatic calcifications throughout the abdominal aorta. There is tortuosity and ectasia. Fusiform aneurysm measuring up to 3.9 cm. There is dextroconvex curvature of lumbar spine. 5 lumbar type vertebral bodies. Hypertrophic facet a rthropathy mid to lower lumbar spine. Degenerative grade 1 anterolisthesis L4-L5. Scattered [id number]-ch-hbqgyaot degenerative disc disease thro ughout. Vertebral body heights are preserved. Impression: Right hip: 1. Intact right hip total arthroplasty. No evidence of loosening or periprosthetic fracture. 2. 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 The o ssification is nearly bridging. Lumbar spine: 3. Mild to moderate degenerative disc disease throughout. 4. Hypertrophic facet arthropathy mid to lower lumbar spine with degenerative grade 1 anterolisthesis L4-L5. 5. No vertebral compression collapse. 6. Incidental fusiform infrarenal AAA at 3.9 cm. Unable to exclude increasing size as we measure 3.2 cm on the 05/17/2023 CT. [facility], , 02/28/2024 10:53 AM
== END | disposition home or self-care (01) ==
LOC: RADXRYALE 09:55
PROVIDERS: ATTEND Internal Medicine
CPT/HCPCS: 72110; 73502

== ENCOUNTER 2024-05-28 12:28 | Emergency (ER) | payer MEDICARE ==
--- NOTE | 2024-05-28 13:18 | ED ---
Lower Extremity Injury HPI - General Chief Complaint: Extremity Injury, Lower Stated Complaint: Weakness Time Seen by Provider: 05/28/24 13:16 Source: patient, family, RN notes reviewed Mode of arrival: wheelchair Limitations: no limitations - History of Present Illness Initial Comments: 84-year-old male presenting to the ER with chief complaint of right hip pain x 1 day. States his right hip has been bothering him over the past couple of days however woke up this morning and is barely able to ambulate due to pain in the right hip. States the pain radiates to the lower back and is worse with movement and weightbearing. Admits tingling in his right leg. Denies trauma or injury. He does have a history of sciatica in his right leg. History of right hip replacement in 2008. Denies bowel or bladder incontinence. Denies saddle anesthesia. - Related Data Home Medications Medication Instructions Recorded Confirmed Insulin Glargine,Hum.rec.anlog 12 unit SQ QAM 06/24/20 07/27/23 [Lantus Solostar Pen] Atorvastatin [Lipitor] 40 mg PO HS 06/02/22 07/27/23 Budesonide 0.5 mg INHALATION BID 01/21/23 07/27/23 Ipratropium-Albuterol Nebulize 3 ml INHALATION QID 01/21/23 07/27/23 [Duoneb 0.5 mg-3 mg/3 ml Soln] Mv-Min/Folic/K1/Lycopen/Lutein 1 tab PO QAM 01/21/23 07/27/23 [Centrum Silver Men Tablet] Furosemide [Lasix] 20 mg PO DAILY 04/24/23 07/27/23 Isosorbide Mononitrate ER [Imdur] 30 mg PO QAM 04/24/23 07/27/23 Apixaban [Eliquis] 5 mg PO BID 05/23/23 07/27/23 Fluticasone/Vilanterol [Breo 1 puff INHALATION DAILY PRN 05/28/23 07/27/23 Ellipta 100-25 Mcg Inhaler] Loratadine [Claritin] 10 mg PO DAILY PRN 06/13/23 07/27/23 Previous Rx's Medication Instructions Recorded Acetaminophen Tab [Tylenol] 650 mg PO Q4HR PRN tab 06/21/23 Cyclobenzaprine [Flexeril] 5 mg PO BID PRN 7 Days #14 tablet 09/19/23 Lidocaine 5% Patch [Lidoderm 5% 1 patch TOPICAL DAILY 14 Days #14 09/19/23 Patch] patch methocarbamoL [Robaxin-750] 1,500 mg PO TID PRN #30 tab 10/11/23 Cyclobenzaprine [Flexeril] 10 mg PO TID PRN #15 tab 05/28/24 Lidocaine 4% Patch 1 patch TOPICAL DAILY PRN 7 Days 05/28/24 #7 patch Allergies Allergy/AdvReac Type Severity Reaction Status Date / Time No Known Allergies Allergy Verified 05/28/24 12:33 Review of Systems ROS Statement: Those systems with pertinent positive or pertinent negative responses have been documented in the HPI. ROS Other: All systems not noted in ROS Statement are negative. Past Medical History Past Medical History: Atrial Fibrillation, Coronary Artery Disease (CAD), Cancer, COPD, Diabetes Mellitus, GERD/Reflux, GI Bleed, Hyperlipidemia, Hypertension, Myocardial Infarction (CA), Osteoarthritis (OA), Sleep Apnea/CPAP/BIPAP, Vascular Disorder Additional Past Medical History / Comment(s): Aortic aneurysm being followed by Dr. Bynum, hx skin cancer, GI bleed and COVID 06/2020, diverticulitis. uses CPAP. sinus issues sees Dr López. allergies. 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, TAVR Past Anesthesia/Blood Transfusion Reactions: No Reported Reaction Past Psychological History: No Psychological Hx Reported Smoking Status: Former smoker Past Alcohol Use History: None Reported Past Drug Use History: None Reported - Past Family History Father Family Medical History: Cancer Mother Family Medical History: Cancer General Exam Limitations: no limitations General appearance: alert, in no apparent distress Head exam: Present: atraumatic, normocephalic, normal inspection Right Hip exam: Present: normal inspection, full ROM, tenderness (Reproducible t enderness in posterior aspect of hip). Absent: swelling, deformity, dislocation, erythema, external rotation, internal rotation, shortening Upper Leg exam: Present: normal inspection, full ROM. Absent: tenderness, swelling Knee exam: Present: normal inspection, full ROM. Absent: tenderness, swelling Neurovascular tendon exam: Present: no vascular compromise. Absent: pulse deficit, abnormal cap refill, sensory deficit Neurological exam: Present: alert, oriented X3 Psychiatric exam: Present: normal affect, normal mood Skin exam: Present: warm, dry, intact, normal color. Absent: rash Course Vital Signs 05/28/24 12:30 Temperature 98.2 F Pulse Rate 56 L Respiratory 20 Rate Blood Pressure 157/79 O2 Sat by Pulse 98 Oximetry Medical Decision Making - Medical Decision Making Was pt. sent in by a medical professional or institution (, PA, LINT CLEANER, urgent care, hospital, or [place] health care facility...) When possible be specific @ -No Did you speak to anyone other than the patient for history (EMS, parent, family, police, friend...)? What history was obtained from this source @ -No Did you review nursing and triage notes (agree or disagree)? Why? @ -I reviewed and agree with nursing and triage notes Were old charts reviewed (outside hosp., previous admission, EMS record, old EKG, old radiological studies, urgent care reports/EKG's, [place] health care facility records)? Report findings @ -No old charts were reviewed Differential Diagnosis (chest pain, altered mental status, abdominal pain women, abdominal pain men, vaginal bleeding, weakness, fever, dyspnea, syncope, headache, dizziness, GI bleed, back pain, seizure, CVA, palpatations, mental health, musculoskeletal)? @ -Differential Musculoskeletal Muscular strain, contusion, ligament sprain, fracture, arthritis, septic arthritis, bursitis, cellulitis, muscle spasm, nerve compression, DVT, arterial occlusion, herpes zoster, electrolyte abnormality, tumor.... This is not meant to be in all inclusive list EKG interpreted by me (3pts min.). @ -None X-rays interpreted by me (1pt min.). @ -X-ray right hip reveals right hip arthroplasty with no acute process CT interpreted by me (1pt min.). @ -None done U/S interpreted by me (1pt. min.). @ -None done What testing was considered but not performed or refused? (CT, X-rays, U/S, labs)? Why? @ -None What meds were considered but not given or refused? Why? @ -None Did you discuss the management of the patient with other professionals (professionals i.e. DrTye, PA, LINT CLEANER, lab, RT, psych nurse, perinatal social worker, data designer, teacher, unemployment insurance hearing officer, case making machine operator)? Give summary @ -No Was smoking cessation discussed for >3mins.? @ -No Was critical care preformed (if so, how long)? @ -No Were there social determinants of health that impacted care today? How? (Homelessness, low income, unemployed, alcoholism, drug addiction, transportation, low edu. Level, literacy, decrease access to med. care, [facility], rehab)? @ -No Was there de-escalation of care discussed even if they declined (Discuss DNR or withdrawal of care, Hospice)? DNR status @ -No What co-morbidities impacted this encounter? (DM, HTN, Smoking, COPD, CAD, Cancer, CVA, ARF, Chemo, Hep., AIDS, mental health diagnosis, sleep apnea, morbid obesity)? @ -None Was patient admitted / discharged? Hospital course, mention meds given and route, prescriptions, significant lab abnormalities, going to OR and other pertinent info. @ -Discharge. This is an 84-year-old male presenting for right hip pain. No acute injury or trauma. Neurovascularly intact. No red flag symptoms. Analg esics provided. X-ray right hip reveals right hip arthroplasty with no acute process. Results discussed with patient. Patient reports improvement of symptoms and feels stable for discharge. Patient provided with short course of Flexeril and lidocaine patches. Appropriate return precautions and follow-up care discussed. Case was discussed with my ED attending Dr. Bae Undiagnosed new problem with uncertain prognosis? @ -No Drug Therapy requiring intensive monitoring for toxicity (Heparin, Nitro, Insulin, Cardizem)? @ -No Were any procedures done? @ -No Diagnosis/symptom? @ -Right hip pain Acute, or Chronic, or Acute on Chronic? @ -Acute Uncomplicated (without systemic symptoms) or Complicated (systemic symptoms)? @ -Uncomplicated Side effects of treatment? @ -No Exacerbation, Progression, or Severe Exacerbation? @ -No Poses a threat to life or bodily function? How? (Chest pain, [place], CA, pneumonia, PE, COPD, DKA, ARF, appy, cholecystitis, CVA, Diverticulitis, Homicidal, Suicid al, threat to staff... and all critical care pts) @ -No Disposition Clinical Impression: Right hip pain Disposition: HOME SELF-CARE Condition: Stable Instructions (If sedation given, give patient instructions): Hip Pain (ED) Additional Instructions: Use Flexeril and lidocaine patches as needed for pain. Follow-up with PCP as discussed. Please return to the Emergency Department if symptoms worsen or any other concerns. Prescriptions: Cyclobenzaprine [Flexeril] 10 mg PO TID PRN #15 tab PRN Reason: Muscle Spasm Lidocaine 4% Patch 1 patch TOPICAL DAILY PRN 7 Days #7 patch PRN Reason: Pain Is patient prescribed a controlled substance at d/c from ED?: No Referrals: Kristel Cuadra MD [Primary Care Provider] - 1-2 days Time of Disposition: 14:15
[2024-05-28] MEDS: ORPHENADRINE 30 MG/ML 2 ML VIAL IM STA (13:28)
[2024-05-28] MEDS: LIDOCAINE 4% PATCH TOPICAL ONE (13:28)
--- NOTE | 2024-05-28 14:00 | XR ---
EXAMINATION TYPE: XR Hip Complete RT DATE OF EXAM: 05/28/2024 1:56 PM COMPARISON: 02/28/2024 CLINICAL INDICATION: Male, 84 years old with history of right hip pain, pain TECHNIQUE: XR Hip Complete RT; Frontal and lateral views FINDINGS: Post arthroplasty changes, hardware is intact, alignment is appropriate. No evidence of fra cture. No evidence of any acute osseous pathology or joint dislocation. IMPRESSION: Hip arthroplasty with hardware intact and in appropriate alignment. No acute fracture. [facility], , 05/28/2024 1:58 PM
[2024-05-28 14:59] VITALS: BP 150/70; PULSE 58; RESP 18; TEMP 98.1
== END 2024-05-28 14:58 | disposition home or self-care (01) ==
LOC: EC 12:28
DX: M25.551 Pain in right hip (principal); Z87.891 Personal history of nicotine dependence
CPT/HCPCS: 73502; 99284; 96372; J2360

== ENCOUNTER 2024-07-10 08:20 | Observation (INO) | payer MEDICARE ==
--- NOTE | 2024-07-10 08:39 | ED ---
General Adult HPI - General Chief complaint: Chest Pain Stated complaint: Chest pain Time Seen by Provider: 07/10/24 08:23 Source: patient, RN notes reviewed, old records reviewed Mode of arrival: EMS Limitations: no limitations - History of Present Illness Initial comments: 84-year-old male presenting with an episode of left-sided upper chest pain and shoulder pain. Symptom began this morning prior to arrival. Patient was given aspirin and nitroglycerin by paramedics. Pain is improved at the time my evaluation. He denies associated vomiting or diaphoresis. He does report a mild cough. History of atrial fibrillation and history of TAVR 1 year ago - Related Data Home Medications Medication Instructions Recorded Confirmed Insulin Glargine,Hum.rec.anlog 12 unit SQ DAILY 06/24/20 07/10/24 [Lantus Solostar Pen] Atorvastatin [Lipitor] 40 mg PO HS 06/02/22 07/10/24 Budesonide 0.5 mg INHALATION RT-BID 01/21/23 07/10/24 Mv-Min/Folic/K1/Lycopen/Lutein 1 tab PO DAILY 01/21/23 07/10/24 [Centrum Silver Men Tablet] Furosemide [Lasix] 20 mg PO DAILY 04/24/23 07/10/24 Isosorbide Mononitrate ER [Imdur] 30 mg PO DAILY 04/24/23 07/10/24 Apixaban [Eliquis] 5 mg PO BID 05/23/23 07/10/24 Fluticasone/Vilanterol [Breo 1 puff INHALATION RT-BID PRN 05/28/23 07/10/24 Ellipta 100-25 Mcg Inhaler] Albuterol Nebulized [Ventolin 2.5 mg INHALATION RT-TID 07/10/24 07/10/24 Nebulized] Gabapentin [Neurontin] 100 mg PO BID PRN 07/10/24 07/10/24 Metoprolol Succinate (ER) [Toprol 50 mg PO DAILY 07/10/24 07/10/24 Xl] Montelukast [Singulair] 10 mg PO DAILY 07/10/24 07/10/24 Nystatin/Triamcin 1 applic TOPICAL BID 07/10/24 07/10/24 [Nystatin-Triamcinolone Cream] SILVER sulfADIAZINE CREAM 1 applic TOPICAL BID 07/10/24 07/10/24 [Silvadene Cream] hydrALAZINE HCL [Apresoline] 50 mg PO BID 07/10/24 07/10/24 Allergies Allergy/AdvReac Type Severity Reaction Status Date / Time No Known Allergies Allergy Verified 07/10/24 10:27 Review of Systems ROS Statement: Those systems with pertinent positive or pertinent negative responses have been documented in the HPI. ROS Other: All systems not noted in ROS Statement are negative. Past Medical History Past Medical History: Atrial Fibrillation, Coronary Artery Disease (CAD), Cancer , COPD, Diabetes Mellitus, GERD/Reflux, GI Bleed, Hyperlipidemia, Hypertension, Myocardial Infarction (CA), Osteoarthritis (OA), Sleep Apnea/CPAP/BIPAP, Vascular Disorder Additional Past Medical History / Comment(s): Aortic aneurysm being followed by Dr. Bynum, hx skin cancer, GI bleed and COVID 06/2020, diverticulitis. uses CPAP. sinus issues sees Dr López. allergies. 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, TAVR, heart valvle replacement Past Anesthesia/Blood Transfusion Reactions: No Reported Reaction Past Psychological History: No Psychological Hx Reported Smoking Status: Former smoker Past Alcohol Use History: None Reported Past Drug Use History: None Reported - Past Family History Father Family Medical History: Cancer Mother Family Medical History: Cancer General Exam Limitations: no limitations General appearance: alert, in no apparent distress Head exam: Present: atraumatic, normocephalic Eye exam: Present: normal appearance, PERRL ENT exam: Present: normal exam Neck exam: Present: normal inspection. Absent: tenderness Respiratory exam: Present: normal lung sounds bilaterally. Absent: respiratory distress Cardiovascular Exam: Present: bradycardia, irregular rhythm, systolic murmur GI/Abdominal exam: Present: soft. Absent: distended, tenderness, guarding Extremities exam: Present: pedal edema Neurological exam: Present: alert, oriented X3, CN II-XII intact. Absent: motor sensory deficit Psychiatric exam: Present: normal affect, normal mood Skin exam: Present: warm, dry, intact. Absent: cyanosis, diaphoretic Course Vital Signs 07/10/24 07/10/24 07/10/24 08:31 08:34 09:04 Temperature 98.5 F Pulse Rate 53 L 51 L Pulse Rate [ Decal Decorator ] Respiratory 16 20 20 Rate Blood Pressure 132/79 132/70 O2 Sat by Pulse 98 98 Oximetry 07/10/24 07/10/24 09:07 09:34 Temperature Pulse Rate 49 L Pulse Rate [ 20 L Decal Decorator ] Respiratory 20 Rate Blood Pressure 120/66 O2 Sat by Pulse 98 Oximetry Medical Decision Making - Medical Decision Making Was pt. sent in by a medical professional or institution ([facility] Mcgee, TUBE CAR[employer]ER, urgent care, hospital, or correction...) When possible be specific @ -No Did you speak to anyone other than the patient for history (EMS, parent, family, police, friend...)? What history was obtained from this source @ -No Did you review nursing and triage notes (agree or disagree)? Why? @ -I reviewed and agree with nursing and triage notes Were old charts reviewed (outside hosp., previous admission, EMS record, old EKG, old radiological studies, urgent care reports/EKG's, correction records)? Report findings @ -No old charts were reviewed Differential Chest Pain: Stable Angina, Unstable Angina, STEMI, NSTEMI Aortic Dissection, Pneumothorax, Musculoskeletal, Esophageal Spasm GERD, Cholecystitis, Pancreatitis, Zoster, this is not meant to be an all-inclusive list. EKG interpreted by me (3pts min.). @ -Atrial fibrillation with a slow ventricular response rate of 48, QRS duration 133, QTc [address] segment elevation. X-rays interpreted by me (1pt min.). @ -[Chest x-ray negative for acute cardiopulmonary findings CT interpreted by me (1pt min.). @ -None done U/S interpreted by me (1pt. min.). @ -None done What testing was considered but not performed or refused? (CT, X-rays, U/S, labs)? Why? @ -None What meds were considered but not given or refused? Why? @ -None Did you discuss the management of the patient with other professionals (professionals i.e. JAVIER Mcgee, TUBE CARRIER, lab, RT, psych nurse, social studies department chair, sterile processing tech, teacher, sewage reticulation drafting officer, caser up)? Give summary @ -[EMH, will admit Was smoking cessation discussed for >3mins.? @ -No Was critical care preformed (if so, how long)? @ -No Were there social determinants of health that impacted care today? How? (Homelessness, low income, unemployed, alcoholism, drug addiction, transportation, low edu. Level, literacy, decrease access to med. care, senior living, rehab)? @ -No Was there de-escalation of care discussed even if they declined (Discuss DNR or withdrawal of care, Hospice)? DNR status @ -No What co-morbidities impacted this encounter? (DM, HTN, Smoking, COPD, CAD, Cancer, CVA, ARF, Chemo, Hep., AIDS, mental health diagnosis, sleep apnea, morbid obesity)? @ -CHF, A-fib, TAVR Was patient admitted / discharged? Hospital course, mention meds given and route, prescriptions, significant lab abnormalities, going to OR and other pertinent info. @ -84-year-old male with left upper chest pain present since yesterday evening. Significant past medical history. Patient is in atrial fibrillation with slow response no ST segment elevation. Chest x-ray is clear. Initial troponin is negative. Patient will be placed in observation for serial cardiac enzymes, t elemetry, cardiology consultation. Undiagnosed new problem with uncertain prognosis? @ -No Drug Therapy requiring intensive monitoring for toxicity (Heparin, Nitro, Insulin, Cardizem)? @ -No Were any procedures done? @ -No Diagnosis/symptom? @Chest pain rule out Acute, or Chronic, or Acute on Chronic? @ -Acute Uncomplicated (without systemic symptoms) or Complicated (systemic symptoms)? @ -Complicated Side effects of treatment? @ -No Exacerbation, Progression, or Severe Exacerbation? @ -No Poses a threat to life or bodily function? How? (Chest pain, USA, CA, pneumonia, PE, COPD, DKA, ARF, appy, cholecystitis, CVA, Diverticulitis, Homicidal, Suicidal, threat to staff... and all critical care pts) @ -Yes, ACS - Lab Data Result diagrams: 07/10/24 08:34 07/10/24 08:34 Lab Results 07/10/24 07/10/24 07/10/24 Range/Units 08:34 08:34 08:34 WBC 9.8 (3.8-10.6) k/uL RBC 5.03 (4.30-5.90) m/uL Hgb 14.0 (13.0-17.5) gm/dL Hct 45.4 (39.0-53.0) % MCV 90.1 (80.0-100.0) fL MCH 27.9 (25.0-35.0) pg MCHC 31.0 (31.0-37.0) g/dL RDW 15.8 H (11.5-15.5) % Plt Count 237 (150-450) k/uL MPV 8.5 Neutrophils % 73 % Lymphocytes % 16 % Monocytes % 7 % Eosinophils % 1 % Basophils % 0 % Neutrophils # 7.2 (1.3-7.7) k/uL Lymphocytes # 1.5 (1.0-4.8) k/uL Monocytes # 0.7 (0-1.0) k/uL Eosinophils # 0.1 (0-0.7) k/uL Basophils # 0.0 (0-0.2) k/uL Hypochromasia Slight PT 13.4 H (10.0-12.5) sec INR 1.3 H (<1.2) APTT 26.4 (22.0-30.0) sec Sodium 139 (137-145) mmol/L Potassium 4.5 (3.5-5.1) mmol/L Chloride 99 (98-107) mmol/L Carbon Dioxide 34 H (22-30) mmol/L Anion Gap 6 mmol/L BUN 17 (9-20) mg/dL Creatinine 0.91 (0.66-1.25) mg/dL Est GFR (CKD-EPI)AfAm 89 (>60 ml/min/1.73 sqM) Est GFR (CKD-EPI)NonAf 77 (>60 ml/min/1.73 sqM) Glucose 149 H (74-99) mg/dL Calcium 8.6 (8.4-10.2) mg/dL Magnesium 1.6 (1.6-2.3) mg/dL Total Bilirubin 1.5 H (0.2-1.3) mg/dL AST 29 (17-59) U/L ALT 27 (4-49) U/L Alkaline Phosphatase 105 (38-126) U/L Troponin I (0.000-0.034) ng/mL NT-Pro-B Natriuret Pep 885 pg/mL Total Protein 6.3 (6.3-8.2) g/dL Albumin 3.2 L (3.5-5.0) g/dL Influenza Type A (PCR) (Not Detectd) Influenza Type B (PCR) (Not Detectd) RSV (PCR) (Not Detectd) SARS-CoV-2 (PCR) (Not Detectd) 07/10/24 07/10/24 Range/Units 08:34 08:34 WBC (3.8-10.6) k/uL RBC (4.30-5.90) m/uL Hgb (13.0-17.5) gm/dL Hct (39.0-53.0) % MCV (80.0-100.0) fL MCH (25.0-35.0) pg MCHC (31.0-37.0) g/dL RDW (11.5-15.5) % Plt Count (150-450) k/uL MPV Neutrophils % % Lymphocytes % % Monocytes % % Eosinophils % % Basophils % % Neutrophils # (1.3-7.7) k/uL Lymphocytes # (1.0-4.8) k/uL Monocytes # (0-1.0) k/uL Eosinophils # (0-0.7) k/uL Basophils # (0-0.2) k/uL Hypochromasia PT (10.0-12.5) sec INR (<1.2) APTT (22.0-30.0) sec Sodium (137-145) mmol/L Potassium (3.5-5.1) mmol/L Chloride (98-107) mmol/L Carbon Dioxide (22-30) mmol/L Anion Gap mmol/L BUN (9-20) mg/dL Creatinine (0.66-1.25) mg/dL Est GFR (CKD-EPI)AfAm (>60 ml/min/1.73 sqM) Est GFR (CKD-EPI)NonAf (>60 ml/min/1.73 sqM) Glucose (74-99) mg/dL Calcium (8.4-10.2) mg/dL Magnesium (1.6-2.3) mg/dL Total Bilirubin (0.2-1.3) mg/dL AST (17-59) U/L ALT (4-49) U/L Alkaline Phosphatase (38-126) U/L Troponin I 0.016 (0.000-0.034) ng/mL NT-Pro-B Natriuret Pep pg/mL Total Protein (6.3-8.2) g/dL Albumin (3.5-5.0) g/dL Influenza Type A (PCR) Not Detected (Not Detectd) Influenza Type B (PCR) Not Detected (Not Detectd) RSV (PCR) Not Detected (Not Detectd) SARS-CoV-2 (PCR) Not Detected (Not Detectd) Disposition Clinical Impression: Chest pain, Coronary artery disease Disposition: ADMITTED IP TO THIS HOSP Condition: Stable Is patient prescribed a controlled substance at d/c from ED?: No Referrals: Kristel Cuadra MD [Primary Care Provider] - 1-2 days Time of Disposition: 10:58
[2024-07-10 08:52] LABS: Basophils % (A) 0 %; Eosinophils # (A) 0.1 k/uL (0-0.7); Eosinophils % (A) 1 %; HCT 45.4 % (39.0-53.0); Hypochromasia Slight; Lymphocytes # (A) 1.5 k/uL (1.0-4.8); Lymphocytes % (A) 16 %; MCH 27.9 pg (25.0-35.0); MCV 90.1 fL (80.0-100.0); Mean Platelet Volume 8.5; Monocytes # (A) 0.7 k/uL (0-1.0); Monocytes % (A) 7 %; Neutrophils # (A) 7.2 k/uL (1.3-7.7); Neutrophils % (A) 73 %; Platelet Count 237 k/uL (150-450); RBC 5.03 m/uL (4.30-5.90); RDW 15.8 % (11.5-15.5); WBC 9.8 k/uL (3.8-10.6)
[2024-07-10 09:04] LABS: INR 1.3 (<1.2); Partial Thromboplastin Time 26.4 sec (22.0-30.0); Prothrombin Time 13.4 sec (10.0-12.5)
[2024-07-10 09:05] LABS: ALT 27 U/L (4-49); AST 29 U/L (17-59); African American GFR (CKD) 89 (>60 ml/min/1.73 sqM); Albumin 3.2 g/dL (3.5-5.0); Alkaline Phosphatase 105 U/L (38-126); Anion Gap 6 mmol/L; Blood Urea Nitrogen 17 mg/dL (9-20); Calcium 8.6 mg/dL (8.4-10.2); Carbon Dioxide 34 mmol/L (22-30); Chloride 99 mmol/L (98-107); Glucose 149 mg/dL (74-99); Magnesium 1.6 mg/dL (1.6-2.3); Non-African American GFR(CKD) 77 (>60 ml/min/1.73 sqM); Potassium 4.5 mmol/L (3.5-5.1); Sodium 139 mmol/L (137-145); Total Bilirubin 1.5 mg/dL (0.2-1.3); Total Protein 6.3 g/dL (6.3-8.2)
[2024-07-10 09:13] LABS: NT-Pro-B-Type Natriuretic Pept 885 pg/mL
--- NOTE | 2024-07-10 09:27 | XR ---
EXAMINATION TYPE: XR chest 2V DATE OF EXAM: 07/10/2024 9:13 AM COMPARISON: Chest radiographs from 06/21/2023 CLINICAL INDICATION: Male, 84 years old with history of Chest Pain; [facility] TECHNIQUE: XR chest 2V Frontal and lateral views of the chest. FINDINGS: Lungs/Pleura: There is flattening of the diaphragm with increased lucency of the lungs. No evidence o f pneumothorax, pleural effusion or focal consolidation. Pulmonary vascularity: Unremarkable. Heart/mediastinum: Cardiomediastinal silhouette is unremarkable. Post aortic valve repair changes. Musculoskeletal: No acute osseous pathology. IMPRESSION: 1. No acute cardiopulmonary disease process. 2. COPD changes. [facility], , 07/10/2024 9:25 AM
[2024-07-10 09:30] LABS: Influenza A Not Detected (Not Detectd); Influenza B Not Detected (Not Detectd); RSV Not Detected (Not Detectd)
[2024-07-10] MEDS ORDERED: ACETAMINOPHEN TAB 325 MG TAB PO PRN (10:54)
[2024-07-10] MEDS ORDERED: NALOXONE 0.4 MG/ML 1 ML VIAL IV PRN (10:54)
[2024-07-10 14:01] LABS: Glucose,Whole Blood 127 mg/dL (70-110)
[2024-07-10] MEDS ORDERED: SYMBICORT 160-4.5 MCG INHALER INHALATION PRN (15:49)
[2024-07-10] MEDS ORDERED: GABAPENTIN 100 MG CAP PO PRN (15:49)
--- NOTE | 2024-07-10 16:01 | P.HPIM ---
History of Present Illness H&P Date: 07/10/24 History of present illness: 84-year-old male patient with past medical history significant for coronary artery disease, history of aortic stenosis status post TAVR last year, atrial fibrillation on Eliquis, hypertension, hyperlipidemia, diabetes mellitus, and aortic aneurysm who presented to ER with a complaint of left-sided chest pain. Patient stated that he follows with cardiology, just had echocardiogram last week. Patient started to have left-sided chest pain radiating to left shoulder and neck last night it was on and off, no relieving or aggravating factors, did not change with breathing or movements, also reported dry cough. Patient denied any fever, chills, nausea vomiting or constipation abdominal pain dysuria urgency frequency weakness or numbness of extremities. Patient is afebrile, bradycardic with heart rate 46 to 50s, respiratory rate 16, blood pressure 141/69, saturating 96% on room air. WBCs 9.8, hemoglobin 14.0, platelet 237. INR 1.3. BMP unremarkable. EKG negative for acute process. Troponin negative x 2. Viral panel negative. Chest x-ray showed COPD changes, no acute process. Assessment and plan: Chest pain: History of CAD status post cardiac catheterization in May 2023 showing calcified coronary artery disease, moderate disease in proximal LAD, mild disease in left circumflex and RCA Aortic stenosis status post TAVR in June 2023: Paroxysmal atrial fibrillation on Eliquis Bradycardia Hypertension Hyperlipidemia Diabetes mellitus Aortic aneurysm Obstructive sleep apnea COPD: Plan: Monitor with serial troponin and EKGs Resume home meds Aspirin, statin, Lasix, hydralazine, Imdur. Hold metoprolol due to bradycardia Resume Eliquis Cardiology consult DVT prophylaxis Echocardiogram Monitor vital signs and labs Labs and medication were reviewed. Continue same treatment. Further recommendations as per clinical course of the patient PHYSICAL EXAMINATION: GENERAL: The patient is A&O x3, NAD HEENT: EOMI, Sclerae anicteric, Moist Mucous membranes Neck: Supple, Non tender, No JVD PULMONARY: Equal breath souds B/L, No wheezing, No crackles. CARDIOVASCULAR: S1, S2 present. No murmurs, rubs, or gallops. ABDOMEN: Soft, nontender, nondistended, normoactive bowel sounds. No guarding or rebound tenderness. MUSCULOSKELETAL: + edema, No cyanosis. No clubbing. Normal ROM. Intact periphe ral pulses. NEUROLOGICAL: CN 2-12 grossly intact. No FND REVIEW OF SYSTEMS: CONSTITUTIONAL: No fever, no malaise, no fatigue. HEENT: No recent visual problems or hearing problems. Denied any sore throat. CARDIOVASCULAR: Complains of chest pain. PULMONARY: Complains of dry cough, sore throat. GASTROINTESTINAL: No diarrhea, no nausea, no vomiting, no abdominal pain. NEUROLOGICAL: No headaches, no weakness, no numbness. HEMATOLOGICAL: Denies any bleeding or petechiae. GENITOURINARY: Denies any burning micturition, frequency, or urgency. MUSCULOSKELETAL/RHEUMATOLOGICAL: Denies any joint pain, swelling, or any muscle pain. ENDOCRINE: Denies any polyuria or polydipsia. The rest of the 14-point review of systems is negative. Dictation was produced using [employer] dictation software. please excuse any grammatical, word or spelling errors. Past Medical History Past Medical History: Atrial Fibrillation, Coronary Artery Disease (CAD), Cancer, COPD, Diabetes Mellitus, GERD/Reflux, GI Bleed, Hyperlipidemia, Hypertension, Myocardial Infarction ([place]), Osteoarthritis (OA), Sleep Apnea/CPAP/BIPAP, Vascular Disorder Additional Past Medical History / Comment(s): Aortic aneurysm being followed by Dr. Bynum, hx skin cancer, GI bleed and COVID 06/2020, diverticulitis. uses CPAP. sinus issues sees Dr López. allergies. 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 No device. Smoking Status: Former smoker Past Alcohol Use History: None Reported Additional Past Alcohol Use History / Comment(s): quit smoknig 60 yrs ago-cigar s. Past Drug Use History: None Reported - Past Family History Father Family Medical History: Cancer Mother Family Medical History: Cancer Medications and Allergies Home Medications Medication Instructions Recorded Confirmed Type Insulin Glargine,Hum.rec.anlog 12 unit SQ DAILY 06/24/20 07/10/24 History [Lantus Solostar Pen] Atorvastatin [Lipitor] 40 mg PO HS 06/02/22 07/10/24 History Budesonide 0.5 mg INHALATION RT-BID 01/21/23 07/10/24 History Mv-Min/Folic/K1/Lycopen/Lutein 1 tab PO DAILY 01/21/23 07/10/24 History [Centrum Silver Men Tablet] Furosemide [Lasix] 20 mg PO DAILY 04/24/23 07/10/24 History Isosorbide Mononitrate ER [Imdur] 30 mg PO DAILY 04/24/23 07/10/24 History Apixaban [Eliquis] 5 mg PO BID 05/23/23 07/10/24 History Fluticasone/Vilanterol [Breo 1 puff INHALATION RT-BID PRN 05/28/23 07/10/24 History Ellipta 100-25 Mcg Inhaler] Albuterol Nebulized [Ventolin 2.5 mg INHALATION RT-TID 07/10/24 07/10/24 History Nebulized] Gabapentin [Neurontin] 100 mg PO BID PRN 07/10/24 07/10/24 History Metoprolol Succinate (ER) [Toprol 50 mg PO DAILY 07/10/24 07/10/24 History Xl] Montelukast [Singulair] 10 mg PO DAILY 07/10/24 07/10/24 History Nystatin/Triamcin 1 applic TOPICAL BID 07/10/24 07/10/24 History [Nystatin-Triamcinolone Cream] SILVER sulfADIAZINE CREAM 1 applic TOPICAL BID 07/10/24 07/10/24 History [Silvadene Cream] hydrALAZINE HCL [Apresoline] 50 mg PO BID 07/10/24 07/10/24 History Allergies Allergy/AdvReac Type Severity Reaction Status Date / Time No Known Allergies Allergy Verified 07/10/24 10:27 Physical Exam Vitals: Vital Signs Temp Pulse Pulse Resp BP BP Pulse Ox 07/10/24 15:00 97.8 F 53 L 16 141/69 96 07/10/24 13:00 46 L 12 101/52 07/10/24 12:00 50 L 15 111/66 97 07/10/24 11:00 50 L 12 148/87 95 07/10/24 10:00 53 L 22 120/66 96 07/10/24 09:34 49 L 20 120/66 98 07/10/24 09:07 45 L 07/10/24 09:04 20 07/10/24 09:00 56 L 11 L 132/79 96 07/10/24 08:34 51 L 20 132/70 98 07/10/24 08:31 98.5 F 53 L 16 132/79 98 07/10/24 08:30 24 Intake and Output 07/10/24 07/10/24 07/10/24 06:59 14:59 22:59 Other: # Voids 1 Weight 124.738 kg 124.738 kg Results CBC & Chem 7: 07/10/24 08:34 07/10/24 08:34 Labs: Abnormal Lab Results - Last 24 Hours (Table) 07/10/24 07/10/24 07/10/24 Range/Units 08:34 08:34 08:34 RDW 15.8 H (11.5-15.5) % PT 13.4 H (10.0-12.5) sec INR 1.3 H (<1.2) Carbon Dioxide 34 H (22-30) mmol/L Glucose 149 H (74-99) mg/dL POC Glucose (mg/dL) (70-110) mg/dL Total Bilirubin 1.5 H (0.2-1.3) mg/dL Albumin 3.2 L (3.5-5.0) g/dL 07/10/24 Range/Units 14:00 RDW (11.5-15.5) % PT (10.0-12.5) sec INR (<1.2) Carbon Dioxide (22-30) mmol/L Glucose (74-99) mg/dL POC Glucose (mg/dL) 127 H (70-110) mg/dL Total Bilirubin (0.2-1.3) mg/dL Albumin (3.5-5.0) g/dL
[2024-07-10] MEDS: ASPIRIN 325 MG TAB PO STA (17:19)
[2024-07-10] MEDS: FUROSEMIDE 20 MG TAB PO SCH (17:19)
[2024-07-10] MEDS: guaiFENesin SYRUP 100MG/5ML 200 MG/10 ML CUP PO PRN (17:23)
[2024-07-10 17:58] LABS: Glucose,Whole Blood 171 mg/dL (70-110)
[2024-07-10] MEDS ORDERED: DEXTROSE 50% SYRINGE 50 ML IVP PRN ×2 (18:03)
[2024-07-10 20:10] LABS: Glucose,Whole Blood 124 mg/dL (70-110)
[2024-07-10] MEDS: INSULIN LISPRO (HumaLOG) 100 UNIT/ML 10 mL VL SQ SCH (20:18)
[2024-07-10] MEDS: BUDESONIDE 0.5 MG/2 ML NEBU INHALATION SCH (20:20)
[2024-07-10] MEDS: ALBUTEROL NEBULIZED 2.5 MG/3 ML INHALATION SCH (20:20)
[2024-07-10] MEDS: APIXABAN 5 MG TAB PO SCH (20:49)
[2024-07-10] MEDS: hydrALAZINE HCL 50 MG TAB PO SCH (20:49)
[2024-07-10] MEDS: ATORVASTATIN 40 MG TAB PO SCH (20:49)
[2024-07-11 06:13] LABS: Glucose,Whole Blood 111 mg/dL (70-110)
[2024-07-11 07:47] VITALS: TEMP 97.7
[2024-07-11] MEDS ORDERED: CAFFEINE CITRATE 60 MG/3 ML VIAL IV PRN (08:22)
[2024-07-11] MEDS ORDERED: REGADENOSON 0.4 MG/5 ML SYRINGE IV PRN (08:22)
[2024-07-11] MEDS ORDERED: AMINOPHYLLINE 500 MG/20 ML VIAL IV PRN (08:22)
[2024-07-11] MEDS: ISOSORBIDE MONONITRATE ER 30 MG TAB.ER.24H PO SCH (09:21)
[2024-07-11] MEDS: MONTELUKAST 10 MG TAB PO SCH (09:22)
[2024-07-11] MEDS: ASPIRIN 81 MG PO SCH (09:22)
--- NOTE | 2024-07-11 10:57 | P.CRDCN ---
History of Present Illness Consult date: 07/11/24 Consult reason: chest pain History of present illness: This is an 84-year-old male patient of Dr. Bynum with past medical history of persistent atrial fibrillation on Eliquis, previous aortic valve replacement by TAVR, hypertension, dyslipidemia, peripheral vascular disease, diabetes. We have been asked to evaluate the patient for chest pain. Patient states that he had chest pain starting last night before he went to bed. It came and went all through the night and then it was present when he woke up in the morning at the front of his chest and through to his back. He states it was a hot sensation. 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 He denies any nausea no sweats. He was concerned because it did not go away. Blood pressure 173/74, heart rate 56, pulse ox 98% on room air. Discussed recommendations for Lexiscan stress test and patient is agreeable to do this today. -EKG: Atrial fibrillation 48 bpm. -Chest x-ray: No acute findings. COPD. -Laboratory studies: Hemoglobin 14, potassium 4.5, creatinine 0.91. Troponin negative x 3. Cepheid viral panel not detected. proBNP 885. -Home cardiac medications: Eliquis 5 mg twice daily, atorvastatin 40 mg at bedtime, Lasix 20 mg daily, hydralazine 50 mg twice daily, Imdur 30 mg daily, metoprolol succinate 50 mg daily. -Cardiac catheterization performed 05/26/2023 revealed 50% mid LAD, 50% ostial D1 and 20% RCA stenosis. -Echocardiogram performed 05/27/2024 reveals normal EF, mild to moderate MR, mild to moderate TR, prosthetic AV, mild MS, estimated RVSP 60 mmHg, mild perivalvular leak. -CV surgery: TAVR 06/20/2023. Review Of Systems: At the time of my exam: CONSTITUTIONAL: Denies fever or chills. HEENT: Denies blurred vision, vision changes, or eye pain. Denies hemoptysis CARDIOVASCULAR: Denies chest pain. Denies orthopnea. Denies PND. Denies palpitations RESPIRATORY: Denies shortness of breath. GASTROINTESTINAL: Denies abdominal pain. Denies nausea or vomiting. HEMATOLOGIC: Denies bleeding disorders. GENITOURINARY: Denies any blood in urine. SKIN: Denies puritis. Denies rash. Physical examination: Gen: This is an 84-year-old male in no acute distress. VS: reviewed HEENT: Head is atraumatic, normocephalic. Pupils equal, round. Sclerae is anicteric. NECK: Supple. No JVD. LUNGS: Clear to auscultation. No wheezes or rhonchi. No intercostal retractions. HEART: Regular rate and rhythm. 2/6 systolic ejection murmur. ABDOMEN: Soft No tenderness. EXTREMITIES: No pedal edema. No calf tenderness. NEUROLOGICAL: Patient is awake, alert and oriented x3. Assessment: Atypical chest pain, acute coronary syndrome ruled out Persistent atrial fibrillation on Eliquis Previous aortic valve replacement by TAVR Hypertension Dyslipidemia Peripheral vascular disease Diabetes Plan: Resume patient's home cardiac medications Increase atorvastatin to 80 mg daily Schedule patient for Lexiscan stress test today No need to repeat echocardiogram as this was done in May If Lexiscan is unremarkable, patient is cleared for discharge and may follow-up with Dr. Bynum in 1 week. Thank you kindly for this consultation. Nurse practitioner note has been reviewed, I agree with documented findings and plan of care. Patient was seen and examined. Past Medical History Past Medical History: Atrial Fibrillation, Coronary Artery Disease (CAD), Cancer, COPD, Diabetes Mellitus, GERD/Reflux, GI Bleed, Hyperlipidemia, Hypertension, Myocardial Infarction ([place]), Osteoarthritis (OA), Sleep Apnea/CPAP/BIPAP, Vascular Disorder Additional Past Medical History / Comment(s): Aortic aneurysm being followed by Dr. Bynum, hx skin cancer, GI bleed and COVID 06/2020, diverticulitis. uses CPAP. sinus issues sees Dr López. allergies. 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 No device. Smoking Status: Former smoker Past Alcohol Use History: None Reported Additional Past Alcohol Use History / Comment(s): quit [employer] 60 yrs ago- cigars. Past Drug Use History: None Reported - Past Family History Father Family Medical History: Cancer Mother Family Medical History: Cancer Medications and Allergies Home Medications Medication Instructions Recorded Confirmed Type Insulin Glargine,Hum.rec.anlog 12 unit SQ DAILY 06/24/20 07/10/24 History [Lantus Solostar Pen] Atorvastatin [Lipitor] 40 mg PO HS 06/02/22 07/10/24 History Budesonide 0.5 mg INHALATION RT-BID 01/21/23 07/10/24 History Mv-Min/Folic/K1/Lycopen/Lutein 1 tab PO DAILY 01/21/23 07/10/24 History [Centrum Silver Men Tablet] Furosemide [Lasix] 20 mg PO DAILY 04/24/23 07/10/24 History Isosorbide Mononitrate ER [Imdur] 30 mg PO DAILY 04/24/23 07/10/24 History Apixaban [Eliquis] 5 mg PO BID 05/23/23 07/10/24 History Fluticasone/Vilanterol [Breo 1 puff INHALATION RT-BID PRN 05/28/23 07/10/24 History Ellipta 100-25 Mcg Inhaler] Albuterol Nebulized [Ventolin 2.5 mg INHALATION RT-TID 07/10/24 07/10/24 History Nebulized] Gabapentin [Neurontin] 100 mg PO BID PRN 07/10/24 07/10/24 History Metoprolol Succinate (ER) [Toprol 50 mg PO DAILY 07/10/24 07/10/24 History Xl] Montelukast [Singulair] 10 mg PO DAILY 07/10/24 07/10/24 History Nystatin/Triamcin 1 applic TOPICAL BID 07/10/24 07/10/24 History [Nystatin-Triamcinolone Cream] SILVER sulfADIAZINE CREAM 1 applic TOPICAL BID 07/10/24 07/10/24 History [Silvadene Cream] hydrALAZINE HCL [Apresoline] 50 mg PO BID 07/10/24 07/10/24 History Allergies Allergy/AdvReac Type Severity Reaction Status Date / Time No Known Allergies Allergy Verified 07/10/24 10:27 Physical Exam Vitals: Vital Signs Temp Pulse Pulse Resp BP BP BP 07/11/24 08:03 64 07/11/24 07:00 97.7 F 56 L 16 173/74 07/11/24 02:00 97.8 F 60 17 153/75 07/11/24 01:52 62 07/10/24 20:29 55 L 07/10/24 20:22 53 L 07/10/24 20:00 98.3 F 62 17 146/73 07/10/24 15:00 97.8 F 53 L 16 141/69 07/10/24 13:00 46 L 12 101/52 07/10/24 12:00 50 L 15 111/66 07/10/24 11:00 50 L 12 148/87 07/10/24 10:00 53 L 22 120/66 07/10/24 09:34 49 L 20 120/66 07/10/24 09:07 45 L 07/10/24 09:04 20 07/10/24 09:00 56 L 11 L 132/79 07/10/24 08:34 51 L 20 132/70 07/10/24 08:31 98.5 F 53 L 16 132/79 07/10/24 08:30 24 Pulse Ox 07/11/24 08:03 07/11/24 07:00 98 07/11/24 02:00 97 07/11/24 01:52 07/10/24 20:29 07/10/24 20:22 07/10/24 20:00 96 07/10/24 15:00 96 07/10/24 13:00 07/10/24 12:00 97 07/10/24 11:00 95 07/10/24 10:00 96 07/10/24 09:34 98 07/10/24 09:07 07/10/24 09:04 07/10/24 09:00 96 07/10/24 08:34 98 07/10/24 08:31 98 07/10/24 08:30 Intake and Output 07/10/24 07/11/24 07/11/24 22:59 06:59 14:59 Intake Total 240 Balance 240 Intake: Oral 240 Other: Voiding Method Toilet # Voids 2 3 Weight 124.738 kg Results 07/10/24 08:34 07/10/24 08:34 Cardiac Enzymes 03/10/2907/10/24 07/10/24 Range/Units 08:34 08:34 08:34 WBC 9.8 (3.8-10.6) k/uL RBC 5.03 (4.30-5.90) m/uL Hgb 14.0 (13.0-17.5) gm/dL Hct 45.4 (39.0-53.0) % MCV 90.1 (80.0-100.0) fL MCH 27.9 (25.0-35.0) pg MCHC 31.0 (31.0-37.0) g/dL RDW 15.8 H (11.5-15.5) % Plt Count 237 (150-450) k/uL MPV 8.5 Neutrophils % 73 % Lymphocytes % 16 % Monocytes % 7 % Eosinophils % 1 % Basophils % 0 % Neutrophils # 7.2 (1.3-7.7) k/uL Lymphocytes # 1.5 (1.0-4.8) k/uL Monocytes # 0.7 (0-1.0) k/uL Eosinophils # 0.1 (0-0.7) k/uL Basophils # 0.0 (0-0.2) k/uL Hypochromasia Slight PT 13.4 H (10.0-12.5) sec INR 1.3 H (<1.2) APTT 26.4 (22.0-30.0) sec Sodium 139 (137-145) mmol/L Potassium 4.5 (3.5-5.1) mmol/L Chloride 99 (98-107) mmol/L Carbon Dioxide 34 H (22-30) mmol/L Anion Gap 6 mmol/L BUN 17 (9-20) mg/dL Creatinine 0.91 (0.66-1.25) mg/dL Est GFR (CKD-EPI)AfAm 89 (>60 ml/min/1.73 sqM) Est GFR (CKD-EPI)NonAf 77 (>60 ml/min/1.73 sqM) Glucose 149 H (74-99) mg/dL POC Glucose (mg/dL) (70-110) mg/dL POC Glu Air Conditioning Manager ID Calcium 8.6 (8.4-10.2) mg/dL Magnesium 1.6 (1.6-2.3) mg/dL Total Bilirubin 1.5 H (0.2-1.3) mg/dL AST 29 (17-59) U/L ALT 27 (4-49) U/L Alkaline Phosphatase 105 (38-126) U/L Troponin I (0.000-0.034) ng/mL NT-Pro-B Natriuret Pep 885 pg/mL Total Protein 6.3 (6.3-8.2) g/dL Albumin 3.2 L (3.5-5.0) g/dL Influenza Type A (PCR) (Not Detectd) Influenza Type B (PCR) (Not Detectd) RSV (PCR) (Not Detectd) SARS-CoV-2 (PCR) (Not Detectd) 07/10/24 07/10/24 07/10/24 Range/Units 08:34 08:34 11:57 WBC (3.8-10.6) k/uL RBC (4.30-5.90) m/uL Hgb (13.0-17.5) gm/dL Hct (39.0-53.0) % MCV (80.0-100.0) fL MCH (25.0-35.0) pg MCHC (31.0-37.0) g/dL RDW (11.5-15.5) % Plt Count (150-450) k/uL MPV Neutrophils % % Lymphocytes % % Monocytes % % Eosinophils % % Basophils % % Neutrophils # (1.3-7.7) k/uL Lymphocytes # (1.0-4.8) k/uL Monocytes # (0-1.0) k/uL Eosinophils # (0-0.7) k/uL Basophils # (0-0.2) k/uL Hypochromasia PT (10.0-12.5) sec INR (<1.2) APTT (22.0-30.0) sec Sodium (137-145) mmol/L Potassium (3.5-5.1) mmol/L Chloride (98-107) mmol/L Carbon Dioxide (22-30) mmol/L Anion Gap mmol/L BUN (9-20) mg/dL Creatinine (0.66-1.25) mg/dL Est GFR (CKD-EPI)AfAm (>60 ml/min/1.73 sqM) Est GFR (CKD-EPI)NonAf (>60 ml/min/1.73 sqM) Glucose (74-99) mg/dL POC Glucose (mg/dL) (70-110) mg/dL POC Glu Air Conditioning Manager ID Calcium (8.4-10.2) mg/dL Magnesium (1.6-2.3) mg/dL Total Bilirubin (0.2-1.3) mg/dL AST (17-59) U/L ALT (4-49) U/L Alkaline Phosphatase (38-126) U/L Troponin I 0.016 0.015 (0.000-0.034) ng/mL NT-Pro-B Natriuret Pep pg/mL Total Protein (6.3-8.2) g/dL Albumin (3.5-5.0) g/dL Influenza Type A (PCR) Not Detected (Not Detectd) Influenza Type B (PCR) Not Detected (Not Detectd) RSV (PCR) Not Detected (Not Detectd) SARS-CoV-2 (PCR) Not Detected (Not Detectd) 07/10/24 07/10/24 07/10/24 Range/Units 14:00 16:11 17:57 WBC (3.8-10.6) k/uL RBC (4.30-5.90) m/uL Hgb (13.0-17.5) gm/dL Hct (39.0-53.0) % MCV (80.0-100.0) fL MCH (25.0-35.0) pg MCHC (31.0-37.0) g/dL RDW (11.5-15.5) % Plt Count (150-450) k/uL MPV Neutrophils % % Lymphocytes % % Monocytes % % Eosinophils % % Basophils % % Neutrophils # (1.3-7.7) k/uL Lymphocytes # (1.0-4.8) k/uL Monocytes # (0-1.0) k/uL Eosinophils # (0-0.7) k/uL Basophils # (0-0.2) k/uL Hypochromasia PT (10.0-12.5) sec INR (<1.2) APTT (22.0-30.0) sec Sodium (137-145) mmol/L Potassium (3.5-5.1) mmol/L Chloride (98-107) mmol/L Carbon Dioxide (22-30) mmol/L Anion Gap mmol/L BUN (9-20) mg/dL Creatinine (0.66-1.25) mg/dL Est GFR (CKD-EPI)AfAm (>60 ml/min/1.73 sqM) Est GFR (CKD-EPI)NonAf (>60 ml/min/1.73 sqM) Glucose (74-99) mg/dL POC Glucose (mg/dL) 127 H 171 H (70-110) mg/dL POC Glu Air Conditioning Manager ID Rhody Stephanie Rhody Stephanie Calcium (8.4-10.2) mg/dL Magnesium (1.6-2.3) mg/dL Total Bilirubin (0.2-1.3) mg/dL AST (17-59) U/L ALT (4-49) U/L Alkaline Phosphatase (38-126) U/L Troponin I <0.012 (0.000-0.034) ng/mL NT-Pro-B Natriuret Pep pg/mL Total Protein (6.3-8.2) g/dL Albumin (3.5-5.0) g/dL Influenza Type A (PCR) (Not Detectd) Influenza Type B (PCR) (Not Detectd) RSV (PCR) (Not Detectd) SARS-CoV-2 (PCR) (Not Detectd) 07/10/24 07/11/24 Range/Units 20:01 06:10 WBC (3.8-10.6) k/uL RBC (4.30-5.90) m/uL Hgb (13.0-17.5) gm/dL Hct (39.0-53.0) % MCV (80.0-100.0) fL MCH (25.0-35.0) pg MCHC (31.0-37.0) g/dL RDW (11.5-15.5) % Plt Count (150-450) k/uL MPV Neutrophils % % Lymphocytes % % Monocytes % % Eosinophils % % Basophils % % Neutrophils # (1.3-7.7) k/uL Lymphocytes # (1.0-4.8) k/uL Monocytes # (0-1.0) k/uL Eosinophils # (0-0.7) k/uL Basophils # (0-0.2) k/uL Hypochromasia PT (10.0-12.5) sec INR (<1.2) APTT (22.0-30.0) sec Sodium (137-145) mmol/L Potassium (3.5-5.1) mmol/L Chloride (98-107) mmol/L Carbon Dioxide (22-30) mmol/L Anion Gap mmol/L BUN (9-20) mg/dL Creatinine (0.66-1.25) mg/dL Est GFR (CKD-EPI)AfAm (>60 ml/min/1.73 sqM) Est GFR (CKD-EPI)NonAf (>60 ml/min/1.73 sqM) Glucose (74-99) mg/dL POC Glucose (mg/dL) 124 H 111 H (70-110) mg/dL POC Glu Air Conditioning Manager ID [facility] Calcium (8.4-10.2) mg/dL Magnesium (1.6-2.3) mg/dL Total Bilirubin (0.2-1.3) mg/dL AST (17-59) U/L ALT (4-49) U/L Alkaline Phosphatase (38-126) U/L Troponin I (0.000-0.034) ng/mL NT-Pro-B Natriuret Pep pg/mL Total Protein (6.3-8.2) g/dL Albumin (3.5-5.0) g/dL Influenza Type A (PCR) (Not Detectd) Influenza Type B (PCR) (Not Detectd) RSV (PCR) (Not Detectd) SARS-CoV-2 (PCR) (Not Detectd) Coagulation 07/10/24 Range/Units 08:34 PT 13.4 H (10.0-12.5) sec APTT 26.4 (22.0-30.0) sec CBC 07/10/24 Range/Units 08:34 WBC 9.8 (3.8-10.6) k/uL RBC 5.03 (4.30-5.90) m/uL Hgb 14.0 (13.0-17.5) gm/dL Hct 45.4 (39.0-53.0) % Plt Count 237 (150-450) k/uL Comprehensive Metabolic Panel 07/10/24 Range/Units 08:34 Sodium 139 (137-145) mmol/L Potassium 4.5 (3.5-5.1) mmol/L Chloride 99 (98-107) mmol/L Carbon Dioxide 34 H (22-30) mmol/L BUN 17 (9-20) mg/dL Creatinine 0.91 (0.66-1.25) mg/dL Glucose 149 H (74-99) mg/dL Calcium 8.6 (8.4-10.2) mg/dL AST 29 (17-59) U/L ALT 27 (4-49) U/L Alkaline Phosphatase 105 (38-126) U/L Total Protein 6.3 (6.3-8.2) g/dL Albumin 3.2 L (3.5-5.0) g/dL Current Medications Generic Name Dose Route Start Last Admin Trade Name Freq PRN Reason Stop Dose Admin Acetaminophen 650 mg 07/10/24 10:54 Acetaminophen Tab 325 Mg Tab PO Q6HR PRN Mild Pain or Fever > 100.5 Albuterol Sulfate 2.5 mg 07/10/24 20:00 07/11/24 08:02 Albuterol Nebulized 2.5 Mg/3 Ml INHALATION 2.5 mg RT-TID RANDELL Administration Apixaban 5 mg 07/10/24 21:00 07/10/24 20:49 Apixaban 5 Mg Tab PO 5 mg BID RANDELL Administration Protocol Aspirin 81 mg 07/11/24 09:00 Aspirin 81 Mg PO DAILY RANDELL Atorvastatin Calcium 40 mg 07/10/24 21:00 07/10/24 20:49 Atorvastatin 40 Mg Tab PO 40 mg HS RANDELL Administration Budesonide 0.5 mg 07/10/24 20:00 07/11/24 08:03 Budesonide 0.5 Mg/2 Ml Nebu INHALATION 0.5 mg RT-BID RANDELL Administration Budesonide/Formoterol Fumarate 2 puff 07/10/24 15:49 Symbicort 160-4.5 Mcg Inhaler INHALATION RT-BID PRN Shortness Of Breath Dextrose/Water 25 ml 07/10/24 18:03 Dextrose 50% Syringe 50 Ml IVP PER PROTOCOL PRN Hypoglycemia Protocol Dextrose/Water 50 ml 07/10/24 18:03 Dextrose 50% Syringe 50 Ml IVP PER PROTOCOL PRN Hypoglycemia Protocol Furosemide 20 mg 07/10/24 16:15 07/10/24 17:19 Furosemide 20 Mg Tab PO Not Given DAILY RANDELL Gabapentin 100 mg 07/10/24 15:49 Gabapentin 100 Mg Cap PO BID PRN Pain Guaifenesin 200 mg 07/10/24 16:53 07/10/24 17:23 Guaifenesin Syrup 100mg/5ml 200 Mg/10 Ml Cup PO 200 mg Q6HR PRN Administration Cough Hydralazine HCl 50 mg 07/10/24 21:00 07/10/24 20:49 Hydralazine Hcl 50 Mg Tab PO 50 mg BID RANDELL Administration Insulin Glargine 12 unit 07/11/24 07:00 Insulin Glargine (Lantus) 100 Unit/Ml Syr SQ DAILY@0700 [facility] Insulin Human Lispro 0 unit 07/10/24 21:00 07/11/24 06:15 Insulin Lispro (Humalog) 100 Unit/Ml 10 Ml Vl SQ Not Given ACHS [facility] Protocol Isosorbide Mononitrate 30 mg 07/11/24 09:00 Isosorbide Mononitrate Er 30 Mg Tab.Er.24h PO DAILY [facility] Montelukast Sodium 10 mg 07/11/24 09:00 Montelukast 10 Mg Tab PO DAILY [facility] Naloxone HCl 0.2 mg 07/10/24 10:54 Naloxone 0.4 Mg/Ml 1 Ml Vial IV Q2M PRN Opioid Reversal Intake and Output 07/10/24 07/11/24 07/11/24 22:59 06:59 14:59 Intake Total 240 Balance 240 Intake: Oral 240 Other: Voiding Method Toilet # Voids 2 3 Weight 124.738 kg 07/10/24 08:34 07/10/24 08:34
--- NOTE | 2024-07-11 11:52 | CA ---
Lexiscan Nuclear Stress Test Report Name: Teddy Clements Exam Date: 07/11/2024 10:05 Exam Location: [place] Stress Ht (in): 70 Wt (lb): 275 BSA: 2.39 Ordering Phys: Harmony Whitfield Referring Phys: Loretta Bynum MD Technologist: Piter Jarrett Age: 84 Gender: M : 1940 Procedure CPT: Indications: Reflex order-Stress test ICD-10 Codes: Patient History: CHEST PAIN, HTN, DIABETIC, PRIOR HEART CATH, HYPERCHOLESTEROLEMIA, COPD, ASTHMA Medications: SEE LIST,,, Meds past 24 hrs: Pretest Chest Pain: STRESS TEST Lexiscan Protocol Exercise Duration (min:sec): 02:[address] Depressions (mm): Angina Score: Calabrese Score: Resting HR (bpm): 51 Peak HR (bpm): 64 Resting BP (mmHg): 153 / 75 Peak BP (mmHg): 153 / 75 MPHR: 135 Target HR: 115 % MPHR: 47 METS: 1.0 Total Dose: Peak Dose: Atropine: Double Product: 9792 BP Response: Stress Termination: INFUSION COMPLETE Stress Symptoms: NO SYMPTOMS Stress Summary: ECG ANALYSIS Resting ECG: Stress ECG: CONCLUSIONS Lexiscan Cardiolite stress test shows abnormal EKG at baseline with a [address] depression inferior laterally No new changes noted during Lexiscan infusion Nuclear portion will be reported separately Dr. Angelo Chavez MD (Electronically Signed) Final Date: 11 July 2024 11:51
[2024-07-11 12:10] LABS: Glucose,Whole Blood 115 mg/dL (70-110)
--- NOTE | 2024-07-11 12:28 | NM ---
EXAMINATION TYPE: NM stress lexiscan cardiolite DATE OF EXAM: 07/11/2024 COMPARISON: Prior CTA aorta 2017 CLINICAL INDICATION: Male, 84 years old with history of chest pain; history of hypertension and diabe olu along with COPD and asthma. TECHNIQUE: After the intravenous administration of 10.4 mCi Tc 99m Sestamibi - Cardiolite resting SP ECT images acquired 60 minutes post injection. The patient received 0.4mg Lexiscan, 26 mCi Tc 99m Sestamibi - Stress images obtained 50 minutes post injection FINDINGS: Review of stress and rest SPECT images demonstrates no distinct perfusion abnormality. Gated analysi s shows normal wall motion with an estimated left ventricular ejection fraction of 60 %. IMPRESSION: No scintigraphic evidence for reversible ischemia. [facility], , 07/11/2024 12:26 PM
[2024-07-11 12:45] VITALS: PULSE 60
[2024-07-11] MEDS: INSULIN GLARGINE (LANTUS) 100 UNIT/ML SYR SQ SCH (13:03)
--- NOTE | 2024-07-11 13:31 | P.DS ---
Providers Date of admission: 07/10/24 10:55 Expected date of discharge: 07/11/24 Attending physician: Nj Lewis Consults: 07/10/24 10:54 Consult Physician Routine Consulting Provider: Loretta Bynum Consult Reason/Comments: CP Do you want consulting provider notified?: Yes Primary care physician: Kristel Cuadra Hospital Course: Discharge diagnoses: Chest pain: History of CAD status post cardiac catheterization in May 2023 showing calcified coronary artery disease, moderate disease in proximal LAD, mild disease in left circumflex and RCA Aortic stenosis status post TAVR in June 2023: Paroxysmal atrial fibrillation on Eliquis Bradycardia Hypertension Hyperlipidemia Diabetes mellitus Aortic aneurysm Obstructive sleep apnea COPD: Presented with chest pain, troponin and EKG remain negative. Home medications resumed. Cardiology consulted, underwent Lexiscan stress test which was unremarkable. Okay to discharge per cardiology. Continue home meds, metoprolol dose decreased to 25 mg daily due to bradycardia, last atorvastatin increased to 80 mg daily. Outpatient follow-up with cardiology. Hospital course: 84-year-old male patient with past medical history significant for coronary artery disease, history of aortic stenosis status post TAVR last year, atrial fibrillation on Eliquis, hypertension, hyperlipidemia, diabetes mellitus, and aortic aneurysm who presented to ER with a complaint of left-sided chest pain. Patient stated that he follows with cardiology, just had echocardiogram last week. Patient started to have left-sided chest pain radiating to left shoulder and neck last night it was on and off, no relieving or aggravating factors, did not change with breathing or movements, also reported dry cough. Patient denied any fever, chills, nausea vomiting or constipation abdominal pain dysuria urgency frequency weakness or numbness of extremities. Patient is afebrile, bradycardic with heart rate 46 to 50s, respiratory rate 16, blood pressure 141/69, saturating 96% on room air. WBCs 9.8, hemoglobin 14.0, platelet 237. INR 1.3. BMP unremarkable. EKG negative for acute process. Troponin negative x 2. Viral panel negative. Chest x-ray showed COPD changes, no acute process. Patient was admitted hospital for further evaluation and management. Troponin remained negative. Cardiology consulted, chest pain atypical, patient underwent Lexiscan stress test which was unremarkable, okay to discharge per cardiology outpatient follow-up in 1 to 2 weeks. Patient home medication resumed at discharge. Statin dose increased to 80 mg daily at discharge. Patient continued on Lasix hydralazine with Imdur. Metoprolol dose was decreased to 25 mg daily due to bradycardia. Please refer to med rec and assessment for further details. Follow-up with PCP in 1 week Follow-up with cardiology as outpatient. PHYSICAL EXAMINATION: GENERAL: The patient is A&O x3, NAD HEENT: EOMI, Sclerae anicteric, Moist Mucous membranes Neck: Supple, Non tender, No JVD PULMONARY: Equal breath souds B/L, No wheezing, No crackles. CARDIOVASCULAR: S1, S2 present. No murmurs, rubs, or gallops. ABDOMEN: Soft, nontender, nondistended, normoactive bowel sounds. No guarding or rebound tenderness. MUSCULOSKELETAL: No edema, No cyanosis. No clubbing. Normal ROM. Intact peripheral pulses. NEUROLOGICAL: CN 2-12 grossly intact. No FND SKIN: No rashes. Dictation was produced using Pica[employer] dictation software. please excuse any grammatical, word or spelling errors. Patient Condition at Discharge: Fair Plan - Discharge Summary New Discharge Prescriptions: New Atorvastatin [Lipitor] 80 mg PO HS #30 tab guaiFENesin SYRUP 100MG/5ML [Robitussin] 200 mg PO Q6HR PRN #100 ml PRN Reason: Cough Continue Insulin Glargine,Hum.rec.anlog [Lantus Solostar Pen] 12 unit SQ DAILY Apixaban [Eliquis] 5 mg PO BID Fluticasone/Vilanterol [Breo Ellipta 100-25 Mcg Inhaler] 1 puff INHALATION RT-BID PRN PRN Reason: Shortness Of Breath hydrALAZINE HCL [Apresoline] 50 mg PO BID Montelukast [Singulair] 10 mg PO DAILY Metoprolol Succinate (ER) [Toprol XL] 50 mg PO DAILY Gabapentin [Neurontin] 100 mg PO BID PRN PRN Reason: Pain Albuterol Nebulized [Ventolin Nebulized] 2.5 mg INHALATION RT-TID Mv-Min/Folic/K1/Lycopen/Lutein [Centrum Silver Men Tablet] 1 tab PO DAILY Budesonide 0.5 mg INHALATION RT-BID Isosorbide Mononitrate ER [Imdur] 30 mg PO DAILY Furosemide [Lasix] 20 mg PO DAILY SILVER sulfADIAZINE CREAM [Silvadene Cream] 1 applic TOPICAL BID Nystatin/Triamcin [Nystatin-Triamcinolone Cream] 1 applic TOPICAL BID Discontinued Atorvastatin [Lipitor] 40 mg PO HS Discharge Medication List Insulin Glargine,Hum.rec.anlog [Lantus Solostar Pen] 12 unit SQ DAILY 06/24/20 [History] Budesonide 0.5 mg INHALATION RT-BID 01/21/23 [History] Mv-Min/Folic/K1/Lycopen/Lutein [Centrum Silver Men Tablet] 1 tab PO DAILY 01/21/23 [History] Furosemide [Lasix] 20 mg PO DAILY 04/24/23 [History] Isosorbide Mononitrate ER [Imdur] 30 mg PO DAILY 04/24/23 [History] Apixaban [Eliquis] 5 mg PO BID 05/23/23 [History] Fluticasone/Vilanterol [Breo Ellipta 100-25 Mcg Inhaler] 1 puff INHALATION RT- BID PRN 05/28/23 [History] Albuterol Nebulized [Ventolin Nebulized] 2.5 mg INHALATION RT-TID 07/10/24 [History] Gabapentin [Neurontin] 100 mg PO BID PRN 07/10/24 [History] Metoprolol Succinate (ER) [Toprol XL] 50 mg PO DAILY 07/10/24 [History] Montelukast [Singulair] 10 mg PO DAILY 07/10/24 [History] Nystatin/Triamcin [Nystatin-Triamcinolone Cream] 1 applic TOPICAL BID 07/10/24 [History] SILVER sulfADIAZINE CREAM [Silvadene Cream] 1 applic TOPICAL BID 07/10/24 [History] hydrALAZINE HCL [Apresoline] 50 mg PO BID 07/10/24 [History] Atorvastatin [Lipitor] 80 mg PO HS #30 tab 07/11/24 [Rx] guaiFENesin SYRUP 100MG/5ML [Robitussin] 200 mg PO Q6HR PRN #100 ml 07/11/24 [Rx] Follow up Appointment(s)/Referral(s): Loretta Bynum MD [STAFF PHYSICIAN] - 1 Week Kristel uCadra MD [Primary Care Provider] - 1-2 days Discharge Disposition: HOME SELF-CARE
[2024-07-11 13:38] VITALS: BP 147/66; RESP 14
[2024-07-11] MEDS ORDERED: ATORVASTATIN 80 MG TAB PO SCH (21:00)
== END 2024-07-11 15:24 | disposition home or self-care (01) ==
LOC: EC 08:20 → 6NMEDSUR 10:55
PROVIDERS: ADMIT Hospitalist; ATTEND Hospitalist
DX: R07.89 Other chest pain (principal); I48.19 Other persistent atrial fibrillation; I25.10 Atherosclerotic heart disease of native coronary artery without angina pectoris; I08.1 Rheumatic disorders of both mitral and tricuspid valves; I10 Essential (primary) hypertension; E78.5 Hyperlipidemia, unspecified; I71.9 Aortic aneurysm of unspecified site, without rupture; E11.51 Type 2 diabetes mellitus with diabetic peripheral angiopathy without gangrene; R00.1 Bradycardia, unspecified; J44.9 Chronic obstructive pulmonary disease, unspecified; G47.33 Obstructive sleep apnea (adult) (pediatric); M25.512 Pain in left shoulder; Z11.52 Encounter for screening for COVID-19; Z11.59 Encounter for screening for other viral diseases; Z79.01 Long term (current) use of anticoagulants; Z79.51 Long term (current) use of inhaled steroids; Z79.4 Long term (current) use of insulin; Z79.899 Other long term (current) drug therapy; Z87.891 Personal history of nicotine dependence; Z95.2 Presence of prosthetic heart valve; Z95.5 Presence of coronary angioplasty implant and graft
CPT/HCPCS: 99285; 36415; 94640 ×3; 93005; 93017; 83880; 80053; 83735; 84484; 85025; 85610; 85730; 87636; 71046; 78452; G0378 ×2; A9500; J2785

== ENCOUNTER 2024-07-26 08:46 | Emergency (ER) | payer MEDICARE ==
[2024-07-26 08:53] VITALS: BP 169/78; PULSE 53; TEMP 99.5
--- NOTE | 2024-07-26 09:11 | ED ---
Upper Extremity HPI - General Chief Complaint: Extremity Injury, Upper Stated Complaint: Left arm pain Time Seen by Provider: 07/26/24 09:08 Source: patient, family, RN notes reviewed Mode of arrival: wheelchair Limitations: no limitations - History of Present Illness Initial Comments: 84-year-old male presented to the ER for evaluation of left elbow pain. Patient reports a sore sharp pain to his left bicep without radiation. He has taken gabapentin and tizanidine for pain control without relief. Denies any paresthesias to left upper extremity. No neck or shoulder pain. Patient was admitted to this hospital earlier this month and had extensive cardiac workup obtained. This was negative. Son, at bedside, states patient has recently been laying on his living room floor lifting weights. When asked what exercises he is completing patient does the motion of a "bicep curl". No chest pain, shortness of breath, dizziness, lightheadedness, nausea or vomiting. No other complaints at this time - Related Data Home Medications Medication Instructions Recorded Confirmed Insulin Glargine,Hum.rec.anlog 12 unit SQ DAILY 06/24/20 07/10/24 [Lantus Solostar Pen] Budesonide 0.5 mg INHALATION RT-BID 01/21/23 07/10/24 Mv-Min/Folic/K1/Lycopen/Lutein 1 tab PO DAILY 01/21/23 07/10/24 [Centrum Silver Men Tablet] Furosemide [Lasix] 20 mg PO DAILY 04/24/23 07/10/24 Isosorbide Mononitrate ER [Imdur] 30 mg PO DAILY 04/24/23 07/10/24 Apixaban [Eliquis] 5 mg PO BID 05/23/23 07/10/24 Fluticasone/Vilanterol [Breo 1 puff INHALATION RT-BID PRN 05/28/23 07/10/24 Ellipta 100-25 Mcg Inhaler] Albuterol Nebulized [Ventolin 2.5 mg INHALATION RT-TID 07/10/24 07/10/24 Nebulized] Gabapentin [Neurontin] 100 mg PO BID PRN 07/10/24 07/10/24 Montelukast [Singulair] 10 mg PO DAILY 07/10/24 07/10/24 Nystatin/Triamcin 1 applic TOPICAL BID 07/10/24 07/10/24 [Nystatin-Triamcinolone Cream] SILVER sulfADIAZINE CREAM 1 applic TOPICAL BID 07/10/24 07/10/24 [Silvadene Cream] hydrALAZINE HCL [Apresoline] 50 mg PO BID 07/10/24 07/10/24 Previous Rx's Medication Instructions Recorded Atorvastatin [Lipitor] 80 mg PO HS #30 tab 07/11/24 Metoprolol Succinate (ER) [Toprol 25 mg PO DAILY #30 tab 07/11/24 Xl] guaiFENesin SYRUP 100MG/5ML 200 mg PO Q6HR PRN #100 ml 07/11/24 [Robitussin] Allergies Allergy/AdvReac Type Severity Reaction Status Date / Time No Known Allergies Allergy Verified 07/26/24 08:53 Review of Systems ROS Statement: Those systems with pertinent positive or pertinent negative responses have been documented in the HPI. ROS Other: All systems not noted in ROS Statement are negative. Past Medical History Past Medical History: Atrial Fibrillation, Coronary Artery Disease (CAD), Can cer, COPD, Diabetes Mellitus, GERD/Reflux, GI Bleed, Hyperlipidemia, Hypertension, Myocardial Infarction (ND), Osteoarthritis (OA), Sleep Apnea/CPAP/BIPAP, Vascular Disorder Additional Past Medical History / Comment(s): Aortic aneurysm being followed by Dr. Bynum, hx skin cancer, GI bleed and COVID 06/2020, diverticulitis. uses CPAP. sinus issues sees Dr López. allergies. 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 Absent: tenderness, meningismus, lymphadenopathy Respiratory exam: Present: normal lung sounds bilaterally. Absent: respiratory distress, wheezes, rales, rhonchi, stridor Cardiovascular Exam: Present: regular rate, normal rhythm, normal heart sounds. Absent: systolic murmur, diastolic murmur, rubs, gallop, clicks Extremities exam: Present: normal inspection, full ROM, tenderness (left medial epicondyle and distal bicep), normal capillary refill Neurological exam: Present: alert, oriented X3, CN II-XII intact Skin exam: Present: warm, dry, intact, normal color. Absent: rash Course Vital Signs 07/26/24 07/26/24 08:50 10:45 Temperature 99.5 F Pulse Rate 53 L Respiratory 16 18 Rate Blood Pressure 169/78 O2 Sat by Pulse 97 Oximetry Medical Decision Making - Medical Decision Making Was pt. sent in by a medical professional or institution (, PA, TEXTURING MACHINE FIXER, urgent care, hospital, or [facility]...) When possible be specific @ -No Did you speak to anyone other than the patient for history (EMS, parent, family, police, friend...)? What history was obtained from this source @ -Patient's son, at bedside, aiding in HPI and past medical history. Did you review nursing and triage notes (agree or disagree)? Why? @ -I reviewed and agree with nursing and triage notes Were old charts reviewed (outside hosp., previous admission, EMS record, old EKG, old radiological studies, urgent care reports/EKG's, [facility] records)? Report findings @ -I reviewed ER visit and hospitalization documentation from 07 11 24. Patient had cardiac workup and Lexiscan stress test completed which was negative. Differential Diagnosis (chest pain, altered mental status, abdominal pain women, abdominal pain men, vaginal bleeding, weakness, fever, dyspnea, syncope, headache, dizziness, GI bleed, back pain, seizure, CVA, palpatations, mental health, musculoskeletal)? @ -Differential Musculoskeletal: Muscular strain, contusion, ligament sprain, fracture, arthritis, septic arthritis, bursitis, cellulitis, muscle spasm, nerve compression, DVT, arterial occlusion, herpes zoster, electrolyte abnormality, tumor.... This is not meant to be in all inclusive list EKG interpreted by me (3pts min.). @ -None done X-rays interpreted by me (1pt min.). @ -Left forearm x-ray negative for acute fractures or dislocations. Degenerative changes noted to elbow. Left humerus x-ray showing no acute fractures or dislocations. Degenerative changes to left elbow. Distal arterial vascular calcifications. CT interpreted by me (1pt min.). @ -None done U/S interpreted by me (1pt. min.). @ -None done What testing was considered but not performed or refused? (CT, X-rays, U/S, labs)? Why? @ -None What meds were considered but not given or refused? Why? @ -None Did you discuss the management of the patient with other professionals (professionals i.e. , PA, TEXTURING MACHINE FIXER, lab, RT, psych nurse, social insurance analyst, dope maintenance worker, teacher, communications officer, classification case manager)? Give summary @ -No Was smoking cessation discussed for >3mins.? @ -No Was critical care preformed (if so, how long)? @ -No Were there social determinants of health that impacted care today? How? (Homelessness, low income, unemployed, alcoholism, drug addiction, transportation, low edu. Level, literacy, decrease access to med. care, longterm, rehab)? @ -No Was there de-escalation of care discussed even if they declined (Discuss DNR or withdrawal of care, Hospice)? DNR status @ -No What co-morbidities impacted this encounter? (DM, HTN, Smoking, COPD, CAD, Cancer, CVA, ARF, Chemo, Hep., AIDS, mental health diagnosis, sleep apnea, morbid obesity)? @ -None Was patient admitted / discharged? Hospital course, mention meds given and route , prescriptions, significant lab abnormalities, going to OR and other pertinent info. @ -Discharge. 84-year-old male presented the ER for evaluation of left arm pain. Vitals within acceptable limits. Left upper extremity is neurovascularly intact. No overlying skin changes. Patient has full active ROM. Tenderness noted to left medial epicondyle and distal bicep. no Ronny sign. Left forearm and humerus x-rays showing degenerative changes with no acute fractures or dislocations. Given patient had extensive cardiac workup on 07 11 24 which was negative, pain believed to be MSK in nature. Patient received p.o. Tylenol and IM Dilaudid for pain control in the emergency department. Upon reevaluation, patient reporting mild improvement of pain. Results discussed with patient and son, at bedside, all questions answered. Patient is stable for discharge with close outpatient follow-up to PCP. Conservative treatment options discussed. Return parameters discussed. Patient discharged stable condition. Patient and patient's son verbally expressed understanding and agreement with care plan. Case discussed with ED attending, Dr. Mayo. Undiagnosed new problem with uncertain prognosis? @ -No Drug Therapy requiring intensive monitoring for toxicity (Heparin, Nitro, Insulin, Cardizem)? @ -No Were any procedures done? @ -No Diagnosis/symptom? @ -Bicep muscle strain Acute, or Chronic, or Acute on Chronic? @ -Acute Uncomplicated (without systemic symptoms) or Complicated (systemic symptoms)? @ -Uncomplicated Side effects of treatment? @ -No Exacerbation, Progression, or Severe Exacerbation? @ -No Poses a threat to life or bodily function? How? (Chest pain, USA, ND, pneumonia, PE, COPD, DKA, ARF, appy, cholecystitis, CVA, Diverticulitis, Homicidal, Suicidal, threat to staff... and all critical care pts) @ -No - Radiology Data Radiology results: report reviewed, image reviewed Disposition Clinical Impression: Biceps muscle strain Disposition: HOME SELF-CARE Condition: Stable Instructions (If sedation given, give patient instructions): Musculoskeletal Pain (ED) Additional Instructions: Follow-up PCP. Return to the ER for any new or worsening concerns Is patient prescribed a controlled substance at d/c from ED?: No Referrals: Kristel Cuadra MD [Primary Care Provider] - 1-2 days Time of Disposition: 10:14
[2024-07-26] MEDS: ACETAMINOPHEN TAB 325 MG TAB PO STA (09:23)
[2024-07-26] MEDS: HYDROmorphone 1 MG/ML 1 ML SYRINGE IM STA (09:24)
--- NOTE | 2024-07-26 09:30 | XR ---
EXAMINATION TYPE: XR forearm LT DATE OF EXAM: 07/26/2024 CLINICAL INDICATION: Male, 84 years old with history of bicep pain, pain TECHNIQUE: Two views of the left forearm are obtained. COMPARISON: None. FINDINGS: Osseous structures are demineralized. There is no acute fracture or dislocation seen in th e leftradius or ulna. Degenerative spurring at the left elbow joint is seen best on lateral view. Yeison e distal arterial vascular calcification is present. IMPRESSION: As above. [facility], , 07/26/2024 9:28 AM
--- NOTE | 2024-07-26 09:54 | XR ---
EXAMINATION TYPE: XR humerus LT DATE OF EXAM: 07/26/2024 CLINICAL INDICATION: Male, 84 years old with history of pain, pain TECHNIQUE: Two views of the left humerus are obtained. COMPARISON: Left forearm x-ray earlier today. FINDINGS: Osseous structures are demineralized There is no acute fracture or dislocation seen in the left humerus. Advanced degenerative change at left elbow is redemonstrated and may be related to old trauma. Overlying soft tissue is unremarkable. IMPRESSION: As above. [facility], , 07/26/2024 9:52 AM
[2024-07-26 10:47] VITALS: RESP 18
== END 2024-07-26 10:47 | disposition home or self-care (01) ==
LOC: EC 08:46
DX: S46.212A Strain of muscle, fascia and tendon of other parts of biceps, left arm, initial encounter (principal); M47.899 Other spondylosis, site unspecified; Z86.16 Personal history of COVID-19; Z87.891 Personal history of nicotine dependence; X50.0XXA Overexertion from strenuous movement or load, initial encounter
CPT/HCPCS: 96372; 73060; 73090; 99284; J1171; 99283

== ENCOUNTER 2024-09-21 09:52 | Emergency (ER) | payer MEDICARE ==
[2024-09-21 10:20] VITALS: BP 164/84; PULSE 47; RESP 20; TEMP 97.4
[2024-09-21] MEDS: SILVER NITRATE APPLICATOR 1 EACH STICK..EA. TOPICAL STA (11:17)
--- NOTE | 2024-09-21 11:29 | ED ---
General Adult HPI - General Chief complaint: ENT Stated complaint: nose bleed,on tinners Time Seen by Provider: 09/21/24 10:59 Source: patient, family Mode of arrival: wheelchair Limitations: no limitations - History of Present Illness Initial comments: Dictation was produced using [employer] dictation software. please excuse any grammatical, word or spelling errors. Chief Complaint: 84-year-old male with epistaxis History of Present Illness: Patient 84-year-old male on anticoagulation medication had left naris nosebleed past couple hours. Patient's bleeding has slowed significantly since being in the ER. Denies any facial trauma The ROS documented in this emergency department record has been reviewed and confirmed by me. Those systems with pertinent positive or negative responses have been documented in the HPI. All other systems are other negative and/or noncontributory. - Related Data Home Medications Medication Instructions Recorded Confirmed Insulin Glargine,Hum.rec.anlog 12 unit SQ DAILY 06/24/20 07/10/24 [Lantus Solostar Pen] Budesonide 0.5 mg INHALATION RT-BID 01/21/23 07/10/24 Mv-Min/Folic/K1/Lycopen/Lutein 1 tab PO DAILY 01/21/23 07/10/24 [Centrum Silver Men Tablet] Furosemide [Lasix] 20 mg PO DAILY 04/24/23 07/10/24 Isosorbide Mononitrate ER [Imdur] 30 mg PO DAILY 04/24/23 07/10/24 Apixaban [Eliquis] 5 mg PO BID 05/23/23 07/10/24 Fluticasone/Vilanterol [Breo 1 puff INHALATION RT-BID PRN 05/28/23 07/10/24 Ellipta 100-25 Mcg Inhaler] Albuterol Nebulized [Ventolin 2.5 mg INHALATION RT-TID 07/10/24 07/10/24 Nebulized] Gabapentin [Neurontin] 100 mg PO BID PRN 07/10/24 07/10/24 Montelukast [Singulair] 10 mg PO DAILY 07/10/24 07/10/24 Nystatin/Triamcinolone Acet 1 applic TOPICAL BID 07/10/24 07/10/24 [Nystatin-Triamcinolone Cream] SILVER sulfADIAZINE CREAM 1 applic TOPICAL BID 07/10/24 07/10/24 [Silvadene Cream] hydrALAZINE HCL [Apresoline] 50 mg PO BID 07/10/24 07/10/24 Previous Rx's Medication Instructions Recorded Atorvastatin [Lipitor] 80 mg PO HS #30 tab 07/11/24 Metoprolol Succinate (ER) [Toprol 25 mg PO DAILY #30 tab 07/11/24 Xl] guaiFENesin SYRUP 100MG/5ML 200 mg PO Q6HR PRN #100 ml 07/11/24 [Robitussin] Allergies Allergy/AdvReac Type Severity Reaction Status Date / Time No Known Allergies Allergy Verified 09/21/24 10:20 Review of Systems ROS Statement: Those systems with pertinent positive or pertinent negative responses have been documented in the HPI. ROS Other: All systems not noted in ROS Statement are negative. Past Medical History Past Medical History: Atrial Fibrillation, Coronary Artery Disease (CAD), Cancer, COPD, Diabetes Mellitus, GERD/Reflux, GI Bleed, Hyperlipidemia, Hypertension, Myocardial Infarction (CT), Osteoarthritis (OA), Sleep Apnea/CPAP/BIPAP, Vascular Disorder Additional Past Medical History / Comment(s): Aortic aneurysm being followed by Dr. Bynum, hx skin cancer, GI bleed and COVID 06/2020, diverticulitis. uses CPAP. sinus issues sees Dr López. allergies. 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 Head: Normocephalic, atraumatic Eyes: PERRLA, EOMI Nose: Mild bleeding from the left nasal septum ENT: Airway patent Chest: Nonlabored breathing Skin: No visual rash, normal skin tone Neuro: Alert and oriented 3 Musculoskeletal: No gross abnormalities Limitations: no limitations Course Vital Signs 09/21/24 10:15 Temperature 97.4 F L Pulse Rate 47 L Respiratory 20 Rate Blood Pressure 164/84 O2 Sat by Pulse 97 Oximetry Medical Decision Making - Medical Decision Making Was pt. sent in by a medical professional or institution (, PA, OIL WELL SERVICE OPERATOR, urgent care, hospital, or group home...) When possible be specific @ -No Did you speak to anyone other than the patient for history (EMS, parent, family, police, friend...)? What history was obtained from this source @ -No Did you review nursing and triage notes (agree or disagree)? Why? @ -I reviewed and agree with nursing and triage notes Were old charts reviewed (outside hosp., previous admission, EMS record, old EKG, old radiological studies, urgent care reports/EKG's, group home records)? Report findings @ -No old charts were reviewed Differential Diagnosis (chest pain, altered mental status, abdominal pain women, abdominal pain men, vaginal bleeding, musculoskeletal, weakness, fever, dyspnea, syncope, headache, dizziness, GI bleed, back pain, seizure, CVA, palpatations, mental health)? @Perforated nasal septum, nasal septal hematoma, epistaxis EKG interpreted by me (3pts min.). @ -None done X-rays interpreted by me (1pt min.). @ -None done CT interpreted by me (1pt min.). @ -None done U/S interpreted by me (1pt. min.). @ -None done What testing was considered but not performed or refused? (CT, X-rays, U/S, labs)? Why? @ -None What meds were considered but not given or refused? Why? @ -None Was smoking cessation discussed for >3mins.? @ -No Were there social determinants of health that impacted care today? How? (Homelessness, low income, unemployed, alcoholism, drug addiction, transportation, low edu. Level, literacy, decrease access to med. care, retirement, rehab)? @ -No Was there de-escalation of care discussed even if they declined (Discuss DNR or withdrawal of care, Hospice)? DNR status @ -No What co-morbidities impacted this encounter? (DM, HTN, Smoking, COPD, CAD, Cancer, CVA, ARF, Chemo, Hep., AIDS, mental health diagnosis, sleep apnea, morbid obesity)? @ -Anticoagulation use Was patient admitted / discharged? Hospital course, mention meds given and route, prescriptions, significant lab abnormalities, going to OR and other pertinent info. @ -84-year-old male with epistaxis. Vital signs stable. Silver nitrate stick was used to cauterize left nasal septum bleeding. Patient monitored in the emergency department Did you discuss the management of the patient with other professionals (professionals i.e. , PA, OIL WELL SERVICE OPERATOR, lab, RT, psych nurse, adoption social worker, judicial registrar, teacher, strategic debriefing officer, case management social worker)? Give summary @ -No Was critical care preformed (if so, how long)? @ -No Undiagnosed new problem with uncertain prognosis? @ -No Drug Therapy requiring intensive monitoring for toxicity (Heparin, Nitro, Insulin, Cardizem)? @ -No Were any procedures done? @ -No Diagnosis/symptom? Acute, or Chronic, or Acute on Chronic? Uncomplicated (without systemic symptoms) or Complicated (systemic symptoms)? @ -Epistaxis Side effects of treatment? @ -No Exacerbation, Progression, or Severe Exacerbation? @ -No Poses a threat to life or bodily function? How? (Chest pain, USA, CT, pneumonia, PE, COPD, DKA, ARF, appy, cholecystitis, CVA, Diverticulitis, Homicidal, Suicidal, threat to staff... and all critical care pts) @ -No Disposition Clinical Impression: Bleeding nose Disposition: HOME SELF-CARE Condition: Fair Instructions (If sedation given, give patient instructions): Nosebleed (ED) Is patient prescribed a controlled substance at d/c from ED?: No Referrals: Kristel Cuadra MD [Primary Care Provider] - 1-2 days Time of Disposition: 11:29
== END 2024-09-21 12:29 | disposition home or self-care (01) ==
LOC: EC 09:52
DX: R04.0 Epistaxis (principal); Z87.891 Personal history of nicotine dependence; Z79.01 Long term (current) use of anticoagulants
CPT/HCPCS: 30901; 99283

== ENCOUNTER 2024-09-21 14:18 | Emergency (ER) | payer MEDICARE ==
--- NOTE | 2024-09-21 14:33 | ED ---
General Adult HPI - General Chief complaint: ENT Stated complaint: Nose bleeding Time Seen by Provider: 09/21/24 14:24 Source: patient Mode of arrival: wheelchair Limitations: no limitations - History of Present Illness Initial comments: Dictation was produced using [employer] dictation software. please excuse any grammatical, word or spelling errors. Chief Complaint: 84-year-old male with recurrent nosebleed History of Present Illness: Patient 84-year-old male seen in the emergency department for left nosebleed. Patient was seen earlier where silver nitrate stick was used to cauterize the suspected source of bleeding. He got home after being discharged and bleeding returned. The ROS documented in this emergency department record has been reviewed and confirmed by me. Those systems with pertinent positive or negative responses have been documented in the HPI. All other systems are other negative and/or noncontributory. - Related Data Home Medications Medication Instructions Recorded Confirmed Insulin Glargine,Hum.rec.anlog 12 unit SQ DAILY 06/24/20 07/10/24 [Lantus Solostar Pen] Budesonide 0.5 mg INHALATION RT-BID 01/21/23 07/10/24 Mv-Min/Folic/K1/Lycopen/Lutein 1 tab PO DAILY 01/21/23 07/10/24 [Centrum Silver Men Tablet] Furosemide [Lasix] 20 mg PO DAILY 04/24/23 07/10/24 Isosorbide Mononitrate ER [Imdur] 30 mg PO DAILY 04/24/23 07/10/24 Apixaban [Eliquis] 5 mg PO BID 05/23/23 07/10/24 Fluticasone/Vilanterol [Breo 1 puff INHALATION RT-BID PRN 05/28/23 07/10/24 Ellipta 100-25 Mcg Inhaler] Albuterol Nebulized [Ventolin 2.5 mg INHALATION RT-TID 07/10/24 07/10/24 Nebulized] Gabapentin [Neurontin] 100 mg PO BID PRN 07/10/24 07/10/24 Montelukast [Singulair] 10 mg PO DAILY 07/10/24 07/10/24 Nystatin/Triamcinolone Acet 1 applic TOPICAL BID 07/10/24 07/10/24 [Nystatin-Triamcinolone Cream] SILVER sulfADIAZINE CREAM 1 applic TOPICAL BID 07/10/24 07/10/24 [Silvadene Cream] hydrALAZINE HCL [Apresoline] 50 mg PO BID 07/10/24 07/10/24 Previous Rx's Medication Instructions Recorded Atorvastatin [Lipitor] 80 mg PO HS #30 tab 07/11/24 Metoprolol Succinate (ER) [Toprol 25 mg PO DAILY #30 tab 07/11/24 Xl] guaiFENesin SYRUP 100MG/5ML 200 mg PO Q6HR PRN #100 ml 07/11/24 [Robitussin] Cephalexin [Keflex] 500 mg PO Q12HR 7 Days #14 cap 09/21/24 Allergies Allergy/AdvReac Type Severity Reaction Status Date / Time No Known Allergies Allergy Verified 09/21/24 14:23 Review of Systems ROS Statement: Those systems with pertinent positive or pertinent negative responses have been documented in the HPI. ROS Other: All systems not noted in ROS Statement are negative. Past Medical History Past Medical History: Atrial Fibrillation, Coronary Artery Disease (CAD), Cancer, COPD, Diabetes Mellitus, GERD/Reflux, GI Bleed, Hyperlipidemia, Hypertension, Myocardial Infarction ([place]), Osteoarthritis (OA), Sleep Apnea/CPAP/BIPAP, Vascular Disorder Additional Past Medical History / Comment(s): Aortic aneurysm being followed by Dr. Bynum, hx skin cancer, GI bleed and COVID 06/2020, diverticulitis. uses CPAP. sinus issues sees Dr López. allergies. 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 Head: Normocephalic, atraumatic Eyes: PERRLA, EOMI ENT: Airway patent Chest: Nonlabored breathing Skin: No visual rash, normal skin tone Neuro: Alert and oriented 3 Musculoskeletal: No gross abnormalities Limitations: no limitations Course Vital Signs 09/21/24 14:21 Temperature 97.9 F Pulse Rate 56 L Respiratory 16 Rate Blood Pressure 172/82 O2 Sat by Pulse 97 Oximetry Medical Decision Making - Medical Decision Making Was pt. sent in by a medical professional or institution (, PA, NET COORDINATOR, urgent care, hospital, or fci...) When possible be specific @ -No Did you speak to anyone other than the patient for history (EMS, parent, family, police, friend...)? What history was obtained from this source @ -Son as described above Did you review nursing and triage notes (agree or disagree)? Why? @ -I reviewed and agree with nursing and triage notes Were old charts reviewed (outside hosp., previous admission, EMS record, old EKG, old radiological studies, urgent care reports/EKG's, fci records)? Report findings @ -No old charts were reviewed Differential Diagnosis (chest pain, altered mental status, abdominal pain women, abdominal pain men, vaginal bleeding, musculoskeletal, weakness, fever, dyspnea, syncope, headache, dizziness, GI bleed, back pain, seizure, CVA, palpatations, mental health)? @ -Anterior nosebleed, posterior nosebleed, facial fracture EKG interpreted by me (3pts min.). @ -None done X-rays interpreted by me (1pt min.). @ -None done CT interpreted by me (1pt min.). @ -None done U/S interpreted by me (1pt. min.). @ -None done What testing was considered but not performed or refused? (CT, X-rays, U/S, labs)? Why? @ -None What meds were considered but not given or refused? Why? @ -None Was smoking cessation discussed for >3mins.? @ -No Were there social determinants of health that impacted care today? How? (Homelessness, low income, unemployed, alcoholism, drug addiction, transportation, low edu. Level, literacy, decrease access to med. care, prison, rehab)? @ -No Was there de-escalation of care discussed even if they declined (Discuss DNR or withdrawal of care, Hospice)? DNR status @ -No What co-morbidities impacted this encounter? (DM, HTN, Smoking, COPD, CAD, Cancer, CVA, ARF, Chemo, Hep., AIDS, mental health diagnosis, sleep apnea, morbid obesity)? @ -None Was patient admitted / discharged? Hospital course, mention meds given and route, prescriptions, significant lab abnormalities, going to OR and other pertinent info. @ -84-year-old male presents with recurrent nosebleed. Slight bleeding noted from the nasal septum. Left naris packed with control bleeding. Patient discharged with prescription for ENT and antibiotics Did you discuss the management of the patient with other professionals (professionals i.e. , PA, NET COORDINATOR, lab, RT, psych nurse, social service coordinator, business support liaison, teacher, civil preparedness officer, caseworker intake)? Give summary @ -No Was critical care preformed (if so, how long)? @ -No Undiagnosed new problem with uncertain prognosis? @ -No Drug Therapy requiring intensive monitoring for toxicity (Heparin, Nitro, Insulin, Cardizem)? @ -No Were any procedures done? @ -No Diagnosis/symptom? Acute, or Chronic, or Acute on Chronic? Uncomplicated (without systemic symptoms) or Complicated (systemic symptoms)? @ -Epistaxis Side effects of treatment? @ -No Exacerbation, Progression, or Severe Exacerbation? @ -No Poses a threat to life or bodily function? How? (Chest pain, [place], [place], pneumonia, PE, COPD, DKA, ARF, appy, cholecystitis, CVA, Diverticulitis, Homicidal, Suicidal, threat to staff... and all critical care pts) @ -No Disposition Clinical Impression: Bleeding nose Disposition: HOME SELF-CARE Condition: Fair Instructions (If sedation given, give patient instructions): Nosebleed (ED) Prescriptions: Cephalexin [Keflex] 500 mg PO Q12HR 7 Days #14 cap Is patient prescribed a controlled substance at d/c from ED?: No Referrals: Alden Stafford MD [STAFF PHYSICIAN] - 1-2 days Time of Disposition: 14:33
[2024-09-21] MEDS: OXYMETAZOLINE 0.05% NASL SPRAY 1 SPRAY BOTTLE NASAL STA (14:57)
[2024-09-21] MEDS: AMOXIC-POT CLAV 875-125MG 1 EACH TAB PO STA (15:16)
[2024-09-21] MEDS: CEPHALEXIN 500 MG CAP PO STA (15:20)
[2024-09-21] MEDS: CEPHALEXIN 500MG STARTER PACK 4 CAP BTL PO STA (15:21)
[2024-09-21 15:31] VITALS: BP 169/81; PULSE 80; RESP 18; TEMP 98.7
== END 2024-09-21 15:31 | disposition home or self-care (01) ==
LOC: EC 14:18
DX: R04.0 Epistaxis (principal); Z87.891 Personal history of nicotine dependence; Z86.16 Personal history of COVID-19
CPT/HCPCS: 99283

== ENCOUNTER 2024-09-22 03:55 | Emergency (ER) | payer MEDICARE ==
[2024-09-22 03:59] VITALS: TEMP 98
[2024-09-22] MEDS: OXYMETAZOLINE 0.05% NASL SPRAY 1 SPRAY BOTTLE NASAL STA (04:08)
--- NOTE | 2024-09-22 04:17 | ED ---
ENT HPI - General Source: EMS Mode of arrival: EMS - History of Present Illness MD complaint: epistaxis Location: nose <Lenka Lino - Last Filed: 09/22/24 07:31> <Katrin - Last Filed: 09/22/24 11:17> - General Chief complaint: ENT Stated complaint: nose bleed Time Seen by Provider: 09/22/24 04:02 - History of Present Illness Initial comments: Patient is an 84-year-old male with medical history significant for A-fib on anticoagulation presenting for recurrent left naris epistaxis. He presented to the ED earlier today twice for the same symptoms. During his previous ED visits he underwent silver nitrate stick cauterization as well as packing. However he states that his nose started bleeding again while he was trying to sleep and so his son brought him here. He denies any trauma or other injuries to the nares. He denies nausea/vomiting, chest pain, abdominal pain, dyspnea. (Lenka Lino) - Related Data Home Medications Medication Instructions Recorded Confirmed Insulin Glargine,Hum.rec.anlog 12 unit SQ DAILY 06/24/20 09/22/24 [Lantus Solostar Pen] Budesonide 0.5 mg INHALATION RT-BID 01/21/23 09/22/24 Mv-Min/Folic/K1/Lycopen/Lutein 1 tab PO DAILY 01/21/23 09/22/24 [Centrum Silver Men Tablet] Furosemide [Lasix] 20 mg PO DAILY 04/24/23 09/22/24 Isosorbide Mononitrate ER [Imdur] 30 mg PO DAILY 04/24/23 09/22/24 Apixaban [Eliquis] 5 mg PO BID 05/23/23 09/22/24 Albuterol Nebulized [Ventolin 2.5 mg INHALATION RT-TID PRN 07/10/24 09/22/24 Nebulized] Gabapentin [Neurontin] 100 mg PO BID PRN 07/10/24 09/22/24 Montelukast [Singulair] 10 mg PO DAILY 07/10/24 09/22/24 Nystatin/Triamcinolone Acet 1 applic TOPICAL BID PRN 07/10/24 09/22/24 [Nystatin-Triamcinolone Cream] SILVER sulfADIAZINE CREAM 1 applic TOPICAL BID PRN 07/10/24 09/22/24 [Silvadene Cream] hydrALAZINE HCL [Apresoline] 50 mg PO HS 07/10/24 09/22/24 Atorvastatin [Lipitor] 40 mg PO HS 09/22/24 09/22/24 Cyclobenzaprine [Flexeril] 5 mg PO DAILY PRN 09/22/24 09/22/24 Fluticasone/Vilanterol [Breo 1 puff INHALATION RT-DAILY 09/22/24 09/22/24 Ellipta 200-25 Mcg Inhaler] Metoprolol Succinate (ER) [Toprol 50 mg PO HS 09/22/24 09/22/24 Xl] hydrALAZINE HCL [Apresoline] 100 mg PO QAM 09/22/24 09/22/24 Allergies Allergy/AdvReac Type Severity Reaction Status Date / Time No Known Allergies Allergy Verified 09/22/24 08:48 Review of Systems ROS Other: All systems not noted in ROS Statement are negative. Constitutional: Denies: fever, chills ENT: Reports: epistaxis. Denies: throat pain Respiratory: Denies: dyspnea Cardiovascular: Denies: chest pain Gastrointestinal: Denies: abdominal pain, nausea, vomiting <Lenka Lino - Last Filed: 09/22/24 07:31> ROS Other: All systems not noted in ROS Statement are negative. <Katrin Laureano - Last Filed: 09/22/24 11:17> ROS Statement: Those systems with pertinent positive or pertinent negative responses have been documented in the HPI. Past Medical History Past Medical History: Atrial Fibrillation, Coronary Artery Disease (CAD), Cancer, COPD, Diabetes Mellitus, GERD/Reflux, GI Bleed, Hyperlipidemia, Hypertension, Myocardial Infarction ([place]), Osteoarthritis (OA), Sleep Apnea/CPAP/BIPAP, Vascular Disorder Additional Past Medical History / Comment(s): Aortic aneurysm being followed by Dr. Bynum, hx skin cancer, GI bleed and COVID 06/2020, diverticulitis. uses CPAP. sinus issues sees Dr López. allergies. 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, TAVR, heart valvle replacement Past Anesthesia/Blood Transfusion Reactions: No Reported Reaction Past Psychological History: No Psychological Hx Reported Smoking Status: Former smoker Past Alcohol Use History: None Reported Past Drug Use History: None Reported - Past Family History Father Family Medical History: Cancer Mother Family Medical History: Cancer <Lenka Lino - Last Filed: 09/22/24 07:31> General Exam Limitations: no limitations General appearance: alert, in no apparent distress Head exam: Present: atraumatic ENT exam: Present: other (Left naris epistaxis, packing present) Respiratory exam: Present: normal lung sounds bilaterally. Absent: respiratory distress, accessory muscle use Cardiovascular Exam: Present: regular rate, normal rhythm, normal heart sounds. Absent: systolic murmur, diastolic murmur Neurological exam: Present: alert, oriented X3 Psychiatric exam: Present: normal affect, normal mood <MonavictorianotamraLenka - Last Filed: 09/22/24 07:31> Course Vital Signs 09/22/24 09/22/24 09/22/24 03:56 05:32 06:12 Temperature 98 F Pulse Rate 64 60 58 L Respiratory 18 18 18 Rate Blood Pressure 193/82 179/98 155/85 O2 Sat by Pulse 96 96 96 Oximetry 09/22/24 09/22/24 07:35 09:05 Temperature Pulse Rate 51 L 64 Respiratory 20 20 Rate Blood Pressure 161/90 165/95 O2 Sat by Pulse 97 97 Oximetry Medical Decision Making <RodtamraLenka - Last Filed: 09/22/24 07:31> <Katrin Laureano - Last Filed: 09/22/24 11:17> - Medical Decision Making Was pt. sent in by a medical professional or institution (, PA, SLATE ROOFER, urgent care, hospital, or fdc...) When possible be specific @ -No Did you speak to anyone other than the patient for history (EMS, parent, family, police, friend...)? What history was obtained from this source @ -No Did you review nursing and triage notes (agree or disagree)? Why? @ -I reviewed and agree with nursing and triage notes Were old charts reviewed (outside hosp., previous admission, EMS record, old EKG, old radiological studies, urgent care reports/EKG's, fdc records)? Report findings @ -No old charts were reviewed Differential Diagnosis? @ -Anterior epistaxis, posterior epistaxis, trauma, this is not meant to be an all-inclusive list EKG interpreted by me (3pts min.). @ -As above X-rays interpreted by me (1pt min.). @ -None done CT interpreted by me (1pt min.). @ -None done U/S interpreted by me (1pt. min.). @ -None done What testing was considered but not performed or refused? (CT, X-rays, U/S, labs)? Why? @ -None What meds were considered but not given or refused? Why? @ -None Did you discuss the management of the patient with other professionals (professionals i.e. , PA, SLATE ROOFER, lab, RT, psych nurse, social services assistant, edge worker, teacher, fire prevention officer, returned case inspector)? Give summary @ -No Was smoking cessation discussed for >3mins.? @ -No Was critical care preformed (if so, how long)? @ -No Were there social determinants of health that impacted care today? How? (Homelessness, low income, unemployed, alcoholism, drug addiction, transportation, low edu. Level, literacy, decrease access to med. care, custodial, rehab)? @ -No Was there de-escalation of care discussed even if they declined (Discuss DNR or withdrawal of care, Hospice)? DNR status @ -No What co-morbidities impacted this encounter? (DM, HTN, Smoking, COPD, CAD, Cancer, CVA, ARF, Chemo, Hep., AIDS, mental health diagnosis, sleep apnea, morbid obesity)? @ -None Was patient admitted / discharged? Hospital course, mention meds given and route, prescriptions, significant lab abnormalities, going to OR and other pertinent info. @ -Patient is an 82-year-old male on anticoagulation presenting for recurrent left naris epistaxis. At his previous ED visits today he underwent silver nitrate stick cauterization and nasal packing but the bleeding returned. On exam packing was removed and bleeding was noted to be arteriolar in nature. Afrin was sprayed in the left naris which was then packed with cotton and pressure was applied. Merocel was then applied. Patient blood pressure was initially elevated at 193/82, 10 mg IV hydralazine was given and repeat blood pressure was 155/85. Bleeding appears controlled at this point with Merocel. Discussed with patient and family about discharge to home with close ENT follow- up. They are agreeable to this plan. Return precautions discussed. Undiagnosed new problem with uncertain prognosis? @ -No Drug Therapy requiring intensive monitoring for toxicity (Heparin, Nitro, Insulin, Cardizem)? @ -No Were any procedures done? @ -No Diagnosis/symptom? @ -Anterior epistaxis Acute, or Chronic, or Acute on Chronic? @ -Acute Uncomplicated (without systemic symptoms) or Complicated (systemic symptoms)? @ -Uncomplicated Side effects of treatment? @ -No Exacerbation, Progression, or Severe Exacerbation? @ -No Poses a threat to life or bodily function? How? (Chest pain, [place], [place], pneumonia, PE, COPD, DKA, ARF, appy, cholecystitis, CVA, Diverticulitis, Homicidal, Suicidal, threat to staff... and all critical care pts) @ -No (Lenka Lino) I personally saw the patient and performed the critical portion of the service. I discussed the patient care with the resident physician. I directed management, care planning and final disposition of the patient. This includes, but not limited to, review of all lab work, radiological studies, EKG's, consultations, vital signs, and nursing notes. Critical care time of [0] minutes excluding separately billable procedures was spent in conjunction with critical care activities provided by the Resident and Attending simultaneously. I was present during [no procedures] for all critical portions of the procedure and as immediately available to furnish service during the entire procedure. (Katrin Laureano) Disposition Is patient prescribed a controlled substance at d/c from ED?: No <Lenka Lino - Last Filed: 09/22/24 07:31> Is patient prescribed a controlled substance at d/c from ED?: No <Katrin Laureano - Last Filed: 09/22/24 11:17> Clinical Impression: Epistaxis not due to trauma Disposition: HOME SELF-CARE Condition: Stable Instructions (If sedation given, give patient instructions): Nosebleed (ED) Additional Instructions: Every disease is a spectrum and a small chance still exists that a serious condition could develop, for this reason, please monitor yourself closely for new, changing or worsening symptoms, lightheadedness or dizziness, shortness of breath, foul-smelling discharge from your nose, [fever], inability to tolerate/keep down fluids or your medications, inability to follow up with outpatient providers as instructed and should you experience these symptoms or should you have any further concerns for your wellbeing please return to the ED or call 911 immediately. Please keep packing in place and do not manipulate or remove until you are seen by Dr. Galeano, ENT. Call his office immediately for follow-up appointment this coming Sunday. Please do not blow your nose, do not submerge your face in water. Please hold your Eliquis until seen by Dr. Galeano on Sunday. Of note, this does put you at an increased risk for stroke, so please restart your eliquis as soon as possible. Please take your blood pressure medications as prescribed. Please follow-up with your primary care provider regarding your high blood pressure. PLEASE call your primary care physician as soon as possible to arrange / discuss plan for followup appointment. Appointment in the next 1-3 days is strongly encouraged if possible. PLEASE let us know here before you leave if there is anything further we can do to be of any assistance. Take care and feel Better! Referrals: Kristel Cuadra MD [Primary Care Provider] - 1-2 days Jamar Motley MD [STAFF PHYSICIAN] - 1-2 days
[2024-09-22] MEDS ORDERED: hydrALAZINE HCL 50 MG TAB PO STA (04:25)
[2024-09-22] MEDS: SILVER NITRATE APPLICATOR 1 EACH STICK..EA. TOPICAL STA (04:29)
[2024-09-22] MEDS: hydrALAZINE HCL 20 MG/ML 1 ML VIAL IVP STA (05:05)
[2024-09-22 07:37] VITALS: RESP 20
[2024-09-22] MEDS ORDERED: ISOSORBIDE MONONITRATE ER 30 MG TAB.ER.24H PO SCH (09:00)
[2024-09-22] MEDS ORDERED: hydrALAZINE HCL 50 MG TAB PO SCH (09:00)
[2024-09-22 09:05] VITALS: BP 165/95; PULSE 64
== END 2024-09-22 09:10 | disposition home or self-care (01) ==
LOC: EC 03:55
DX: R04.0 Epistaxis (principal); Z87.891 Personal history of nicotine dependence; Z86.16 Personal history of COVID-19
CPT/HCPCS: 30903; 99283; 96374; J0360